=== PATIENT | female | born 1945 | race Caucasian/White ===

== ENCOUNTER 2016-08-26 19:39 | Emergency (ER) | payer OTHER ==
[~2016-08-26] VITALS: Ht 152.4 cm; Wt 77.0 kg
[2016-08-26 19:43] VITALS: TEMP 36.9; Ht 152.4 cm; Wt 77.0 kg
[2016-08-26] MEDS ORDERED: SODIUM CHLORIDE 0.9% 1000ML 1,000 ML IV STA (20:28)
[2016-08-26] MEDS ORDERED: CALCTAB7 PO (20:38)
[2016-08-26] MEDS ORDERED: SPIR25TA PO (20:38)
[2016-08-26] MEDS ORDERED: OMEG10007 PO (20:38)
[2016-08-26] MEDS ORDERED: RESV1CAP PO (20:38)
[2016-08-26] MEDS ORDERED: CARV25TA PO (20:38)
[2016-08-26] MEDS ORDERED: TURM500T PO (20:38)
[2016-08-26] MEDS ORDERED: AMLO-114 PO (20:38)
[2016-08-26] MEDS ORDERED: COEN30CA8 PO (20:38)
[2016-08-26] MEDS ORDERED: ERGO500037 PO (20:38)
[2016-08-26] MEDS ORDERED: LVMI SQ (20:38)
[2016-08-26] MEDS ORDERED: INSPMPHMLG SQ (20:38)
[2016-08-26] MEDS ORDERED: [UNRECOGNIZED DRUG - OTHER] PO (20:38)
[2016-08-26] MEDS ORDERED: MAGN400T6 PO (20:38)
[2016-08-26] MEDS ORDERED: ASPI81TA28 PO (20:38)
[2016-08-26 20:57] LABS: BASO % 0.3 %; BASO ABS # 0.04 K/uL (0-0.2); COMPLETE YES; IG% 0.2 %; LYMPH % 14.8 %; MEAN CELL VOLUME 87.4 fL (80-100); MEAN CORPUSCULAR HEMOGLOBIN 30.3 pg (25-34); MEAN CORPUSCULAR HGB CONC 34.7 g/dl (32-36); MEAN PLATELET VOLUME 10.4 fL (7.4-10.4); MONO % 6.3 %; NEUT % 76.4 %; PLATELET COUNT 285 K/uL (130-400); RED BLOOD COUNT 4.92 M/uL (4.2-5.4); WHITE BLOOD COUNT 12.16 K/uL (4.8-10.8)
--- NOTE | 2016-08-26 21:00 | DIAGNOSTIC IMAGING REPORT ---
SINGLE VIEW CHEST CLINICAL HISTORY: Weakness. Change in mental status. FINDINGS: An AP, portable, upright chest radiograph is obtained. No prior studies are available for comparison at the time of dictation. The examination is degraded by portable technique, large body habitus, and patient rotation. The patient is status post midline sternotomy. The heart is enlarged. The pulmonary vasculature is noncongested. The lungs and pleural spaces are clear. No pneumothorax is seen. The skeletal structures are osteopenic. The bony thorax is grossly intact. Degenerative change is noted throughout the thoracic spine. A surgical clip is seen in the right lower neck. IMPRESSION: Cardiomegaly with no acute cardiopulmonary abnormality. Electronically signed by: Will Mercado M.D. 08/26/2016 8:59 PM Dictated Date/Time: 08/26/2016 8:58 PM
[2016-08-26 21:07] LABS: PARTIAL THROMBOPLASTIN RATIO 0.9; PROTHROMBIN TIME (PATIENT) 10.8 SECONDS (9.0-12.0)
[2016-08-26 21:15] LABS: ALT/SGPT 38 U/L (12-78); BLOOD UREA NITROGEN 35 mg/dl (7-18); BUN/CREATININE RATIO 21.9 (10-20); CALCIUM 9.6 mg/dl (8.5-10.1); CARBON DIOXIDE 24 mmol/L (21-32); CHLORIDE 106 mmol/L (98-107); GLUCOSE 126 mg/dl (70-99); MAGNESIUM 1.8 mg/dl (1.8-2.4); POTASSIUM 4.1 mmol/L (3.5-5.1); SODIUM 141 mmol/L (136-145)
[2016-08-26 21:23] LABS: ALKALINE PHOSPHATASE 64 U/L (45-117); AST/SGOT 21 U/L (15-37); CKMB/CK RATIO 1.8 (0-3.0)
[2016-08-26 21:33] LABS: URINE APPEARANCE CLOUDY (CLEAR); URINE COLOR DK YELLOW; URINE EPITHELIAL CELL AUTO >30 /lpf (0-5); URINE NITRITE NEG (NEG); URINE SPECIFIC GRAVITY 1.027 (1.000-1.030); UROBILINOGEN NEG (NEG); ZZUR CULT IF INDIC CLEAN CATCH YES
[2016-08-26 21:38] LABS: MANUAL MICROSCOPIC REQUIRED? NO; REVIEW REQ? YES
[2016-08-26 21:45] LABS: URINE BILIRUBIN NEG (NEG)
[2016-08-26 22:01] LABS: URINE MUCUS PRESENT (NONE PRSENT)
--- NOTE | 2016-08-26 22:08 | EMERGENCY ROOM VISIT NOTE ---
History Report prepared by Fabiola: Sonya Kaplan Under the Supervision of: Dr. Carlos Stovall D.O. First contact with patient: 20:21 Chief Complaint: ILLNESS Stated Complaint: NEAR SYNCOPE EPISODE, NAUSEA,COLD,CLAMMY History of Present Illness The patient is a 71 year old female who presents to the Emergency Room with complaints of an episode of weakness which occurred at 1915 today. The patient reports that she was eating her dinner when she suddenly felt nauseous and close to fainting. She says she felt lightheaded and dizzy. She is currently feeling back to normal. Her son states that her skin became cold and clammy and that she was breathing "deliberately". He also mentions that she was unresponsive to questions for a brief period of time. She denies vomiting, fainting, chest pain, headache, diarrhea, cold, or cough. She has not been sick recently. Source of History: patient, family (son) Onset: 1914 Position: other (global) Quality: other (weakness) Timing: other (episodic) Associated Symptoms: + nausea, No chest pain, No cough, No diarrhea, No headache, No vomiting Note: Pt reports skin got cold and clammy, feeling dizzy, feeling lightheaded, being unresponsive to questions, and breathing deliberately. Pt denies any syncope or recent colds. Review of Systems See HPI for pertinent positives & negatives. A total of 10 systems reviewed and were otherwise negative. Past Medical & Surgical Medical Problems: (1) Carpal tunnel syndrome, bilateral (2) Diabetes (3) Heart disease (4) Hypertension (5) Kidney disease Surgical Problems: (1) H/O partial thyroidectomy (2) S/P CABG x 5 Family History Diabetes mellitus FHx: seizures Heart disease Social History Smoking Status: Never Smoker Alcohol Use: none Housing Status: lives alone Current/Historical Medications Scheduled Amlodipine (Norvasc), 10 MG PO DAILY Aspirin (Aspirin Ec), 81 MG PO DAILY Calcium Carbonate-Vitamin D W/ (Caltrate 600 Plus), 1 TAB PO BID Carvedilol (Coreg), 25 MG PO BID Coenzyme Q10 (Ubidecarenone) (Coq-10), 1 CAP PO DAILY Ergocalciferol (Vitamin D 19504 Unit), 50,000 UNIT PO WK Fish Oil ([place]-3), 2 CAP PO QAM Insulin Detemir (Levemir), 35 UNITS SQ BID Insulin Human Lispro (Humalog), 25 UNITS SQ TIDM Magnesium Oxide (Mag-Ox), 400 MG PO DAILY Resveratrol (Resveratrol), 1 CAP PO DAILY Spironolactone (Aldactone), 25 MG PO DAILY Turmeric (Curcuma Longa) (Turmeric), 1 TAB PO DAILY [Advanced Cholestrol ], 1 TAB PO DAILY Physical Exam Vital Signs Date Time Temp Pulse Resp B/P Pulse Ox O2 Delivery O2 Flow Rate FiO2 08/26/16 21:24 67 08/26/16 21:07 19 93 Room Air 08/26/16 21:03 67 120/62 63 120/64 72 128/65 08/26/16 19:43 36.9 73 20 119/58 93 Room Air Physical Exam VITAL SIGNS: were reviewed as above. GENERAL:Non-toxic in appearance. SKIN: Warm dry and pink. HEAD: Normocephalic and atraumatic. OROPHARYNX: Is clear and moist NECK: Supple without lymphadenopathy or meningismus. LUNGS: clear. HEART: Regular rate and rhythm. ABDOMEN: Soft and nontender. EXTREMITIES: Warm and well perfused. NEUROLOGICALLY: Awake alert and oriented without focal deficit. Cranial nerves 2 -12 are intact. There is no pronator drift. Cerebellar testing is within normal limits. There is no nystagmus. There is no facial droop. Speech is clear. Vision is grossly normal. MUSCULOSKELETAL: Good muscle tone. No evidence of trauma. Medical Decision & Procedures ER Provider Diagnostic Interpretation: X ray results and stated below per my interpretation and radiology interpretation. SINGLE VIEW CHEST CLINICAL HISTORY: Weakness. Change in mental status. FINDINGS: An AP, portable, upright chest radiograph is obtained. No prior studies are available for comparison at the time of dictation. The examination is degraded by portable technique, large body habitus, and patient rotation. The patient is status post midline sternotomy. The heart is enlarged. The pulmonary vasculature is noncongested. The lungs and pleural spaces are clear. No pneumothorax is seen. The skeletal structures are osteopenic. The bony thorax is grossly intact. Degenerative change is noted throughout the thoracic spine. A surgical clip is seen in the right lower neck. IMPRESSION: Cardiomegaly with no acute cardiopulmonary abnormality. Electronically signed by: Will Mercado M.D. 08/26/2016 8:59 PM Dictated Date/Time: 08/26/2016 8:58 PM Laboratory Results 08/26/16 20:45 Red Blood Count 4.92, Mean Corpuscular Volume 87.4, Mean Corpuscular Hemoglobin 30.3, Mean Corpuscular Hemoglobin Concent 34.7, Mean Platelet Volume 10.4, Neutrophils (%) (Auto) 76.4, Lymphocytes (%) (Auto) 14.8, Monocytes (%) (Auto) 6.3, Eosinophils (%) (Auto) 2.0, Basophils (%) (Auto) 0.3, Neutrophils # (Auto) 9.29, Lymphocytes # (Auto) 1.80, Monocytes # (Auto) 0.76, Eosinophils # (Auto) 0.24, Basophils # (Auto) 0.04 08/26/16 20:45 Test 08/26/16 20:45 08/26/16 21:00 White Blood Count 12.16 K/uL (4.8-10.8) Red Blood Count 4.92 M/uL (4.2-5.4) Hemoglobin 14.9 g/dL (12.0-16.0) Hematocrit 43.0 % (37-47) Mean Corpuscular Volume 87.4 fL (80-100) Mean Corpuscular Hemoglobin 30.3 pg (25-34) Mean Corpuscular Hemoglobin Concent 34.7 g/dl (32-36) Platelet Count 285 K/uL (130-400) Mean Platelet Volume 10.4 fL (7.4-10.4) Neutrophils (%) (Auto) 76.4 % Lymphocytes (%) (Auto) 14.8 % Monocytes (%) (Auto) 6.3 % Eosinophils (%) (Auto) 2.0 % Basophils (%) (Auto) 0.3 % Neutrophils # (Auto) 9.29 K/uL (1.4-6.5) Lymphocytes # (Auto) 1.80 K/uL (1.2-3.4) Monocytes # (Auto) 0.76 K/uL (0.11-0.59) Eosinophils # (Auto) 0.24 K/uL (0-0.5) Basophils # (Auto) 0.04 K/uL (0-0.2) RDW Standard Deviation 44.0 fL (36.4-46.3) RDW Coefficient of Variation 13.8 % (11.5-14.5) Immature Granulocyte % (Auto) 0.2 % Immature Granulocyte # (Auto) 0.03 K/uL (0.00-0.02) Prothrombin Time 10.8 SECONDS (9.0-12.0) Prothromb Time International Ratio 1.0 (0.9-1.1) Activated Partial Thromboplast Time 24.0 SECONDS (21.0-31.0) Partial Thromboplastin Ratio 0.9 Anion Gap 11.0 mmol/L (3-11) Est Creatinine Clear Calc Drug Dose 29.6 ml/min Estimated GFR () 37.2 Estimated GFR (Non- 32.1 BUN/Creatinine Ratio 21.9 (10-20) Calcium Level 9.6 mg/dl (8.5-10.1) Magnesium Level 1.8 mg/dl (1.8-2.4) Total Bilirubin 0.4 mg/dl (0.2-1) Direct Bilirubin < 0.1 mg/dl (0-0.2) Aspartate Amino Transf (AST/SGOT) 21 U/L (15-37) Alanine Aminotransferase (ALT/SGPT) 38 U/L (12-78) Alkaline Phosphatase 64 U/L (45-117) Total Creatine Kinase 87 U/L (26-192) Creatine Kinase MB 1.6 ng/ml (0.5-3.6) Creatine Kinase MB Ratio 1.8 (0-3.0) Troponin I < 0.015 ng/ml (0-0.045) Total Protein 7.7 gm/dl (6.4-8.2) Albumin 3.7 gm/dl (3.4-5.0) Lipase 498 U/L (73-393) Thyroid Stimulating Hormone (TSH) 5.500 uIu/ml (0.300-4.500) Urine Color DK YELLOW Urine Appearance CLOUDY (CLEAR) Urine pH 5.0 (4.5-7.5) Urine Specific Christine 1.027 (1.000-1.030) Urine Protein 1+ (NEG) Urine Glucose (UA) NEG (NEG) Urine Ketones 1+ (NEG) Urine Occult Blood NEG (NEG) Urine Nitrite NEG (NEG) Urine Bilirubin NEG (NEG) Urine Urobilinogen NEG (NEG) Urine Leukocyte Esterase MODERATE (NEG) Urine WBC (Auto) >30 /hpf (0-5) Urine RBC (Auto) 0-4 /hpf (0-4) Urine Hyaline Casts (Auto) 5-10 /lpf (0-5) Urine Epithelial Cells (Auto) >30 /lpf (0-5) Urine Bacteria (Auto) NEG (NEG) Urine Mucus PRESENT (NONE PRSENT) Urine Yeast (Auto) (NONE PRSENT) Laboratory results as stated above per my review. Medications Administered Medications (Trade) Dose Ordered Sig/Kelvin Route Start Time Stop Time Status Last Admin Dose Admin Sodium Chloride (Nss 1000ml) 1,000 ml @ 200 mls/hr Q5H STAT IV 08/26/16 20:28 08/27/16 01:27 08/26/16 21:03 200 MLS/HR ECG Indication: weakness Rate (beats per minute): 64 Rhythm: normal sinus Findings: no ectopy, other (no acute injury) ED Course 2022: Previous medical records were reviewed. The patient was evaluated in room C10. A complete history and physical examination was performed. 2027: NSS 1000 ml @ 200 mls/hr IV. 2211: I reevaluated the patient. She is resting comfortably. I discussed the results and treatment plan with the patient. She expressed complete understanding and agreement. The patient will be discharged home. Medical Decision Differential includes acute coronary syndrome, myocardial infarction, CVA, TIA, anemia, infection, pneumonia, UTI, pyelonephritis, poor nutrition, dehydration, electrolyte disturbance,hypoglycemia. This is a 71-year-old female who presents to the ED with a chief complaint of a near syncopal episode. The patient states that she is eating around 7 PM. She developed some nausea and then felt lightheaded and became diaphoretic and slightly cool and clammy according to the son. The patient's symptoms were brief and lasted less than 5 or 10 minutes. She denied having palpitations, chest pains, shortness of breath, abdominal pains, headaches or any focal neurologic deficits. She denied any other symptoms. She was brought to the emergency department for evaluation. The son states that she briefly did not respond as well as normal. She did not lose complete consciousness. The patient currently denies any complaints. Her vital signs are normal. Her physical exam and neurological exam was normal. Chest x-ray did not show acute disease. CBC was unremarkable. The BUN is 35 and creatinine is 1.6. Urine reveals 1+ ketones without evidence of obvious infection. Troponin is negative. EKG shows a normal sinus rhythm. The patient was told results the test. She was hydrated with IV fluids. She is felt to be stable for discharge and outpatient follow-up. Impression Primary Impression: Near syncope Additional Impression: Nausea Scribe Attestation The scribe's documentation has been prepared under my direction and personally reviewed by me in its entirety. I confirm that the note above accurately reflects all work, treatment, procedures, and medical decision making performed by me. Departure Information Dispostion Home / Self-Care Referrals No Doctor, Assigned (PCP) Forms HOME CARE DOCUMENTATION FORM, IMPORTANT VISIT INFORMATION, WORK / SCHOOL INSTRUCTIONS Patient Instructions ED Near Syncope [place], My [facility] Additional Instructions Follow-up with your doctor for further care and evaluation in 1-2 days. Return to the emergency department for worsening or new symptoms or any concerns. You have been examined and treated today on an emergency basis only. This is not a substitute for, or an effort to provide, complete comprehensive medical care. It is impossible to recognize and treat all injuries or illnesses in a single emergency department visit. It is therefore important that you follow up closely with your doctor. Call as soon as possible for an appointment. Problem Qualifiers
[2016-08-26 22:18] VITALS: BP 123/74; PULSE 61; O2SAT 96
== END 2016-08-26 22:19 | disposition home or self-care (01) ==
LOC: C.EDB 19:44 → C.EDC 22:19
DX: R55 Syncope and collapse (principal); R11.0 Nausea; R42 Dizziness and giddiness; I10 Essential (primary) hypertension; E11.9 Type 2 diabetes mellitus without complications; E89.0 Postprocedural hypothyroidism; Z95.1 Presence of aortocoronary bypass graft; Z83.3 Family history of diabetes mellitus; Z82.0 Family history of epilepsy and other diseases of the nervous system; Z79.4 Long term (current) use of insulin; Z79.82 Long term (current) use of aspirin; Z79.899 Other long term (current) drug therapy

== ENCOUNTER 2024-01-30 02:09 | Inpatient (IN) ==
[2024-01-30] MEDS: FUROSEMIDE 40 MG/4 ML VIAL IV ONE (02:36)
[2024-01-30 02:40] LABS: Basophils # (auto) 0.07 K/uL (0.00-0.20); Basophils % (auto) 0.4 %; Eosinophils # (auto) 0.39 K/uL (0.00-0.50); Eosinophils % (auto) 2.1 %; Hematocrit (blood only) 42.5 % (37.0-47.0); Hemoglobin 13.5 g/dl (12.0-16.0); Immature Granulocytes # (auto) 0.07 K/uL (0.01-0.20); Immature Granulocytes % (auto) 0.4 %; Lymphocytes # (auto) 2.65 K/uL (1.20-3.40); Lymphocytes % (auto) 14.4 %; Mean Corpuscular Hemoglobin 29.3 pg (25.0-34.0); Mean Corpuscular Hgb Conc 31.8 g/dL (32.0-36.0); Mean Corpuscular Volume 92.2 fL (80.0-100.0); Mean Platelet Volume 10.9 fL (9.4-12.4); Monocytes # (auto) 1.15 K/uL (0.11-0.59); Monocytes % (auto) 6.3 %; Neutrophils # (auto) 14.07 K/uL (1.40-6.50); Neutrophils % (auto) 76.4 %; Platelet Count 304 K/uL (130-400); RDW Coefficient of Variation 15.4 % (11.5-14.5); RDW Standard Deviation 51.6 fL (36.4-46.3); Red Blood Count 4.61 M/uL (4.20-5.40)
[2024-01-30 02:53] LABS: Albumin Globulin Ratio 1.3 (0.9-2); BUN Creatinine Ratio 20.1 (10-20); Bilirubin,Total 0.8 mg/dl (0.2-1.0); Calcium 9.1 mg/dl (8.6-10.3); Creatinine Clr Calc Pharmacy 33.7 ml/min; Est GFR (African American) 43.9 ml/min; Est GFR (Non-African American) 37.9 ml/min; Potassium 4.2 mmol/L (3.5-5.1)
[2024-01-30 03:01] LABS: D Dimer 500 ug/L FEU (0-500)
[2024-01-30] MEDS: ASPIRIN CHEW 324 MG PO STA (03:03)
--- NOTE | 2024-01-30 03:03 | Emergency Department Note ---
Impression & Plan Pulmonary edema, Hypoxia, Acute non-ST elevation myocardial infarction (NSTEMI) admit to the [facility] ED Provider Note NAME: ZAHIDA EUCEDA AGE: 78 SEX: Female INFORMANT: Patient ED PROVIDER(S): Michelle Rivera DO CHIEF COMPLAINT: Chest pain and shortness of breath PLAN: Disposition: admit to the [facility] MEDICAL DECISION MAKING: this is a 78-year-old female patient who presents from [place] who awoke with sudden onset of chest pain and shortness of breath. Patient has a history of 5 vessel bypass surgery in 2009 when she lived in [place]. she was extremely short of breath and hypoxic to an O2 saturation of 73% on upon EMS arrival. They treated her with supplemental oxygen by nonrebreather mask, DuoNeb treatment, and IV Solu-Medrol. Patient's O2 saturation rebounded but she remained significantly tachypneic and short of breath. Chest x-ray shows evidence of pulmonary edema. EKG is concerning for ischemia as the patient is [address] segment elevation in leads III and aVR with significant ST segment depression in leads [id number]-V6. Patient was placed on BiPAP which she tolerated well. This significantly improved her shortness of breath. O2 saturations remained stable. Laboratory studies revealed significant leukocytosis with a white count of 18.4. H&H were stable. Troponin was 400. D-dimer was negative. Glucose was 128. BUN was 27 and creatinine was 1.34 patient was given oral aspirin a dose of IV Lasix here in the ER. I discussed the case with the field crop harvest worker on-call as well as the [facility] Care/management discussed with: Dr. Rodríguez from cardiology. . The business case analyst, [facility]. Triage Nursing notes: reviewed and agree With them. Vital Signs: reviewed and unremarkable Additional History obtained from: EMS Differential Diagnosis: STEMI, NSTEMI, CHF, PE Diagnostics, independently interpreted by me: ECG: sinus tachycardia at a rate of [address] segment elevation in leads , III and aVR with moderate ST segment depression in lead I, aVL, V3, V4, V5 and V6. This EKG has a poor baseline. There is no obvious ectopy. repeat ECG: normal sinus rhythm at a rate of [address] segment elevation in lead III and aVR. Patient has considerate amount of ST segment depression in leads I, aVL, V5 and V6. There is no obvious ectopy. Repeat ECG: Normal sinus rhythm at a rate of 89 with improvement in the ST segment elevation previously seen in lead III. there is also improvement in the ST segment depression in leads I, aVL, V3, V4, V5, V6 Cardiac Monitoring: Normal sinus rhythm at a rate of 92 Imaging studies: portable chest x-ray-as per my independent interpretation: Cardiomegaly with significant pulmonary edema HPI: 78 year old Female arrives for evaluation of chest pain shortness of breath. patient awoke from sleep feeling of pressure on her chest and significant shortness of breath. The patient states she felt like as if she had to sit up In order to breathe. PAST MEDICAL HISTORY: See Below, PAST SURGICAL HISTORY: See Below, SOCIAL HISTORY: See Below, HOME MEDICATIONS: See list ALLERGIES: none VITALS: See Below PHYSICAL EXAMINATION: HEENT: Head - normocephalic and atraumatic. Pupils are equal, round, and reactive to light. Extraocular eye muscles are intact, and sclera are anicteric. Nose - moist nasal mucosa without discharge. Mouth - moist buccal mucosa. Oropharynx is nonerythematous and there is no tonsillar exudate or edema noted. Neck: Supple; no JVD, nuchal rigidity, cervical lymphadenopathy, or auscultated bruits. Heart: Diffuse Rales in all lung wayne with wheezes upon expiration. Lungs: Clear to auscultation bilaterally with no wheezes, rales, or rhonchi. Abdomen: Soft, completely nontender, nondistended, with good bowel sounds. There are no palpable pulsatile masses or hepatosplenomegaly. There is no guarding, rigidity, or rebound noted. Extremities: No evidence of cyanosis, clubbing, or edema. There are easily palpable peripheral pulses. Skin: warm and dry with good turgor and no rashes. Emergency department course: The patient was evaluated in room A-11. A complete history and physical was performed. I discussed the case with EMS. An order was placed for continuous cardiac monitoring. The patient was in a normal sinus rhythm at a rate of 92. A twelve-lead EKG was obtained as described above. a portable chest x-ray was performed. The patient was placed on BiPAP. Patient was given oral aspirin and IVLasix. patient's chest pain resolved while on BiPAP. A repeat ECG was obtained. I discussed the case with the [facility] Hospitalist and they will evaluate for further inpatient care. I have personally spent greater than 50 minutes of critical care time in the direct management of this patient. This includes bedside care, interpretation of diagnostic studies, and testing, discussion with consultants, patient, and family members, and other required patient management activities. This 50 minutes is in excess of all separately billable procedures. Past Med/Surg History Problem List (Updated 01/30/24 @ 05:33 by Michelle Rivera DO) Acute non-ST elevation myocardial infarction (NSTEMI) (Acute) Hypoxia (Acute) Pulmonary edema (Acute) Pulmonary edema NSTEMI (non-ST elevated myocardial infarction) Finger fracture, left Fall Sacroiliac joint pain H/O deep venous thrombosis Left shoulder pain Elevated WBC count Low back pain Hypertension (Chronic) Carpal tunnel syndrome, bilateral (Chronic) S/P CABG x 5 (Chronic ~2009) Gait disturbance (Chronic) Cerebral microvascular disease (Chronic) CAD (coronary artery disease) (Chronic) Dyslipidemia (Chronic) Diabetes mellitus type 2, uncontrolled, with complications (Chronic ~1988) Uncontrolled type 2 diabetes mellitus with hyperglycemia, with long-term current use of insulin (Chronic) Current use of anticoagulant therapy Obesity, Class I, BMI 30-34.9 (Chronic) Hearing decreased S/P coronary artery stent placement Excessive cerumen in both ear canals GERD (gastroesophageal reflux disease) Sensorineural hearing loss (SNHL) of both ears Bilateral tinnitus CKD stage 3 due to type 2 diabetes mellitus (Chronic) Mild cognitive impairment Medical History Deep vein thrombosis (DVT) of left lower extremity (~05/2020) Cough Acute right-sided low back pain Trapezius muscle spasm Stroke COVID-19 virus infection (~05/14/20) Physical deconditioning Diabetes Surgical History History of heart bypass surgery History of carpal tunnel release of both wrists H/O partial thyroidectomy Family History Son Colorectal cancer Myocardial infarction Family/Other Colorectal cancer Aunt Colorectal cancer Father Myocardial infarction Uncle Myocardial infarction Brother Myocardial infarction Dyslipidemia Mother Heart disease Dementia Denies family history of Ovarian cancer Prostate cancer Breast cancer Social History Smoking Status: Former smoker Tobacco Type: Cigarettes Second Hand Exposure: No; Do You Dip or Chew Tobacco: No; Hx Alcohol Use: No Hx Substance Use: No Preferred Language: Salvadorean Visual Impairment: Limited Hearing Ability: Use of Hearing Aid Change Management Administrator Required: No Beliefs That Will Affect Care: None marital status: / Current Living Situation: Personal Care Facility current occupational status: retired Feels Safe at Home: Yes Childhood Exposure to Second-Hand Smoke: Yes Diet: regular caffeine: Yes (1-2 cups a day) Dental Care, Regularly: Yes Physical Activity Frequency: Does not Exercise Seatbelt Use: always Sunscreen Use: No Do you think of yourself as: straight/heterosexual Gender Identity: Female Assistive Devices: Cane, Glasses, Hearing Aid - Bilateral and Walker Allergies Allergies Allergy/AdvReac Type Severity Reaction Status Date / Time No Known Allergies Allergy Verified 01/30/24 02:33 Home Meds Home Medications Medication Instructions Recorded Confirmed blood sugar diagnostic (Accu-Chek 06/02/21 01/20/24 Jolene Plus test strips) flash glucose scanning reader 06/02/21 01/20/24 (FreeStyle Marcelo 2 Caliente) flash glucose sensor (FreeStyle 06/02/21 01/20/24 Marcelo 2 Sensor kit) lancets (Accu-Chek Softclix 06/02/21 01/20/24 Lancets) acetaminophen 500 mg capsule 1,000 mg PO DAILY PRN Pain 08/06/23 01/30/24 pen needle, diabetic 32 gauge x 12/02/23 01/20/24 5/32" (BD Ultra-Fine Brenda Pen Needle) carvedilol 3.125 mg tablet (Coreg) 3.125 mg PO BIDM 01/30/24 01/30/24 diclofenac sodium 1 % topical gel 2 g topical QID 01/30/24 01/30/24 famotidine 20 mg tablet 20 mg PO QAM 01/30/24 01/30/24 omega-3 fatty acids 1,000 mg 1,000 mg PO DAILY 01/30/24 01/30/24 capsule tramadol 50 mg tablet 50 mg PO DAILY PRN severe pain 01/30/24 01/30/24 (scale score 7-10) vitamins A,C,K-tztk-exomvv 2,148 1 tab PO BID 01/30/24 01/30/24 mcg-113 mg-45 mg-17.4 mg tablet (PreserVision AREDS) Previous Rx's Medication Instructions Recorded aspirin 81 mg tablet,delayed 81 mg PO DAILY #90 tabs 06/11/20 release magnesium oxide 400 mg PO DAILY #30 caps 06/11/20 amlodipine 10 mg tablet (Norvasc) 10 mg PO DAILY #90 tabs 01/26/23 losartan 25 mg tablet 25 mg PO DAILY #30 tabs 04/27/23 isosorbide mononitrate 30 mg 30 mg PO BID #180 tabs 05/19/23 tablet,extended release 24 hr apixaban 5 mg tablet 5 mg PO BID #60 tabs 09/06/23 atorvastatin 40 mg tablet 40 mg PO QPM #90 tabs 10/15/23 blood-glucose meter,continuous #1 ea 01/17/24 (FreeStyle Marcelo 3 Caliente) blood-glucose sensor (FreeStyle #2 ea 01/17/24 Marcelo 3 Sensor device) insulin aspar prot-insulin aspart See Rx Instructions subcut BID #90 01/24/24 100 unit/mL (70-30) subcutaneous mL pen (Novolog Mix 70-30FlexPen U-100) Results & Data (ED) Vital Signs Vital Signs - 24 hr 01/30/24 02:03 01/30/24 02:03 01/30/24 02:03 Temperature 36.9 C Temperature Source Axillary Pulse Rate 102 H Pulse Rate from SpO2 Sensor Respiratory Rate 35 H Respiratory Effort / Characteristics Non-Labored Respiratory Depth Normal Respiratory Pattern Blood Pressure 149/95 H Blood Pressure Mean 113 Pulse Oximetry 96 Oxygen Delivery Method Non-rebreather Non-rebreather Non-rebreather Oxygen Flow Rate 15 15 Fraction of Inspired Oxygen Sepsis Recent Fever Within 48 Hours No Sepsis New/Unexplained Change in Mental Status No Sepsis Action Taken by Nursing Physician Notified 01/30/24 02:19 01/30/24 02:19 01/30/24 02:19 Temperature Temperature Source Pulse Rate Pulse Rate from SpO2 Sensor Respiratory Rate Respiratory Effort / Characteristics Respiratory Depth Respiratory Pattern Blood Pressure 149/95 H 149/95 H 149/95 H Blood Pressure Mean 118 118 118 Pulse Oximetry Oxygen Delivery Method Oxygen Flow Rate Fraction of Inspired Oxygen Sepsis Recent Fever Within 48 Hours Sepsis New/Unexplained Change in Mental Status Sepsis Action Taken by Nursing 01/30/24 02:19 01/30/24 02:20 01/30/24 02:25 Temperature Temperature Source Pulse Rate 110 H 105 H Pulse Rate from SpO2 Sensor 110 H Respiratory Rate 39 H Respiratory Effort / Characteristics Respiratory Depth Respiratory Pattern Blood Pressure 149/95 H Blood Pressure Mean 118 Pulse Oximetry 94 Oxygen Delivery Method Oxygen Flow Rate Fraction of Inspired Oxygen Sepsis Recent Fever Within 48 Hours Sepsis New/Unexplained Change in Mental Status Sepsis Action Taken by Nursing 01/30/24 02:28 01/30/24 02:35 01/30/24 02:44 Temperature Temperature Source Pulse Rate 97 H 95 H 94 H Pulse Rate from SpO2 Sensor 93 H Respiratory Rate 33 H 41 H 24 Respiratory Effort / Characteristics Labored Respiratory Depth Deep Respiratory Pattern Regular Blood Pressure Blood Pressure Mean Pulse Oximetry 97 95 Oxygen Delivery Method Oxygen Flow Rate Fraction of Inspired Oxygen 50 Sepsis Recent Fever Within 48 Hours Sepsis New/Unexplained Change in Mental Status Sepsis Action Taken by Nursing 01/30/24 02:47 01/30/24 02:48 01/30/24 02:48 Temperature Temperature Source Pulse Rate 92 H Pulse Rate from SpO2 Sensor 91 H Respiratory Rate 21 Respiratory Effort / Characteristics Respiratory Depth Respiratory Pattern Blood Pressure 129/75 129/75 Blood Pressure Mean 99 99 Pulse Oximetry 96 Oxygen Delivery Method Oxygen Flow Rate Fraction of Inspired Oxygen Sepsis Recent Fever Within 48 Hours Sepsis New/Unexplained Change in Mental Status Sepsis Action Taken by Nursing 01/30/24 02:48 01/30/24 02:50 01/30/24 03:05 Temperature Temperature Source Pulse Rate 96 H Pulse Rate from SpO2 Sensor 95 H Respiratory Rate 14 Respiratory Effort / Characteristics Respiratory Depth Respiratory Pattern Blood Pressure 129/75 Blood Pressure Mean 99 Pulse Oximetry 89 L Oxygen Delivery Method BiPAP Room Air Oxygen Flow Rate Fraction of Inspired Oxygen Sepsis Recent Fever Within 48 Hours Sepsis New/Unexplained Change in Mental Status Sepsis Action Taken by Nursing 01/30/24 03:15 01/30/24 03:18 01/30/24 03:30 Temperature Temperature Source Pulse Rate 93 H 88 Pulse Rate from SpO2 Sensor 94 H 89 Respiratory Rate 21 20 Respiratory Effort / Characteristics Respiratory Depth Respiratory Pattern Blood Pressure 155/82 H Blood Pressure Mean 107 Pulse Oximetry 96 96 Oxygen Delivery Method BiPAP BiPAP Oxygen Flow Rate Fraction of Inspired Oxygen Sepsis Recent Fever Within 48 Hours Sepsis New/Unexplained Change in Mental Status Sepsis Action Taken by Nursing 01/30/24 03:39 01/30/24 03:55 01/30/24 03:57 Temperature Temperature Source Pulse Rate 91 H 87 Pulse Rate from SpO2 Sensor 91 H 86 Respiratory Rate 21 25 H Respiratory Effort / Characteristics Respiratory Depth Respiratory Pattern Blood Pressure 120/58 L Blood Pressure Mean 78 Pulse Oximetry 97 93 Oxygen Delivery Method Oxygen Flow Rate Fraction of Inspired Oxygen Sepsis Recent Fever Within 48 Hours Sepsis New/Unexplained Change in Mental Status Sepsis Action Taken by Nursing 01/30/24 04:00 01/30/24 04:00 01/30/24 04:03 Temperature Temperature Source Pulse Rate 81 Pulse Rate from SpO2 Sensor 81 Respiratory Rate 23 Respiratory Effort / Characteristics Non-Labored Respiratory Depth Normal Respiratory Pattern Blood Pressure 114/63 Blood Pressure Mean 84 Pulse Oximetry 91 Oxygen Delivery Method Oxygen Flow Rate Fraction of Inspired Oxygen Sepsis Recent Fever Within 48 Hours Sepsis New/Unexplained Change in Mental Status Sepsis Action Taken by Nursing 01/30/24 04:03 01/30/24 04:05 01/30/24 04:05 Temperature Temperature Source Pulse Rate 80 Pulse Rate from SpO2 Sensor 81 Respiratory Rate 20 Respiratory Effort / Characteristics Respiratory Depth Respiratory Pattern Blood Pressure 119/63 119/63 Blood Pressure Mean 89 89 Pulse Oximetry 94 Oxygen Delivery Method Oxygen Flow Rate Fraction of Inspired Oxygen Sepsis Recent Fever Within 48 Hours Sepsis New/Unexplained Change in Mental Status Sepsis Action Taken by Nursing 01/30/24 04:09 01/30/24 04:10 01/30/24 04:10 Temperature Temperature Source Pulse Rate 85 Pulse Rate from SpO2 Sensor 85 Respiratory Rate 24 Respiratory Effort / Characteristics Respiratory Depth Respiratory Pattern Blood Pressure 141/72 H 141/72 H Blood Pressure Mean 91 91 Pulse Oximetry 93 Oxygen Delivery Method Oxygen Flow Rate Fraction of Inspired Oxygen Sepsis Recent Fever Within 48 Hours Sepsis New/Unexplained Change in Mental Status Sepsis Action Taken by Nursing 01/30/24 04:15 01/30/24 04:16 01/30/24 04:16 Temperature Temperature Source Pulse Rate 83 Pulse Rate from SpO2 Sensor 83 Respiratory Rate 22 Respiratory Effort / Characteristics Respiratory Depth Respiratory Pattern Blood Pressure 120/102 H 120/102 H Blood Pressure Mean 110 110 Pulse Oximetry 95 Oxygen Delivery Method Oxygen Flow Rate Fraction of Inspired Oxygen Sepsis Recent Fever Within 48 Hours Sepsis New/Unexplained Change in Mental Status Sepsis Action Taken by Nursing 01/30/24 04:16 01/30/24 04:16 01/30/24 04:16 Temperature Temperature Source Pulse Rate Pulse Rate from SpO2 Sensor Respiratory Rate Respiratory Effort / Characteristics Respiratory Depth Respiratory Pattern Blood Pressure 120/102 H 120/102 H 120/102 H Blood Pressure Mean 110 110 110 Pulse Oximetry Oxygen Delivery Method Oxygen Flow Rate Fraction of Inspired Oxygen Sepsis Recent Fever Within 48 Hours Sepsis New/Unexplained Change in Mental Status Sepsis Action Taken by Nursing 01/30/24 04:21 Temperature Temperature Source Pulse Rate 83 Pulse Rate from SpO2 Sensor 82 Respiratory Rate 25 H Respiratory Effort / Characteristics Respiratory Depth Respiratory Pattern Blood Pressure Blood Pressure Mean Pulse Oximetry 95 Oxygen Delivery Method Oxygen Flow Rate Fraction of Inspired Oxygen Sepsis Recent Fever Within 48 Hours Sepsis New/Unexplained Change in Mental Status Sepsis Action Taken by Nursing Laboratory Data 01/30/24 02:16 01/30/24 02:16 Lab Results 01/30/24 01/30/24 01/30/24 Range/Units 02:16 02:22 04:30 WBC 18.40 H (4.8-10.8) K/ul RBC 4.61 (4.20-5.40) M/uL Hgb 13.5 (12.0-16.0) g/dl Hct 42.5 (37.0-47.0) % MCV 92.2 (80.0-100.0) fL MCH 29.3 (25.0-34.0) pg MCHC 31.8 L (32.0-36.0) g/dL RDW Std Deviation 51.6 H (36.4-46.3) fL RDW Coeff of Magali 15.4 H (11.5-14.5) % Plt Count 304 (130-400) K/uL MPV 10.9 (9.4-12.4) fL Immature Gran % (Auto) 0.4 % Neut % (Auto) 76.4 % Lymph % (Auto) 14.4 % Gulf % (Auto) 6.3 % Eos % (Auto) 2.1 % Baso % (Auto) 0.4 % Neut # (Auto) 14.07 H (1.40-6.50) K/uL Lymph # (Auto) 2.65 (1.20-3.40) K/uL Gulf # (Auto) 1.15 H (0.11-0.59) K/uL Eos # (Auto) 0.39 (0.00-0.50) K/uL Baso # (Auto) 0.07 (0.00-0.20) K/uL Immature Gran # (Auto) 0.07 (0.01-0.20) K/uL D-Dimer 500 (0-500) ug/L FEU Sodium 140 (136-145) mmol/L Potassium 4.2 (3.5-5.1) mmol/L Chloride 106 (98-107) mmol/L Carbon Dioxide 25 (21-32) mmol/L Anion Gap 9 (3-11) BUN 27 H (6-23) mg/dl Creatinine 1.34 H (0.6-1.2) mg/dl Est Cr Clr Drug Dosing 33.7 ml/min Est GFR ( Amer) 43.9 ml/min Est GFR (Non-Af Amer) 37.9 ml/min BUN/Creatinine Ratio 20.1 H (10-20) Glucose 128 H (70-99(Fasting)) mg/dl Calcium 9.1 (8.6-10.3) mg/dl Magnesium 1.7 (1.7-2.4) mg/dl Total Bilirubin 0.8 (0.2-1.0) mg/dl AST 20 (13-39) U/L ALT 19 (7-52) U/L Alkaline Phosphatase 85 (34-104) U/L Troponin I High Sens 400.8 H* (0-14) pg/ml B-Natriuretic Peptide 540 H (0-100) pg/ml Total Protein 7.0 (6.0-8.3) gm/dl Albumin 4.0 (3.4-5.0) gm/dl Globulin 3.0 (2.5-4.0) gm/dl Albumin/Globulin Ratio 1.3 (0.9-2) Lipase 23 (11-82) U/L Adenovirus (PCR) Not Detected (NotDetected) B. pertussis DNA (PCR) Not Detected (NotDetected) B.parapertussis DNA PCR Not Detected (NotDetected) C. pneumoniae DNA (PCR) Not Detected (NotDetected) Coronavirus OC43 (PCR) Not Detected (NotDetected) Coronavirus HKU1 (PCR) Not Detected (NotDetected) Coronavirus 229E (PCR) Not Detected (NotDetected) SARS-CoV-2 (PCR) Not Detected (NotDetected) Coronavirus NL63 (PCR) Not Detected (NotDetected) Human Metapneumovir PCR Not Detected (NotDetected) Influenza Type A (PCR) Not Detected (NotDetected) Influenza Type B (PCR) Not Detected (NotDetected) M. pneumoniae (PCR) Not Detected (NotDetected) Parainfluenza 1 (PCR) Not Detected (NotDetected) Parainfluenza 2 (PCR) Not Detected (NotDetected) Parainfluenza 3 (PCR) Not Detected (NotDetected) Parainfluenza 4 (PCR) Not Detected (NotDetected) RSV (PCR) Not Detected (NotDetected) Entero/Rhino (PCR) Not Detected (NotDetected) Administered Medications Nitroglycerin (Nitroglycerin Sl 0.4 Mg/Tab Tab) 0.4 mg SL NOW STA Stop: 01/30/24 03:43 Last Admin: 01/30/24 03:47 Dose: Not Given Documented By: STEPHIE Discontinued Medications Aspirin (Aspirin Chew 324 Mg) 324 mg PO NOW STA Stop: 01/30/24 02:41 Last Admin: 01/30/24 03:03 Dose: 324 mg Documented By: STEPHIE Furosemide (Furosemide 40 Mg/4 Ml Vial) 40 mg IV ONE ONE Stop: 01/30/24 02:26 Last Admin: 01/30/24 02:36 Dose: 40 mg Documented By: STEPHIE Nitroglycerin (Nitroglycerin Sl 0.4 Mg/Tab Tab) Confirm Administered Dose 0.4 mg .ROUTE .STK-MED ONE Stop: 01/30/24 03:45 Last Admin: 01/30/24 03:45 Dose: 0.4 mg Documented By: STEPHIE Nitroglycerin (Nitroglycerin 2% Ointment 30gm Tube) Confirm Administered Dose 18 inch EXT .STK-MED ONE Stop: 01/30/24 03:48 Last Admin: 01/30/24 03:51 Dose: Not Given Documented By: STEPHIE Ondansetron HCl (Ondansetron Inj 2 Mg/Ml 2 Ml Vial) Confirm Administered Dose 4 mg .ROUTE .STK-MED ONE Stop: 01/30/24 03:51 Last Admin: 01/30/24 03:51 Dose: 4 mg Documented By: STEPHIE Discharge Plan Visit Data Chief Complaint: Shortness of Breath/Dyspnea Stated Complaint: SOB, Wheezing ED Provider: Michelle Rivera Discharge Problem: Pulmonary edema, Hypoxia, Acute non-ST elevation myocardial infarction (NSTEMI) Prescriptions Prescriptions: No Action magnesium oxide 400 mg magnesium capsule 400 mg PO DAILY Qty: 30 0RF aspirin 81 mg tablet,delayed release (DR/EC) 81 mg PO DAILY Qty: 90 3RF amlodipine [Norvasc] 10 mg tablet 10 mg PO DAILY Qty: 90 3RF losartan 25 mg tablet 25 mg PO DAILY Qty: 30 0RF isosorbide mononitrate 30 mg tablet extended release 24 hr 30 mg PO BID Qty: 180 3RF apixaban 5 mg tablet 5 mg PO BID Qty: 60 5RF atorvastatin 40 mg tablet 40 mg PO QPM Qty: 90 3RF (DME) FreeStyle Marcelo 3 Caliente Misc See Rx Instructions .Route Qty: 1 0RF Rx Instructions: for use with Marcelo 3 sensors (DME) FreeStyle Marcelo 3 Sensor Device See Rx Instructions .Route Qty: 2 11RF Rx Instructions: change every 14 days insulin asp prt-insulin aspart [Novolog Mix 70-30FlexPen U-100] 100 unit/mL (70-30) insulin pen See Rx Instructions subcut BID Qty: 90 4RF Rx Instructions: 68 U in AM, 32 U in haylie subcutaneously (DME) pen needle, diabetic [BD Ultra-Fine Brenda Pen Needle] 32 gauge x 5/32" needle See Rx Instructions .Route Rx Instructions: Inject insulin two times daily (DME) lancets [Accu-Chek Softclix Lancets] Misc See Rx Instructions .ROUTE .MEDSUPPLY Rx Instructions: Test blood sugar once daily PRN (DME) Accu-Chek Jolene Plus test strp Strip See Rx Instructions .ROUTE .MEDSUPPLY Rx Instructions: Test blood sugar once daily PRN (DME) FreeStyle Marcelo 2 Caliente Misc See Rx Instructions .Route Rx Instructions: As directed (DME) FreeStyle Marcelo 2 Sensor Kit See Rx Instructions .Route Rx Instructions: As directed acetaminophen 500 mg capsule 1,000 mg PO DAILY PRN (Reason: Pain) omega-3 fatty acids 1,000 mg Capsule 1,000 mg PO DAILY diclofenac sodium [Voltaren] 1 % Gel 2 g TOPICAL QID Rx Instructions: APPLY TO ELBOW, WRIST OR HANDS PreserVision AREDS 2,148 mcg-113 mg-45 mg-17.4mg Tablet 1 tab PO BID tramadol 50 mg tablet 50 mg PO DAILY PRN (Reason: severe pain (scale score 7-10)) carvedilol [Coreg] 3.125 mg tablet 3.125 mg PO BIDM Rx Instructions: must administer with a meal/food famotidine 20 mg tablet 20 mg PO QAM Rx Instructions: TAKE ONE TABLET BY MOUTH EVERY DAY
[2024-01-30 03:07] LABS: Troponin I High Sensitivity 400.8 pg/ml (0-14)
[2024-01-30 03:31] LABS: Adenovirus PCR Not Detected (NotDetected); Bordetella parapertussis PCR Not Detected (NotDetected); Bordetella pertussis PCR Not Detected (NotDetected); Chlamydia pneumoniae PCR Not Detected (NotDetected); Coronavirus 229E PCR Not Detected (NotDetected); Coronavirus CoV-2 (COVID19)PCR Not Detected (NotDetected); Coronavirus HKU1 PCR Not Detected (NotDetected); Coronavirus NL63 PCR Not Detected (NotDetected); Coronavirus OC43PCR Not Detected (NotDetected); Human Metapneumovirus PCR Not Detected (NotDetected); Influenza A PCR Not Detected (NotDetected); Influenza B PCR Not Detected (NotDetected); Mycoplasma pneumoniae PCR Not Detected (NotDetected); Parainfluenza Virus 1 PCR Not Detected (NotDetected); Parainfluenza Virus 2 PCR Not Detected (NotDetected); Parainfluenza Virus 3 PCR Not Detected (NotDetected); Parainfluenza Virus 4 PCR Not Detected (NotDetected); Respiratory Syncytial VirusPCR Not Detected (NotDetected); Rhinovirus/Enterovirus PCR Not Detected (NotDetected)
[2024-01-30] MEDS: NITROGLYCERIN SL 0.4 MG/TAB TAB ONE (03:45)
[2024-01-30] MEDS: NITROGLYCERIN SL 0.4 MG/TAB TAB SL STA (03:47)
[2024-01-30] MEDS ORDERED: ONDANSETRON INJ 2 MG/ML 2 ML VIAL IV PRN (03:48)
[2024-01-30] MEDS: NITROGLYCERIN 2% OINTMENT 30GM TUBE EXT ONE (03:51)
[2024-01-30] MEDS: ONDANSETRON INJ 2 MG/ML 2 ML VIAL ONE (03:51)
[2024-01-30] MEDS ORDERED: NITROGLYCERIN 2% OINTMENT 30GM TUBE EXT SCH (04:30)
--- NOTE | 2024-01-30 04:36 | History & Physical Report ---
Date of Service January 30, 2024 Assessment & Plan (1) NSTEMI (non-ST elevated myocardial infarction): (2) Pulmonary edema: (3) H/O deep venous thrombosis: (4) Hypertension: (5) S/P CABG x 5: (6) CAD (coronary artery disease): (7) Dyslipidemia: (8) Uncontrolled type 2 diabetes mellitus with hyperglycemia, with long-term current use of insulin: (9) History of pulmonary embolism: (10) S/P coronary artery stent placement: (11) Mild cognitive impairment: (12) CKD stage 3 due to type 2 diabetes mellitus: Plan NSTEMI/pulmonary edema/CAD/hypertension/CAD/CABG x 5/history of coronary artery stent- The patient will be admitted to telemetry for serial cardiac enzymes, serial EKG's, cardiac rhythm monitoring and a 2-D echocardiogram with Dopplers. Initial troponin 400.8, BNP added on and pending Oxygen saturation in the field reported to be in mid 70s to low 90s Placed on BiPAP upon arrival to the ED, with O2 sat 95% Chest x-ray pulmonary edema/CHF, and received furosemide 40 mg IV times 1 from the ED Initial EKG with normal sinus rhythm showing ST elevation to 2 mm in lead III, ST depressions in V3 through V6. Follow-up EKG shows resolution of inferior EKG changes, and persistence of lateral V3 through V6 ST depressions Patient did have an episode of right sided parasternal chest discomfort while in the ED, rated as a 4/10, accompanied by nausea without vomiting which did resolve with nitroglycerin sublingual 0.4 mg. X 1 Hold apixaban, will likely be started on heparin drip early in the morning, to be determined by cardiology Continue losartan 25 mg daily, for an 81 mg daily having received 324 mg. Continue carvedilol 3.125 mg p.o. twice daily Reduce amlodipine from 10 to 5 mg daily, to allow further increases in carvedilol as needed Continue isosorbide mononitrate 30 mg p.o. twice daily Furosemide 20 mg IV twice daily, monitoring preload closely Case has been discussed by Dr. Rivera with interventional cardiology Dr. Rodríguez, who asked that that the patient be medically stabilized, and then will likely undergo cardiac catheterization in the morning Diabetes mellitus- Hold 70-30 Glucose 128 on admission Placed on Accu-Cheks with NovoLog SSI Check hemoglobin A1c Hyperlipidemia- Continue atorvastatin Check a fasting lipid panel GERD/nausea- Hold famotidine Pantoprazole 40 mg IV daily Zofran 4 mg IV every 6 hours as needed History of DVT/PE- On apixaban, which will be held in anticipation of cardiac catheterization History of Present Illness Chief Complaint: The patient is referred to the emergency department from [facility] due to acute onset of chest pain and shortness of breath that woke her from sleep earlier this evening Primary Care Provider: Maribel Sanabria MD The patient is a 78-year-old female with a past medical history including DVT, pulmonary embolism in 2019, hypertension, status post CABG x 5 in 2009 cerebral microvascular disease, CAD, dyslipidemia, diabetes mellitus type 2 with long- term use of insulin, anticoagulation with Eliquis, s/p coronary stent placement, GERD, CKD stage III, and mild cognitive impairment. She presents to the emergency department as a referral from [facility] due to being awoken with chest pain and shortness of breath earlier this evening. Allergies Allergy/AdvReac Type Severity Reaction Status Date / Time No Known Allergies Allergy Verified 01/30/24 02:33 Home Medications Medication Instructions Recorded Confirmed Type aspirin 81 mg tablet,delayed 81 mg PO DAILY #90 tabs 06/11/20 01/30/24 Rx release magnesium oxide 400 mg PO DAILY #30 caps 06/11/20 01/30/24 Rx blood sugar diagnostic (Accu-Chek 06/02/21 01/20/24 History Jolene Plus test strips) flash glucose scanning reader 06/02/21 01/20/24 History (FreeStyle Marcelo 2 [place]) flash glucose sensor (FreeStyle 06/02/21 01/20/24 History Marcelo 2 Sensor kit) lancets (Accu-Chek Softclix 06/02/21 01/20/24 History Lancets) amlodipine 10 mg tablet (Norvasc) 10 mg PO DAILY #90 tabs 01/26/23 01/30/24 Rx losartan 25 mg tablet 25 mg PO DAILY #30 tabs 04/27/23 01/30/24 Rx isosorbide mononitrate 30 mg 30 mg PO BID #180 tabs 05/19/23 01/30/24 Rx tablet,extended release 24 hr acetaminophen 500 mg capsule 1,000 mg PO DAILY PRN Pain 08/06/23 01/30/24 History apixaban 5 mg tablet 5 mg PO BID #60 tabs 09/06/23 01/30/24 Rx atorvastatin 40 mg tablet 40 mg PO QPM #90 tabs 10/15/23 01/30/24 Rx pen needle, diabetic 32 gauge x 12/02/23 01/20/24 History 5/32" (BD Ultra-Fine Brenda Pen Needle) blood-glucose meter,continuous #1 ea 01/17/24 01/20/24 Rx (FreeStyle Marcelo 3 [place]) blood-glucose sensor (FreeStyle #2 ea 01/17/24 01/20/24 Rx Marcelo 3 Sensor device) insulin aspar prot-insulin aspart See Rx Instructions subcut BID #90 01/24/24 01/30/24 Rx 100 unit/mL (70-30) subcutaneous mL pen (Novolog Mix 70-30FlexPen U-100) carvedilol 3.125 mg tablet (Coreg) 3.125 mg PO BIDM 01/30/24 01/30/24 History diclofenac sodium 1 % topical gel 2 g topical QID 01/30/24 01/30/24 History famotidine 20 mg tablet 20 mg PO QAM 01/30/24 01/30/24 History omega-3 fatty acids 1,000 mg 1,000 mg PO DAILY 01/30/24 01/30/24 History capsule tramadol 50 mg tablet 50 mg PO DAILY PRN severe pain 01/30/24 01/30/24 History (scale score 7-10) vitamins A,C,Z-vxbf-jabepa 2,148 1 tab PO BID 01/30/24 01/30/24 History mcg-113 mg-45 mg-17.4 mg tablet (PreserVision AREDS) Past Med/Surg History Problem List (Updated 01/30/24 @ 04:50 by Huey Myrick MD) Pulmonary edema NSTEMI (non-ST elevated myocardial infarction) Finger fracture, left Fall Sacroiliac joint pain H/O deep venous thrombosis Left shoulder pain Elevated WBC count Low back pain Hypertension (Chronic) Carpal tunnel syndrome, bilateral (Chronic) S/P CABG x 5 (Chronic ~2009) Gait disturbance (Chronic) Cerebral microvascular disease (Chronic) CAD (coronary artery disease) (Chronic) Dyslipidemia (Chronic) Diabetes mellitus type 2, uncontrolled, with complications (Chronic ~1988) Uncontrolled type 2 diabetes mellitus with hyperglycemia, with long-term current use of insulin (Chronic) Current use of anticoagulant therapy Obesity, Class I, BMI 30-34.9 (Chronic) Hearing decreased S/P coronary artery stent placement Excessive cerumen in both ear canals GERD (gastroesophageal reflux disease) Sensorineural hearing loss (SNHL) of both ears Bilateral tinnitus CKD stage 3 due to type 2 diabetes mellitus (Chronic) Mild cognitive impairment Medical History Deep vein thrombosis (DVT) of left lower extremity (~05/2020) Cough Acute right-sided low back pain Trapezius muscle spasm Stroke COVID-19 virus infection (~05/14/20) Physical deconditioning Diabetes Surgical History History of heart bypass surgery History of carpal tunnel release of both wrists H/O partial thyroidectomy Family History Son Colorectal cancer Myocardial infarction Family/Other Colorectal cancer Aunt Colorectal cancer Father Myocardial infarction Uncle Myocardial infarction Brother Myocardial infarction Dyslipidemia Mother Heart disease Dementia Denies family history of Ovarian cancer Prostate cancer Breast cancer Social History Smoking Status: Former smoker Tobacco Type: Cigarettes Second Hand Exposure: No; Do You Dip or Chew Tobacco: No; Hx Alcohol Use: No Hx Substance Use: No Preferred Language: British Visual Impairment: Limited Hearing Ability: Use of Hearing Aid Rock Room Worker Required: No Beliefs That Will Affect Care: None marital status: / Current Living Situation: Personal Care Facility current occupational status: retired Feels Safe at Home: Yes Childhood Exposure to Second-Hand Smoke: Yes Diet: regular caffeine: Yes (1-2 cups a day) Dental Care, Regularly: Yes Physical Activity Frequency: Does not Exercise Seatbelt Use: always Sunscreen Use: No Do you think of yourself as: straight/heterosexual Gender Identity: Female Assistive Devices: Cane, Glasses, Hearing Aid - Bilateral and Walker Review of Systems Review of Systems: The patient denies palpitations, cough, lower extremity swelling, sore throat, fevers, chills, sweats, vomiting, diarrhea , constipation, abdominal pain, pelvic pain, blood in urine or stool, dysuria, urinary frequency or urgency, lightheadedness, dizziness, headache, loss of consciousness, rash, abnormal bruising or bleeding, imbalance, focal or generalized weakness, numbness or tingling in arms or legs, generalized arthralgias or myalgias, back or neck pain, or night sweats. The review of systems is otherwise negative other than for that already noted above, and at least 10 systems have been reviewed. Physical Exam Physical Exam: The patient is awake, alert, mild memory impairment, well developed and well nourished, normocephalic and atraumatic, lying in bed and in no acute distress. HEENT--PERRL, EOMI, mucous membranes and oropharynx normal Neck--supple. No JVD. No bruits. Thyroid normal, trachea midline, no adenopathy. Heart--normal S1 and S2. No murmurs, rubs or gallops. Lungs--crackles at the bases bilaterally. No respiratory distress, no accessory muscle use. Abdomen--normal bowel sounds and soft. Nontender. Nondistended, no hernias or masses, no organomegaly. Extremities--1+ bilateral pretibial pitting edema. Dermatologic--skin is mildly dry. Few scattered ecchymoses Neurologic--cranial nerves II through XII grossly intact. Rheumatologic--normal range of motion. Psychiatric--normal affect. Mild memory impairment Results & Data Results & Data Vital Signs (Past 12 Hours) Vital Signs Temp Pulse Resp BP Pulse Ox O2 Del Method O2 Flow Rate 01/30/24 04:21 83 25 H 95 01/30/24 04:16 120/102 H 01/30/24 04:16 120/102 H 01/30/24 04:16 120/102 H 01/30/24 04:16 120/102 H 01/30/24 04:16 120/102 H 01/30/24 04:15 83 22 95 01/30/24 04:10 141/72 H 01/30/24 04:10 141/72 H 01/30/24 04:09 85 24 93 01/30/24 04:05 119/63 01/30/24 04:05 119/63 01/30/24 04:03 80 20 94 01/30/24 04:00 114/63 01/30/24 04:00 81 23 91 01/30/24 03:57 87 25 H 93 01/30/24 03:55 120/58 L 01/30/24 03:39 91 H 21 97 01/30/24 03:30 155/82 H 01/30/24 03:18 88 20 96 BiPAP 01/30/24 03:15 93 H 21 96 BiPAP 01/30/24 03:05 96 H 14 89 L Room Air 01/30/24 02:50 BiPAP 01/30/24 02:48 129/75 01/30/24 02:48 129/75 01/30/24 02:48 129/75 01/30/24 02:47 92 H 21 96 01/30/24 02:44 94 H 24 01/30/24 02:35 95 H 41 H 95 01/30/24 02:28 97 H 33 H 97 01/30/24 02:25 105 H 01/30/24 02:20 110 H 39 H 94 01/30/24 02:19 149/95 H 01/30/24 02:19 149/95 H 01/30/24 02:19 149/95 H 01/30/24 02:19 149/95 H 01/30/24 02:03 Non-rebreather 01/30/24 02:03 Non-rebreather 15 01/30/24 02:03 36.9 C 102 H 35 H 149/95 H 96 Non-rebreather 15 FiO2 01/30/24 04:21 01/30/24 04:16 01/30/24 04:16 01/30/24 04:16 01/30/24 04:16 01/30/24 04:16 01/30/24 04:15 01/30/24 04:10 01/30/24 04:10 01/30/24 04:09 01/30/24 04:05 01/30/24 04:05 01/30/24 04:03 01/30/24 04:00 01/30/24 04:00 01/30/24 03:57 01/30/24 03:55 01/30/24 03:39 01/30/24 03:30 01/30/24 03:18 01/30/24 03:15 01/30/24 03:05 01/30/24 02:50 01/30/24 02:48 01/30/24 02:48 01/30/24 02:48 01/30/24 02:47 01/30/24 02:44 01/30/24 02:35 01/30/24 02:28 50 01/30/24 02:25 01/30/24 02:20 01/30/24 02:19 01/30/24 02:19 01/30/24 02:19 01/30/24 02:19 01/30/24 02:03 01/30/24 02:03 01/30/24 02:03 Laboratory Results Laboratory Results WBC 18.40 K/ul (4.8-10.8) H 01/30/24 02:16 RBC 4.61 M/uL (4.20-5.40) 01/30/24 02:16 Hgb 13.5 g/dl (12.0-16.0) 01/30/24 02:16 Hct 42.5 % (37.0-47.0) 01/30/24 02:16 MCV 92.2 fL (80.0-100.0) 01/30/24 02:16 MCH 29.3 pg (25.0-34.0) 01/30/24 02:16 MCHC 31.8 g/dL (32.0-36.0) L 01/30/24 02:16 RDW Std Deviation 51.6 fL (36.4-46.3) H 01/30/24 02:16 RDW Coeff of Magali 15.4 % (11.5-14.5) H 01/30/24 02:16 Plt Count 304 K/uL (130-400) 01/30/24 02:16 MPV 10.9 fL (9.4-12.4) 01/30/24 02:16 Immature Gran % (Auto) 0.4 % 01/30/24 02:16 Neut % (Auto) 76.4 % 01/30/24 02:16 Lymph % (Auto) 14.4 % 01/30/24 02:16 [place] % (Auto) 6.3 % 01/30/24 02:16 Eos % (Auto) 2.1 % 01/30/24 02:16 Baso % (Auto) 0.4 % 01/30/24 02:16 Neut # (Auto) 14.07 K/uL (1.40-6.50) H 01/30/24 02:16 Lymph # (Auto) 2.65 K/uL (1.20-3.40) 01/30/24 02:16 [place] # (Auto) 1.15 K/uL (0.11-0.59) H 01/30/24 02:16 Eos # (Auto) 0.39 K/uL (0.00-0.50) 01/30/24 02:16 Baso # (Auto) 0.07 K/uL (0.00-0.20) 01/30/24 02:16 Immature Gran # (Auto) 0.07 K/uL (0.01-0.20) 01/30/24 02:16 D-Dimer 500 ug/L FEU (0-500) 01/30/24 02:16 Sodium 140 mmol/L (136-145) 01/30/24 02:16 Potassium 4.2 mmol/L (3.5-5.1) 01/30/24 02:16 Chloride 106 mmol/L (98-107) 01/30/24 02:16 Carbon Dioxide 25 mmol/L (21-32) 01/30/24 02:16 Anion Gap 9 (3-11) 01/30/24 02:16 BUN 27 mg/dl (6-23) H 01/30/24 02:16 Creatinine 1.34 mg/dl (0.6-1.2) H 01/30/24 02:16 Est Cr Clr Drug Dosing 33.7 ml/min 01/30/24 02:16 Est GFR ( Amer) 43.9 ml/min 01/30/24 02:16 Est GFR (Non-Af Amer) 37.9 ml/min 01/30/24 02:16 BUN/Creatinine Ratio 20.1 (10-20) H 01/30/24 02:16 Glucose 128 mg/dl (70-99(Fasting)) H 01/30/24 02:16 Calcium 9.1 mg/dl (8.6-10.3) 01/30/24 02:16 Total Bilirubin 0.8 mg/dl (0.2-1.0) 01/30/24 02:16 AST 20 U/L (13-39) 01/30/24 02:16 ALT 19 U/L (7-52) 01/30/24 02:16 Alkaline Phosphatase 85 U/L (34-104) 01/30/24 02:16 Troponin I High Sens 400.8 pg/ml (0-14) H* 01/30/24 02:16 Total Protein 7.0 gm/dl (6.0-8.3) 01/30/24 02:16 Albumin 4.0 gm/dl (3.4-5.0) 01/30/24 02:16 Globulin 3.0 gm/dl (2.5-4.0) 01/30/24 02:16 Albumin/Globulin Ratio 1.3 (0.9-2) 01/30/24 02:16 Lipase 23 U/L (11-82) 01/30/24 02:16 Adenovirus (PCR) Not Detected (NotDetected) 01/30/24 02:22 B. pertussis DNA (PCR) Not Detected (NotDetected) 01/30/24 02:22 B.parapertussis DNA PCR Not Detected (NotDetected) 01/30/24 02:22 C. pneumoniae DNA (PCR) Not Detected (NotDetected) 01/30/24 02:22 Coronavirus OC43 (PCR) Not Detected (NotDetected) 01/30/24 02:22 Coronavirus HKU1 (PCR) Not Detected (NotDetected) 01/30/24 02:22 Coronavirus 229E (PCR) Not Detected (NotDetected) 01/30/24 02:22 SARS-CoV-2 (PCR) Not Detected (NotDetected) 01/30/24 02:22 Coronavirus NL63 (PCR) Not Detected (NotDetected) 01/30/24 02:22 Human Metapneumovir PCR Not Detected (NotDetected) 01/30/24 02:22 Influenza Type A (PCR) Not Detected (NotDetected) 01/30/24 02:22 Influenza Type B (PCR) Not Detected (NotDetected) 01/30/24 02:22 M. pneumoniae (PCR) Not Detected (NotDetected) 01/30/24 02:22 Parainfluenza 1 (PCR) Not Detected (NotDetected) 08/11/24 02:22 Parainfluenza 2 (PCR) Not Detected (NotDetected) 01/30/24 02:22 Parainfluenza 3 (PCR) Not Detected (NotDetected) 01/30/24 02:22 Parainfluenza 4 (PCR) Not Detected (NotDetected) 01/30/24 02:22 RSV (PCR) Not Detected (NotDetected) 01/30/24 02:22 Entero/Rhino (PCR) Not Detected (NotDetected) 01/30/24 02:22 Code Status & VTE Plan Code Status Conditional code VTE Prophylaxis Plan VTE Prophylaxis will be ordered: Yes PG Care Time/CCT Total # of Minutes Spent Total Time Spent with Patient: Total time spent is greater than 50% in coordination of care (as documented) at patient's floor/unit and/or counseling patient: Coding Level of Care Code 57900 INT INP/OBS CARE 3/75MIN Diagnoses NSTEMI (non-ST elevated myocardial infarction) I21.4 Pulmonary edema J81.1 H/O deep venous thrombosis Z86.718 Primary hypertension I10 Hypertension type: primary hypertension S/P CABG x 5 Z95.1 Coronary artery disease involving [place] coronary artery of [place] heart without angina pectoris I25.10 Associated angina: without angina Coronary Disease-Associated Artery/Lesion type: [place] artery [place] vs. transplanted heart: [place] heart Dyslipidemia E78.5 Uncontrolled type 2 diabetes mellitus with hyperglycemia, with long-term current use of insulin E11.65; Z79.4 History of pulmonary embolism Z86.711 S/P coronary artery stent placement Z95.5 Mild cognitive impairment G31.84 CKD stage 3 due to type 2 diabetes mellitus E11.22; N18.30 (4) Hypertension Hypertension type: primary hypertension Qualified Code(s): I10 - Essential (primary) hypertension (6) CAD (coronary artery disease) Associated angina: without angina Coronary Disease-Associated Artery/Lesion type: [place] artery [place] vs. transplanted heart: [place] heart Qualified Code(s): I25.10 - Atherosclerotic heart disease of [place] coronary artery without angina pectoris
[2024-01-30 05:19] LABS: Magnesium 1.7 mg/dl (1.7-2.4)
[2024-01-30 05:35] LABS: Chol HDL Ratio 2.8 (0-5); Troponin I High Sensitivity 1130.9 pg/ml (0-14)
[2024-01-30] MEDS ORDERED: GLUCOSE 10 TAB/TUBE PO PRN (05:35)
[2024-01-30] MEDS ORDERED: CARBOHYDRATES FOR HYPOGLYCEMIA PO PRN (05:35)
[2024-01-30] MEDS ORDERED: GLUCOSE 40% GEL 15 GM TUBE PO PRN (05:35)
[2024-01-30] MEDS ORDERED: DEXTROSE 50% 50 ML SYRINGE IV PRN (05:35)
[2024-01-30] MEDS ORDERED: GLUCAGON FOR INJ 1 MG VIAL SQ PRN (05:35)
[2024-01-30] MEDS: INSULIN ASPART PER UNIT CHARGE SC SCH ×2 (06:47→17:07)
[2024-01-30 07:18] LABS: Estimated Average Glucose 249 mg/dl; Hemoglobin A1C 10.3 % (4.5-5.6)
--- NOTE | 2024-01-30 07:26 | XRay Report ---
XR chest 1V portable CLINICAL HISTORY: Chest pain, nonspecific COMPARISON STUDY: Chest radiograph May 24, 2023. FINDINGS: There is no pneumothorax. There are suspected small bilateral pleural effusions. Status pos t median sternotomy. There is moderate cardiomegaly. Moderate interstitial thickening is noted. Right basilar airspace opacities are also present. IMPRESSION: 1. Cardiomegaly with moderate interstitial pulmonary edema and suspected small bilateral pleural effu sions. 2. Right lower lung airspace opacity. This is likely related to pulmonary edema however superimposed pneumonia could appear similar. ACT 112: Negative or not required by law. Electronically signed by: Silvestre Lizarraga M.D. 01/30/2024 7:24 AM
[2024-01-30] MEDS: carvediloL 3.125 MG TAB PO SCH (07:55)
--- NOTE | 2024-01-30 08:23 | Electrocardiogram Report ---
Test Reason : Blood Pressure : */* mmHG Vent. Rate : 93 BPM Atrial Rate : 93 BPM P-R Int : 146 ms QRS Dur : 92 ms QT Int : 374 ms P-R-T Axes : 56 24 108 degrees QTcB Int : 465 ms Normal sinus rhythm Old Septal infarct (cited on or before 26-Aug-2016) Possible Inferior injury pattern ( ST elevation in lead III ) with reciprocal anterolateral ST depres archana Abnormal ECG When compared with ECG of 08-May-2022 17:26, ST elevation in now present in lead III ST now depressed in Anterolateral leads Confirmed by Devendra Christianson ([id number]) on 01/30/2024 8:23:22 AM Referred By: Confirmed By: Devendra Christianson
[2024-01-30] MEDS: amLODIPine BESYLATE 5 MG TAB PO SCH (08:45)
[2024-01-30] MEDS: FUROSEMIDE INJ 20 MG/2 ML VIAL IV SCH (08:45)
[2024-01-30] MEDS: ASPIRIN 81 MG ECTAB PO SCH (08:45)
[2024-01-30] MEDS: MAGNESIUM OXIDE 400 MG TAB PO SCH (08:45)
[2024-01-30] MEDS: ISOSORBIDE MONO EXTENDED REL 30 MG TABCR PO SCH (08:45)
[2024-01-30] MEDS: LOSARTAN POTASSIUM 25 MG TAB PO SCH (08:45)
[2024-01-30 09:05] LABS: Hematocrit (blood only) 40.8 % (37.0-47.0); Hemoglobin 13.2 g/dl (12.0-16.0); Mean Corpuscular Hemoglobin 29.7 pg (25.0-34.0); Mean Corpuscular Hgb Conc 32.4 g/dL (32.0-36.0); Mean Corpuscular Volume 91.7 fL (80.0-100.0); Mean Platelet Volume 11.1 fL (9.4-12.4); Platelet Count 268 K/uL (130-400); RDW Coefficient of Variation 15.4 % (11.5-14.5); RDW Standard Deviation 50.5 fL (36.4-46.3); Red Blood Count 4.45 M/uL (4.20-5.40)
[2024-01-30 09:21] LABS: Albumin Globulin Ratio 1.4 (0.9-2); BUN Creatinine Ratio 18.9 (10-20); Bilirubin,Total 0.7 mg/dl (0.2-1.0); Calcium 9.2 mg/dl (8.6-10.3); Creatinine Clr Calc Pharmacy 28.3 ml/min; Est GFR (African American) 35.7 ml/min; Est GFR (Non-African American) 30.8 ml/min; Globulin 2.9 gm/dl (2.5-4.0); Potassium 4.6 mmol/L (3.5-5.1); Total Protein 6.9 gm/dl (6.0-8.3)
[2024-01-30 09:24] LABS: Basophils # (auto) 0.02 K/uL (0.00-0.20); Basophils % (auto) 0.1 %; Immature Granulocytes # (auto) 0.08 K/uL (0.01-0.20); Immature Granulocytes % (auto) 0.5 %; Lymphocytes # (auto) 0.62 K/uL (1.20-3.40); Lymphocytes % (auto) 3.8 %; Monocytes % (auto) 1.2 %; Neutrophils # (auto) 15.38 K/uL (1.40-6.50); Neutrophils % (auto) 94.4 %
[2024-01-30] MEDS ORDERED: Heparin IV Adult Wt-Based Standard *NO* INITIAL Bolus Protocol IV STA (10:08)
[2024-01-30] MEDS: FUROSEMIDE 40 MG/4 ML VIAL IV SCH (10:08)
[2024-01-30 10:31] LABS: Hematocrit (blood only) 39.5 % (37.0-47.0); Hemoglobin 12.8 g/dl (12.0-16.0); Mean Corpuscular Hemoglobin 29.6 pg (25.0-34.0); Mean Corpuscular Hgb Conc 32.4 g/dL (32.0-36.0); Mean Corpuscular Volume 91.2 fL (80.0-100.0); Mean Platelet Volume 11.1 fL (9.4-12.4); Platelet Count 240 K/uL (130-400); RDW Coefficient of Variation 15.3 % (11.5-14.5); RDW Standard Deviation 50.1 fL (36.4-46.3); Red Blood Count 4.33 M/uL (4.20-5.40); White Blood Count 14.03 K/ul (4.8-10.8)
--- NOTE | 2024-01-30 10:45 | Hospitalist Progress Note ---
Date of Service January 30, 2024 Assessment & Plan (1) Acute non-ST elevation myocardial infarction (NSTEMI): (2) Pulmonary edema: (3) Finger fracture, left: (4) H/O deep venous thrombosis: (5) S/P CABG x 5: (6) CAD (coronary artery disease): (7) Dyslipidemia: (8) Diabetes mellitus type 2, uncontrolled, with complications: (9) Current use of anticoagulant therapy: (10) CKD stage 3 due to type 2 diabetes mellitus: (11) Mild cognitive impairment: (12) History of pulmonary embolism: Plan #NSTEMI/CAD/s/p bypass x5 Continues with episodic chest pain heparin started nitro PRN chest pain Increase lasix to 40mg IV BID continue ASA81, losartan, carvedilol, Imdur, reduce amlodipine to 5mg likely cardiac catheterization once adequate diuresis achieved #Pulmonary Edema O2 sats 93% on 4L NC Diuresis as above #H/O DVT/PE On lifelong apixaban, held #T2DM A1c 10.3 on admission ISS #CKD-III Cr 1.58 Baseline 1.2-1.35 FENGI: NPO Code status: Conditional, no intubation DVT prophylaxis: Heparin Isolation: none Disposition: PCU Admission and Anticipated Discharge Date Admission Date: January 30, 2024 Supervising Physician Co-Signing Physician Notes Attending Physician Supervision Note: I independently interviewed and examined the patient and verified the trivedi history and physical, reviewed labs and image studies and agree with findings and care plan noted above. NSTEMI/CAD - Chest pain waxing/waning - Heparin drip added. continue ASA, statin, coreg, losartan, imdur. Cardiology consulted for [facility]. -No further chest pain since adding heparin drip this am. -Continue to trend Trop. -Check echo -prn SL Nitro. Acute HFpEF - last echo in chart 2019. Diuresis 40mgs IV lasix. Monitor renal fx. Amlodipine dose decreased to 5mgs. Check echo. CKD 3-4 - baseline cr 1.1 to 1.3. Monitor creat h/oPE/DVT- eliquis on hold Subjective Patient seen and evaluated at bedside this morning. No acute events overnight. Continues to have episodic chest pain at rest that is anginal in nature. Overall, she is feeling better since admission. No acute complaints this am. Review of Systems Review of Systems: reviewed, per HPI Physical Exam Physical Exam: Constitutional: age appropriate, no acute distress HEENT: NCAT, no conjunctival injection CV: regular rhythm, +murmur, extremities well-perfused, +LE edema Resp: CTABL, no wheezes/rales/rhonchi appreciated, no increased work of breathing MSK: no gross deformities appreciated Skin: warm, dry, no rash appreciated Neuro: alert, oriented, no focal neurologic deficit appreciated Results & Data Results & Data Vital Signs (Past 12 Hours) Vital Signs Temp Pulse Pulse Resp BP BP Pulse Ox 01/30/24 07:59 36.4 C L 86 112/71 93 01/30/24 07:51 86 01/30/24 05:45 83 01/30/24 05:45 81 92 01/30/24 05:37 81 18 95 01/30/24 05:35 01/30/24 05:35 01/30/24 05:30 01/30/24 05:30 36.5 C 82 20 119/70 94 01/30/24 05:30 36.5 C 82 20 94 01/30/24 05:15 70 19 95 01/30/24 05:00 129/69 01/30/24 05:00 75 19 94 01/30/24 04:48 81 28 H 96 01/30/24 04:33 82 22 97 01/30/24 04:31 128/74 01/30/24 04:31 128/74 01/30/24 04:21 83 25 H 95 01/30/24 04:16 120/102 H 01/30/24 04:16 120/102 H 01/30/24 04:16 120/102 H 01/30/24 04:16 120/102 H 01/30/24 04:16 120/102 H 01/30/24 04:15 83 22 95 01/30/24 04:10 141/72 H 01/30/24 04:10 141/72 H 01/30/24 04:09 85 24 93 01/30/24 04:05 119/63 01/30/24 04:05 119/63 01/30/24 04:03 80 20 94 01/30/24 04:00 114/63 01/30/24 04:00 81 23 91 01/30/24 03:57 87 25 H 93 01/30/24 03:55 120/58 L 01/30/24 03:39 91 H 21 97 01/30/24 03:30 155/82 H 01/30/24 03:18 88 20 96 01/30/24 03:15 93 H 21 96 01/30/24 03:05 96 H 14 89 L 01/30/24 02:50 01/30/24 02:48 129/75 01/30/24 02:48 129/75 01/30/24 02:48 129/75 01/30/24 02:47 92 H 21 96 01/30/24 02:44 94 H 24 01/30/24 02:35 95 H 41 H 95 01/30/24 02:28 97 H 33 H 97 01/30/24 02:25 105 H 01/30/24 02:20 110 H 39 H 94 01/30/24 02:19 149/95 H 01/30/24 02:19 149/95 H 01/30/24 02:19 149/95 H 01/30/24 02:19 149/95 H 01/30/24 02:03 01/30/24 02:03 01/30/24 02:03 36.9 C 102 H 35 H 149/95 H 96 Pulse Ox O2 Del Method O2 Del Method O2 Flow Rate O2 Flow Rate FiO2 01/30/24 07:59 Nasal Cannula 4 01/30/24 07:51 01/30/24 05:45 01/30/24 05:45 4 01/30/24 05:37 50 01/30/24 05:35 94 Nasal Cannula 4 01/30/24 05:35 BiPAP 01/30/24 05:30 Nasal Cannula 4 01/30/24 05:30 Nasal Cannula 4 01/30/24 05:30 Nasal Cannula 4 01/30/24 05:15 01/30/24 05:00 01/30/24 05:00 01/30/24 04:48 01/30/24 04:33 01/30/24 04:31 01/30/24 04:31 01/30/24 04:21 01/30/24 04:16 01/30/24 04:16 01/30/24 04:16 01/30/24 04:16 01/30/24 04:16 01/30/24 04:15 01/30/24 04:10 01/30/24 04:10 01/30/24 04:09 01/30/24 04:05 01/30/24 04:05 01/30/24 04:03 01/30/24 04:00 01/30/24 04:00 01/30/24 03:57 01/30/24 03:55 01/30/24 03:39 01/30/24 03:30 01/30/24 03:18 BiPAP 01/30/24 03:15 BiPAP 01/30/24 03:05 Room Air 01/30/24 02:50 BiPAP 01/30/24 02:48 01/30/24 02:48 01/30/24 02:48 01/30/24 02:47 01/30/24 02:44 01/30/24 02:35 01/30/24 02:28 50 01/30/24 02:25 01/30/24 02:20 01/30/24 02:19 01/30/24 02:19 01/30/24 02:19 01/30/24 02:19 01/30/24 02:03 Non-rebreather 01/30/24 02:03 Non-rebreather 15 01/30/24 02:03 Non-rebreather 15 Resident Activity Tracking Resident Involvement: Resident Care Provided Care Provided: Adult Hospital Medicine (6) CAD (coronary artery disease) Associated angina: without angina Coronary Disease-Associated Artery/Lesion type: [place] artery [place] vs. transplanted heart: [place] heart Qualified Code(s): I25.10 - Atherosclerotic heart disease of [place] coronary artery without angina pectoris
[2024-01-30 10:47] LABS: Basophils # (auto) 0.01 K/uL (0.00-0.20); Basophils % (auto) 0.1 %; Immature Granulocytes # (auto) 0.04 K/uL (0.01-0.20); Immature Granulocytes % (auto) 0.3 %; Lymphocytes # (auto) 0.52 K/uL (1.20-3.40); Lymphocytes % (auto) 3.7 %; Monocytes # (auto) 0.12 K/uL (0.11-0.59); Monocytes % (auto) 0.9 %; Neutrophils # (auto) 13.34 K/uL (1.40-6.50)
[2024-01-30 10:57] LABS: BUN Creatinine Ratio 19.6 (10-20); Calcium 9.2 mg/dl (8.6-10.3); Creatinine Clr Calc Pharmacy 28.5 ml/min; Est GFR (African American) 35.9 ml/min; Magnesium 1.8 mg/dl (1.7-2.4)
[2024-01-30 11:02] LABS: INR 1.1 (0.9-1.1); Partial Thromboplastin Ratio 1.2; Partial Thromboplastin Time 33 Seconds (21-31); Prothrombin Time 11.9 Seconds (9.0-12.0)
[2024-01-30] MEDS: HEPARIN SODIUM/DEXTROSE 25,000 UNITS/500 ML BAG IV SCH (11:37)
[2024-01-30 11:53] LABS: Troponin I High Sensitivity 3772.6 pg/ml (0-14)
--- NOTE | 2024-01-30 13:22 | Cardiology Consultation ---
Date of Consultation January 30, 2024 Assessment & Plan (1) Acute non-ST elevation myocardial infarction (NSTEMI): (2) Pulmonary edema: (3) S/P CABG x 5: (4) CKD stage 3 due to type 2 diabetes mellitus: (5) Current use of anticoagulant therapy: Plan 78-year-old woman status post remote CABG and subsequent SVGOM 2 stenting admitted with acute onset pulmonary edema/chest pain/NSTEMI. Although she does have ST elevation inferiorly, it is only in 1-lead and her chest pain resolved with nitroglycerin, therefore no acute intervention. Her apixaban was held in anticipation of potential catheterization, she did develop recurrent chest pain this morning and was started on heparin. Hemodynamics have been reasonable with fairly normotensive BP and no sustained tachycardia. She did receive additional IV furosemide, agree with 40 mg IV dosing (perhaps even higher dosage may be necessary given her renal insufficiency if she does not respond to this dose). Vasoactive medicines currently include amlodipine 5 mg daily, carvedilol 3.125 mg twice daily, furosemide 40 mg IV twice daily, isosorbide mononitrate 30 mg twice daily, and losartan 25 mg daily. Suspect that she did have acute closure, perhaps of a vein graft, given rising troponin. Her anatomy is complex, but she may require cardiac catheterization given her recurrent chest pain suggesting additional myocardium at risk. - Continue aspirin, heparin, and current vasoactive medications. In the context of pulmonary edema would use IV hydralazine short-term and consider IV nitroglycerin drip if she were to develop persistent hypertension. Could use IV metoprolol if she develops persistent tachycardia. Should have sublingual nitroglycerin available for immediate if any further chest pain. - Check echocardiogram to reassess LV function (previously normal). - Urgent intervention if she develops recurrent chest pain with ST elevation or if she develops refractory chest pain with ST depression. Otherwise, if clinical status and renal function allow possible cardiac catheterization tomorrow to evaluate coronary anatomy. As noted, at the time of my reevaluation she was comfortable and hemodynamically stable. History of Present Illness Reason for Consultation: NSTEMI, pulmonary edema Requesting Physician: Fiorella Cook MD Attending Physician: Fiorella Cook MD History of Present Illness 78-year-old woman with CAD (5 vessel CABG 2009, subsequent PCI x 3 of SVG-OM2), prior DVT/PE (apixaban), DM (on insulin), chronic kidney disease (creatinine 1.58) and other medical problems who noted abrupt onset of dyspnea then chest discomfort and was found to have pulmonary edema on exam/chest x-ray and significant ECG changes with elevated troponin. She is followed by Dr. Cherry. At recent baseline, she had limited activity at [employer] but was able to walk without dyspnea and noted no orthopnea, PND, leg edema, or weight gain. Overnight, she abruptly became severely dyspneic, she was brought to the ER where chest x-ray showed moderate pulmonary edema and small bilateral pleural effusions, ECG showed isolated ST elevation in lead III, old septal infarct, ST depression in the anterolateral leads. Compared with 2021 ECG, ST elevation was new and ST depression was more pronounced. Troponin increased from 400 to 1130, 3772, and 5629 overnight. In the ER she received sublingual nitroglycerin and IV Lasix with resolution of chest pain and dyspnea. Case was discussed with Dr. Rodríguez, medical stabilization recommended. Patient was comfortable at the time of my evaluation this morning, but subsequently developed chest pain for about 4 minutes, at the time of reevaluation she was symptom-free and her ECG had improved. At the time of my initial evaluation and reevaluation she was symptom-free and watching television. Past medical history: 2018 cath: Distal LM 20%. Proximal LAD 100%. Prox circumflex 20%. Mid circumflex 50-60%. Dominant RCA. Prox RCA 80%. Distal RCA 80-85%. Competitive flow within PDA. Distal PDA 90%. WILLIAMSON to LAD patent, but distal LAD very small. SVG to OM ostial 70% followed by 50-60% proximal graft disease. Mid SVG 95% hazy with JEREL 2 flow. SVG to RCA diffuse 20%. EF 60%. SVG to OM to underwent PCI with 4 x 15 mm FILEMON within mid SVG and proximal SVG with 4 x 32 mm FILEMON. Ostial SVG PCI with 4 x 8 mm FILEMON in overlapping fashion. 2019 echo: Normal systolic function with no wall motion abnormalities and no significant valvular disease. Type I diastolic dysfunction. Allergies Allergy/AdvReac Type Severity Reaction Status Date / Time No Known Allergies Allergy Verified 01/30/24 02:33 Home Medications Medication Instructions Recorded Confirmed Type aspirin 81 mg tablet,delayed 81 mg PO DAILY #90 tabs 06/11/20 01/30/24 Rx release magnesium oxide 400 mg PO DAILY #30 caps 06/11/20 01/30/24 Rx blood sugar diagnostic (Accu-Chek 06/02/21 01/20/24 History Jolene Plus test strips) flash glucose scanning reader 06/02/21 01/20/24 History (FreeStyle Marcelo 2 [place]) flash glucose sensor (FreeStyle 06/02/21 01/20/24 History Marcelo 2 Sensor kit) lancets (Accu-Chek Softclix 06/02/21 01/20/24 History Lancets) amlodipine 10 mg tablet (Norvasc) 10 mg PO DAILY #90 tabs 01/26/23 01/30/24 Rx losartan 25 mg tablet 25 mg PO DAILY #30 tabs 04/27/23 01/30/24 Rx isosorbide mononitrate 30 mg 30 mg PO BID #180 tabs 05/19/23 01/30/24 Rx tablet,extended release 24 hr acetaminophen 500 mg capsule 1,000 mg PO DAILY PRN Pain 08/06/23 01/30/24 History apixaban 5 mg tablet 5 mg PO BID #60 tabs 09/06/23 01/30/24 Rx atorvastatin 40 mg tablet 40 mg PO QPM #90 tabs 10/15/23 01/30/24 Rx pen needle, diabetic 32 gauge x 12/02/23 01/20/24 History 5/32" (BD Ultra-Fine Brenda Pen Needle) blood-glucose meter,continuous #1 ea 01/17/24 01/20/24 Rx (FreeStyle Marcelo 3 [place]) blood-glucose sensor (FreeStyle #2 ea 01/17/24 01/20/24 Rx Marcelo 3 Sensor device) insulin aspar prot-insulin aspart See Rx Instructions subcut BID #90 01/24/24 01/30/24 Rx 100 unit/mL (70-30) subcutaneous mL pen (Novolog Mix 70-30FlexPen U-100) carvedilol 3.125 mg tablet (Coreg) 3.125 mg PO BIDM 01/30/24 01/30/24 History diclofenac sodium 1 % topical gel 2 g topical QID 01/30/24 01/30/24 History famotidine 20 mg tablet 20 mg PO QAM 01/30/24 01/30/24 History omega-3 fatty acids 1,000 mg 1,000 mg PO DAILY 01/30/24 01/30/24 History capsule tramadol 50 mg tablet 50 mg PO DAILY PRN severe pain 01/30/24 01/30/24 History (scale score 7-10) vitamins A,C,G-mobf-jfwncv 2,148 1 tab PO BID 01/30/24 01/30/24 History mcg-113 mg-45 mg-17.4 mg tablet (PreserVision AREDS) Patient History Medical History (Updated 01/30/24 @ 13:10 by Devendra Christianson MD) Gastrointestinal hemorrhage Deep vein thrombosis (DVT) of left lower extremity (~05/2020) Chronic anticoagulation Cough Acute right-sided low back pain Trapezius muscle spasm Stroke COVID-19 virus infection (~05/14/20) Physical deconditioning Diabetes Surgical History (Updated 01/30/24 @ 13:10 by Devendra Christianson MD) History of heart bypass surgery History of carpal tunnel release of both wrists H/O partial thyroidectomy Family History Son Colorectal cancer Myocardial infarction Family/Other Colorectal cancer Aunt Colorectal cancer Father Myocardial infarction Uncle Myocardial infarction Brother Myocardial infarction Dyslipidemia Mother Heart disease Dementia Denies family history of Ovarian cancer Prostate cancer Breast cancer Social History Smoking Status: Never smoker Tobacco Type: Cigarettes Second Hand Exposure: No; Do You Dip or Chew Tobacco: No; Hx Alcohol Use: No Hx Substance Use: No Preferred Language: Macedonian Communication Ability: Effective Visual Impairment: Limited Hearing Ability: Use of Hearing Aid Plane Tender Required: No Beliefs That Will Affect Care: None marital status: / Current Living Situation: Personal Care Facility current occupational status: retired Feels Safe at Home: Yes Childhood Exposure to Second-Hand Smoke: Yes Diet: regular caffeine: Yes (1-2 cups a day) Dental Care, Regularly: Yes Physical Activity Frequency: Does not Exercise Seatbelt Use: always Sunscreen Use: No Do you think of yourself as: straight/heterosexual Gender Identity: Female Assistive Devices: Walker Physical Exam Physical Exam: Only white female who appeared comfortable. Afebrile. BP 101/70 mmHg. Pulse 73 bpm and regular. Respirations 19 and unlabored. Oxygen saturation 90% on 4 L nasal cannula. Skin: no ecchymoses or generalized lesions. HEENT: unremarkable. Neck: JVP one third of the way to the angle of the jaw at 90 degrees, no carotid bruits. Lungs: Bibasilar crackles one third of the way up, no wheezing or accessory muscle use. Cardiac: regular rhythm, normal S1-2, no murmur. Abdomen: benign. Extremities: no edema, pulses intact. Neurologic: normal affect and conversation, nonfocal. Results & Data Laboratory Results Troponins as per HPI. Normal electrolytes, BUN 31, creatinine 1.58. Magnesium 1.8. WBC 14.03, hemoglobin 12.8, platelet count 240,000. Hemoglobin A1c 10.3%. BNP 540 and 811 (no baseline). Diagnostic Findings Initial ECG as noted. Repeat ECG today showed sinus rhythm at 74 bpm, old septal infarct, persistent ST elevation in lead III alone, decreased ST depression in the anterolateral leads. PG Care Time/CCT Total # of Minutes Spent Total Time Spent with Patient: Total time spent is greater than 50% in coordination of care (as documented) at patient's floor/unit and/or counseling patient: Coding Level of Care Code 42228 IN/OBS CONSULT LVL 5,80M Diagnoses Acute non-ST elevation myocardial infarction (NSTEMI) I21.4 Pulmonary edema J81.1 S/P CABG x 5 Z95.1 CKD stage 3 due to type 2 diabetes mellitus E11.22; N18.30 Current use of anticoagulant therapy Z79.01
--- NOTE | 2024-01-30 13:35 | Electrocardiogram Report ---
Test Reason : Blood Pressure : */* mmHG Vent. Rate : 74 BPM Atrial Rate : 74 BPM P-R Int : 154 ms QRS Dur : 90 ms QT Int : 398 ms P-R-T Axes : 62 32 123 degrees QTcB Int : 441 ms Normal sinus rhythm Old Septal infarct (cited on or before 26-Aug-2016) Diffuse Nonspecific ST abnormality Minor ST elevation in lead III Abnormal ECG When compared with ECG of 30-Jan-2024 02:44, ST less depressed in Anterolateral leads Confirmed by Devendra Christianson ([id number]) on 01/30/2024 1:35:21 PM Referred By: REFERRED SELF Confirmed By: Devendra Christianson
[2024-01-30] MEDS: ACETAMINOPHEN 325 MG TAB PO PRN (18:42)
[2024-01-30 18:47] LABS: ANTI-Xa, UFH(UnfractionatedHep > 1.50 IU/ml (0.3-0.7)
[2024-01-30] MEDS: ATORVASTATIN 40 MG TAB PO SCH (20:32)
[2024-01-30 22:15] LABS: ANTI-Xa, UFH(UnfractionatedHep > 1.50 IU/ml (0.3-0.7)
[2024-01-30 23:34] LABS: ANTI-Xa, UFH(UnfractionatedHep > 1.50 IU/ml (0.3-0.7)
[2024-01-31 00:23] LABS: ANTI-Xa, UFH(UnfractionatedHep > 1.50 IU/ml (0.3-0.7)
[2024-01-31 01:26] LABS: ANTI-Xa, UFH(UnfractionatedHep > 1.50 IU/ml (0.3-0.7)
[2024-01-31 02:30] LABS: ANTI-Xa, UFH(UnfractionatedHep > 1.50 IU/ml (0.3-0.7)
[2024-01-31 03:55] LABS: ANTI-Xa, UFH(UnfractionatedHep > 1.50 IU/ml (0.3-0.7)
[2024-01-31 04:51] LABS: Basophils # (auto) 0.02 K/uL (0.00-0.20); Basophils % (auto) 0.1 %; Eosinophils # (auto) 0.02 K/uL (0.00-0.50); Eosinophils % (auto) 0.1 %; Hematocrit (blood only) 35.6 % (37.0-47.0); Hemoglobin 11.4 g/dl (12.0-16.0); Immature Granulocytes # (auto) 0.11 K/uL (0.01-0.20); Immature Granulocytes % (auto) 0.7 %; Lymphocytes # (auto) 0.86 K/uL (1.20-3.40); Lymphocytes % (auto) 5.6 %; Mean Corpuscular Hemoglobin 29.6 pg (25.0-34.0); Mean Corpuscular Volume 92.5 fL (80.0-100.0); Monocytes # (auto) 0.91 K/uL (0.11-0.59); Monocytes % (auto) 5.9 %; Neutrophils # (auto) 13.45 K/uL (1.40-6.50); Neutrophils % (auto) 87.6 %; Platelet Count 258 K/uL (130-400); RDW Coefficient of Variation 15.6 % (11.5-14.5); RDW Standard Deviation 52.6 fL (36.4-46.3); Red Blood Count 3.85 M/uL (4.20-5.40); White Blood Count 15.37 K/ul (4.8-10.8)
[2024-01-31 05:09] LABS: Albumin Level 3.6 gm/dl (3.4-5.0); BUN Creatinine Ratio 26.1 (10-20); Calcium 9.2 mg/dl (8.6-10.3); Creatinine Clr Calc Pharmacy 22.2 ml/min; Est GFR (African American) 26.5 ml/min; Est GFR (Non-African American) 22.9 ml/min; Magnesium 2.1 mg/dl (1.7-2.4); Potassium 4.9 mmol/L (3.5-5.1)
[2024-01-31 05:32] LABS: ANTI-Xa, UFH(UnfractionatedHep > 1.50 IU/ml (0.3-0.7)
[2024-01-31 07:33] LABS: ANTI-Xa, UFH(UnfractionatedHep 1.46 IU/ml (0.3-0.7)
[2024-01-31 07:41] LABS: Estimated Average Glucose 252 mg/dl; Hemoglobin A1C 10.4 % (4.5-5.6)
[2024-01-31 08:22] LABS: ANTI-Xa, UFH(UnfractionatedHep 1.45 IU/ml (0.3-0.7)
[2024-01-31] MEDS: LANTUS PER UNIT CHARGE SQ SCH (08:30)
[2024-01-31 09:45] LABS: ANTI-Xa, UFH(UnfractionatedHep 1.37 IU/ml (0.3-0.7)
[2024-01-31] MEDS: NITROGLYCERIN SL 0.4 MG/TAB TAB SL PRN (11:41)
--- NOTE | 2024-01-31 11:59 | XRay Report ---
XR chest 1V portable HISTORY: Shortness of breath. COMPARISON: Chest 01/30/2024. FINDINGS: No pneumothorax. The heart remains enlarged. There are poststernotomy changes. Trace bilate ral pleural effusions again noted. Interstitial/vascular thickening persists and favors pulmonary jesse ma. No acute fractures. Improved aeration within the right lower lobe airspace opacity. IMPRESSION: Cardiomegaly with pulmonary edema and trace bilateral pleural effusions. This is similar to the prior study. ACT 112: Negative or not required by law. Electronically signed by: José Miguel Neely M.D. 01/31/2024 11:58 AM
[2024-01-31 12:02] LABS: ANTI-Xa, UFH(UnfractionatedHep 1.29 IU/ml (0.3-0.7)
[2024-01-31] MEDS: FUROSEMIDE 40 MG/4 ML VIAL IV ONE ×3 (12:19→15:44)
--- NOTE | 2024-01-31 12:46 | Pre Anesthesia Assessment ---
Date of Service January 31, 2024 Pre Sedation Assessment Vital Signs Temp Pulse Pulse Pulse Resp BP BP 01/31/24 11:43 111/74 01/31/24 11:25 116/78 01/31/24 11:15 73 30 H 98/62 L 01/31/24 07:30 75 01/31/24 07:30 01/31/24 07:26 97.7 F 79 19 105/63 01/31/24 05:35 01/31/24 02:57 97.3 F L 81 16 92/54 L 01/31/24 00:06 72 01/30/24 22:45 98.1 F 76 16 103/67 01/30/24 22:06 01/30/24 19:40 98.6 F 79 18 98/62 L 01/30/24 17:31 75 01/30/24 14:50 97.9 F 76 15 113/71 01/30/24 13:00 Pulse Ox O2 Del Method O2 Del Method O2 Flow Rate O2 Flow Rate 01/31/24 11:43 01/31/24 11:25 01/31/24 11:15 91 Oxymask 15 01/31/24 07:30 01/31/24 07:30 Nasal Cannula 4 01/31/24 07:26 91 Nasal Cannula 4 01/31/24 05:35 Nasal Cannula 4 01/31/24 02:57 91 Nasal Cannula 4.0 01/31/24 00:06 01/30/24 22:45 91 Nasal Cannula 4.0 01/30/24 22:06 Nasal Cannula 4 01/30/24 19:40 91 Nasal Cannula 4.0 01/30/24 17:31 01/30/24 14:50 93 Nasal Cannula 4 01/30/24 13:00 Nasal Cannula 4 Cardiovascular + tachycardic Respiratory + labored breathing + crackles Pre-Sedation Airway Assessment Smoking Status: Never smoker Hx Sleep Apnea: No Hx Difficult Intubation: No Short, Thick Neck: No Thyromental Distance: < 3.5 Finger Breadths Oral Cavity: + Dental Abnormalities Mallampati Class: III ASA: ASA4 Procedure Planning Contraindications for Sedation: none Current Medications Reviewed: Yes Notes The planned sedation has been discussed with the patient. Informed Consent was obtained. I have identified the patient, determined the appropriateness of sedation and have assessed the patient immediately prior to the procedure. All medicine(s) and interventions are by my order.
[2024-01-31] MEDS: NITROGLYCERIN/D5W 100MCG/ML 20ML SYR ONE (12:54)
[2024-01-31] MEDS: niCARdipine HCL INJ 2.5 MG/ML 10 ML AMP ONE (12:54)
--- NOTE | 2024-01-31 13:17 | Electrocardiogram Report ---
Test Reason : Blood Pressure : */* mmHG Vent. Rate : 79 BPM Atrial Rate : 79 BPM P-R Int : 150 ms QRS Dur : 94 ms QT Int : 374 ms P-R-T Axes : 61 36 164 degrees QTcB Int : 428 ms Normal sinus rhythm Septal infarct (cited on or before 26-Aug-2016) Abnormal ECG When compared with ECG of 30-Jan-2024 10:45, Questionable change in initial forces of Septal leads Confirmed by Gibran Ramon ([id number]) on 01/31/2024 1:17:08 PM Referred By: REFERRED SELF Confirmed By: Gibran Ramon
--- NOTE | 2024-01-31 14:20 | Cardiology Progress Note ---
Date of Service January 31, 2024 Assessment & Plan (1) Acute non-ST elevation myocardial infarction (NSTEMI): Plan: --multivessel CAD -- post PCI with FILEMON to SVG to OM3 and SVG to PDA. --patent WILLIAMSON-LAD 2. Acute HFrEF - EF 35% 3. Moderate mitral regurgitation 4. NED 5. Type 2 DM 6. 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 Anemia Stable post PCI to vein graft disease today. LV filling pressures significantly elevated with unchanged pulm edema on chest xray. Responding to 80mg IV lasix with good urine output and improved oxygenation. Plan going forward for continued diuresis, optimizing GDMT as able and continued ASCVD secondary prevention. -- Continue DAPT with ASA/Clopidogrel while admitted. -- Can restart Eliquis tomorrow. [facility] discharge on clopidogrel, Eliquis -- Follow-up daily weights, SCr, and urine output -- Continue IV diuretics, on 40mg BID. If limited AM urine output increase to 80mg -- Continue current carvedilol. Resume losartan pending stable renal function. -- terminal makeup operator plan on adding MRA, SGLT2 pending renal function. With addition of GDMT will wean off amlodipine/imdur. Will follow Admission and Anticipated Discharge Date Admission Date: January 30, 2024 Subjective Patient seen at end of day post intervention. She is sleeping comfortably on bipap, 02 sats >95%. Nurse reports no complaints of pain. Torres in place draining urine. Tele reviewed -- no events. Review of Systems Review of Systems: All systems reviewed & are unremarkable except as noted in HPI & below Physical Exam Physical Exam: Gen: sleeping comfortably Skin: no ecchymoses or generalized lesions. HEENT: unremarkable. Neck: no bruits Lungs: Bibasilar crackles at bases, no wheezing or accessory muscle use. Cardiac: regular rhythm, normal S1-2, no murmur. Abdomen: benign. 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/hematoma Results & Data Vital Signs (Past 12 Hours) Vital Signs Temp Pulse Pulse Resp BP Pulse Ox O2 Del Method 01/31/24 11:43 111/74 01/31/24 11:25 116/78 01/31/24 11:15 73 30 H 98/62 L 91 Oxymask 01/31/24 07:30 75 01/31/24 07:30 Nasal Cannula 01/31/24 07:26 97.7 F 79 19 105/63 91 Nasal Cannula 01/31/24 05:35 01/31/24 02:57 97.3 F L 81 16 92/54 L 91 Nasal Cannula O2 Del Method O2 Flow Rate O2 Flow Rate 01/31/24 11:43 01/31/24 11:25 01/31/24 11:15 15 01/31/24 07:30 01/31/24 07:30 4 01/31/24 07:26 4 01/31/24 05:35 Nasal Cannula 4 01/31/24 02:57 4.0 PG Care Time/CCT Total # of Minutes Spent Total Time Spent with Patient: Total time spent is greater than 50% in coordination of care (as documented) at patient's floor/unit and/or counseling patient: Coding Level of Care Code 45643 SUB INP/OBS CARE 3/50MIN Diagnoses Acute non-ST elevation myocardial infarction (NSTEMI) I21.4
--- NOTE | 2024-01-31 14:21 | Post Anesthesia Assessment ---
Date of Service January 31, 2024 Post Sedation Assessment Vital Signs Temp Pulse Pulse Pulse Resp BP BP 01/31/24 11:43 111/74 01/31/24 11:25 116/78 01/31/24 11:15 73 30 H 98/62 L 01/31/24 07:30 75 01/31/24 07:30 01/31/24 07:26 97.7 F 79 19 105/63 01/31/24 05:35 01/31/24 02:57 97.3 F L 81 16 92/54 L 01/31/24 00:06 72 01/30/24 22:45 98.1 F 76 16 103/67 01/30/24 22:06 01/30/24 19:40 98.6 F 79 18 98/62 L 01/30/24 17:31 75 01/30/24 14:50 97.9 F 76 15 113/71 Pulse Ox O2 Del Method O2 Del Method O2 Flow Rate O2 Flow Rate 01/31/24 11:43 01/31/24 11:25 01/31/24 11:15 91 Oxymask 15 01/31/24 07:30 01/31/24 07:30 Nasal Cannula 4 01/31/24 07:26 91 Nasal Cannula 4 01/31/24 05:35 Nasal Cannula 4 01/31/24 02:57 91 Nasal Cannula 4.0 01/31/24 00:06 01/30/24 22:45 91 Nasal Cannula 4.0 01/30/24 22:06 Nasal Cannula 4 01/30/24 19:40 91 Nasal Cannula 4.0 01/30/24 17:31 01/30/24 14:50 93 Nasal Cannula 4 Recovery Score Activity: Moves 4 extremities Respiration: Deep Breath/Cough Circulation: +/-20% PreAnes Value Consciousness: Fully Awake Oxygen Saturation: O2 needed for >90% Discharge Sedation Level of Care: Fast Track Phase II Post Sedation Plan On clinical assessment, the patient appears to have tolerated the sedation without complications. Patient is recovering as anticipated. Patient will continue to be monitored by nursing and may be discharged when sedation discharge criteria are met per below protocol. Upon Completions of procedure up to 15 minutes continue every 5 minute vital signs and the P.A.R. score; then discharge to a Phase I or Fast Track to Phase II per the following guidelines: * Discharge Patient to appropriate Phase II area if PAR is 8 or greater or return to pre- procedure baseline. The post - procedure orders will be as directed. * If PAR score is less than 8 or not return to pre-procedure baseline then patient will follow Phase I monitoring till PAR is reached for Phase II. The Phase I may be done in procedure room or may call to secure a Phase I area. * If naloxone or flumazenil are used for reversal, hold in Phase I for continued monitoring from when last reversal dose was given for a minimum of 60 minutes or longer pending the nurse and/or physician discretion of patient condition before discharge to Phase II. Please call the Sedation Physician to re-evaluate and complete post-note for discharge to Phase II area. Do NOT discharge from procedure sedation or Phase 1 until post- sedation evaluation note is complete by procedure /sedation MD Sedation Discharge Instructions to be given to the patient at discharge to home.
[2024-01-31] MEDS: fentaNYL citrate PF 100 MCG/2 ML VIAL ONE ×2 (14:22→14:51)
[2024-01-31] MEDS: IODIXANOL (VISIPAQUE) 320 MG/ML 100ML IV ONE (14:23)
[2024-01-31] MEDS: HEPARIN (PORCINE) 1000 UNIT/ML 10 ML (CATH LAB USE ONLY) ONE (14:23)
[2024-01-31] MEDS: MIDAZOLAM HCL 1 MG/ML 2ML VIAL ONE (14:23)
[2024-01-31] MEDS: EPTIFIBATIDE 2 MG/ML 10 ML VIAL (CATH LAB USE ONLY) IV ONE ×2 (14:23→14:25)
--- NOTE | 2024-01-31 14:26 | Cardiac Catheterization ---
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 Cardiac Status Clinical evaluation leading to the procedure CAD Presenation: Non STEMI Anginal Classification: CCS IV Heart Failure: NYHA Class: CCS IV Diagnostic Physicians Name: Dwayne Sifuentes MD Closure Device Recommendations: PCI without planned CABG Cardiac Cath Procedure Full Procedure Date January 31, 2024 Pre-Procedure Diagnosis Pre-Procedure Diagnosis: Non STEMI, CHF and Cardiomyopathy AUC Score AUC Score: 8 Post-Procedure Diagnosis Post-Procedure Diagnosis: Severe CAD, Successful PCI and Elevated Intracardiac Pressures Procedure(s) Performed Procedure(s) Performed: Coronary Angiography, Left Heart Cath, Drug Eluting Stent and Ultrasound Guided Vascular Access Emergency Medical Technician/Driver Dwayne Sifuentes MD Engineer Conductor(s) Delfina Estimated Blood Loss Estimated Blood Loss: 15 Medication(s) Medication(s): Clopidogrel, Fentanyl, Heparin, Integrilin, Lidocaine 1%, Nicardipine, Nitroglycerin and Versed Summary of Findings Indication: NSTEMI, Acute heart failure Access: 6 Fr right DINKEY SKINNER under ultrasound guidance Catheters: JL 3.5, JR4, MPA, pigtail. MPA guide, JR4 guide Findings: LM -calcified, 30% ostial LAD -100% ostial chronic total occlusion Circumflex -calcified, moderate diffuse proximal to mid disease. 100% mid chronic total occlusion after takeoff of small bifurcating OM2. RCA -dominant, 100% proximal chronic total occlusion LIMALADwidely patent. Distal LAD small vessel, provides collaterals to RPDA. SVGUGI16% proximal stenosis, 40-50% mid graft disease, with JEREL II distal flow [id number]% acute proximal graft in-stent restenosis/thrombosis, mid graft stent widely patent. Small OM after anastomosis patent. Jump graft to left PLB occluded. Left PLB partially fills via retrograde collaterals from OM LVEDP -34 -- PCI -- Antithrombotic therapy: Heparin, IC Integrilin, clopidogrel Procedure: SVG to PDA cannulated with MPA guide Pre-procedure flow JEREL 2 Urgent Care Physician 50 wire passed across lesion into distal vessel Proximal vein graft directly stented with 3.0 x 22 mm Galax drug-eluting stent Stent postdilated with 3.5 NC IC vasodilators administered Post procedure JEREL 2-3 flow, stent well expanded with mild residual stenosis in mid aspect of stent. No other apparent complications. MPA guide removed and SVG to OM3 cannulated with JR4 guide Preprocedure flow JEREL I-II IC Integrilin administered Filter wire navigated across proximal and mid graft stents and deployed before anastomosis Proximal vein graft stent predilated with 2.5 balloon New FILEMON (4.0 x 28 mm Xience) placed overlapping proximal/mid aspects of prior stents Stent postdilated with stent balloon. Filter retrieved Additional IC vasodilators administered Post procedure JEREL III flow, new stent well-expanded and no apparent complications. Arterial Closure: Angio-Seal Summary: 1. Acute severe vein graft disease -98% proximal SVG to PDA with JEREL II flow 99% proximal in-stent restenosis/thrombosis SVG to OM3 with EJREL I flow 2. Patent WILLIAMSON to LAD. LAD after anastomosis provides collaterals to PDA Jump graft to LPLB from vein graft to OM chronically occluded. LPLB partially fills via retrograde collaterals 3. 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 Elevated intracardiac filling pressure 5. Successful PCI of proximal SVG to PDA with single drug-eluting stent (3.0 x 22 mm Galax; postdilated with 3.5 NC). 6. Successful PCI of proximal SVG to OM3 in-stent restenosis/thrombosis with new overlapping drug-eluting stent (4.0 x 28 mm Xience). 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 Any exceptions are noted below. [facility] [place] Card Cath Procedure Codes Cardiac Catheterization Procedure 1: Cardiovascular Cath Procedures: 64332 Coronaries & LHC (+/-LV) & Grafts/IM (arterial & venous) Therapeutic Services & Ancillary Procedure 1: Cardiovascular Tx and Anc Procedures: 20085 Ultrasonic Guidance Vascular Access Moderate Sedation Procedure 1: Sedation/Anesthesia: 17824 Mod Sedation by the same physician;Init15 Min Child Age 5 & Up Procedure 2: Sedation/Anesthesia: 83201 Mod Sedation by the same physician; Ea [id number] Minutes Stenting Procedure 1: Cardiovascular Stent Procedures: 05349 Perc tranluminal revascularization of or throughout CABG Procedure 2: Cardiovascular Stent Procedures: 12103 Ea addl branch subtended by the bypass graft PG Care Time/CCT Total # of Minutes Spent Total Time Spent with Patient: Total time spent is greater than 50% in coordination of care (as documented) at patient's floor/unit and/or counseling patient:
[2024-01-31] MEDS: CLOPIDOGREL BISULFATE 300 MG TAB ONE (14:36)
--- NOTE | 2024-01-31 15:37 | Electrocardiogram Report ---
Test Reason : Blood Pressure : */* mmHG Vent. Rate : 79 BPM Atrial Rate : 79 BPM P-R Int : 140 ms QRS Dur : 94 ms QT Int : 376 ms P-R-T Axes : 71 67 122 degrees QTcB Int : 431 ms Normal sinus rhythm Septal infarct (cited on or before 26-Aug-2016) Inferior injury pattern ACUTE LA / STEMI Consider right ventricular involvement in acute inferior infarct Abnormal ECG When compared with ECG of 31-Jan-2024 06:08, Significant changes have occurred Confirmed by Gibran Ramon ([id number]) on 01/31/2024 3:37:17 PM Referred By: REFERRED SELF Confirmed By: Gibran Ramon
[2024-01-31] MEDS: FUROSEMIDE 40 MG TAB PO ONE (15:42)
--- NOTE | 2024-01-31 17:29 | Hospitalist Progress Note ---
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 with 98% and 99% occlusion of two of her grafts - successfully stented nitro PRN chest pain Increase lasix to 40mg IV BID continue ASA81, losartan, carvedilol, Imdur, reduce amlodipine to 5mg #Pulmonary Edema O2 sats 93% on 4L NC Diuresis as above #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 Still feeling somewhat short of breath. Laying her upright helped a little as well. Vitals noted, in general she is awake appears to be in a mild degree of respiratory distress is on BiPAP. Breathing is surprisingly unlabored on the BiPAP, however, the respiratory distress is mostly in her subjective voicing of feeling short of breath. Lungs are overall clear but diminished bibasilar. No focal neurodeficits. Chest x-ray noted. Labs noted. NSTEMI/CAD - Now status post cath/stenting. Continue med management. Acute HFpEF - last echo in chart 2019. Diuresis 40mgs IV lasix. Monitor renal fx. Amlodipine dose decreased to 5mgs. Check echo. CKD 3-4 - baseline cr 1.1 to 1.3. Current acute kidney injury appears to be due to poor forward flow from acute HFpEF. Monitor creatinine, continue to diurese h/oPE/DVT- eliquis on hold due to transition for heparin around time of cathanticipate resumption of Eliquis in the very near future Subjective Patient seen and evaluated at bedside this morning. No acute events overnight. Initially this am without complaint. Trops continuing to climb. NPO at midnight pending evaluation for catheterization. Called to bedside at 11:13 by nursing to evaluate patient. Patient had recurrent chest pain and new increased oxygen requirement. Patient was placed on non- rebreather at 15L and sats were maintained in the low 90% range. MAPs remained acceptable. EKG was obtained with new/return of ST elevation with reciprocal changes. CXR obtained which demonstrated pulmonary edema with small pleural effusions. Interventional cardiology Dr. Sifuentes contacted and evaluated patient. [place] she was stable for transport to cardiac catheterization lab. Received one dose of IV Lasix prior to procedure. Review of Systems Review of Systems: reviewed, per HPI Physical Exam Physical Exam: Constitutional: age appropriate, no acute distress HEENT: NCAT, no conjunctival injection CV: regular rhythm, +murmur, extremities well-perfused, -LE edema Resp: CTABL, no wheezes/rales/rhonchi appreciated, no increased work of breathing MSK: no gross deformities appreciated Skin: warm, dry, no rash appreciated Neuro: alert, oriented, no focal neurologic deficit appreciated Results & Data Results & Data Vital Signs (Past 12 Hours) Vital Signs Temp Pulse Pulse Resp BP Pulse Ox O2 Del Method 01/31/24 16:34 37.4 C 81 20 118/74 93 BiPAP 01/31/24 15:49 36.7 C 79 18 117/73 93 BiPAP 01/31/24 15:35 36.8 C 80 18 118/81 94 BiPAP 01/31/24 15:07 37.3 C 78 18 122/74 90 BiPAP 01/31/24 14:47 82 27 H 93 01/31/24 14:36 79 20 102/85 99 BiPAP 01/31/24 14:30 83 25 H 98 BiPAP 01/31/24 12:30 78 23 97 01/31/24 11:43 111/74 01/31/24 11:25 116/78 01/31/24 11:15 73 30 H 98/62 L 91 Oxymask 01/31/24 07:30 75 08/12/24 07:30 Nasal Cannula 01/31/24 07:26 36.5 C 79 19 105/63 91 Nasal Cannula 01/31/24 05:35 O2 Del Method O2 Flow Rate O2 Flow Rate FiO2 01/31/24 16:34 01/31/24 15:49 01/31/24 15:35 01/31/24 15:07 01/31/24 14:47 80 01/31/24 14:36 01/31/24 14:30 01/31/24 12:30 80 01/31/24 11:43 01/31/24 11:25 01/31/24 11:15 15 01/31/24 07:30 01/31/24 07:30 4 01/31/24 07:26 4 01/31/24 05:35 Nasal Cannula 4 Resident Activity Tracking Resident Involvement: Resident Care Provided Care Provided: Adult Hospital Medicine (6) CAD (coronary artery disease) Associated angina: without angina Coronary Disease-Associated Artery/Lesion type: [place] artery [place] vs. transplanted heart: [place] heart Qualified Code(s): I25.10 - Atherosclerotic heart disease of [place] coronary artery without angina pectoris
--- NOTE | 2024-01-31 18:04 | Billing Data ---
Date of Service January 31, 2024 Coding Level of Care Code 84891 SUB INP/OBS CARE MIN
--- NOTE | 2024-01-31 23:40 | XCELERA ---
[id number]
[2024-02-01 06:43] LABS: Basophils # (auto) 0.02 K/uL (0.00-0.20); Basophils % (auto) 0.2 %; Eosinophils # (auto) 0.02 K/uL (0.00-0.50); Eosinophils % (auto) 0.2 %; Hematocrit (blood only) 34.8 % (37.0-47.0); Hemoglobin 11.3 g/dl (12.0-16.0); Immature Granulocytes # (auto) 0.06 K/uL (0.01-0.20); Immature Granulocytes % (auto) 0.5 %; Lymphocytes % (auto) 6.7 %; Mean Corpuscular Hemoglobin 29.7 pg (25.0-34.0); Mean Corpuscular Hgb Conc 32.5 g/dL (32.0-36.0); Mean Corpuscular Volume 91.6 fL (80.0-100.0); Mean Platelet Volume 11.4 fL (9.4-12.4); Monocytes # (auto) 0.81 K/uL (0.11-0.59); Monocytes % (auto) 6.8 %; Neutrophils # (auto) 10.16 K/uL (1.40-6.50); Neutrophils % (auto) 85.6 %; Platelet Count 233 K/uL (130-400); RDW Coefficient of Variation 15.7 % (11.5-14.5); RDW Standard Deviation 51.5 fL (36.4-46.3); White Blood Count 11.87 K/ul (4.8-10.8)
[2024-02-01 07:01] LABS: Albumin Level 3.4 gm/dl (3.4-5.0); BUN Creatinine Ratio 30.2 (10-20); Calcium 8.8 mg/dl (8.6-10.3); Creatinine Clr Calc Pharmacy 21.5 ml/min; Est GFR (African American) 26.7 ml/min; Magnesium 2.2 mg/dl (1.7-2.4); Phosphorus 4.8 mg/dl (2.5-4.9); Potassium 4.1 mmol/L (3.5-5.1)
[2024-02-01 07:11] LABS: ANTI-Xa, UFH(UnfractionatedHep 0.72 IU/ml (0.3-0.7)
[2024-02-01] MEDS: LANTUS PER UNIT CHARGE SQ SCH (08:27)
[2024-02-01] MEDS: CLOPIDOGREL BISULFATE 75 MG TAB PO SCH (08:50)
--- NOTE | 2024-02-01 09:47 | Electrocardiogram Report ---
Test Reason : Blood Pressure : */* mmHG Vent. Rate : 89 BPM Atrial Rate : 89 BPM P-R Int : 150 ms QRS Dur : 96 ms QT Int : 388 ms P-R-T Axes : 69 32 107 degrees QTcB Int : 472 ms Poor data quality, interpretation may be adversely affected Normal sinus rhythm Septal infarct (cited on or before 26-Aug-2016) Abnormal ECG When compared with ECG of 30-Jan-2024 02:44, Inferior injury current no longer present Confirmed by Gibran Ramon ([id number]) on 02/01/2024 9:46:59 AM Referred By: REFERRED SELF Confirmed By: Gibran Ramon
--- NOTE | 2024-02-01 10:00 | Electrocardiogram Report ---
Test Reason : Blood Pressure : */* mmHG Vent. Rate : 82 BPM Atrial Rate : 82 BPM P-R Int : 152 ms QRS Dur : 94 ms QT Int : 332 ms P-R-T Axes : 82 49 216 degrees QTcB Int : 387 ms Poor data quality, interpretation may be adversely affected Normal sinus rhythm Septal infarct (cited on or before 26-Aug-2016) Abnormal ECG When compared with ECG of 31-Jan-2024 11:14, T wave inversion now evident in Lateral leads Confirmed by Gibran Ramon ([id number]) on 02/01/2024 9:59:54 AM Referred By: REFERRED SELF Confirmed By: Gibran Ramon
--- NOTE | 2024-02-01 10:37 | Cardiology Progress Note ---
Date of Service February 01, 2024 Assessment & Plan (1) Acute non-ST elevation myocardial infarction (NSTEMI): Plan: --multivessel CAD -- post PCI with FILEMON to SVG to OM3 and SVG to PDA. --patent WILLIAMSON-LAD 2. Acute HFrEF - EF 35% 3. Moderate mitral regurgitation 4. NED 5. Type 2 DM 6. 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 Anemia Remains chest pain-free, HS TropI downtrending. Diuresing well, renal function stable No access site complications Remains hypoxic and persistent congestion on exam today. Plan going forward for continued diuresis, optimizing GDMT as able and continued ASCVD secondary prevention. -- Continue IV diuretics, on 40mg BID. If limited AM urine output increase to 80mg -- Follow-up daily daily weights, SCr -- Continue DAPT with ASA/Clopidogrel while admitted. care home discharge on clopidogrel, Eliquis -- Okay from procedural standpoint to restart Eliquis today -- Continue current carvedilol. Okay to continue current amlodipine/Imdur. -- Resume losartan pending stable renal function. care home plan on adding MRA, SGLT2. With addition of GDMT will wean off amlodipine/imdur. Will follow Admission and Anticipated Discharge Date Admission Date: January 30, 2024 Subjective Denies any chest pain this morning. States her breathing is easier than when she came in. Still hypoxic this morning requiring high flow O2. -1600 yesterday, down 2+ lbs Telemetry reviewedno events Review of Systems Review of Systems: All systems reviewed & are unremarkable except as noted in HPI & below Physical Exam Physical Exam: Gen: Comfortable Skin: Warm no rashes HEENT: unremarkable. Neck: no bruits Lungs: Bibasilar crackles at bases Cardiac: regular rhythm, normal S1-2, holosystolic murmur at the apex Abdomen: benign. 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/hematoma Results & Data Vital Signs (Past 12 Hours) Vital Signs Temp Pulse Pulse Pulse Resp BP Pulse Ox 02/01/24 09:49 72 18 94 02/01/24 08:56 02/01/24 07:42 98.2 F 70 17 112/64 91 02/01/24 05:00 02/01/24 03:10 73 20 96 02/01/24 03:01 98.6 F 73 16 117/68 97 01/31/24 22:55 98.8 F 72 16 118/74 100 01/31/24 22:39 72 20 92 Pulse Ox O2 Del Method O2 Flow Rate FiO2 02/01/24 09:49 High Flow Nasal Cannula 40 90 02/01/24 08:56 Nasal Cannula 15 02/01/24 07:42 Nasal Cannula 13 02/01/24 05:00 90 02/01/24 03:10 70 02/01/24 03:01 BiPAP 01/31/24 22:55 BiPAP 01/31/24 22:39 80 PG Care Time/CCT Total # of Minutes Spent Total Time Spent with Patient: Total time spent is greater than 50% in coordination of care (as documented) at patient's floor/unit and/or counseling patient: Coding Level of Care Code 11503 SUB INP/OBS CARE 3/50MIN Diagnoses Acute non-ST elevation myocardial infarction (NSTEMI) I21.4
--- NOTE | 2024-02-01 10:58 | Electrocardiogram Report ---
Test Reason : Blood Pressure : */* mmHG Vent. Rate : 70 BPM Atrial Rate : 70 BPM P-R Int : 148 ms QRS Dur : 96 ms QT Int : 422 ms P-R-T Axes : 71 34 236 degrees QTcB Int : 455 ms Normal sinus rhythm Septal infarct (cited on or before 26-Aug-2016) Abnormal ECG When compared with ECG of 31-Jan-2024 14:42, (unconfirmed) T wave inversion less evident in Lateral leads QT has lengthened Confirmed by Gibran Ramon ([id number]) on 02/01/2024 10:58:22 AM Referred By: REFERRED SELF Confirmed By: Gibran Ramon
[2024-02-01] MEDS ORDERED: POLYETHYLENE (MIRALAX) 17 GM PACK PO PRN (11:06)
--- NOTE | 2024-02-01 12:44 | Hospitalist Progress Note ---
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 with 98% and 99% occlusion of two of her grafts - successfully stented nitro PRN chest pain lasix to 40mg IV BID continue ASA81, losartan, carvedilol, Imdur, reduce amlodipine to 5mg #Pulmonary Edema O2 sats low 90s on high flow NC Diuresis as above #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 Is aware of her situation. Updated to the best my ability and her satisfaction. Vitals noted, in general she is awake and alert pleasant surprisingly and very little to no distress although appearing mildly fatigued. HEENT normocephalic atraumatic mucous membranes moist. Breathing unlabored no accessory muscle use good effort. Lungs are diminished bibasilar, rales to a little over care home up, and then clear at the apices. Skin without rashes pallor or icterus. NSTEMI/CAD - Now status post cath/stenting. Continue med management. CHFacute HFrEF status post DE - EF 35%- still requiring significant high flow oxygen due to her acute hypoxic respiratory failurefortunately clinically feeling better and appearing "better than the numbers would suggest" which is somewhat reassuringobviously continue to diurese. Follow her oxygenation in the context of her pleural effusionsif she seems to reach a plateau where her lungs are clear and/or further diuresis cannot be affected but she is still reasonably hypoxicMay need to pursue thoracentesisalthough hopefully this will not be necessary. Continue Lasix for now CKD 3-4 - baseline cr 1.1 to 1.3. Current acute kidney injury appears to be due to poor forward flow from acute HFpEF. Monitor creatinine, continue to diurese h/oPE/DVT- resume eliquis Subjective Patient seen and evaluated at bedside this morning. No acute events overnight. Denies CP this am. Remains with significant oxygen requirement. Review of Systems Review of Systems: reviewed, per HPI Physical Exam Physical Exam: Constitutional: age appropriate, no acute distress HEENT: NCAT, no conjunctival injection CV: regular rhythm, +murmur, extremities well-perfused, -LE edema Resp: CTABL, diminished bases, rales present in mid-lung wayne MSK: no gross deformities appreciated Skin: warm, dry, no rash appreciated Neuro: alert, oriented, no focal neurologic deficit appreciated Results & Data Results & Data Vital Signs (Past 12 Hours) Vital Signs Temp Pulse Pulse Pulse Resp BP Pulse Ox 02/01/24 11:20 36.9 C 71 19 114/57 L 93 02/01/24 11:16 88 L 02/01/24 10:52 66 02/01/24 09:49 72 18 94 02/01/24 08:56 02/01/24 07:42 36.8 C 70 17 112/64 91 02/01/24 05:00 02/01/24 03:10 73 20 96 02/01/24 03:01 37.0 C 73 16 117/68 97 Pulse Ox O2 Del Method O2 Flow Rate FiO2 02/01/24 11:20 High Flow Nasal Cannula 40 90 02/01/24 11:16 02/01/24 10:52 02/01/24 09:49 High Flow Nasal Cannula 40 90 02/01/24 08:56 Nasal Cannula 15 02/01/24 07:42 Nasal Cannula 13 02/01/24 05:00 90 02/01/24 03:10 70 02/01/24 03:01 BiPAP Resident Activity Tracking Resident Involvement: Resident Care Provided Care Provided: Adult [facility] Medicine (6) CAD (coronary artery disease) Associated angina: without angina Coronary Disease-Associated Artery/Lesion type: [place] artery [place] vs. transplanted heart: [place] heart Qualified Code(s): I25.10 - Atherosclerotic heart disease of [place] coronary artery without angina pectoris
--- NOTE | 2024-02-01 12:56 | Billing Data ---
Date of Service February 01, 2024 Coding Level of Care Code 54413 SUB INP/OBS CARE MIN
[2024-02-01] MEDS: APIXABAN 5 MG TABLET PO SCH (21:10)
[2024-02-02 07:27] LABS: Potassium 3.7 mmol/L (3.5-5.1)
[2024-02-02 07:28] LABS: Albumin Globulin Ratio 1.2 (0.9-2); Albumin Level 3.3 gm/dl (3.4-5.0); BUN Creatinine Ratio 35.5 (10-20); Calcium 8.8 mg/dl (8.6-10.3); Creatinine Clr Calc Pharmacy 25.9 ml/min; Est GFR (African American) 33.9 ml/min; Est GFR (Non-African American) 29.2 ml/min; Globulin 2.8 gm/dl (2.5-4.0); Magnesium 2.1 mg/dl (1.7-2.4); Total Protein 6.1 gm/dl (6.0-8.3)
[2024-02-02 07:29] LABS: Basophils # (auto) 0.01 K/uL (0.00-0.20); Basophils % (auto) 0.1 %; Eosinophils # (auto) 0.04 K/uL (0.00-0.50); Eosinophils % (auto) 0.4 %; Hematocrit (blood only) 34.7 % (37.0-47.0); Hemoglobin 11.4 g/dl (12.0-16.0); Immature Granulocytes # (auto) 0.04 K/uL (0.01-0.20); Immature Granulocytes % (auto) 0.4 %; Lymphocytes % (auto) 8.5 %; Mean Corpuscular Hemoglobin 29.2 pg (25.0-34.0); Mean Corpuscular Hgb Conc 32.9 g/dL (32.0-36.0); Mean Platelet Volume 11.3 fL (9.4-12.4); Monocytes # (auto) 0.76 K/uL (0.11-0.59); Monocytes % (auto) 7.1 %; Neutrophils # (auto) 8.89 K/uL (1.40-6.50); Neutrophils % (auto) 83.5 %; Platelet Count 248 K/uL (130-400); RDW Coefficient of Variation 15.1 % (11.5-14.5); RDW Standard Deviation 49.2 fL (36.4-46.3); White Blood Count 10.64 K/ul (4.8-10.8)
[2024-02-02] MEDS: FUROSEMIDE 40 MG/4 ML VIAL IV ONE ×3 (07:37→17:20)
[2024-02-02 08:02] LABS: ANTI-Xa, UFH(UnfractionatedHep > 1.50 IU/ml (0.3-0.7)
[2024-02-02 08:31] LABS: HCO3 VBG 32 mmol/L; PCO2 VBG 46 mmHg (38-50); PO2 VBG 40 mmHg; pH VBG 7.45 (7.36-7.41)
--- NOTE | 2024-02-02 08:34 | XRay Report ---
XR chest 1V portable CLINICAL HISTORY: Hypoxia. COMPARISON STUDY: Chest radiograph January 31, 2024. FINDINGS: There are median sternotomy wires and mediastinal surgical clips. Cardiomegaly is again not ed. There are small bilateral pleural effusions. Left basilar opacity is increased. Pulmonary edema h as slightly improved. No pneumothorax. IMPRESSION: 1. Moderate interstitial pulmonary edema, slightly improved since prior exam. 2. Small bilateral pleural effusions. 3. Increase in left basilar opacity. This likely reflects atelectasis although pneumonia could appear similar. ACT 112: Negative or not required by law. Electronically signed by: Silvestre Lizarraga M.D. 02/02/2024 8:31 AM
--- NOTE | 2024-02-02 11:44 | Cardiology Progress Note ---
Date of Service February 02, 2024 Assessment & Plan (1) Acute non-ST elevation myocardial infarction (NSTEMI): Plan: --multivessel CAD -- post PCI with FILEMON to SVG to OM3 and SVG to PDA. --patent WILLIAMSON-LAD 2. Acute HFrEF - EF 35% 3. Moderate mitral regurgitation 4. NED 5. Type 2 DM 6. 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 Anemia Remains chest pain-free Diuresing well, renal function improving Weight down additional 2 pound. Improved congestion on exam today but remains hypoxic Plan on continued diuresis -- Continue IV diuretics, on 40mg BID. -- Follow-up daily weights, SCr -- Continue triple therapy with aspirin/clopidogrel/Eliquis while admitted. care home discharge on clopidogrel, Eliquis -- Continue current carvedilol. Okay to continue current amlodipine/Imdur. Start spironolactone 12.5 mg daily -- Likely resume losartan tomorrow. Plan on adding SGLT2 at some point. With addition of further GDMT will wean off amlodipine/imdur. Will follow Admission and Anticipated Discharge Date Admission Date: January 30, 2024 Subjective Feeling well this morning. No new complaints. No issues overnight. Remains on high flow oxygen. -1500 yesterday Telemetry reviewedno events Review of Systems Review of Systems: All systems reviewed & are unremarkable except as noted in HPI & below Physical Exam Physical Exam: Gen: Comfortable Skin: Warm no rashes HEENT: Sclera anicteric Neck: no bruits Lungs: Tachypneic with sitting up, crackles at bases Cardiac: regular rhythm, normal S1-2, holosystolic murmur at the apex Abdomen: benign. Extremities: no edema, RT ICER HAND site with no ecchymosis/hematoma Results & Data Vital Signs (Past 12 Hours) Vital Signs Temp Pulse Pulse Resp BP BP Pulse Ox 02/02/24 11:26 97.5 F L 65 19 117/65 90 02/02/24 11:15 66 24 91 02/02/24 09:21 68 02/02/24 07:43 97.5 F L 67 17 122/73 93 02/02/24 07:30 122/73 02/02/24 07:28 02/02/24 07:27 74 24 88 L 02/02/24 05:00 02/02/24 03:07 98.4 F 71 16 117/69 85 L 02/02/24 02:53 71 16 93 02/02/24 00:22 74 O2 Del Method O2 Del Method O2 Flow Rate FiO2 02/02/24 11:26 High Flow Nasal Cannula 40 91 02/02/24 11:15 High Flow Nasal Cannula 40 90 02/02/24 09:21 02/02/24 07:43 High Flow Nasal Cannula 40 100 02/02/24 07:30 02/02/24 07:28 High Flow Nasal Cannula 40 02/02/24 07:27 High Flow Nasal Cannula 40 90 02/02/24 05:00 High Flow Nasal Cannula 02/02/24 03:07 High Flow Nasal Cannula 40 02/02/24 02:53 High Flow Nasal Cannula 40 90 02/02/24 00:22 PG Care Time/CCT Total # of Minutes Spent Total Time Spent with Patient: Total time spent is greater than 50% in coordination of care (as documented) at patient's floor/unit and/or counseling patient: Coding Level of Care Code 74938 SUB INP/OBS CARE 2/35MIN Diagnoses Acute non-ST elevation myocardial infarction (NSTEMI) I21.4
[2024-02-02] MEDS: DOCUSATE SODIUM/SENNA 50/8.6MG TAB PO SCH (12:23)
[2024-02-02] MEDS: SPIRONOLACTONE 12.5 MG TAB PO SCH (14:38)
[2024-02-02 15:20] LABS: Appearance Urine Clear (Clear); Bacteria Urine Automated None Seen (None Seen); Bilirubin Urine Negative (Negative); Blood Urine 1+ (Negative); Color Urine Yellow; Epithelial Cell Urine Auto 0-2 /hpf (0-2); Glucose Urine UA Negative (Negative); Hyaline Casts Urine Present /lpf (None Presnt); Ketones Urine Negative (Negative); Leukocyte Esterase Urine Negative (Negative); Nitrite Urine Negative (Negative); Protein Urine Negative (Negative); Urobilinogen Urine Negative (Negative); WBC Urine Automated 0-5 /hpf (0-5)
--- NOTE | 2024-02-02 15:23 | Hospitalist Progress Note ---
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 of two of her grafts - successfully stented nitro PRN chest pain increase lasix to 80mg BID spot dose lasix -1.5L last 24hrs continue ASA81, losartan, carvedilol, Imdur, reduce amlodipine to 5mg #Pulmonary Edema O2 sats low 90s on high flow NC Diuresis as above #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 Vitals noted, in general she is awake and alert pleasant surprisingly and very little to no distress although appearing mildly fatigued. HEENT normocephalic atraumatic mucous membranes moist. Breathing unlabored no accessory muscle use good effort. Lung exam a little bit more difficult today due to weakness and positioning, but still seems to have rales to at least her mid lungs. No accessory muscle use, does not appear dyspneic NSTEMI/CAD - Now status post cath/stenting. Continue med management. CHFacute HFrEF status post MT - EF 35%- still requiring significant high flow oxygen due to her acute hypoxic respiratory failurefortunately continues to clinically feel better and appear "better than the numbers would suggest" which is somewhat reassuringobviously continue to diureseescalated today. chest x-ray shows may be some degree of worsening of the effusion on the left, but still with a decent amount of parenchymal pulmonary edema and improvement with diuresisso doubtful that thoracentesis would be of much benefit at this timeobviously continue to follow this closely CKD 3-4 - baseline cr 1.1 to 1.3. improving with diuresis. Current acute kidney injury appears to be due to poor forward flow from acute HFpEF. Monitor creatinine, continue to diurese h/oPE/DVT- eliquis Subjective Patient seen and evaluated at bedside this morning. No acute events overnight. Remains with hypoxia, HFNC Review of Systems Review of Systems: reviewed, per HPI Physical Exam Physical Exam: Constitutional: age appropriate, no acute distress HEENT: NCAT, no conjunctival injection CV: regular rhythm, +murmur, extremities well-perfused, -LE edema Resp: CTABL, diminished bases, rales present in mid-lung wayne MSK: no gross deformities appreciated Skin: warm, dry, no rash appreciated Neuro: alert, oriented, no focal neurologic deficit appreciated Results & Data Results & Data Vital Signs (Past 12 Hours) Vital Signs Temp Pulse Pulse Resp BP BP Pulse Ox 02/02/24 15:14 36.6 C 65 19 118/66 93 02/02/24 15:03 94 02/02/24 13:49 65 02/02/24 11:26 36.4 C L 65 19 117/65 90 02/02/24 11:15 66 24 91 02/02/24 09:21 68 02/02/24 07:43 36.4 C L 67 17 122/73 93 02/02/24 07:30 122/73 02/02/24 07:28 02/02/24 07:27 74 24 88 L 02/02/24 05:00 O2 Del Method O2 Del Method O2 Flow Rate FiO2 02/02/24 15:14 High Flow Nasal Cannula 40 80 02/02/24 15:03 High Flow Nasal Cannula 40 80 02/02/24 13:49 02/02/24 11:26 High Flow Nasal Cannula 40 91 02/02/24 11:15 High Flow Nasal Cannula 40 90 02/02/24 09:21 02/02/24 07:43 High Flow Nasal Cannula 40 100 02/02/24 07:30 02/02/24 07:28 High Flow Nasal Cannula 40 02/02/24 07:27 High Flow Nasal Cannula 40 90 02/02/24 05:00 High Flow Nasal Cannula Resident Activity Tracking Resident Involvement: Resident Care Provided Care Provided: Adult Hospital Medicine (6) CAD (coronary artery disease) Associated angina: without angina Coronary Disease-Associated Artery/Lesion type: [place] artery [place] vs. transplanted heart: [place] heart Qualified Code(s): I25.10 - Atherosclerotic heart disease of [place] coronary artery without angina pectoris
--- NOTE | 2024-02-02 16:02 | Billing Data ---
Date of Service February 02, 2024 Coding Level of Care Code 04731 SUB INP/OBS CARE 3MIN
[2024-02-03 07:45] LABS: Base Excess VBG 8.4 mEq/L; HCO3 VBG 33 mmol/L; Oxygen Saturation VBG 76.3 %; PCO2 VBG 47 mmHg (38-50); PO2 VBG 48 mmHg; pH VBG 7.46 (7.36-7.41)
[2024-02-03 07:56] LABS: Basophils # (auto) 0.01 K/uL (0.00-0.20); Basophils % (auto) 0.1 %; Eosinophils # (auto) 0.26 K/uL (0.00-0.50); Eosinophils % (auto) 2.5 %; Hematocrit (blood only) 36.8 % (37.0-47.0); Immature Granulocytes # (auto) 0.04 K/uL (0.01-0.20); Immature Granulocytes % (auto) 0.4 %; Lymphocytes # (auto) 0.96 K/uL (1.20-3.40); Lymphocytes % (auto) 9.3 %; Mean Corpuscular Hemoglobin 29.3 pg (25.0-34.0); Mean Corpuscular Hgb Conc 32.6 g/dL (32.0-36.0); Mean Corpuscular Volume 89.8 fL (80.0-100.0); Mean Platelet Volume 10.7 fL (9.4-12.4); Monocytes % (auto) 6.8 %; Neutrophils # (auto) 8.37 K/uL (1.40-6.50); Neutrophils % (auto) 80.9 %; Platelet Count 232 K/uL (130-400); RDW Coefficient of Variation 14.9 % (11.5-14.5); RDW Standard Deviation 48.8 fL (36.4-46.3); White Blood Count 10.34 K/ul (4.8-10.8)
[2024-02-03] MEDS: FUROSEMIDE 40 MG/4 ML VIAL IV SCH (08:05)
[2024-02-03 08:22] LABS: Albumin Globulin Ratio 1.2 (0.9-2); Albumin Level 3.5 gm/dl (3.4-5.0); BUN Creatinine Ratio 34.1 (10-20); Calcium 8.9 mg/dl (8.6-10.3); Creatinine Clr Calc Pharmacy 26.2 ml/min; Est GFR (African American) 34.4 ml/min; Est GFR (Non-African American) 29.6 ml/min; Globulin 2.9 gm/dl (2.5-4.0); Potassium 3.6 mmol/L (3.5-5.1); Total Protein 6.4 gm/dl (6.0-8.3)
[2024-02-03] MEDS: SOD PHOSPHATE/SOD BIPHOSPHATE ENEMA 132 ML BTL PR STA (14:35)
[2024-02-03] MEDS: POLYETHYLENE (MIRALAX) 17 GM PACK PO SCH (14:35)
--- NOTE | 2024-02-03 15:49 | Hospitalist Progress Note ---
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 grafts - successfully stented nitro PRN chest pain increase lasix to 80mg BID spot dose lasix -1.5L last 24hrs continue ASA81, losartan, carvedilol, Imdur, reduce amlodipine to 5mg #Pulmonary Edema O2 sats low 90s on large bore NC Diuresis as above #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 Vitals noted, in general she is awake and alert pleasant surprisingly and very little to no distress although appearing mildly fatigued. HEENT normocephalic atraumatic mucous membranes moist. Breathing unlabored no accessory muscle use good effort. No focal neurodeficits. NSTEMI/CAD - Now status post cath/stenting. Continue med management. No ongoing angina or ischemic symptoms. CHFacute HFrEF status post NC - EF 35%- Starting to show steady improvementcontinue diuresis. Continue supportive care. CKD 3-4 - baseline cr 1.1 to 1.3. improving with diuresis. Current acute kidney injury appears to be due to poor forward flow from acute HFpEF. Monitor creatinine (Stable today), continue to diurese h/oPE/DVT- eliquis Subjective Patient seen and evaluated at bedside this morning. No acute events overnight. Respiratory status improving. Now on wide bore NC at 14L. Denies CP. Overall, feels she is improving. Review of Systems Review of Systems: reviewed, per HPI Physical Exam Physical Exam: Constitutional: age appropriate, no acute distress HEENT: NCAT, no conjunctival injection CV: regular rhythm, +murmur, extremities well-perfused, -LE edema Resp: CTABL, diminished bases, rales present in mid-lung wayne MSK: no gross deformities appreciated Skin: warm, dry, no rash appreciated Neuro: alert, oriented, no focal neurologic deficit appreciated Results & Data Results & Data Vital Signs (Past 12 Hours) Vital Signs Temp Pulse Resp BP Pulse Ox O2 Del Method O2 Del Method 02/03/24 15:25 36.8 C 68 20 134/89 93 High Flow Nasal Cannula 02/03/24 11:31 90 Nasal Cannula 02/03/24 11:24 36.8 C 64 20 98/60 L 90 High Flow Nasal Cannula 02/03/24 10:06 16 89 L Nasal Cannula 02/03/24 09:49 Nasal Cannula 02/03/24 07:31 36.8 C 67 20 124/75 92 High Flow Nasal Cannula 02/03/24 07:03 69 20 90 High Flow Nasal Cannula 02/03/24 05:00 High Flow Nasal Cannula 02/03/24 03:48 37.4 C 69 20 115/64 93 High Flow Nasal Cannula O2 Flow Rate FiO2 02/03/24 15:25 14 02/03/24 11:31 15 02/03/24 11:24 14 02/03/24 10:06 12 02/03/24 09:49 15 02/03/24 07:31 40 02/03/24 07:03 40 80 02/03/24 05:00 02/03/24 03:48 Resident Activity Tracking Resident Involvement: Resident Care Provided Care Provided: Adult Hospital Medicine (6) CAD (coronary artery disease) Associated angina: without angina Coronary Disease-Associated Artery/Lesion type: [place] artery [place] vs. transplanted heart: [place] heart Qualified Code(s): I25.10 - Atherosclerotic heart disease of [place] coronary artery without angina pectoris
--- NOTE | 2024-02-03 16:48 | Cardiology Progress Note ---
Date of Service February 03, 2024 Assessment & Plan (1) Acute non-ST elevation myocardial infarction (NSTEMI): Plan: --multivessel CAD -- post PCI with FILEMON to SVG to OM3 and SVG to PDA. --patent WILLIAMSON-LAD 2. Acute HFrEF - EF 35% 3. Moderate mitral regurgitation 4. NED 5. Type 2 DM 6. 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 Anemia Remains chest pain-free Diuresing well, renal function stable -2400 yesterday. Gradually improving O2 requirement -- Continue IV diuretics today -- Continue triple therapy with aspirin/clopidogrel/Eliquis while admitted. 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 Okay to continue current amlodipine/Imdur. Continue spironolactone Plan resume ARB, adding SGLT2 at some point. With addition of further GDMT will wean off amlodipine/imdur. Will follow Admission and Anticipated Discharge Date Admission Date: January 30, 2024 Subjective Feeling about the same. Breathing mildly improved. Denies any chest pain. No other new concerns. Telemetry reviewedno events Review of Systems Review of Systems: All systems reviewed & are unremarkable except as noted in HPI & below Physical Exam Physical Exam: Gen: Comfortable Skin: Warm no rashes HEENT: Sclera anicteric Neck: no bruits Lungs: Crackles at base right greater than sign left, few scattered wheezes Cardiac: regular rhythm, normal S1-2, holosystolic murmur at the apex Abdomen: benign. 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 Results & Data Vital Signs (Past 12 Hours) Vital Signs Temp Pulse Resp BP Pulse Ox O2 Del Method O2 Del Method 02/03/24 15:25 98.2 F 68 20 134/89 93 High Flow Nasal Cannula 02/03/24 11:31 90 Nasal Cannula 02/03/24 11:24 98.2 F 64 20 98/60 L 90 High Flow Nasal Cannula 02/03/24 10:06 16 89 L Nasal Cannula 02/03/24 09:49 Nasal Cannula 02/03/24 07:31 98.2 F 67 20 124/75 92 High Flow Nasal Cannula 02/03/24 07:03 69 20 90 High Flow Nasal Cannula 02/03/24 05:00 High Flow Nasal Cannula O2 Flow Rate FiO2 02/03/24 15:25 14 02/03/24 11:31 15 02/03/24 11:24 14 02/03/24 10:06 12 02/03/24 09:49 15 02/03/24 07:31 40 02/03/24 07:03 40 80 02/03/24 05:00 PG Care Time/CCT Total # of Minutes Spent Total Time Spent with Patient: Total time spent is greater than 50% in coordination of care (as documented) at patient's floor/unit and/or counseling patient: Coding Level of Care Code 38027 SUB INP/OBS CARE 2/35MIN Diagnoses Acute non-ST elevation myocardial infarction (NSTEMI) I21.4
--- NOTE | 2024-02-03 18:22 | Billing Data ---
Date of Service February 03, 2024 Coding Level of Care Code 45604 SUB INP/OBS CARE 3MIN
[2024-02-04 06:03] LABS: Base Excess VBG 8.3 mEq/L; HCO3 VBG 34 mmol/L; Oxygen Saturation VBG 88.9 %; PCO2 VBG 50 mmHg (38-50); PO2 VBG 58 mmHg; pH VBG 7.44 (7.36-7.41)
[2024-02-04 06:27] LABS: Basophils # (auto) 0.02 K/uL (0.00-0.20); Basophils % (auto) 0.2 %; Eosinophils # (auto) 0.42 K/uL (0.00-0.50); Hematocrit (blood only) 37.3 % (37.0-47.0); Hemoglobin 12.3 g/dl (12.0-16.0); Immature Granulocytes # (auto) 0.03 K/uL (0.01-0.20); Immature Granulocytes % (auto) 0.3 %; Lymphocytes # (auto) 1.18 K/uL (1.20-3.40); Lymphocytes % (auto) 11.4 %; Mean Corpuscular Hemoglobin 29.1 pg (25.0-34.0); Mean Corpuscular Volume 88.4 fL (80.0-100.0); Mean Platelet Volume 11.1 fL (9.4-12.4); Monocytes # (auto) 0.66 K/uL (0.11-0.59); Monocytes % (auto) 6.4 %; Neutrophils # (auto) 8.08 K/uL (1.40-6.50); Neutrophils % (auto) 77.7 %; Platelet Count 266 K/uL (130-400); RDW Coefficient of Variation 14.6 % (11.5-14.5); RDW Standard Deviation 46.8 fL (36.4-46.3); Red Blood Count 4.22 M/uL (4.20-5.40); White Blood Count 10.39 K/ul (4.8-10.8)
[2024-02-04 06:29] LABS: BUN Creatinine Ratio 33.3 (10-20); Creatinine Clr Calc Pharmacy 24.7 ml/min; Est GFR (Non-African American) 27.6 ml/min; Potassium 3.7 mmol/L (3.5-5.1)
--- NOTE | 2024-02-04 10:52 | XRay Report ---
XR chest 1V portable HISTORY: Pulmonary Edema COMPARISON: Chest 02/02/2024. FINDINGS: There are low lung volumes. No pneumothorax. Trace bilateral pleural effusions have improve d. Left basilar densities again noted. This similar to the prior study. The heart remains enlarged. I nterstitial/vascular thickening consistent with mild pulmonary edema. This has slightly improved. The re are poststernotomy changes. No acute fractures. Degenerative changes within the shoulders. IMPRESSION: 1. Cardiomegaly with mild interstitial pulmonary edema and trace bilateral pleural effusions. This lares s slightly improved in the interval. 2. Left basilar density persists and may represent atelectasis or a pneumonia. ACT 112: Negative or not required by law. Electronically signed by: José Miguel Neely M.D. 02/04/2024 10:50 AM
--- NOTE | 2024-02-04 15:07 | Hospitalist Progress Note ---
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 of two of her grafts - successfully stented nitro PRN chest pain increase lasix to 80mg BID spot dose lasix -1.5L last 24hrs continue ASA81, losartan, carvedilol, Imdur, reduce amlodipine to 5mg #Pulmonary Edema O2 sats low 90s on large bore NC Down titrate O2 as tolerated Diuresis as above #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 good with plan for rehab. noted, in general she is awake and alert pleasant nad mildly fatigued. HEENT normocephalic atraumatic mucous membranes moist. Breathing unlabored no accessory muscle use good effort. No focal neurodeficits. NSTEMI/CAD - Now status post cath/stenting. Continue med management. No ongoing angina or ischemic symptoms. stable in this regard CHFacute HFrEF status post VT - EF 35%- showing good progressive improvementcontinue diuresis. Continue supportive care. CKD 3-4 - baseline cr 1.1 to 1.3. follow with diuresis. overall stable. reduced EF from VT - ?possible new baseline Cr but obviously this will take time to establish - manage as current and follow for now h/oPE/DVT- eliquis Subjective Patient seen and evaluated at bedside this morning. No acute events overnight. Remains with significant oxygen requirement. No acute complaints this am. Review of Systems Review of Systems: reviewed, per HPI Physical Exam Physical Exam: Constitutional: age appropriate, no acute distress HEENT: NCAT, no conjunctival injection CV: regular rhythm, +murmur, extremities well-perfused, -LE edema Resp: CTABL, diminished bases, rales present in mid-lung wayne MSK: no gross deformities appreciated Skin: warm, dry, no rash appreciated Neuro: alert, oriented, no focal neurologic deficit appreciated Results & Data Results & Data Vital Signs (Past 12 Hours) Vital Signs Temp Pulse Resp BP Pulse Ox O2 Del Method O2 Del Method 02/04/24 14:06 96 02/04/24 11:10 36.5 C 62 14 109/66 Room Air, High Flow Nasal Cannula 02/04/24 09:45 Nasal Cannula 02/04/24 07:45 36.9 C 64 19 133/71 94 High Flow Nasal Cannula 02/04/24 05:00 Nasal Cannula 02/04/24 03:37 36.8 C 67 18 145/69 H 96 High Flow Nasal Cannula O2 Flow Rate O2 Flow Rate 02/04/24 14:06 7 02/04/24 11:10 11 02/04/24 09:45 12 02/04/24 07:45 11 02/04/24 05:00 12 02/04/24 03:37 15.0 Resident Activity Tracking Resident Involvement: Resident Care Provided Care Provided: Adult Hospital Medicine (6) CAD (coronary artery disease) Associated angina: without angina Coronary Disease-Associated Artery/Lesion type: [place] artery [place] vs. transplanted heart: [place] heart Qualified Code(s): I25.10 - Atherosclerotic heart disease of [place] coronary artery without angina pectoris
--- NOTE | 2024-02-04 19:01 | Billing Data ---
Date of Service February 04, 2024 Coding Level of Care Code 91698 SUB INP/OBS CARE MIN
[2024-02-05 06:04] LABS: HCO3 VBG 35 mmol/L; Oxygen Saturation VBG 80.2 %; PCO2 VBG 47 mmHg (38-50); PO2 VBG 48 mmHg; pH VBG 7.48 (7.36-7.41)
[2024-02-05 06:14] LABS: Basophils # (auto) 0.03 K/uL (0.00-0.20); Basophils % (auto) 0.3 %; Eosinophils # (auto) 0.49 K/uL (0.00-0.50); Eosinophils % (auto) 4.2 %; Hematocrit (blood only) 36.5 % (37.0-47.0); Hemoglobin 12.1 g/dl (12.0-16.0); Immature Granulocytes # (auto) 0.06 K/uL (0.01-0.20); Immature Granulocytes % (auto) 0.5 %; Lymphocytes # (auto) 1.29 K/uL (1.20-3.40); Lymphocytes % (auto) 11.2 %; Mean Corpuscular Hemoglobin 29.1 pg (25.0-34.0); Mean Corpuscular Hgb Conc 33.2 g/dL (32.0-36.0); Mean Corpuscular Volume 87.7 fL (80.0-100.0); Mean Platelet Volume 10.6 fL (9.4-12.4); Monocytes # (auto) 0.68 K/uL (0.11-0.59); Monocytes % (auto) 5.9 %; Neutrophils # (auto) 8.98 K/uL (1.40-6.50); Neutrophils % (auto) 77.9 %; Platelet Count 278 K/uL (130-400); RDW Coefficient of Variation 14.4 % (11.5-14.5); RDW Standard Deviation 45.6 fL (36.4-46.3); Red Blood Count 4.16 M/uL (4.20-5.40); White Blood Count 11.53 K/ul (4.8-10.8)
[2024-02-05 06:36] LABS: Calcium 9.2 mg/dl (8.6-10.3); Est GFR (African American) 28.6 ml/min; Est GFR (Non-African American) 24.7 ml/min; Potassium 3.6 mmol/L (3.5-5.1)
--- NOTE | 2024-02-05 07:07 | Hospitalist Progress Note ---
Date of Service February 05, 2024 Assessment & Plan (1) Acute non-ST elevation myocardial infarction (NSTEMI): (2) Pulmonary edema: (3) Finger fracture, left: (4) H/O deep venous thrombosis: (5) S/P CABG x 5: (6) CAD (coronary artery disease): (7) Dyslipidemia: (8) Diabetes mellitus type 2, uncontrolled, with complications: (9) Current use of anticoagulant therapy: (10) CKD stage 3 due to type 2 diabetes mellitus: (11) Mild cognitive impairment: (12) History of pulmonary embolism: Plan Likely to go to rehab/[facility] care this upcoming week. #NSTEMI/CAD/s/p bypass x5 - s/p cardiac cath 01/30 with 98% and 99% occlusion of two of her grafts - successfully stented - nitro PRN chest pain - lasix to 80mg BID - continue ASA81, losartan, carvedilol, Imdur, - continue amlodipine to 5mg #Pulmonary Edema - O2 sats low 90s on large bore NC - Down titrate O2 as tolerated - improving #H/O DVT/PE - On lifelong apixaban, continue #T2DM A1c 10.3 on admission ISS #NED on CKD-III - Cr 1.58 on admission, baseline appears to be 1.2-1.35 - 1.91 today, will cut back/hold diuresis Code status: Conditional, no intubation DVT prophylaxis: Eliquis Admission and Anticipated Discharge Date Admission Date: January 30, 2024 Supervising Physician Co-Signing Physician Notes I personally examined the patient and verified all trivedi points of history and exam, discussed case, and agree with decision making with Dr Cash no real complaints today. Discussed with cardiology. Input appreciated. Vitals noted, in general she is awake and alert pleasant no distress. HEENT normocephalic atraumatic mucous membranes moist. Breathing unlabored rales to mid lung field. No accessory muscle use good effort. Skin without rashes pallor or icterus. NSTEMI/CAD - Now status post cath/stenting. Continue med management. No ongoing angina or ischemic symptoms. stable in this regard CHFacute HFrEF status post LA - EF 35%- showing good progressive improvementcontinue diuresis. Try reducing to 80 mg daily and continue to follow progress. Continue supportive care. CKD 3-4 - baseline cr 1.1 to 1.3. follow with diuresis. overall stable. reduced EF from LA - ?possible new baseline Cr but obviously this will take time to establish - manage as current and follow for now, Continue to follow basic metabolic panel closely h/oPE/DVT- padmini Subjective Pt states she is feeling okay today. No major questions or concerns. She denies chest pain, SOB, abdominal pain. She states she did have a need for home oxygen after a prior hospitalization but it was a small amount via nasal canula at nighttime and she quickly did well without. Review of Systems Review of Systems: Per HPI Physical Exam Physical Exam: General:Alert and oriented, no acute distress, HEENT: Normocephalic, moist oral mucosa, Cardio: Regular rate and rhythm, murmur noted, Resp:Lungs clear to auscultation b/l but diminished in bases, no wheezes or rhonchi, GI: Soft and nontender, nondistended, bowel sounds active Skin: Warm, pink, dry, Results & Data Results & Data Vital Signs (Past 12 Hours) Vital Signs Temp Pulse Pulse Resp BP Pulse Ox O2 Del Method 02/05/24 04:00 37 C 65 18 132/76 96 Nasal Cannula 02/05/24 00:00 59 L 02/04/24 22:46 36.8 C 64 18 120/62 94 Nasal Cannula 02/04/24 20:00 Nasal Cannula 02/04/24 19:15 36.6 C 70 20 130/69 97 Nasal Cannula O2 Flow Rate 02/05/24 04:00 5 02/05/24 00:00 02/04/24 22:46 5 02/04/24 20:00 5 02/04/24 19:15 5 Resident Activity Tracking Resident Involvement: Resident Care Provided Care Provided: Adult Hospital Medicine (6) CAD (coronary artery disease) Associated angina: without angina Coronary Disease-Associated Artery/Lesion type: [place] artery [place] vs. transplanted heart: [place] heart Qualified Code(s): I25.10 - Atherosclerotic heart disease of [place] coronary artery without angina pectoris
[2024-02-05] MEDS: SOD PHOSPHATE/SOD BIPHOSPHATE ENEMA 132 ML BTL PR STA (14:58)
[2024-02-05] MEDS ORDERED: SOD PHOSPHATE/SOD BIPHOSPHATE ENEMA 132 ML BTL PR PRN (15:28)
--- NOTE | 2024-02-05 17:33 | Billing Data ---
Date of Service February 05, 2024 Coding Level of Care Code 72396 SUB INP/OBS CARE MIN
[2024-02-05] MEDS: POLYETHYLENE (MIRALAX) 17 GM PACK PO SCH (20:45)
--- NOTE | 2024-02-05 22:24 | Cardiology Progress Note ---
Date of Service February 05, 2024 Assessment & Plan (1) Acute non-ST elevation myocardial infarction (NSTEMI): Plan: --multivessel CAD -- post PCI with FILEMON to SVG to OM3 and SVG to PDA. --patent [place]-LAD 2. Acute HFrEF - EF 35% 3. Moderate mitral regurgitation 4. NED 5. Type 2 DM 6. 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 Anemia Remains chest pain-free Diuresing well, breathing/O2 requirement improved SCr trending up -- Agree with reducing lasix BID to once daily -- Continue triple therapy with aspirin/clopidogrel/Eliquis while admitted. group home discharge on clopidogrel, Eliquis -- Continue current carvedilol. Continue spironolactone ---If renal function stable trial of ARB. Will consider SGLT2 as an outpatient. Likely wean off amlodipine/imdur. -- Awaiting possible transfer to [facility] sometime next week. -- Will arrange f/up with CHF clinic and Dr. Cherry. Admission and Anticipated Discharge Date Admission Date: January 30, 2024 Subjective Sitting up in chair. Breathing stable. No chest pain. No other new concerns. Telemetry reviewed -- no events Review of Systems Review of Systems: All systems reviewed & are unremarkable except as noted in HPI & below Physical Exam Physical Exam: Gen: Comfortable Skin: Warm no rashes HEENT: Sclera anicteric Neck: no bruits Lungs: few crackles cleared with inspiration Cardiac: regular rhythm, normal S1-2, holosystolic murmur at the apex Abdomen: benign. 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 Results & Data Vital Signs (Past 12 Hours) Vital Signs Temp Pulse Resp BP Pulse Ox O2 Del Method O2 Flow Rate 02/05/24 20:00 Nasal Cannula 4 02/05/24 19:15 98.2 F 59 L 126/73 95 Nasal Cannula 5 02/05/24 15:45 98.1 F 59 L 20 104/62 89 L Nasal Cannula 4 02/05/24 11:08 98.4 F 60 18 106/56 L 92 Nasal Cannula 4 PG Care Time/CCT Total # of Minutes Spent Total Time Spent with Patient: Total time spent is greater than 50% in coordination of care (as documented) at patient's floor/unit and/or counseling patient: Coding Level of Care Code 15349 SUB INP/OBS CARE 2MIN Diagnoses Acute non-ST elevation myocardial infarction (NSTEMI) I21.4
--- NOTE | 2024-02-06 06:47 | Hospitalist Progress Note ---
Date of Service February 06, 2024 Assessment & Plan (1) Acute non-ST elevation myocardial infarction (NSTEMI): (2) Pulmonary edema: (3) Finger fracture, left: (4) H/O deep venous thrombosis: (5) S/P CABG x 5: (6) CAD (coronary artery disease): (7) Dyslipidemia: (8) Diabetes mellitus type 2, uncontrolled, with complications: (9) Current use of anticoagulant therapy: (10) CKD stage 3 due to type 2 diabetes mellitus: (11) Mild cognitive impairment: (12) History of pulmonary embolism: Plan Anticipate discharge to rehab/centre care this upcoming week. 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, continue #T2DM - A1c 10.3 on admission - ISS #NED on CKD-III - Cr 1.58 on admission, baseline appears to be 1.2-1.35 - 1.91 yesterday to 1.67 today, suspect this is due to ACS and resultant impaired heart function/prerenal - lasix dose was reduced from BID to daily Code status: Conditional, no intubation DVT prophylaxis: Lalit Admission and Anticipated Discharge Date Admission Date: January 30, 2024 Supervising Physician Co-Signing Physician Notes I personally examined the patient and verified all trivedi points of history and exam, discussed case, and agree with decision making with Dr Cash resting comfortably O2 down to 3L. Vitals noted, resting comfortably nad breathing unlabored on 3L no accessory muscles good effort skin no rashes no pallor or icterus NSTEMI/CAD - Now status post cath/stenting. Continue med management. No ongoing angina or ischemic symptoms. has been stable in this regard CHFacute HFrEF status post [place] - EF 35%- showing good progressive improve mentcontinue diuresis with lasix 80 mg daily and continue to follow progress. Continue supportive care. CKD 3-4 - baseline cr 1.1 to 1.3. follow with diuresis. overall stable. reduced EF from [place] - ?possible new baseline Cr but obviously this will take time to establish - manage as current and follow for now, Continue to follow basic metabolic panel closely, range has been reassuring, although slightly elevated from previous baseline h/oPE/DVT- eliquis Subjective Today, pt seen this morning as she was sitting up in chair eating breakfast. When asked how she was doing today, she states "bad" and when asked to elaborate she states "the toast they gave me is so dry." When asked how she was doing medically, she states medically she feels fine, just dissatisfied with the breakfast this morning. Helped her butter and jam her toast, which she states made it tolerable. Otherwise, denies chest pain or SOB. No nausea or vomiting. Did have a BM last night that was a bit hard to pass but nonbloody. No further questions or complaints at this time. Review of Systems Review of Systems: Per HPI Physical Exam Physical Exam: General:Alert and oriented, no acute distress, HEENT: Normocephalic, moist oral mucosa, Cardio: Regular rate and rhythm, murmur noted, Resp:Lungs clear to auscultation b/l but diminished in bases, no wheezes or rhonchi, Skin: Warm, pink, dry, Results & Data Results & Data Vital Signs (Past 12 Hours) Vital Signs Temp Pulse Pulse Resp BP Pulse Ox O2 Del Method 02/06/24 02:47 36.5 C 64 18 165/82 H 89 L Nasal Cannula 02/05/24 22:42 58 L 02/05/24 22:32 36.8 C 53 L 18 130/78 96 Nasal Cannula 02/05/24 20:00 Nasal Cannula 02/05/24 19:15 36.8 C 59 L 126/73 95 Nasal Cannula O2 Flow Rate 02/06/24 02:47 5 02/05/24 22:42 02/05/24 22:32 5 02/05/24 20:00 4 02/05/24 19:15 5 Resident Activity Tracking Resident Involvement: Resident Care Provided Care Provided: Adult [facility] Medicine (6) CAD (coronary artery disease) Associated angina: without angina Coronary Disease-Associated Artery/Lesion type: [place] artery [place] vs. transplanted heart: [place] heart Qualified Code(s): I25.10 - Atherosclerotic heart disease of [place] coronary artery without angina pectoris
[2024-02-06 07:10] LABS: BUN Creatinine Ratio 35.9 (10-20); Calcium 9.1 mg/dl (8.6-10.3); Creatinine Clr Calc Pharmacy 25.1 ml/min; Est GFR (African American) 33.6 ml/min; Potassium 3.6 mmol/L (3.5-5.1)
[2024-02-06] MEDS: FUROSEMIDE 40 MG/4 ML VIAL IV SCH (07:52)
--- NOTE | 2024-02-06 16:21 | Billing Data ---
Date of Service February 06, 2024 Coding Level of Care Code 35995 SUB INP/OBS CARE
--- NOTE | 2024-02-07 06:43 | Hospitalist Progress Note ---
Date of Service February 07, 2024 Assessment & Plan (1) Acute non-ST elevation myocardial infarction (NSTEMI): (2) Pulmonary edema: (3) Finger fracture, left: (4) H/O deep venous thrombosis: (5) S/P CABG x 5: (6) CAD (coronary artery disease): (7) Dyslipidemia: (8) Diabetes mellitus type 2, uncontrolled, with complications: (9) Current use of anticoagulant therapy: (10) CKD stage 3 due to type 2 diabetes mellitus: (11) Mild cognitive impairment: (12) History of pulmonary embolism: Plan Pt is a 78 yo F w/ a PMHx of DVT (use of anticoag therapy), CAD, HLD, T2DM, Hx of PE , Class I obesity, s/p coronary artery stent, GERD, CKD-stage 3, b/ tinnitus. 1) NSTEMI/CAD/s/p bypass x5 - s/p cardiac cath 01/30 with 98% and 99% occlusion of two of her grafts - successfully stented - nitro PRN chest pain - lasix to 80mg BID weaned down to daily - continue ASA, 81 mg, daily and: losartan, carvedilol, Imdur (isosorbide nitrate), - continue amlodipine to 5mg 2) Pulmonary Edema - O2 sats, 90-95, room air - Down-titrated oxygen, not requiring oxygen anymore - improving 3) Hx of DVT/PE - On lifelong apixaban, continue 4) T2DM - A1C, 10.3 (on admission) - ISS 5) NED on CKD-III - Cr, 1.73 (1.58 on admission, baseline appears to be 1.2-1.35) - suspect this is due to ACS and resultant impaired heart function/prerenal - lasix dose now 80 mg, daily Code status: Conditional, no intubation DVT prophylaxis: Lalit COOLEY: Heart Healthy and Type 2 Carb Consistent Diet Admission and Anticipated Discharge Date Admission Date: January 30, 2024 Supervising Physician Co-Signing Physician Notes Attending Physician Supervision Note: I independently interviewed and examined the patient and verified the trivedi history and physical, reviewed labs and image studies and agree with findings and care plan noted above. NSTEMI/CAD - Now status post cath/stenting. Continue med management. No ongoing angina or ischemic symptoms. CHFacute HFrEF status post [place] - EF 35%- Neg 10L. continue diuresis with lasix 80 mg daily. Monitor renal fx. NED on CKD 3-4 - baseline cr 1.1 to 1.3. follow with diuresis. reduced EF from [place] - ?possible new baseline Cr. h/oPE/DVT- eliquis Subjective Otherwise, denies chest pain or SOB. No nausea or vomiting. No further questions or complaints at this time, patient not feeling subjectively dyspneic on room air, although her O2 sats are in low 90s while on room air. Patient just waiting to be discharged to [facility], without any real concerns. Review of Systems Constitutional: + fatigue; no fever and no chills Ear, Nose, Mouth, Throat: + nasal discharge; no nasal congestion, no post nasal drip and no sore throat Respiratory: + dyspnea; no cough Cardiovascular: no chest pain and no palpitations Gastrointestinal: no nausea, no vomiting and no diarrhea/loose stools Neurologic: no tingling and no numbness Physical Exam Constitutional: well developed, well nourished, + obese, cooperative and comfortable Respiratory: normal respiratory effort and able to speak in complete sentences; does not use accessory muscles Auscultation: + crackles (right sided crackles on exam at base of lungs) Cardiovascular: RRR, no murmur, no edema Extremities: normal capillary refill; no edema Gastrointestinal (Abdomen): normal bowel sounds, soft, nontender, no hepatos plenomegaly Psychiatric: A+Ox3, euthymic affect Results & Data Results & Data Vital Signs (Past 12 Hours) Vital Signs Temp Pulse Pulse Resp BP BP Pulse Ox 02/07/24 03:33 36.6 C 59 L 18 122/66 94 02/06/24 23:41 64 02/06/24 22:47 36.5 C 59 L 20 143/68 H 97 02/06/24 20:00 02/06/24 20:00 36.5 C 59 L 18 143/75 H 98 O2 Del Method O2 Flow Rate 02/07/24 03:33 Nasal Cannula 02/06/24 23:41 02/06/24 22:47 Nasal Cannula 4 02/06/24 20:00 Nasal Cannula 4 02/06/24 20:00 Nasal Cannula 4 Resident Activity Tracking Resident Involvement: Resident Care Provided Care Provided: Adult Hospital Medicine (6) CAD (coronary artery disease) Associated angina: without angina Coronary Disease-Associated Artery/Lesion type: [place] artery [place] vs. transplanted heart: [place] heart Qualified Code(s): I25.10 - Atherosclerotic heart disease of [place] coronary artery without angina pectoris
[2024-02-07 07:56] LABS: BUN Creatinine Ratio 33.5 (10-20); Calcium 9.4 mg/dl (8.6-10.3); Creatinine Clr Calc Pharmacy 24.3 ml/min; Est GFR (African American) 32.2 ml/min; Est GFR (Non-African American) 27.8 ml/min; Potassium 3.8 mmol/L (3.5-5.1)
--- NOTE | 2024-02-07 11:36 | Discharge Summary ---
Date of Service February 08, 2024 Admission HPI Per Admitting Provider The patient is a 78-year-old female with a past medical history including DVT, pulmonary embolism in 2019, hypertension, status post CABG x 5 in 2009 cerebral microvascular disease, CAD, dyslipidemia, diabetes mellitus type 2 with long- term use of insulin, anticoagulation with Eliquis, s/p coronary stent placement, GERD, CKD stage III, and mild cognitive impairment. She presents to the emergency department as a referral from [facility] due to being awoken with chest pain and shortness of breath earlier this evening. Admission Exam Per Admitting Provider The patient is awake, alert, mild memory impairment, well developed and well nourished, normocephalic and atraumatic, lying in bed and in no acute distress. HEENT--PERRL, EOMI, mucous membranes and oropharynx normal Neck--supple. No JVD. No bruits. Thyroid normal, trachea midline, no adenopathy. Heart--normal S1 and S2. No murmurs, rubs or gallops. Lungs--crackles at the bases bilaterally. No respiratory distress, no accessory muscle use. Abdomen--normal bowel sounds and soft. Nontender. Nondistended, no hernias or masses, no organomegaly. Extremities--1+ bilateral pretibial pitting edema. Dermatologic--skin is mildly dry. Few scattered ecchymoses Neurologic--cranial nerves II through XII grossly intact. Rheumatologic--normal range of motion. Psychiatric--normal affect. Mild memory impairment Principal Diagnosis NSTEMI, pulmonary edema, NED Discharge Exam Constitutional WD/WN, vitals as above Respiratory normal respiratory effort and able to speak in complete sentences; does not use accessory muscles Auscultation: + crackles (left and right sided crackles on exam at base of lungs) Cardiovascular Rate/Rhythm: regular rate and regular rhythm Heart Sounds: + murmur (left upper sternal border) Extremities: normal capillary refill; no edema Gastrointestinal (Abdomen) normal bowel sounds, soft, nontender, no hepatosplenomegaly Skin + lesion (seborrheic keratoses noted on back) Psychiatric A+Ox3, euthymic affect Discharge Data Allergies Allergy/AdvReac Type Severity Reaction Status Date / Time No Known Allergies Allergy Verified 01/30/24 02:33 Consultations 01/30/24 03:23 ED Decision to Admit Stat 01/30/24 05:35 Consult Cardiology Routine Procedures Performed Operation Date: 01/31/24 11:00 Actual Procedures p Cineradiography w/Routine Exam - Dwayne Sifuentes MD s Cath, Left w/Cors Vent Grafts - Dwayne Sifuentes MD s Drug Eluding Stent, SVG/ARELI, A - Dwayne Sifuentes MD Ordered Studies 01/31/24 11:38 CL Cath Imgs for PACS use only Routine Diabetes Follow up Diabetes Follow-up Needed for HgbA1c >9% Hospital Course (1) Acute non-ST elevation myocardial infarction (NSTEMI): (2) Pulmonary edema: (3) Finger fracture, left: (4) H/O deep venous thrombosis: (5) S/P CABG x 5: (6) CAD (coronary artery disease): (7) Dyslipidemia: (8) Diabetes mellitus type 2, uncontrolled, with complications: (9) Current use of anticoagulant therapy: (10) CKD stage 3 due to type 2 diabetes mellitus: (11) Mild cognitive impairment: (12) History of pulmonary embolism: Plan Pt is a 78 yo F w/ a PMHx of DVT (use of anticoag therapy), CAD, HLD, T2DM, Hx of PE , Class I obesity, s/p coronary artery stent, GERD, CKD-stage 3, b/ tinnitus. Anticipate discharge to rehab/centre care this upcoming week. 1) NSTEMI/CAD/s/p bypass x5 - s/p cardiac cath 01/30 with 98% and 99% occlusion of two of her grafts - successfully stented - nitro PRN chest pain while inpatient Discharge: - stopped ASA, 81 mg, daily - stopped amlodipine and isosorbide nitrate per cardiology recommendations - hold losartan, 25 mg, PO, daily for 7 days and re-start after 1 week F/U BMP indicates resolution of NED - continue carvedilol, 3.125 mg, PO, BID w/ meals - started spironolactone, 12.5 mg (1/2 tablet), PO, daily - continue Lasix, 80mg, PO, daily for 7 days 2) Pulmonary Edema - O2 sat, 92, on room air; crackles noted in base of lungs posteriorly, bilaterally; but patient subjectively comfortable - patient off of oxygen now, improving - discharged patient on Lasix, 80 mg, PO, daily for 7 days 3) Hx of DVT/PE - Continue apixaban, 5mg, PO, BID 4) T2DM - A1C, 10.4 - patient w/ history or poor medication compliance per her ring sewer - patient's ring sewer made aware of patient's latest A1C and F/U appt will be scheduled - continue home diabetic meds regimen per pt's ring sewer 5) NED on CKD-III - Cr, 1.76 (1.58 on admission, baseline appears to be 1.2-1.35) - suspect this is due to ACS and resultant impaired heart function/prerenal - Lasix, see above in 1) and 2) - F/U BMP in a week to monitor renal function, potassium level - hold losartan, 25 mg, PO, daily for 7 days and re-start after 1 week F/U BMP indicates resolution of NED Total Time Total Time Spent Total Time Spent (In Minutes): see attending attestation Discharge Plan Discharge Items Patient Disposition: Transfer Inpatient Rehab Fac Reason For Visit: NSTEMI, PULMONARY EDEMA Discharge Diagnosis: NSTEMI, NED, pulmonary edema Activity: Per Instructions section Non-emergency contact: Primary Care Provider and Seismograph Chief Call non-emergency contact if: you have any medication questions and your pain is worsening Follow-up/Referrals: Maribel Sanabria MD [Primary Care Provider] - Shweta Ortega PA-C [Physician Mixing And Molding Machine Operator] - 02/15/24 2:00 pm (Congestive Heart Failure Program Appointment Information Early follow up is essential to managing your heart failure. An appointment has been scheduled for you with the [facility] within 7 days of discharge. Anticipate this visit to be 30-60 minutes long. Please expect a telecommunications linesworker phone call from one of our nurses approximately 48 hours from discharge. They will also be placing an order for lab work to be completed 1-2 days prior to your heart failure follow up appointment. Please be sure to have this done so we can go over the results when you come in. Office Location The cardiology office building is located in front of the hospital at [address] [facility]. Bring the following with you to your follow-up doctor appointments: Please bring your daily weight log any discharge paperwork all of your medication bottles with you to this visit. ) Diet: Carb Consistent or DM2 and Heart Healthy Addtl Attending Provider Instructions: You were admitted to the hospital for chest pain and dyspnea, subsequently determined to be having a heart attack (NSTEMI). You were treated with . A discharge summary will be sent to your primary care physician to ensure continuity of care. Please bring this discharge summary with you to your next office appointment so that your provider can review it at that time. Follow-up appointments: Make a follow-up appointment with your PCP and ring sewer within the next week. It is very important that you follow up with them shortly after discharge from the hospital.] We have requested a follow-up appointment with your school age program associate within a few weeks of discharge. Please call their office if you do not hear from them. Keep all your follow-up appointments as already scheduled. If you cannot make an appointment, notify your provider. Medications: Your medication list has been reviewed and reconciled upon discharge to ensure accuracy and continuity of care. An updated list of all your medications is included with your hospital discharge paperwork. Please review this list closely, and make note of any changes. We sent a new medication called Lasix to your pharmacy. Take Lasix, 80 mg, one tablet, daily, for 7 days. This dose can be modified due to volume status as determined by your outpatient care providers. We sent a new medication called clopidogrel to your pharmacy. Take clopidogrel, 75 mg, one tablet, daily, regularly. We sent a new medication called spironolactone to your pharmacy. Take spironolactone, 12.5 mg, one-half tablet, daily, regularly. Take your medications as instructed; do not skip a dose of your medicines. Make sure all of your doctors know every medicine you are taking (including [id number] medicines, vitamins, and supplements). Call your primary care provider before taking any new medicines (including zvmj-[id number] medicines, vitamins, and supplements), because some of these may interact with your current medications, or may make your symptoms worse. Tell your primary care provider if you cannot afford your medications. CONTACT YOUR PRIMARY CARE PROVIDER if you experience any of the following: chest pain, shortness of breath, Difficulty following your treatment plan, or difficulty taking medications CALL 911 OR GO TO THE EMERGENCY DEPARTMENT if you experience any of the following: Sudden, severe abdominal pain or nausea/vomiting Severe chest pain, or chest pain that radiates (moves) to your jaw or arm Sudden, severe shortness of breath or difficulty breathing Thank you for allowing us to participate in your care Pending Studies at Discharge: No Stand-Alone Forms: My [facility] Skilled Items Patient informed of condition?: Yes DNR: No Discharge Level of Care: Acute rehab Communicable Disease: No Discharge Prognosis: Stable Lines: None Urinary Catheter: No Medications and DC Order Prescriptions: New furosemide [Lasix] 80 mg tablet 80 mg PO DAILY Qty: 7 0RF clopidogrel 75 mg tablet 75 mg PO DAILY Qty: 30 0RF spironolactone 25 mg tablet 12.5 mg PO DAILY Qty: 30 0RF Continued magnesium oxide 400 mg magnesium capsule 400 mg PO DAILY Qty: 30 0RF isosorbide mononitrate 30 mg tablet extended release 24 hr 30 mg PO BID Qty: 180 3RF apixaban 5 mg tablet 5 mg PO BID Qty: 60 5RF atorvastatin 40 mg tablet 40 mg PO QPM Qty: 90 3RF (DME) FreeStyle Marcelo 3 [place] Misc See Rx Instructions .Route Qty: 1 0RF Rx Instructions: for use with Marcelo 3 sensors (DME) FreeStyle Marcelo 3 Sensor Device See Rx Instructions .Route Qty: 2 11RF Rx Instructions: change every 14 days insulin asp prt-insulin aspart [Novolog Mix 70-30FlexPen U-100] 100 unit/mL (70-30) insulin pen See Rx Instructions subcut BID Qty: 90 4RF Rx Instructions: 68units given immediately before breakfast meal and 32units given immediately before supper meal (DME) pen needle, diabetic [BD Ultra-Fine Brenda Pen Needle] 32 gauge x 5/32" needle See Rx Instructions .Route Rx Instructions: Inject insulin two times daily (DME) lancets [Accu-Chek Softclix Lancets] Misc See Rx Instructions .ROUTE .MEDSUPPLY Rx Instructions: Test blood sugar once daily PRN (DME) Accu-Chek Jolene Plus test strp Strip See Rx Instructions .ROUTE .MEDSUPPLY Rx Instructions: Test blood sugar once daily PRN (DME) FreeStyle Marcelo 2 [place] Misc See Rx Instructions .Route Rx Instructions: As directed (DME) FreeStyle Marcelo 2 Sensor Kit See Rx Instructions .Route Rx Instructions: As directed acetaminophen 500 mg capsule 1,000 mg PO DAILY PRN (Reason: Pain) omega-3 fatty acids 1,000 mg Capsule 1,000 mg PO DAILY diclofenac sodium 1 % Gel 2 g TOPICAL QID Rx Instructions: APPLY TO ELBOW, WRIST OR HANDS PreserVision AREDS 2,148 mcg-113 mg-45 mg-17.4mg Tablet 1 tab PO BID tramadol 50 mg tablet 50 mg PO DAILY PRN (Reason: severe pain (scale score 7-10)) carvedilol [Coreg] 3.125 mg tablet 3.125 mg PO BIDM Rx Instructions: must administer with a meal/food famotidine 20 mg tablet 20 mg PO QAM Rx Instructions: TAKE ONE TABLET BY MOUTH EVERY DAY Held losartan 25 mg tablet 25 mg PO DAILY Qty: 30 0RF Hold Instructions: Resume on 02/14/24. hold until repeat BMP as outpatient to monitor creatinine levels Discontinued aspirin 81 mg tablet,delayed release (DR/EC) 81 mg PO DAILY Qty: 90 3RF amlodipine [Norvasc] 10 mg tablet 10 mg PO DAILY Qty: 90 3RF Discharge Orders: Discharge Order (Routine); Ordered 02/08/24 Ordered By: Dwayne Levi Admission Data Admit Date/Time: 01/30/24 04:34 Attending Provider: Fiorella Cook Admit Provider: Huey Myrick Primary Care Provider: Maribel Sanabria V. Other Providers: [place]; Mannie Mina; Huey Myrick; Amos Rodríguez Other Interventions: Discharge Summary Assessment (RN) Last Done: 02/08/24 11:58 Supervising Physician Co-Signing Physician Notes Attending Physician Supervision Note: I independently interviewed and examined the patient and verified the trivedi history and physical, reviewed labs and image studies and agree with findings and care plan noted above. NSTEMI/CAD - status post cath/stenting. Continue med management. Acute HFrEF status post [place] - EF 35%- Neg 10L on discharge. Transition to oral lasix on discharge - 80mgs daily. Monitor renal fx in few days at the facility. NED on CKD 3-4 - baseline cr 1.1 to 1.3. Creatine around 1.7 likely her new baseline in setting of CMP. BMP check in few days. h/oPE/DVT- continue eliquis Uncontrolled DM - A1c 10. Has had problem with adherence due to forgetting to take insulin per endocrine team. Continue home dose insulin - No dose change done on discharge.
[2024-02-08 08:21] LABS: BUN Creatinine Ratio 31.8 (10-20); Calcium 9.6 mg/dl (8.6-10.3); Creatinine Clr Calc Pharmacy 23.5 ml/min; Est GFR (African American) 31.6 ml/min; Est GFR (Non-African American) 27.2 ml/min; Potassium 3.8 mmol/L (3.5-5.1)
[2024-02-08 08:25] VITALS: RESP 18; TEMP 98.1; O2SAT 90
[2024-02-08 12:00] VITALS: BP 143/75; PULSE 71
--- NOTE | 2024-02-14 08:58 | Coding Query ---
CODING QUERY FOR UNCONTROLLED DIABETES To promote full compliance with coding requirements relating to patient care, provider participation is requested in all cases of neurology manager uncertainty. Please assist us with the question(s) below: Coding Question: The term uncontrolled Diabetes was used throughout the record. To be able to code this diagnosis properly, could you please clarify the diagnosis below: ( ) Uncontrolled Diabetes meaning hypoglycemia ( x ) Uncontrolled Diabetes meaning hyperglycemia ( ) Other (please specify) Principal Diagnosis: "that condition established after study, to be chiefly responsible for occasioning the admission of the patient to the hospital for care." Co-Existing Principal Diagnosis: "when two or more diagnoses equally meet the criteria for principal diagnosis as determined by the circumstances of admission, diagnostic work up, and/or therapy provided, and the Alphabetic Index, Tabular List, or another coding guideline does not provide sequencing direction, any one of the diagnoses may be sequenced first." "When the physician has documented what appears to be a current diagnosis in the body of the record, but has not included the diagnosis in the final diagnostic statement, the physician should be asked whether the diagnosis should be added." (Source Coding Clinic 2 QTR90. p3-4) THIEN
== END 2024-02-08 13:31 | DRG 321 ==
LOC: ED 02:09 → SUATTDRO 04:34 → 2S 04:34 → 3N 02-07 20:21

== ENCOUNTER 2024-02-14 16:22 | Inpatient (IN) ==
--- NOTE | 2024-02-14 16:37 | Emergency Department Note ---
Impression & Plan Acute GI bleeding, Anemia, Abnormal ECG, Elevated troponin ED Provider Note NAME: ZAHIDA EUCEDA AGE: 79 SEX: F : 1945 ARRIVES VIA: Ambulance INFORMANT: Patient, Records, family ED PROVIDER(S): Goran Blood MD CHIEF COMPLAINT: Abnormal blood work, outpatient referral MEDICAL DECISION MAKING: Patient presents due to concern for abnormal hemoglobin of 7. I did receive the patient's EKG which did show some inferior changes which may be a STEMI but the patient denies any chest pains or shortness of breath. Patient did have a recent cardiac catheterization as well as stents placed to bypass grafts. I did message Dr. Sifuentes and sent him the old EKG from January 31 at 614 as well as today's given the patient's significant anemia without chest pain or shortness of breath he states this would not necessarily be uncommon in light of the patient's significant anemia. He recommends monitoring this if she were to develop any change in symptoms may consider reevaluation or if the patient does have significant elevation in troponin. The patient had complained of some darker stools. An IV was established and blood work was obtained. The patient had complained of some left-sided hip pain so did have imaging completed of the left hip and pelvis. Patient's hemoglobin is 7. The patient was consented for 2 units PRBCs.Blood work shows a white count of 12 with hemoglobin of 7. The patient's platelet count is unremarkable. The patient's kidney function with a creatinine 2.19. This is about the patient's baseline. The patient does have elevated BUN to creatinine ratio all this has been high before. Initial troponin of 113. I did convey the findings to the patient the patient's daughter. Patient was ordered a lidocaine patch. I did speak the on-call hospitalist service Dr. Anand and the patient was admitted to the medicine service. Critical Care: I have personally spent 45 minutes of critical care time in direct management of this patient. This includes bedside care, interpretation of diagnostic studies, and testing, discussion with consultants, patient, and family members, and other require inpatient management activities. This 45 prior records, family minutes is in excess of all separately billable procedures. Discussion w/ other healthcare providers: Dr. Sifuentes with interventional cardiology Dr. Anand inpatient medicine service Prior /Outside records reviewed: I reviewed part of her recent discharge summary from February 08, 2020 for by Dwayne Levi. No prior history of DVT PE hypertension CABG CAD dyslipidemia type 2 diabetes on insulin anticoagulation on Eliquis, coronary stent placement, GERD, CKD mild cognitive impairment who presented due to concern for chest pain and shortness of breath. I reviewed a cardiac catheterization summary from Dr. Sifuentes from January 30 patient with acute severe vein graft disease with 90% proximal SVG to PDA with JEREL II flow with 99% proximal in-stent restenosis thrombosis SVG to OM 3 with JEREL I flow patent WILLIAMSON to LAD LAD after anastomosis provides collaterals to the PDA. Patient with likely chronic total occlusions of ostial mid circumflex and proximal RCA. Patient did have successful PCI of proximal SVG to PDA with single drug-eluting stent and successful PCI SVG to OM 3 with new overlapping drug eluting stent. Differential diagnosis: Gastrointestinal bleeding, infection, dehydration, metabolic abnormality, hypo/hyperglycemia, electrolyte imbalance, anemia, UTI, pneumonia, thyroid dysfunction among others were considered. Diagnostics, as interpreted by me: ECG: Normal sinus rhythm, rate of 77, normal intervals, normal axis, ST depression in the high lateral leads with ST elevation noted in lead III and aVF. Elevations in 3 and aVF are more pronounced from prior comparison EKG from February 01, 2024 Cardiac monitoring: An order was placed for continuous cardiac monitoring. The monitor shows a rate of 75 with sinus rhythm. Patient was placed on pulse oximetry Medical decision rules: None Imaging studies: I informally interpreted the patient's chest x-ray that showed cardiomegaly with vascular congestion. with formal report to follow. HPI: Patient presents due to concern for abnormal outpatient blood work which included a low hemoglobin of 7. Patient does take Eliquis for known history of DVT. Patient does admit that she is noticing darker stools most recently. Patient states she is compliant with her medications. She denies any chest pains or shortness of breath. The patient does have some left-sided hip and buttock pain. No reported recent falls or trauma. Patient denies any abdominal pain or nausea or vomiting. PAST MEDICAL HISTORY: See Below PAST SURGICAL HISTORY: See Below SOCIAL HISTORY: See Below HOME MEDICATIONS: See Below ALLERGIES: See Below VITALS: See Below PHYSICAL EXAMINATION: GENERAL: NAD, non-toxic. EYE EXAM: Normal conjunctiva. PERRL, no anisocoria and EOM's grossly intact w/o pain. OROPHARYNX: Moist mucus membranes, grossly normal dentition. NECK: Trachea midline, no stridor. LUNGS: Clear to auscultation. Normal chest wall mechanics. HEART: NSR, no MRG. ABDOMEN: Abdomen soft, non-tender, no masses, no rebound or guarding. BACK: No CVA TTP. SKIN: No rashes and no bruising. UPPER EXTREMITIES: Upper extremities are grossly normal. LOWER EXTREMITIES: Grossly normal, no edema. NEURO EXAM: A&O x3, cranial nerves II-XII grossly intact, normal speech, moves all 4 extremities. Past Med/Surg History Problem List (Updated 02/16/24 @ 00:12 by Goran Blood MD) Elevated troponin (Acute) Abnormal ECG (Acute) Anemia (Acute) Acute GI bleeding (Acute) Mitral regurgitation Ischemic cardiomyopathy Heart failure with reduced ejection fraction Acute blood loss anemia Acute GI bleeding Acute non-ST elevation myocardial infarction (NSTEMI) (Acute 01/29/24) Hypoxia (Acute) Pulmonary edema (Acute) Finger fracture, left Fall Sacroiliac joint pain H/O deep venous thrombosis Left shoulder pain Elevated WBC count Low back pain Hypertension (Chronic) Carpal tunnel syndrome, bilateral (Chronic) S/P CABG x 5 (Chronic 2009) Gait disturbance (Chronic) Cerebral microvascular disease (Chronic) CAD (coronary artery disease) (Chronic) Dyslipidemia (Chronic) Diabetes mellitus type 2, uncontrolled, with complications (Chronic ~1988) Uncontrolled type 2 diabetes mellitus with hyperglycemia, with long-term current use of insulin (Chronic) Current use of anticoagulant therapy Obesity, Class I, BMI 30-34.9 (Chronic) Hearing decreased S/P coronary artery stent placement Excessive cerumen in both ear canals GERD (gastroesophageal reflux disease) Sensorineural hearing loss (SNHL) of both ears Bilateral tinnitus CKD stage 3 due to type 2 diabetes mellitus (Chronic) Mild cognitive impairment Medical History History of non-ST elevation myocardial infarction (NSTEMI) Gastrointestinal hemorrhage Deep vein thrombosis (DVT) of left lower extremity (~05/2020) Chronic anticoagulation Cough Acute right-sided low back pain Trapezius muscle spasm Stroke COVID-19 virus infection (~05/14/20) Physical deconditioning Diabetes Surgical History History of heart bypass surgery History of carpal tunnel release of both wrists H/O partial thyroidectomy Family History Son Colorectal cancer Myocardial infarction Family/Other Colorectal cancer Aunt Colorectal cancer Father Myocardial infarction Uncle Myocardial infarction Brother Myocardial infarction Dyslipidemia Mother Heart disease Dementia Denies family history of Ovarian cancer Prostate cancer Breast cancer Social History Smoking Status: Never smoker Tobacco Type: Cigarettes Second Hand Exposure: No; Do You Dip or Chew Tobacco: No; Hx Alcohol Use: No Hx Substance Use: No Preferred Language: Bengali Communication Ability: Impaired Visual Impairment: Limited Hearing Ability: Use of Hearing Aid Paint Brush Maker Required: No Beliefs That Will Affect Care: None marital status: / Current Living Situation: Snf current occupational status: retired Feels Safe at Home: Yes Childhood Exposure to Second-Hand Smoke: Yes Diet: regular caffeine: Yes (1-2 cups a day) Dental Care, Regularly: Yes Physical Activity Frequency: Does not Exercise Seatbelt Use: always Sunscreen Use: No Do you think of yourself as: straight/heterosexual Gender Identity: Female Assistive Devices: Walker Allergies Allergies Allergy/AdvReac Type Severity Reaction Status Date / Time No Known Allergies Allergy Verified 02/14/24 19:38 Home Meds Home Medications Medication Instructions Recorded Confirmed blood sugar diagnostic (Accu-Chek 06/02/21 01/20/24 Jolene Plus test strips) flash glucose scanning reader 06/02/21 01/20/24 (FreeStyle Marcelo 2 [place]) flash glucose sensor (FreeStyle 06/02/21 01/20/24 Marcelo 2 Sensor kit) lancets (Accu-Chek Softclix 06/02/21 01/20/24 Lancets) pen needle, diabetic 32 gauge x 12/02/23 01/20/24 5/32" (BD Ultra-Fine Brenda Pen Needle) carvedilol 3.125 mg tablet (Coreg) 3.125 mg PO QAM 01/30/24 02/14/24 diclofenac sodium 1 % topical gel 2 g topical QID 01/30/24 02/14/24 famotidine 20 mg tablet 20 mg PO QAM 01/30/24 02/14/24 omega-3 fatty acids 1,000 mg 1,000 mg PO QAM 01/30/24 02/14/24 capsule tramadol 50 mg tablet 50 mg PO Q6H PRN severe pain 01/30/24 02/14/24 (scale score 7-10) vitamins A,C,S-juol-qpfvhd 2,148 1 tab PO BID 01/30/24 02/14/24 mcg-113 mg-45 mg-17.4 mg tablet (PreserVision AREDS) acetaminophen 325 mg tablet 650 mg PO Q6H PRN Temp >100/Pain 02/14/24 02/14/24 (Tylenol) bisacodyl 10 mg rectal suppository 10 mg HI DAILY PRN Constipation 02/14/24 02/14/24 (Dulcolax (bisacodyl)) clopidogrel 75 mg tablet 75 mg PO QAM 02/14/24 02/14/24 furosemide 40 mg tablet 40 mg PO QAM 02/14/24 02/14/24 magnesium hydroxide 400 mg/5 mL 0 mg PO DAILY PRN Constipation 02/14/24 02/14/24 oral suspension (Milk of Magnesia) magnesium oxide 400 mg PO QAM 02/14/24 02/14/24 menthol 0.44 %-zinc oxide 20.6 % 1 applic topical BID Rash 02/14/24 02/14/24 topical ointment (Calmoseptine) pantoprazole 40 mg tablet,delayed 40 mg PO DAILY 02/14/24 02/14/24 release (Protonix) sodium phosphates 19 gram-7 118 ml HI DAILY PRN Constipation 02/14/24 02/14/24 gram/118 mL enema (Fleet Enema) Previous Rx's Medication Instructions Recorded isosorbide mononitrate 30 mg 30 mg PO BID #180 tabs 05/19/23 tablet,extended release 24 hr apixaban 5 mg tablet 5 mg PO BID #60 tabs 09/06/23 atorvastatin 40 mg tablet 40 mg PO QPM #90 tabs 10/15/23 blood-glucose meter,continuous #1 ea 01/17/24 (FreeStyle Marcelo 3 [place]) blood-glucose sensor (FreeStyle #2 ea 01/17/24 Marcelo 3 Sensor device) insulin aspar prot-insulin aspart See Rx Instructions subcut BID #90 01/24/24 100 unit/mL (70-30) subcutaneous mL pen (Novolog Mix 70-30FlexPen U-100) Results & Data (ED) Vital Signs Vital Signs - 24 hr 02/14/24 16:33 02/14/24 16:44 02/14/24 17:49 Temperature 36.9 C Temperature Source Oral Pulse Rate 79 87 Respiratory Rate 26 H Respiratory Effort / Characteristics Spontaneous Short of Breath Respiratory Depth Normal Respiratory Pattern Regular Blood Pressure 123/74 107/44 L Blood Pressure Mean 90 77 Pulse Oximetry 93 Oxygen Delivery Method Room Air Sepsis Recent Fever Within 48 Hours No Sepsis New/Unexplained Change in Mental Status N/A Sepsis Action Taken by Nursing No Action Required 02/14/24 17:51 02/14/24 18:00 02/14/24 18:02 Temperature Temperature Source Pulse Rate 76 76 Respiratory Rate 21 26 H Respiratory Effort / Characteristics Respiratory Depth Respiratory Pattern Blood Pressure 125/46 L Blood Pressure Mean 55 Pulse Oximetry 97 99 Oxygen Delivery Method Room Air Room Air Sepsis Recent Fever Within 48 Hours Sepsis New/Unexplained Change in Mental Status Sepsis Action Taken by Snf Medications Current Medication List: was personally reviewed by me Laboratory Data Attestation: I reviewed the patient's lab results. 02/15/24 21:45 02/15/24 03:05 Lab Results 02/14/24 02/14/24 Range/Units 16:40 17:55 WBC 12.56 H (4.8-10.8) K/ul RBC 2.41 L (4.20-5.40) M/uL Hgb 7.0 L (12.0-16.0) g/dl Hct 22.6 L (37.0-47.0) % MCV 93.8 (80.0-100.0) fL MCH 29.0 (25.0-34.0) pg MCHC 31.0 L (32.0-36.0) g/dL RDW Std Deviation 52.5 H (36.4-46.3) fL RDW Coeff of Magali 16.5 H (11.5-14.5) % Plt Count 392 (130-400) K/uL MPV 11.0 (9.4-12.4) fL Immature Gran % (Auto) 0.6 % Neut % (Auto) 70.9 % Lymph % (Auto) 17.8 % Chester % (Auto) 7.2 % Eos % (Auto) 3.0 % Baso % (Auto) 0.5 % Neut # (Auto) 8.91 H (1.40-6.50) K/uL Lymph # (Auto) 2.23 (1.20-3.40) K/uL Chester # (Auto) 0.91 H (0.11-0.59) K/uL Eos # (Auto) 0.38 (0.00-0.50) K/uL Baso # (Auto) 0.06 (0.00-0.20) K/uL Immature Gran # (Auto) 0.07 (0.01-0.20) K/uL Absolute Nucleated RBC 0.02 (0.00-0.12) K/uL Nucleated RBC % (auto) 0.2 % Polychromasia 1+ PT 12.4 H (9.0-12.0) Seconds INR 1.2 H (0.9-1.1) APTT 26 (21-31) Seconds PTT Ratio 1.0 Sodium 142 (136-145) mmol/L Potassium 3.5 (3.5-5.1) mmol/L Chloride 101 (98-107) mmol/L Carbon Dioxide 30 (21-32) mmol/L Anion Gap 11 (3-11) BUN 84 H (6-23) mg/dl Creatinine 2.19 H (0.6-1.2) mg/dl Est Cr Clr Drug Dosing 18.0 ml/min Est GFR ( Amer) 24.1 ml/min Est GFR (Non-Af Amer) 20.8 ml/min BUN/Creatinine Ratio 38.4 H (10-20) Glucose 119 H (70-99(Fasting)) mg/dl Calcium 9.5 (8.6-10.3) mg/dl Total Bilirubin 0.4 (0.2-1.0) mg/dl AST 15 (13-39) U/L ALT 14 (7-52) U/L Alkaline Phosphatase 65 (34-104) U/L Troponin I High Sens 113.6 H* 106.9 H* (0-14) pg/ml Total Protein 6.5 (6.0-8.3) gm/dl Albumin 3.8 (3.4-5.0) gm/dl Globulin 2.7 (2.5-4.0) gm/dl Albumin/Globulin Ratio 1.4 (0.9-2) Blood Type AB Positive Blood Type Recheck AB Positive Antibody Screen NEGATIVE Crossmatch See Detail Administered Medications Aspirin (Aspirin 81 Mg Ectab) 81 mg PO QAM [facility] Stop: 03/16/24 17:59 Last Admin: 02/15/24 19:19 Dose: 81 mg Documented By: OO Carvedilol (Carvedilol 3.125 Mg Tab) 3.125 mg PO BIDM [facility] Stop: 03/16/24 16:59 Last Admin: 02/15/24 17:52 Dose: 3.125 mg Documented By: AUBRIE Pantoprazole Sodium 40 mg/ (Dextrose) 100 mls @ 20 mls/hr IV Q5H [facility] Stop: 03/15/24 17:14 Last Admin: 02/15/24 20:26 Dose: 8 mg/hr, 20 mls/hr Documented By: Infusion: 02/15/24 20:06 Dose: Infused Documented By: Admin: 02/15/24 15:06 Dose: 8 mg/hr, 20 mls/hr Documented By: OLionel Infusion: 02/15/24 15:06 Dose: Infused Documented By: Admin: 02/15/24 10:24 Dose: 8 mg/hr, 20 mls/hr Documented By: OLionel Infusion: 02/15/24 10:02 Dose: Infused Documented By: Admin: 02/15/24 05:02 Dose: 8 mg/hr, 20 mls/hr Documented By: Infusion: 02/15/24 03:24 Dose: Infused Documented By: Admin: 02/14/24 22:24 Dose: 8 mg/hr, 20 mls/hr Documented By: Infusion: 02/14/24 22:24 Dose: Infused Documented By: Admin: 02/14/24 17:47 Dose: 8 mg/hr, 20 mls/hr Documented By: KENTON Insulin Aspart (Insulin Aspart Per Unit Charge) 0 units SC Q6 [facility] Stop: 03/16/24 00:00 Last Admin: 02/15/24 18:25 Dose: 3 units Documented By: AUBRIE Co-signed By: Admin: 02/15/24 12:22 Dose: 1 units Documented By: OLionel Co-signed By: LITA Admin: 02/15/24 06:05 Dose: Not Given Documented By: Admin: 02/14/24 23:58 Dose: Not Given Documented By: ALLAN Insulin Glargine (Lantus Per Unit Charge) 0 units SC HS [facility]; Protocol Stop: 03/16/24 20:59 Last Admin: 02/15/24 20:27 Dose: 10 units Documented By: CORNELIO Co-signed By: DM Discontinued Medications Pantoprazole Sodium 80 mg/ (Dextrose) 120 mls @ 480 mls/hr IV NOW ONE Stop: 02/14/24 17:02 Last Infusion: 02/14/24 17:30 Dose: Infused Documented By: Admin: 02/14/24 17:08 Dose: 480 mls/hr Documented By: OSMEL Lidocaine (Lidocaine 5% 1 Patch) 1 patch TD NOW STA Stop: 02/14/24 18:27 Last Admin: 02/14/24 18:51 Dose: 1 patch Documented By: NANCY Miscellaneous (Remove Lidoderm Patch) 1 each N/A DAILY@2100 SNEHA Stop: 03/15/24 20:59 Last Admin: 02/14/24 22:25 Dose: Not Given Documented By: [facility] Miscellaneous (Remove Lidoderm Patch) 1 each N/A TODAY@1851 ONE Stop: 02/15/24 18:52 Last Admin: 02/15/24 20:27 Dose: 1 each Documented By: CORNELIO Pantoprazole Sodium (Pantoprazole Bolus/Drip) 1 each IV NOW STA Stop: 02/14/24 16:49 Last Admin: 02/14/24 17:16 Dose: Not Given Documented By: OSMEL Imaging Data Radiologist's Impression: Chest X-Ray 02/14/24 16:44 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 FINDINGS: There are median sternotomy wires and mediastinal surgical clips. Cardiomegaly is unchanged. There is pulmonary vascular congestion. No consolidation is present. There is no pneumothorax or pleural effusion. IMPRESSION: Cardiomegaly with pulmonary vascular congestion, slightly improved since prior exam. ACT 112: Negative or not required by law. Electronically signed by: Silvestre Lizarraga M.D. 02/14/2024 5:37 PM Hip/Pelvis X-Ray 02/14/24 16:47 XR hip LT 2V w pelvis CLINICAL HISTORY: Left hip/buttock pain COMPARISON: Left hip radiographs January 12, 2024. FINDINGS: Sacroiliac joints and symphysis pubis are intact. There are no acute fractures within the pelvis or hips. Evaluation of the left hip is slightly compromised given difficulty positioning. Hip joint spaces are preserved. There is mild osteophytosis of both hips. Incidental note is made of a moderate amount stool within the rectum. IMPRESSION: No fractures within the pelvis or hips. Evaluation of the left hip slightly compromised given difficulty positioning. ACT 112: Negative or not required by law. Electronically signed by: Silvestre Lizarraga M.D. 02/14/2024 5:43 PM Discharge Plan Visit Data Chief Complaint: Abnormal Labs/Diagnostic Testing ED Provider: Goran Blood Discharge Problem: Acute GI bleeding, Anemia, Abnormal ECG, Elevated troponin Patient Disposition: Admitted As Inpatient Discharge Instructions Interventions: ED Discharge Assessment Last Done: 02/14/24 20:28 Discharge Problem: Anemia Qualifiers: Anemia type: other cause
[2024-02-14] MEDS ORDERED: SODIUM CHLORIDE 0.9% 250 ML IV PRN ×2 (16:44→17:54)
[2024-02-14] MEDS: PANTOprazole 80 MG in DEXTROSE 5% 100 ML IV ONE (17:08)
[2024-02-14 17:16] LABS: Albumin Globulin Ratio 1.4 (0.9-2); Albumin Level 3.8 gm/dl (3.4-5.0); BUN Creatinine Ratio 38.4 (10-20); Bilirubin,Total 0.4 mg/dl (0.2-1.0); Calcium 9.5 mg/dl (8.6-10.3); Est GFR (African American) 24.1 ml/min; Est GFR (Non-African American) 20.8 ml/min; Globulin 2.7 gm/dl (2.5-4.0); Potassium 3.5 mmol/L (3.5-5.1); Total Protein 6.5 gm/dl (6.0-8.3)
[2024-02-14] MEDS: PANTOPRAZOLE BOLUS/DRIP IV STA (17:16)
[2024-02-14 17:27] LABS: Troponin I High Sensitivity 113.6 pg/ml (0-14)
[2024-02-14 17:31] LABS: Basophils # (auto) 0.06 K/uL (0.00-0.20); Basophils % (auto) 0.5 %; Eosinophils # (auto) 0.38 K/uL (0.00-0.50); Hematocrit (blood only) 22.6 % (37.0-47.0); Immature Granulocytes # (auto) 0.07 K/uL (0.01-0.20); Immature Granulocytes % (auto) 0.6 %; Lymphocytes # (auto) 2.23 K/uL (1.20-3.40); Lymphocytes % (auto) 17.8 %; Mean Corpuscular Volume 93.8 fL (80.0-100.0); Monocytes # (auto) 0.91 K/uL (0.11-0.59); Monocytes % (auto) 7.2 %; Neutrophils # (auto) 8.91 K/uL (1.40-6.50); Neutrophils % (auto) 70.9 %; Nucleated RBC # (auto) 0.02 K/uL (0.00-0.12); Nucleated RBC % (auto) 0.2 %; Platelet Count 392 K/uL (130-400); RDW Coefficient of Variation 16.5 % (11.5-14.5); RDW Standard Deviation 52.5 fL (36.4-46.3); Red Blood Count 2.41 M/uL (4.20-5.40); White Blood Count 12.56 K/ul (4.8-10.8)
[2024-02-14 17:39] LABS: INR 1.2 (0.9-1.1); Partial Thromboplastin Time 26 Seconds (21-31); Prothrombin Time 12.4 Seconds (9.0-12.0)
--- NOTE | 2024-02-14 17:39 | XRay Report ---
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 FINDINGS: There are median sternotomy wires and mediastinal surgical clips. Cardiomegaly is unchanged . There is pulmonary vascular congestion. No consolidation is present. There is no pneumothorax or pl eural effusion. IMPRESSION: Cardiomegaly with pulmonary vascular congestion, slightly improved since prior exam. ACT 112: Negative or not required by law. Electronically signed by: Silvestre Lizarraga M.D. 02/14/2024 5:37 PM
--- NOTE | 2024-02-14 17:44 | XRay Report ---
XR hip LT 2V w pelvis CLINICAL HISTORY: Left hip/buttock pain COMPARISON: Left hip radiographs January 12, 2024. FINDINGS: Sacroiliac joints and symphysis pubis are intact. There are no acute fractures within the pelvis or hips. Evaluation of the left hip is slightly compromised given difficulty positioning. Hip joint spaces are preserved. There is mild osteophytosis of both hips. Incidental note is made of a mo derate amount stool within the rectum. IMPRESSION: No fractures within the pelvis or hips. Evaluation of the left hip slightly compromised g iven difficulty positioning. ACT 112: Negative or not required by law. Electronically signed by: Silvestre Lizarraga M.D. 02/14/2024 5:43 PM
[2024-02-14] MEDS: PANTOprazole 40 MG in DEXTROSE 5% MINI-B 100 ML IV SCH (17:47)
[2024-02-14 17:54] LABS: Polychromasia 1+
[2024-02-14] MEDS: LIDOCAINE 5% 1 PATCH TD STA (18:51)
--- NOTE | 2024-02-14 18:54 | History & Physical Report ---
Date of Service February 14, 2024 Assessment & Plan (1) Acute GI bleeding: Plan: Suspected UGI bleed without liver cirrhosis Patient and daughter note no history although gastrointestinal hemorrhage noted on history since Dr Christianson's note 01/30/2024 NPO, IV pantoprazole 80mg bolus and drip Hold Eliquis Likely need to restart clopidogrel tomorrow given recent NSTEMI however will defer this overnight Transfuse 2 units and repeat hemoglobin. Transfusion threshold < 9 given recent NSTEMI Consult gastroenterology (2) History of non-ST elevation myocardial infarction (NSTEMI): Plan: Holding Eliquis and clopidogrel as above Holding carvedilol and losartan due to concern for causing hypotension Holding atorvastatin due to NPO status (3) Diabetes mellitus type 2, uncontrolled, with complications: Plan: HbA1C 10.4 Novolo correction factor, no carb ratio Consult pharmacy for ongoing (4) Acute blood loss anemia: (5) History of pulmonary embolism: (6) Heart failure with reduced ejection fraction: Plan VTE Prophylaxis - SCDs Diet - NPO Disposition - admit to PCU Admission and Anticipated Discharge Date Admission Date: February 14, 2024 History of Present Illness Chief Complaint: Abnormal labs Primary Care Provider: Maribel Sanabria MD Francine Barragan is a 79-year-old female who presents to the ER via EMS from [facility] due to a hemoglobin of 7. She reports having abnormal stools this morning. Having back/sacral pain. Patient is confused at baseline. She denies any liver cirrhosis, abdominal pain, reflux, nausea or vomiting. No chest pain, shortness of breath or dizziness. She was recently admitted from January 29 - 2023 due to NSTEMI and heart failure. She underwent cardiac catheterization on January 30 with x2 FILEMON to bypass grafts. She takes Eliquis chronically for prior VTEs. Allergies Allergy/AdvReac Type Severity Reaction Status Date / Time No Known Allergies Allergy Verified 02/14/24 19:38 Home Medications Medication Instructions Recorded Confirmed Type blood sugar diagnostic (Accu-Chek 06/02/21 01/20/24 History Jolene Plus test strips) flash glucose scanning reader 06/02/21 01/20/24 History (FreeStyle Marcelo 2 [place]) flash glucose sensor (FreeStyle 06/02/21 01/20/24 History Marcelo 2 Sensor kit) lancets (Accu-Chek Softclix 06/02/21 01/20/24 History Lancets) isosorbide mononitrate 30 mg 30 mg PO BID #180 tabs 05/19/23 02/14/24 Rx tablet,extended release 24 hr apixaban 5 mg tablet 5 mg PO BID #60 tabs 09/06/23 02/14/24 Rx atorvastatin 40 mg tablet 40 mg PO QPM #90 tabs 10/15/23 02/14/24 Rx pen needle, diabetic 32 gauge x 12/02/23 01/20/24 History 532" (BD Ultra-Fine Rbenda Pen Needle) blood-glucose meter,continuous #1 ea 01/17/24 01/20/24 Rx (FreeStyle Marcelo 3 [place]) blood-glucose sensor (FreeStyle #2 ea 01/17/24 01/20/24 Rx Marcelo 3 Sensor device) insulin aspar prot-insulin aspart See Rx Instructions subcut BID #90 01/24/24 02/14/24 Rx 100 unit/mL (70-30) subcutaneous mL pen (Novolog Mix 70-30FlexPen U-100) carvedilol 3.125 mg tablet (Coreg) 3.125 mg PO QAM 01/30/24 02/14/24 History diclofenac sodium 1 % topical gel 2 g topical QID 01/30/24 02/14/24 History famotidine 20 mg tablet 20 mg PO QAM 01/30/24 02/14/24 History omega-3 fatty acids 1,000 mg 1,000 mg PO QAM 01/30/24 02/14/24 History capsule tramadol 50 mg tablet 50 mg PO Q6H PRN severe pain 01/30/24 02/14/24 History (scale score 7-10) vitamins A,C,L-yjtt-ujhful 2,148 1 tab PO BID 01/30/24 02/14/24 History mcg-113 mg-45 mg-17.4 mg tablet (PreserVision AREDS) acetaminophen 325 mg tablet 650 mg PO Q6H PRN Temp >100/Pain 02/14/24 02/14/24 History (Tylenol) bisacodyl 10 mg rectal suppository 10 mg MI DAILY PRN Constipation 02/14/24 02/14/24 History (Dulcolax (bisacodyl)) clopidogrel 75 mg tablet 75 mg PO QAM 02/14/24 02/14/24 History furosemide 40 mg tablet 40 mg PO QAM 02/14/24 02/14/24 History magnesium hydroxide 400 mg/5 mL 0 mg PO DAILY PRN Constipation 02/14/24 02/14/24 History oral suspension (Milk of Magnesia) magnesium oxide 400 mg PO QAM 02/14/24 02/14/24 History menthol 0.44 %-zinc oxide 20.6 % 1 applic topical BID Rash 02/14/24 02/14/24 History topical ointment (Calmoseptine) pantoprazole 40 mg tablet,delayed 40 mg PO DAILY 02/14/24 02/14/24 History release (Protonix) sodium phosphates 19 gram-7 118 ml MI DAILY PRN Constipation 02/14/24 02/14/24 History gram/118 mL enema (Fleet Enema) Past Med/Surg History Problem List (Updated 02/15/24 @ 04:09 by Justin Anand MD) Heart failure with reduced ejection fraction Acute blood loss anemia Acute GI bleeding Acute non-ST elevation myocardial infarction (NSTEMI) (Acute 01/29/24) Hypoxia (Acute) Pulmonary edema (Acute) Finger fracture, left Fall Sacroiliac joint pain H/O deep venous thrombosis Left shoulder pain Elevated WBC count Low back pain Hypertension (Chronic) Carpal tunnel syndrome, bilateral (Chronic) S/P CABG x 5 (Chronic 2009) Gait disturbance (Chronic) Cerebral microvascular disease (Chronic) CAD (coronary artery disease) (Chronic) Dyslipidemia (Chronic) Diabetes mellitus type 2, uncontrolled, with complications (Chronic ~1988) Uncontrolled type 2 diabetes mellitus with hyperglycemia, with long-term current use of insulin (Chronic) Current use of anticoagulant therapy Obesity, Class I, BMI 30-34.9 (Chronic) Hearing decreased S/P coronary artery stent placement Excessive cerumen in both ear canals GERD (gastroesophageal reflux disease) Sensorineural hearing loss (SNHL) of both ears Bilateral tinnitus CKD stage 3 due to type 2 diabetes mellitus (Chronic) Mild cognitive impairment Medical History (Updated 02/15/24 @ 04:09 by Justin Anand MD) History of non-ST elevation myocardial infarction (NSTEMI) Gastrointestinal hemorrhage Deep vein thrombosis (DVT) of left lower extremity (~05/2020) Chronic anticoagulation Cough Acute right-sided low back pain Trapezius muscle spasm Stroke COVID-19 virus infection (~05/14/20) Physical deconditioning Diabetes Surgical History (Updated 02/12/24 @ 00:08 by Morgan Herman) History of heart bypass surgery History of carpal tunnel release of both wrists H/O partial thyroidectomy Family History Son Colorectal cancer Myocardial infarction Family/Other Colorectal cancer Aunt Colorectal cancer Father Myocardial infarction Uncle Myocardial infarction Brother Myocardial infarction Dyslipidemia Mother Heart disease Dementia Denies family history of Ovarian cancer Prostate cancer Breast cancer Social History Smoking Status: Never smoker Tobacco Type: Cigarettes Second Hand Exposure: No; Do You Dip or Chew Tobacco: No; Hx Alcohol Use: No Hx Substance Use: No Preferred Language: Omani Communication Ability: Effective Visual Impairment: Limited Hearing Ability: Use of Hearing Aid Electrical Intern Required: No Beliefs That Will Affect Care: None marital status: / Current Living Situation: Shelter current occupational status: retired Feels Safe at Home: Yes Childhood Exposure to Second-Hand Smoke: Yes Diet: regular caffeine: Yes (1-2 cups a day) Dental Care, Regularly: Yes Physical Activity Frequency: Does not Exercise Seatbelt Use: always Sunscreen Use: No Do you think of yourself as: straight/heterosexual Gender Identity: Female Assistive Devices: Walker Review of Systems Review of Systems: All systems reviewed & are unremarkable except as noted in HPI & below Physical Exam Constitutional: WD/WN, vitals as above Eyes: PERRL, conjunctivae normal, anicteric sclerae ENMT: external ear and nose normal, oropharynx normal Respiratory: normal respiratory effort, lungs clear to auscultation Cardiovascular: RRR, no murmur, no edema Gastrointestinal (Abdomen): Inspection/Auscultation: abdomen normal to inspection; abdomen not distended Percussion/Palpation: + abdomen tender (epigastric) and abdomen soft; no guarding and abdomen not rigid Musculoskeletal: no cyanosis or clubbing, extremities motor strength 5/5 Skin: no rashes, warm and dry Neurologic: moves all extremities, awake and + confused Psychiatric: Orientation: alert, oriented to person and oriented to place; + not oriented to time Results & Data Results & Data Vital Signs (Past 12 Hours) Vital Signs Temp Pulse Resp BP Pulse Ox O2 Del Method 02/14/24 18:02 125/46 L 02/14/24 18:00 76 26 H 99 Room Air 02/14/24 17:51 76 21 97 Room Air 02/14/24 17:49 107/44 L 02/14/24 16:44 36.9 C 87 26 H 123/74 93 Room Air 02/14/24 16:33 79 Laboratory Results Abnormal lab results 02/14/24 Range/Units 16:40 WBC 12.56 H (4.8-10.8) K/ul RBC 2.41 L (4.20-5.40) M/uL Hgb 7.0 L (12.0-16.0) g/dl Hct 22.6 L (37.0-47.0) % MCHC 31.0 L (32.0-36.0) g/dL RDW Std Deviation 52.5 H (36.4-46.3) fL RDW Coeff of Magali 16.5 H (11.5-14.5) % Neut # (Auto) 8.91 H (1.40-6.50) K/uL [place] # (Auto) 0.91 H (0.11-0.59) K/uL PT 12.4 H (9.0-12.0) Seconds INR 1.2 H (0.9-1.1) BUN 84 H (6-23) mg/dl Creatinine 2.19 H (0.6-1.2) mg/dl BUN/Creatinine Ratio 38.4 H (10-20) Glucose 119 H (70-99(Fasting)) mg/dl Troponin I High Sens 113.6 H* (0-14) pg/ml Crossmatch See Detail Diagnostic Findings XR chest 1V portable 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 FINDINGS: There are median sternotomy wires and mediastinal surgical clips. Cardiomegaly is unchanged. There is pulmonary vascular congestion. No consolidation is present. There is no pneumothorax or pleural effusion. IMPRESSION: Cardiomegaly with pulmonary vascular congestion, slightly improved since prior exam. XR hip LT 2V w pelvis CLINICAL HISTORY: Left hip/buttock pain COMPARISON: Left hip radiographs January 12, 2024. FINDINGS: Sacroiliac joints and symphysis pubis are intact. There are no acute fractures within the pelvis or hips. Evaluation of the left hip is slightly compromised given difficulty positioning. Hip joint spaces are preserved. There is mild osteophytosis of both hips. Incidental note is made of a moderate amount stool within the rectum. IMPRESSION: No fractures within the pelvis or hips. Evaluation of the left hip slightly compromised given difficulty positioning. Medications Administered ER medications given: Pantoprazole 80 mg bolus and drip Lidocaine 5% patch ECG Rate (beats per minute): 77 Rhythm: normal sinus Findings: + T-wave inversion (lateral) and + ST elevation (Inferior) Comparison ECG Date: from (February 01, 2024) Change: no significant change Code Status & VTE Plan Code Status DNR in setting of cardiac arrest, all other treatment outside of a cardiac arrest VTE Prophylaxis Plan VTE Prophylaxis will be ordered: Yes PG Care Time/CCT Total # of Minutes Spent Total Time Spent with Patient: Total time spent is greater than 50% in coordination of care (as documented) at patient's floor/unit and/or counseling patient: Coding Level of Care Code 49274 INT INP/OBS CARE 3/75MIN Diagnoses Acute GI bleeding K92.2 History of non-ST elevation myocardial infarction (NSTEMI) I25.2 Diabetes mellitus type 2, uncontrolled, with complications E11.8; E11.65 Acute blood loss anemia D62 History of pulmonary embolism Z86.711 Heart failure with reduced ejection fraction I50.20
[2024-02-14] MEDS ORDERED: PHARMACY GLYCEMIC MGMT CONSULT PRN (23:37)
[2024-02-14] MEDS ORDERED: GLUCOSE 10 TAB/TUBE PO PRN (23:37)
[2024-02-14] MEDS ORDERED: CARBOHYDRATES FOR HYPOGLYCEMIA PO PRN (23:37)
[2024-02-14] MEDS ORDERED: GLUCAGON FOR INJ 1 MG VIAL SQ PRN (23:37)
[2024-02-14] MEDS ORDERED: GLUCOSE 40% GEL 15 GM TUBE PO PRN (23:37)
[2024-02-14] MEDS ORDERED: DEXTROSE 50% 50 ML SYRINGE IV PRN (23:37)
[2024-02-14] MEDS: INSULIN ASPART PER UNIT CHARGE SC SCH (23:58)
[2024-02-15] MEDS ORDERED: ACETAMINOPHEN 1,000 MG/100 ML VIAL IV PRN (01:03)
[2024-02-15 03:57] LABS: BUN Creatinine Ratio 34.8 (10-20); Calcium 9.1 mg/dl (8.6-10.3); Creatinine Clr Calc Pharmacy 18.8 ml/min; Est GFR (African American) 25.3 ml/min; Est GFR (Non-African American) 21.8 ml/min; Hematocrit (blood only) 30.6 % (37.0-47.0); Mean Corpuscular Hemoglobin 28.4 pg (25.0-34.0); Mean Corpuscular Hgb Conc 32.7 g/dL (32.0-36.0); Mean Corpuscular Volume 86.9 fL (80.0-100.0); Mean Platelet Volume 10.9 fL (9.4-12.4); Nucleated RBC # (auto) 0.02 K/uL (0.00-0.12); Nucleated RBC % (auto) 0.1 %; Platelet Count 335 K/uL (130-400); Potassium 3.6 mmol/L (3.5-5.1); RDW Coefficient of Variation 19.3 % (11.5-14.5); RDW Standard Deviation 56.5 fL (36.4-46.3); Red Blood Count 3.52 M/uL (4.20-5.40); White Blood Count 15.03 K/ul (4.8-10.8)
[2024-02-15 09:38] LABS: Hematocrit (blood only) 29.8 % (37.0-47.0); Hemoglobin 9.8 g/dl (12.0-16.0); Mean Corpuscular Hemoglobin 28.7 pg (25.0-34.0); Mean Corpuscular Hgb Conc 32.9 g/dL (32.0-36.0); Mean Corpuscular Volume 87.1 fL (80.0-100.0); Mean Platelet Volume 10.7 fL (9.4-12.4); Nucleated RBC # (auto) 0.02 K/uL (0.00-0.12); Nucleated RBC % (auto) 0.1 %; Platelet Count 318 K/uL (130-400); RDW Coefficient of Variation 19.9 % (11.5-14.5); RDW Standard Deviation 58.8 fL (36.4-46.3); Red Blood Count 3.42 M/uL (4.20-5.40)
--- NOTE | 2024-02-15 10:35 | Pharmacy Report ---
Pharmacy Glycemic Short Note 2 - Date of Service February 15, 2024 - Glycemic Short BSG Results (Last 24 hours): 02/14/24 02/14/24 02/15/24 16:40 23:31 03:05 Glucose 119 H 95 POC Glucose 115 H 02/15/24 05:43 Glucose POC Glucose 116 H OUTPATIENT ANTIDIABETIC REGIMEN: * Mix insulin 70/30 - 68 units daily with breakfast, 32 units daily with supper ASSESSMENT: * 79 year old admitted with GI bleed. NPO currently. Pharmacy consulted for glycemic management. Previously admitted 01/29-02/07. During that time, required significantly less insulin than outpatient regimen. Will utilize similar pa rameters from last admission. Will have scale for basal insulin at HS, however will consider giving earlier if diet started PLAN FOR INPATIENT GLYCEMIC CONTROL: * Hold outpatient oral diabetes medications * Basal insulin * Lantus 0-15 units HS * Bolus insulin * NovoLog per scale ACHS or Q6hrs while NPO * Goal Range: Low 110 mg/dL - High 140 mg/dL * Correction Factor: 18 mg/dL/unit * Nutritional / Prandial insulin per carb ratio of 1 unit per 6 grams CHO consumed
--- NOTE | 2024-02-15 10:50 | Gastrointestinal Consultation ---
Date of Consultation February 15, 2024 Assessment & Plan (1) Acute blood loss anemia: Patient is a 79 year old female who presented to the ER via EMS from [facility] due to a hemoglobin of 7. she also reports having had dark red stools for sometime. She had recent admission for NSTEMI/HF and had 2 stents placed. she has been on plavix/eliquis. - continue to monitor hgb/hct and transfuse as needed. - continue with protonix drip. - I discussed with the patient about endoscopic evaluation given her anemia and complaints. she tells me she is going to discuss with her family and then make a decision. Will plan to see again this afternoon with Dr. Graff and see if she has made a decision. Supervising Physician Co-Signing Physician Notes I saw and examined this patient with our nurse practitioner and agree with her assessment and plan. Hemodynamically stable. Abdominal exam soft nontender no masses. Clinically significant drop in her hemoglobin consistent with GI bleed. Based on description more consistent with an upper GI bleed. Presently on Eliquis had recent [place] with placement of drug-eluting stents 2 weeks ago. Before we proceed with endoscopic evaluation will need cardiac clearance and she will need to hold her Eliquis. Continue to monitor hemoglobin hematocrit IV PPI. History of Present Illness Reason for Consultation: GIB Requesting Physician: Justin Anand MD Attending Physician: Justin Kilpatrick MD History of Present Illness Patient is a 79 year old female who presented to the ER via EMS from [facility] due to a hemoglobin of 7. Patient noted that she has had a change in her bowels recently and notes that she has been having "dark red" stools for at least several days. she denies any nsaid use. she denies any nausea, vomiting, heartburn, abdominal pain, rectal pain, dysphagia. She was recently admitted her from 01/29-02/07 for STEMI/HF. She underwent a cath on 01/31/24 with 2 stents placed. she has been on plavix. she also admits to a history of eliquis use for history of a pulmonary embolism. she is uncertain when her last doses of plavix/eliquis were. she tells me she has had EGD / colonoscopy in the past but that these were several years ago and would have been done in [place]. 02/14/24 hgb 7.1 (she was then transfused 2 units PRBC) 8/27/24 hgb 10, repeat 9.8. 02/05/24 hgb 12.1 Allergies Allergy/AdvReac Type Severity Reaction Status Date / Time No Known Allergies Allergy Verified 02/14/24 19:38 Home Medications Medication Instructions Recorded Confirmed Type blood sugar diagnostic (Accu-Chek 06/02/21 01/20/24 History Jolene Plus test strips) flash glucose scanning reader 06/02/21 01/20/24 History (FreeStyle Marcelo 2 [place]) flash glucose sensor (FreeStyle 06/02/21 01/20/24 History Marcelo 2 Sensor kit) lancets (Accu-Chek Softclix 06/02/21 01/20/24 History Lancets) isosorbide mononitrate 30 mg 30 mg PO BID #180 tabs 05/19/23 02/14/24 Rx tablet,extended release 24 hr apixaban 5 mg tablet 5 mg PO BID #60 tabs 09/06/23 02/14/24 Rx atorvastatin 40 mg tablet 40 mg PO QPM #90 tabs 10/15/23 02/14/24 Rx pen needle, diabetic 32 gauge x 12/02/23 01/20/24 History 532" (BD Ultra-Fine Brenda Pen Needle) blood-glucose meter,continuous #1 ea 01/17/24 01/20/24 Rx (FreeStyle Marcelo 3 [place]) blood-glucose sensor (FreeStyle #2 ea 01/17/24 01/20/24 Rx Marcelo 3 Sensor device) insulin aspar prot-insulin aspart See Rx Instructions subcut BID #90 01/24/24 02/14/24 Rx 100 unit/mL (70-30) subcutaneous mL pen (Novolog Mix 70-30FlexPen U-100) carvedilol 3.125 mg tablet (Coreg) 3.125 mg PO QAM 01/30/24 02/14/24 History diclofenac sodium 1 % topical gel 2 g topical QID 01/30/24 02/14/24 History famotidine 20 mg tablet 20 mg PO QAM 01/30/24 02/14/24 History omega-3 fatty acids 1,000 mg 1,000 mg PO QAM 01/30/24 02/14/24 History capsule tramadol 50 mg tablet 50 mg PO Q6H PRN severe pain 01/30/24 02/14/24 History (scale score 7-10) vitamins A,C,F-rzwc-ixjhmn 2,148 1 tab PO BID 01/30/24 02/14/24 History mcg-113 mg-45 mg-17.4 mg tablet (PreserVision AREDS) acetaminophen 325 mg tablet 650 mg PO Q6H PRN Temp >100/Pain 02/14/24 02/14/24 History (Tylenol) bisacodyl 10 mg rectal suppository 10 mg ME DAILY PRN Constipation 02/14/24 02/14/24 History (Dulcolax (bisacodyl)) clopidogrel 75 mg tablet 75 mg PO QAM 02/14/24 02/14/24 History furosemide 40 mg tablet 40 mg PO QAM 02/14/24 02/14/24 History magnesium hydroxide 400 mg/5 mL 0 mg PO DAILY PRN Constipation 02/14/24 02/14/24 History oral suspension (Milk of Magnesia) magnesium oxide 400 mg PO QAM 02/14/24 02/14/24 History menthol 0.44 %-zinc oxide 20.6 % 1 applic topical BID Rash 02/14/24 02/14/24 History topical ointment (Calmoseptine) pantoprazole 40 mg tablet,delayed 40 mg PO DAILY 02/14/24 02/14/24 History release (Protonix) sodium phosphates 19 gram-7 118 ml ME DAILY PRN Constipation 02/14/24 02/14/24 History gram/118 mL enema (Fleet Enema) Patient History Medical History (Updated 02/15/24 @ 04:09 by Justin Anand MD) History of non-ST elevation myocardial infarction (NSTEMI) Gastrointestinal hemorrhage Deep vein thrombosis (DVT) of left lower extremity (~05/2020) Chronic anticoagulation Cough Acute right-sided low back pain Trapezius muscle spasm Stroke COVID-19 virus infection (~05/14/20) Physical deconditioning Diabetes Surgical History (Updated 02/12/24 @ 00:08 by Morgan Herman) History of heart bypass surgery History of carpal tunnel release of both wrists H/O partial thyroidectomy Family History Son Colorectal cancer Myocardial infarction Family/Other Colorectal cancer Aunt Colorectal cancer Father Myocardial infarction Uncle Myocardial infarction Brother Myocardial infarction Dyslipidemia Mother Heart disease Dementia Denies family history of Ovarian cancer Prostate cancer Breast cancer Social History Smoking Status: Never smoker Tobacco Type: Cigarettes Second Hand Exposure: No; Do You Dip or Chew Tobacco: No; Hx Alcohol Use: No Hx Substance Use: No Preferred Language: Mozambican Communication Ability: Impaired Visual Impairment: Limited Hearing Ability: Use of Hearing Aid Tetryl Dissolver Operator Required: No Beliefs That Will Affect Care: None marital status: / Current Living Situation: Care Home current occupational status: retired Feels Safe at Home: Yes Childhood Exposure to Second-Hand Smoke: Yes Diet: regular caffeine: Yes (1-2 cups a day) Dental Care, Regularly: Yes Physical Activity Frequency: Does not Exercise Seatbelt Use: always Sunscreen Use: No Do you think of yourself as: straight/heterosexual Gender Identity: Female Assistive Devices: Walker Review of Systems Review of Systems: All systems reviewed & are unremarkable except as noted in HPI & below Physical Exam Constitutional: WD/WN, vitals as above Respiratory: normal respiratory effort, lungs clear to auscultation Cardiovascular: Rate/Rhythm: regular rate and regular rhythm Gastrointestinal (Abdomen): normal bowel sounds, soft, nontender, no hepatosplenomegaly Psychiatric: Orientation: alert and oriented x 3 Affect: euthymic affect Results & Data Vital Signs (Past 12 Hours) Vital Signs Temp Pulse Pulse Resp BP BP Pulse Ox 02/15/24 07:33 98.2 F 80 18 135/72 96 02/15/24 03:21 97.7 F 79 18 114/65 97 02/15/24 01:01 97.9 F 70 16 140/62 95 02/15/24 00:00 98.1 F 64 14 98/59 L 92 02/14/24 23:30 98.1 F 69 16 121/68 96 02/14/24 23:15 98.1 F 74 18 122/70 93 02/14/24 22:58 97.9 F 80 18 110/47 L 96 O2 Del Method 02/15/24 07:33 Room Air 02/15/24 03:21 Room Air 02/15/24 01:01 02/15/24 00:00 02/14/24 23:30 02/14/24 23:15 02/14/24 22:58 Coding Level of Care Code 27376 INT INP/OBS CARE 2MIN Diagnoses Acute blood loss anemia D62
--- NOTE | 2024-02-15 14:35 | Cardiology Consultation ---
Date of Consultation February 15, 2024 Assessment & Plan (1) Heart failure with reduced ejection fraction: (2) CAD (coronary artery disease): (3) S/P CABG x 5: (4) S/P coronary artery stent placement: (5) Dyslipidemia: (6) Hypertension: (7) Ischemic cardiomyopathy: (8) Acute blood loss anemia: (9) Acute GI bleeding: (10) Mitral regurgitation: Plan ASSESSMENT/PLAN: 1. Recent NSTEMI: No angina but poor historian and confused. Off of antiplatelet therapy and with recent acute stent thrombosis of old SVG stent, would recommend resuming antiplatelet therapy when safe to do so. Given recent UT, high risk for procedures but likely higher risk if undiagnosed bleeding which prevents appropriate treatment for her documented cardiac issues. Will resume carvedilol which she has used chronically. Resume high intensity statin therapy when able. If unable to use Plavix or Eliquis soon, would recommend at least aspirin 81 mg daily when her acute GI bleeding has resolved. 2. Heart failure with reduced EF: She appears euvolemic. She was hypervolemic earlier this month and underwent diuresis. Will resume carvedilol. Recommend Entresto once known that her bleeding has resolved and renal function stable. Will not intensify her heart failure regimen currently given acute GI bleed. Will arrange for repeat echo at some point, likely during this hospital stay. If LV systolic function does not improve with appropriate therapy within 40 days of her UT, would be candidate for ICD for primary prevention. 3. CAD s/p CABG x 5 and PCI: Resume antiplatelet therapy when able. It was recommended by interventional cardiology to use Plavix while on long-term Eliq uis for history of PE. If unable to resume such measures soon, would at least recommend aspirin 81 mg daily when acute bleeding has subsided. No angina. Beta-beryl recommended as above. Resume high intensity statin therapy when able. 4. Cardiomyopathy: Ischemic in origin. Plan as above. 5. Mitral regurgitation: Nonsevere. Will monitor over time. 6. Acute blood loss anemia/acute GI bleeding: Hemoglobin was normal on 02/05/2024 and as low as 7 on 02/14/2024. Has received PRBC x 2. Endoscopy pending. 7. Dyslipidemia: Resume high-intensity statin therapy when taking p.o. 8. Disposition: High risk for procedures but benefit of endoscopy likely outweighs risk as we would be unable to provide appropriate therapy for her recently placed stents if unresolved bleeding. This was discussed with her daughter and primary contact, Shweta Catalan, via telephone. She is hoping to speak to GI. Message sent to Dr. Graff. Message sent to GI clinical team to speak to GI. Patient care communicated with primary hospitalist, Dr. Kilpatrick. Highly complex medical issues. Thank you for allowing me to participate in the care of your patient. Please call for any other questions or concerns. Sincerely, Joseluis Cherry M.D. History of Present Illness Reason for Consultation: "recent NSTEMI, CHF" Requesting Physician: Dr. Anand Attending Physician: Justin Kilpatrick MD History of Present Illness Ms. Barragan is a very pleasant 79-year-old female with history significant for multivessel CAD s/p CABG x 5 s/p PCI of SVG to PDA and SVG to OM3 for in-stent restenosis/thrombosis, cardiomyopathy, HFrEF, dyslipidemia, hypertension, diabetes, CKD, stroke, pulmonary emboli and acute DVT (April 2020), lifelong anticoagulation, and memory issues. She initially established care with [facility] on 08/01/2020. She had COVID-19 infection with pneumonia in April of 2020 and was hospitalized ([place]) with encephalopathy and pulmonary emboli with acute DVT. She was admitted 9 days later with acute kidney injury and metabolic encephalopathy from UTI (Proteus mirabilis) While living in [place], she had a myocardial infarction in 2009. She does not recall if she had angina, but had significant dyspnea with exertion while with her family in [place]. She was hospitalized, underwent cardiac catheterization and 5 vessel CABG, including left lower extremity vein harvest. She resided in [place] from 2003 through 2019 before moving the [place]. She has had the following studies/procedures: 1. CABG x 5 2009 [place], [place]: Records requested. 2. Cardiac catheterization 03/31/2019 [facility]: Distal LM 20%. Proximal LAD 100%. Prox circumflex 20%. Mid circumflex 50-60%. Dominant RCA. Prox RCA 80%. Distal RCA 80-85%. Competitive flow within PDA. Distal PDA 90%. WILLIAMSON to LAD patent, but distal LAD very small. SVG to OM ostial 70% followed by 50-60% proximal graft disease. Mid SVG 95% hazy with JEREL 2 flow. SVG to RCA d iffuse 20%. EF 60%. SVG to OM2 underwent PCI with 4 x 15 mm FILEMON within mid SVG and proximal SVG with 4 x 32 mm FILEMON. Ostial SVG PCI with 4 x 8 mm FILEMON in overlapping fashion. 3. Echo 06/08/2020 [facility]: Normal LV size, wall motion, systolic function. EF 55-60%. No significant valvular abnormalities. 4. Echo 01/31/2024 [facility]: Normal LV size. EF 30-35%. Severely hypokinetic to akinetic inferolateral wall and basal to mid inferior segments. Moderately hypokinetic lateral wall. Normal RV size with mildly reduced systolic function. Moderate left atrial dilation. Mild AI. Moderate MR. 5. Cardiac cath 01/31/2024 [facility] (Dr. Sifuentes): Ostial LM 30%. Chronic ostial LAD 100%. Chronic mid circumflex 100%. Chronic proximal RCA 100%. Patent WILLIAMSON to LAD, providing collaterals to right PDA. SVG to PDA proximal 98% and mid 40 to 50% with JEREL II flow. SVG to OM 3 acute proximal graft in-stent restenosis/thrombosis 99%. Mid graft stent widely patent. Small OM after anastomosis patent. Jump graft to left PLB occluded. Left PLB partially fills via retrograde collaterals from OM. LVEDP 34. Underwent PCI of SVG to PDA with 3 x 22 mm Tyron, postdilated 3.5 NC. Underwent PCI of proximal SVG to OM 3 in- stent restenosis/thrombosis with new overlapping 4 x 28 mm Xience. She was hospitalized initially on 01/30/2024 with acute NSTEMI and pulmonary edema. She underwent echo which demonstrated reduced LV systolic function with regional wall motion abnormalities. Cardiac catheterization was performed with PCI to SVG to PDA and PCI to SVG to OM 3 as noted above. She was diuresed and recommended by interventional cardiology to be discharged with Plavix and Eliquis as she was on anticoagulation therapy chronically for history of VTE. She was treated with spironolactone, carvedilol nitrate therapy, with plans of adding ARB or SGLT2 inhibitor pending renal function. She was admitted again on 02/14/2024 with acute GI bleeding. Unfortunately, she is unable to give any meaningful history at the time of today's consult. According to the admitting note, abnormal stools were reported the day of admission. Her hemoglobin dropped to a low of 7 and she was transfused PRBC x 2. She denies chest pain or shortness of breath however she seemed confused and was unaware of where she was or why she was admitted. I called her primary contact, Shweta Catalan, her daughter via telephone. She was not aware of any bloody stool. Her mother has been at [facility] since recent discharge from [facility]. She acknowledges that her mother has been confused more recently. Review of systems: As above. Family history: Mother had pacemaker. Father had CAD. Social history: She smoked as a teenager but has since quit. No alcohol or drugs. She has been twice. She from her first and her second . She has 7 children. Multiple grandchildren. She was unaccompanied. Allergies Allergy/AdvReac Type Severity Reaction Status Date / Time No Known Allergies Allergy Verified 02/14/24 19:38 Home Medications Medication Instructions Recorded Confirmed Type blood sugar diagnostic (Accu-Chek 06/02/21 01/20/24 History Jolene Plus test strips) flash glucose scanning reader 06/02/21 01/20/24 History (FreeStyle Marcelo 2 [place]) flash glucose sensor (FreeStyle 06/02/21 01/20/24 History Marcelo 2 Sensor kit) lancets (Accu-Chek Softclix 06/02/21 01/20/24 History Lancets) isosorbide mononitrate 30 mg 30 mg PO BID #180 tabs 05/19/23 02/14/24 Rx tablet,extended release 24 hr apixaban 5 mg tablet 5 mg PO BID #60 tabs 09/06/23 02/14/24 Rx atorvastatin 40 mg tablet 40 mg PO QPM #90 tabs 10/15/23 02/14/24 Rx pen needle, diabetic 32 gauge x 12/02/23 01/20/24 History " (BD Ultra-Fine Brenda Pen Needle) blood-glucose meter,continuous #1 ea 01/17/24 01/20/24 Rx (FreeStyle Marcelo 3 [place]) blood-glucose sensor (FreeStyle #2 ea 01/17/24 01/20/24 Rx Marcelo 3 Sensor device) insulin aspar prot-insulin aspart See Rx Instructions subcut BID #90 01/24/24 02/14/24 Rx 100 unit/mL (70-30) subcutaneous mL pen (Novolog Mix 70-30FlexPen U-100) carvedilol 3.125 mg tablet (Coreg) 3.125 mg PO QAM 01/30/24 02/14/24 History diclofenac sodium 1 % topical gel 2 g topical QID 01/30/24 02/14/24 History famotidine 20 mg tablet 20 mg PO QAM 01/30/24 02/14/24 History omega-3 fatty acids 1,000 mg 1,000 mg PO QAM 01/30/24 02/14/24 History capsule tramadol 50 mg tablet 50 mg PO Q6H PRN severe pain 01/30/24 02/14/24 History (scale score 7-10) vitamins A,C,K-lads-tidrzb 2,148 1 tab PO BID 01/30/24 02/14/24 History mcg-113 mg-45 mg-17.4 mg tablet (PreserVision AREDS) acetaminophen 325 mg tablet 650 mg PO Q6H PRN Temp >100/Pain 02/14/24 02/14/24 History (Tylenol) bisacodyl 10 mg rectal suppository 10 mg HI DAILY PRN Constipation 02/14/24 02/14/24 History (Dulcolax (bisacodyl)) clopidogrel 75 mg tablet 75 mg PO QAM 02/14/24 02/14/24 History furosemide 40 mg tablet 40 mg PO QAM 02/14/24 02/14/24 History magnesium hydroxide 400 mg/5 mL 0 mg PO DAILY PRN Constipation 02/14/24 02/14/24 History oral suspension (Milk of Magnesia) magnesium oxide 400 mg PO QAM 02/14/24 02/14/24 History menthol 0.44 %-zinc oxide 20.6 % 1 applic topical BID Rash 02/14/24 02/14/24 History topical ointment (Calmoseptine) pantoprazole 40 mg tablet,delayed 40 mg PO DAILY 02/14/24 02/14/24 History release (Protonix) sodium phosphates 19 gram-7 118 ml HI DAILY PRN Constipation 02/14/24 02/14/24 History gram/118 mL enema (Fleet Enema) Problem List (Updated 02/15/24 @ 15:32 by Zia Cherry MD) Mitral regurgitation Ischemic cardiomyopathy Heart failure with reduced ejection fraction Acute blood loss anemia Acute GI bleeding Acute non-ST elevation myocardial infarction (NSTEMI) (Acute 01/29/24) Hypoxia (Acute) Pulmonary edema (Acute) Finger fracture, left Fall Sacroiliac joint pain H/O deep venous thrombosis Left shoulder pain Elevated WBC count Low back pain Hypertension (Chronic) Carpal tunnel syndrome, bilateral (Chronic) S/P CABG x 5 (Chronic 2009) Gait disturbance (Chronic) Cerebral microvascular disease (Chronic) CAD (coronary artery disease) (Chronic) Dyslipidemia (Chronic) Diabetes mellitus type 2, uncontrolled, with complications (Chronic ~1988) Uncontrolled type 2 diabetes mellitus with hyperglycemia, with long-term current use of insulin (Chronic) Current use of anticoagulant therapy Obesity, Class I, BMI 30-34.9 (Chronic) Hearing decreased S/P coronary artery stent placement Excessive cerumen in both ear canals GERD (gastroesophageal reflux disease) Sensorineural hearing loss (SNHL) of both ears Bilateral tinnitus CKD stage 3 due to type 2 diabetes mellitus (Chronic) Mild cognitive impairment Patient History Medical History History of non-ST elevation myocardial infarction (NSTEMI) Gastrointestinal hemorrhage Deep vein thrombosis (DVT) of left lower extremity (~05/2020) Chronic anticoagulation Cough Acute right-sided low back pain Trapezius muscle spasm Stroke COVID-19 virus infection (~05/14/20) Physical deconditioning Diabetes Surgical History (Updated 02/12/24 @ 00:08 by Morgan Herman) History of heart bypass surgery History of carpal tunnel release of both wrists H/O partial thyroidectomy Family History Son Colorectal cancer Myocardial infarction Family/Other Colorectal cancer Aunt Colorectal cancer Father Myocardial infarction Uncle Myocardial infarction Brother Myocardial infarction Dyslipidemia Mother Heart disease Dementia Denies family history of Ovarian cancer Prostate cancer Breast cancer Social History Smoking Status: Never smoker Tobacco Type: Cigarettes Second Hand Exposure: No; Do You Dip or Chew Tobacco: No; Hx Alcohol Use: No Hx Substance Use: No Preferred Language: Wallisian Communication Ability: Impaired Visual Impairment: Limited Hearing Ability: Use of Hearing Aid 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 Alert. Oriented to self. HEENT: Anicteric sclera. Neck: No JVD. Cardiac: No ventricular heave. Regular. No ectopy. Normal S1-S2. No murmurs, rubs, or gallops. Pulmonary: Clear to auscultation bilaterally without wheezes, rales, or rhonchi. Abdomen: Soft, nontender, nondistended, with normoactive bowel sounds. No bruits noted. Extremities: 2+ right radial pulse. Left wrist in a cast. 2+ posterior tibialis pulses bilaterally. No edema. No cyanosis. Results & Data Vital Signs (Past 12 Hours) Vital Signs Temp Pulse Resp BP Pulse Ox O2 Del Method 02/15/24 11:29 36.6 C 106 H 17 127/66 92 Room Air 02/15/24 07:50 Room Air 02/15/24 07:33 36.8 C 80 18 135/72 96 Room Air 02/15/24 03:21 36.5 C 79 18 114/65 97 Room Air Laboratory Results Laboratory Results - last 24 hr 02/14/24 02/14/24 02/14/24 16:40 17:55 22:35 WBC 12.56 H RBC 2.41 L Hgb 7.0 L Hct 22.6 L MCV 93.8 MCH 29.0 MCHC 31.0 L RDW Std Deviation 52.5 H RDW Coeff of Magali 16.5 H Plt Count 392 MPV 11.0 Immature Gran % (Auto) 0.6 Neut % (Auto) 70.9 Lymph % (Auto) 17.8 Caldwell % (Auto) 7.2 Eos % (Auto) 3.0 Baso % (Auto) 0.5 Neut # (Auto) 8.91 H Lymph # (Auto) 2.23 [place]dwell # (Auto) 0.91 H Eos # (Auto) 0.38 Baso # (Auto) 0.06 Immature Gran # (Auto) 0.07 Absolute Nucleated RBC 0.02 Nucleated RBC % (auto) 0.2 Polychromasia 1+ PT 12.4 H INR 1.2 H APTT 26 PTT Ratio 1.0 Sodium 142 Potassium 3.5 Chloride 101 Carbon Dioxide 30 Anion Gap 11 BUN 84 H Creatinine 2.19 H Est Cr Clr Drug Dosing 18.0 Est GFR ( Amer) 24.1 Est GFR (Non-Af Amer) 20.8 BUN/Creatinine Ratio 38.4 H Glucose 119 H POC Glucose Calcium 9.5 Total Bilirubin 0.4 AST 15 ALT 14 Alkaline Phosphatase 65 Troponin I High Sens 113.6 H* 106.9 H* Total Protein 6.5 Albumin 3.8 Globulin 2.7 Albumin/Globulin Ratio 1.4 Nasal Screen MRSA (PCR) Positive A Blood Type AB Positive Blood Type Recheck AB Positive Antibody Screen NEGATIVE Crossmatch See Detail 02/14/24 02/15/24 02/15/24 23:31 03:05 05:43 WBC 15.03 H RBC 3.52 L Hgb 10.0 L D Hct 30.6 L MCV 86.9 D MCH 28.4 MCHC 32.7 RDW Std Deviation 56.5 H RDW Coeff of Magali 19.3 H Plt Count 335 MPV 10.9 Immature Gran % (Auto) Neut % (Auto) Lymph % (Auto) [place]dwell % (Auto) Eos % (Auto) Baso % (Auto) Neut # (Auto) Lymph # (Auto) Caldwell # (Auto) Eos # (Auto) Baso # (Auto) Immature Gran # (Auto) Absolute Nucleated RBC 0.02 Nucleated RBC % (auto) 0.1 Polychromasia PT INR APTT PTT Ratio Sodium 142 Potassium 3.6 Chloride 104 Carbon Dioxide 27 Anion Gap 11 BUN 73 H Creatinine 2.10 H Est Cr Clr Drug Dosing 18.8 Est GFR ( Amer) 25.3 Est GFR (Non-Af Amer) 21.8 BUN/Creatinine Ratio 34.8 H Glucose 95 POC Glucose 115 H 116 H Calcium 9.1 Total Bilirubin AST ALT Alkaline Phosphatase Troponin I High Sens Total Protein Albumin Globulin Albumin/Globulin Ratio Nasal Screen MRSA (PCR) Blood Type Blood Type Recheck Antibody Screen Crossmatch 02/15/24 02/15/24 08:56 11:38 WBC 15.60 H RBC 3.42 L Hgb 9.8 L Hct 29.8 L MCV 87.1 MCH 28.7 MCHC 32.9 RDW Std Deviation 58.8 H RDW Coeff of Magali 19.9 H Plt Count 318 MPV 10.7 Immature Gran % (Auto) Neut % (Auto) Lymph % (Auto) Caldwell % (Auto) Eos % (Auto) Baso % (Auto) Neut # (Auto) Lymph # (Auto) Caldwell # (Auto) Eos # (Auto) Baso # (Auto) Immature Gran # (Auto) Absolute Nucleated RBC 0.02 Nucleated RBC % (auto) 0.1 Polychromasia PT INR APTT PTT Ratio Sodium Potassium Chloride Carbon Dioxide Anion Gap BUN Creatinine Est Cr Clr Drug Dosing Est GFR ( Amer) Est GFR (Non-Af Amer) BUN/Creatinine Ratio Glucose POC Glucose 153 H Calcium Total Bilirubin AST ALT Alkaline Phosphatase Troponin I High Sens Total Protein Albumin Globulin Albumin/Globulin Ratio Nasal Screen MRSA (PCR) Blood Type Blood Type Recheck Antibody Screen Crossmatch Diagnostic Findings GI consultation and history and physical report reviewed. Labs reviewed and notable for abnormal renal function (chronic), elevated A1c, normal transaminase levels, well-controlled LDL, leukocytosis, anemia with a hemoglobin as low as 7 on 02/14/2024 but previously 12.1 (normal) on 02/05/2024. Telemetry personally reviewed: Sinus rhythm. No arrhythmia. ECG personally reviewed 02/14/2024: NSR 77 bpm. Septal infarct. Inferior infarct. Lateral ST/T wave abnormality. Echo report reviewed from 01/31/2024: LVEF 30 to 35%. Severely hypokinetic to akinetic inferolateral wall and basal to mid inferior segments. Moderately hypokinetic lateral wall. Normal RV size with mildly reduced systolic function. Moderate MR. Mild AI. Cardiac cath report reviewed from 01/31/2024: Findings: LM -calcified, 30% ostial LAD -100% ostial chronic total occlusion Circumflex -calcified, moderate diffuse proximal to mid disease. 100% mid chronic total occlusion after takeoff of small bifurcating OM2. RCA -dominant, 100% proximal chronic total occlusion LIMALADwidely patent. Distal LAD small vessel, provides collaterals to RPDA. [id number]% proximal stenosis, 40-50% mid graft disease, with JEREL II distal flow [id number]% acute proximal graft in-stent restenosis/thrombosis, mid graft stent widely patent. Small OM after anastomosis patent. Jump graft to left PLB occluded. Left PLB partially fills via retrograde collaterals from OM LVEDP -34 Successful PCI of proximal SVG to PDA with single drug-eluting stent (3.0 x 22 mm Tyron; postdilated with 3.5 NC). Successful PCI of proximal SVG to OM3 in-stent restenosis/thrombosis with new overlapping drug-eluting stent (4.0 x 28 mm Xience). Chest x-ray 02/14/2024: Improved pulmonary vascular congestion per radiology. Medications Administered Current Inpatient Medications Dextrose (Dextrose 50% 50 Ml Syringe) 25 - 50 ml IV UD PRN; Protocol PRN Reason: Hypoglycemia Protocol Stop: 03/15/24 23:36 Glucagon (Glucagon For Inj 1 Mg Vial) 1 mg SQ UD PRN; Protocol PRN Reason: Hypoglycemia Protocol Stop: 03/15/24 23:36 Glucose (Glucose 40% Gel 15 Gm Tube) 15 - 30 gm PO UD PRN; Protocol PRN Reason: Hypoglycemia Protocol Stop: 03/15/24 23:36 Glucose (Glucose 10 Tab/Tube) 4 - 8 tab PO UD PRN; Protocol PRN Reason: Hypoglycemia Treatment Stop: 03/15/24 23:36 Pantoprazole Sodium 40 mg/ (Dextrose) 100 mls @ 20 mls/hr IV Q5H SNEHA Stop: 03/15/24 17:14 Last Admin: 02/15/24 15:06 Dose: 8 mg/hr, 20 mls/hr Acetaminophen (Ofirmev) 1,000 mg in 100 mls @ 400 mls/hr IV Q8H PRN PRN Reason: Pain Stop: 02/18/24 01:02 Insulin Aspart (Insulin Aspart Per Unit Charge) 0 units SC Q6 SNEHA Stop: 03/16/24 00:00 Last Admin: 02/15/24 12:22 Dose: 1 units Insulin Glargine (Lantus Per Unit Charge) 0 units SC HS SNEHA; Protocol Stop: 03/16/24 20:59 Miscellaneous (Carbohydrates For Hypoglycemia ) 15 - 30 gm PO UD PRN PRN Reason: Hypoglycemia Protocol Stop: 03/15/24 23:36 Miscellaneous (Remove Lidoderm Patch) 1 each N/A TODAY@1851 ONE Stop: 02/15/24 18:52 Miscellaneous Information (Pharmacy Glycemic Mgmt Consult) 1 each N/A UD PRN PRN Reason: Consult Stop: 03/15/24 23:36 PG Care Time/CCT Total # of Minutes Spent Total Time Spent with Patient: Total time spent is greater than 50% in coordination of care (as documented) at patient's floor/unit and/or counseling patient: Coding Level of Care Code 44229 INT INP/OBS CARE 3/75MIN Diagnoses Heart failure with reduced ejection fraction I50.20 Coronary artery disease involving koi coronary artery of koi heart without angina pectoris I25.10 Coronary Disease-Associated Artery/Lesion type: koi artery [place] vs. transplanted heart: koi heart Associated angina: without angina S/P CABG x 5 Z95.1 S/P coronary artery stent placement Z95.5 Dyslipidemia E78.5 Primary hypertension I10 Hypertension type: primary hypertension Ischemic cardiomyopathy I25.5 Acute blood loss anemia D62 Acute GI bleeding K92.2 Mitral regurgitation I34.0 (2) CAD (coronary artery disease) Coronary Disease-Associated Artery/Lesion type: koi artery [place] vs. transplanted heart: koi heart Associated angina: without angina Qualified Code(s): I25.10 - Atherosclerotic heart disease of koi coronary artery without angina pectoris (6) Hypertension Hypertension type: primary hypertension Qualified Code(s): I10 - Essential (primary) hypertension
[2024-02-15 16:00] LABS: Hematocrit (blood only) 29.5 % (37.0-47.0); Hemoglobin 9.9 g/dl (12.0-16.0); Mean Corpuscular Hemoglobin 28.9 pg (25.0-34.0); Mean Corpuscular Hgb Conc 33.6 g/dL (32.0-36.0); Platelet Count 354 K/uL (130-400); RDW Standard Deviation 58.5 fL (36.4-46.3); Red Blood Count 3.43 M/uL (4.20-5.40); White Blood Count 14.15 K/ul (4.8-10.8)
[2024-02-15] MEDS: carvediloL 3.125 MG TAB PO SCH (17:52)
[2024-02-15] MEDS: ASPIRIN 81 MG ECTAB PO SCH (19:19)
[2024-02-15] MEDS: LANTUS PER UNIT CHARGE SC SCH (20:27)
--- NOTE | 2024-02-15 21:18 | Hospitalist Progress Note ---
Date of Service February 15, 2024 Assessment & Plan (1) Acute blood loss anemia: Plan: likely 2nd to upper GI bleeding given the melena stools presenting Hb 7.1 was 12.1 during the prior hospital stay last week s/p 2 units PRBCs with improved H/H parameters H/H remaining stable thru the day today - hopefully bleeding has stopped cont serial H/H's appreciate GI assistance to have EGD tomorrow am? cont PPI drip (2) Acute GI bleeding: Plan: suspected appreciate GI consultation ?EGD tomorrow? follow H/H's -- see #1 above cont PPI drip appreciate cardiology consultation in light of recent NSTEMI within the last 2 weeks having her off DAPT could lead to repeat cardiac event GI - by verbal report - is ok with cautious resumption of low-dose aspirin HOLD plavix HOLD Eliquis keep NPO status (3) History of non-ST elevation myocardial infarction (NSTEMI): Plan: Holding Eliquis and clopidogrel as above Holding losartan due to low-normal BPs Holding atorvastatin due to NPO status Continue coreg low-dose Fortunately no ischemic symptoms at this time NSTEMI event was 01/30/24 peak trop at that time - 11,000 cath done on 01/31/[address] Sifuentes - Findings: LM -calcified, 30% ostial LAD -100% ostial chronic total occlusion Circumflex -calcified, moderate diffuse proximal to mid disease. 100% mid chronic total occlusion after takeoff of small bifurcating OM2. RCA -dominant, 100% proximal chronic total occlusion LIMALADwidely patent. Distal LAD small vessel, provides collaterals to RPDA. [id number]% proximal stenosis, 40-50% mid graft disease, with JEREL II distal flow [id number]% acute proximal graft in-stent restenosis/thrombosis, mid graft stent widely patent. Small OM after anastomosis patent. Jump graft to left PLB occluded. Left PLB partially fills via retrograde collaterals from OM s/p FILEMON to SVG-PDA stenosis s/p FILEMON to SVG-OM3 stenosis (4) Diabetes mellitus type 2, uncontrolled, with complications: Plan: HbA1C 10.4 (during prior hospitalization) Cont novolog SSI Cont lantus Pharmacy providing glycemic oversight - appreciate their assistance (5) History of pulmonary embolism: Plan: noted holding Eliquis, however, due to #1, #2 (6) Heart failure with reduced ejection fraction: Plan: 2nd to ischemic cardiomyopathy echo 01/31/24 with EF 30-35% compensated on exam today would NOT give additional IV fluids - was recently volume overloaded requiring lasix holding all CHF meds due to low-normal BP except low-dose coreg appreciate Dr Cherry's assistance Plan cont npo status [facility] Card[facility] Admission and Anticipated Discharge Date Admission Date: February 14, 2024 Subjective had a melena stool just prior to my arrival denies any abd pain or N/V denies dyspnea denies chest pain daughter at bedside tele overnight wnl Review of Systems Review of Systems: gen - feels ok cv - no orthopnea, no edema pulm - no cough GI - no hematemesis Physical Exam Physical Exam: gen - NAD, pleasant neck - no JVD mouth - MMM heart - RRR, s1 s2, no murmur lungs - CTA b/l abd - soft NT ND BS+ ext - no edema, pulses 2+ b/l skin - generalized pallor psych - pleasant confusion Results & Data Results & Data Vital Signs (Past 12 Hours) Vital Signs Temp Pulse Pulse Resp BP Pulse Ox O2 Del Method 02/15/24 19:57 36.6 C 67 18 100/65 92 Room Air 02/15/24 15:37 78 02/15/24 15:36 60 02/15/24 15:33 36.7 C 71 18 116/53 L 92 Room Air 02/15/24 11:29 36.6 C 106 H 17 127/66 92 Room Air Laboratory Results Laboratory Results - last 24 hr 02/15/24 02/15/24 02/15/24 05:43 08:56 11:38 WBC 15.60 H RBC 3.42 L Hgb 9.8 L Hct 29.8 L MCV 87.1 MCH 28.7 MCHC 32.9 RDW Std Deviation 58.8 H RDW Coeff of Magali 19.9 H Plt Count 318 MPV 10.7 Absolute Nucleated RBC 0.02 Nucleated RBC % (auto) 0.1 POC Glucose 116 H 153 H 02/15/24 02/15/24 02/15/24 15:15 18:16 20:10 WBC 14.15 H RBC 3.43 L Hgb 9.9 L Hct 29.5 L MCV 86.0 MCH 28.9 MCHC 33.6 RDW Std Deviation 58.5 H RDW Coeff of Magali 20.0 H Plt Count 354 MPV 11.0 Absolute Nucleated RBC Nucleated RBC % (auto) POC Glucose 197 H 164 H PG Care Time/CCT Total # of Minutes Spent Total Time Spent with Patient: Total time spent is greater than 50% in coordination of care (as documented) at patient's floor/unit and/or counseling patient: Coding Level of Care Code 88662 SUB INP/OBS CARE 2/35MIN Diagnoses Acute blood loss anemia D62 Acute GI bleeding K92.2 History of non-ST elevation myocardial infarction (NSTEMI) I25.2 Diabetes mellitus type 2, uncontrolled, with complications E11.8; E11.65 History of pulmonary embolism Z86.711 Heart failure with reduced ejection fraction I50.20
[2024-02-15 22:30] LABS: Hematocrit (blood only) 27.8 % (37.0-47.0); Hemoglobin 9.2 g/dl (12.0-16.0); Mean Corpuscular Hemoglobin 28.7 pg (25.0-34.0); Mean Corpuscular Hgb Conc 33.1 g/dL (32.0-36.0); Mean Corpuscular Volume 86.6 fL (80.0-100.0); Mean Platelet Volume 10.8 fL (9.4-12.4); Platelet Count 309 K/uL (130-400); RDW Coefficient of Variation 19.9 % (11.5-14.5); RDW Standard Deviation 59.7 fL (36.4-46.3); Red Blood Count 3.21 M/uL (4.20-5.40); White Blood Count 12.07 K/ul (4.8-10.8)
--- NOTE | 2024-02-16 06:06 | Electrocardiogram Report ---
Test Reason : Blood Pressure : */* mmHG Vent. Rate : 77 BPM Atrial Rate : 77 BPM P-R Int : 148 ms QRS Dur : 104 ms QT Int : 430 ms P-R-T Axes : 44 -5 118 degrees QTcB Int : 486 ms Normal sinus rhythm Minimal voltage criteria for LVH, may be normal variant ( Jose product ) Septal infarct (cited on or before 26-Aug-2016) Inferior infarct , possibly acute Abnormal ECG When compared with ECG of 01-Feb-2024 06:14, T wave inversion no longer evident in Inferior leads Confirmed by Zia Cherry ([id number]) on 02/16/2024 6:06:13 AM Referred By: REFERRED SELF Confirmed By: Zia Cherry
[2024-02-16 06:47] LABS: Hematocrit (blood only) 30.2 % (37.0-47.0); Hemoglobin 9.7 g/dl (12.0-16.0); Mean Corpuscular Hemoglobin 28.4 pg (25.0-34.0); Mean Corpuscular Hgb Conc 32.1 g/dL (32.0-36.0); Mean Corpuscular Volume 88.6 fL (80.0-100.0); Mean Platelet Volume 10.9 fL (9.4-12.4); Platelet Count 320 K/uL (130-400); RDW Coefficient of Variation 19.7 % (11.5-14.5); RDW Standard Deviation 60.3 fL (36.4-46.3); Red Blood Count 3.41 M/uL (4.20-5.40); White Blood Count 10.58 K/ul (4.8-10.8)
[2024-02-16 07:25] LABS: BUN Creatinine Ratio 23.9 (10-20); Calcium 8.9 mg/dl (8.6-10.3); Creatinine Clr Calc Pharmacy 18.6 ml/min; Est GFR (African American) 25.5 ml/min; Potassium 3.8 mmol/L (3.5-5.1)
--- NOTE | 2024-02-16 09:30 | Pharmacy Report ---
Pharmacy Glycemic Short Note 2 - Date of Service February 16, 2024 - Glycemic Short BSG Results (Last 24 hours): 02/15/24 02/15/24 02/15/24 11:38 18:16 20:10 Glucose POC Glucose 153 H 197 H 164 H 02/16/24 02/16/24 02/16/24 00:01 05:40 06:40 Glucose 142 H POC Glucose 140 H 158 H OUTPATIENT ANTIDIABETIC REGIMEN: * Mix insulin 70/30 - 68 units daily with breakfast, 32 units daily with supper ASSESSMENT: 02/15 * Stressors stable. Remains NPO and on pantoprazole continuous infusion mixed in D5W. Possible GI intervention today. * BSG's ranged 95-197 mg/dL yesterday. 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 * Will continue to utilize Lantus while NPO. However, plan for eventual transition to NPH w breakfast and dinner to help facilitate transition back to outpatient. Therefore will attempt to keep Lantus once daily in the AM * No change to Novolog needed for now 02/14 * 79 year old admitted with GI bleed. NPO currently. Pharmacy consulted for glycemic management. Previously admitted 01/29-02/07. During that time, required significantly less insulin than outpatient regimen. Will utilize similar parameters from last admission. Will have scale for basal insulin at HS, however will consider giving earlier if diet started PLAN FOR INPATIENT GLYCEMIC CONTROL: * Basal insulin * Lantus 10 units SC x1 this AM * Bolus insulin * NovoLog per scale ACHS or Q6hrs while NPO * Goal Range: Low 110 mg/dL - High 140 mg/dL * Correction Factor: 18 mg/dL/unit * Nutritional / Prandial insulin per carb ratio of 1 unit per 6 grams CHO consumed
--- NOTE | 2024-02-16 09:33 | History & Physical Bridge Note ---
Date of Service February 16, 2024 History & Physical Bridge Note I have examined the patient, reviewed the History & Physical and in the interval since the performance of the History & Physical I have noted the following changes of clinical significance: no changes noted. Cardiology states the benefits of procedure outweigh risks. eliquis has been held for 48 hours at this point per nursing. I spoke with Patient's daughter Jovita via phone ([phone]) and explained risks/benefits with her and she tells me her and her family had discussed and wish to proceed with EGD. Patient's POA is Jami ([phone]) is aware per Jovita and will be available to give consent via phone. patient pleasantly confused this morning and offers no significant history. 02/15 hgb 9.7. - will proceed with EGD today. Supervising Physician Co-Signing Physician Notes I saw and examined this patient with our nurse practitioner and agree with her assessment and plan
[2024-02-16] MEDS: LANTUS PER UNIT CHARGE SC ONE (10:24)
--- NOTE | 2024-02-16 11:57 | Anesthesiology Consultation ---
Date of Service February 16, 2024 Assessment & Plan Chart Review Chart Review: Acceptable Risk for Surgery, Patient NOT seen in Pre Admission Testing and co founder and director initiated Consults Requested none Proposed Anesthesia Anesthesia Type: MAC History Surgery Operation Date: 02/16/24 16:55 Proposed Procedures p Esophagogastroduodenoscopy Dr. Dajuan Graff MD Height/Weight Height: 4 ft 10 in Weight: 73.3 kg Allergies Allergy/AdvReac Type Severity Reaction Status Date / Time No Known Allergies Allergy Verified 02/14/24 19:38 Medications Home Medications Medication Instructions Recorded Confirmed Last Taken blood sugar diagnostic (Accu-Chek 06/02/21 01/20/24 Unknown Jolene Plus test strips) flash glucose scanning reader 06/02/21 01/20/24 Unknown (FreeStyle Marcelo 2 Downey) flash glucose sensor (FreeStyle 06/02/21 01/20/24 Unknown Marcelo 2 Sensor kit) lancets (Accu-Chek Softclix 06/02/21 01/20/24 Unknown Lancets) isosorbide mononitrate 30 mg 30 mg PO BID #180 tabs 05/19/23 02/14/24 02/14/24 08:00 tablet,extended release 24 hr apixaban 5 mg tablet 5 mg PO BID #60 tabs 09/06/23 02/14/24 02/14/24 08:00 atorvastatin 40 mg tablet 40 mg PO QPM #90 tabs 10/15/23 02/14/24 02/13/24 pen needle, diabetic 32 gauge x 12/02/23 01/20/24 Unknown 5/32" (BD Ultra-Fine Brenda Pen Needle) blood-glucose meter,continuous #1 ea 01/17/24 01/20/24 Unknown (FreeStyle Marcelo 3 Downey) blood-glucose sensor (FreeStyle #2 ea 01/17/24 01/20/24 Unknown Marcelo 3 Sensor device) insulin aspar prot-insulin aspart See Rx Instructions subcut BID #90 01/24/24 02/14/24 02/14/24 08:00 100 unit/mL (70-30) subcutaneous mL pen (Novolog Mix 70-30FlexPen U-100) carvedilol 3.125 mg tablet (Coreg) 3.125 mg PO QAM 01/30/24 02/14/24 02/14/24 diclofenac sodium 1 % topical gel 2 g topical QID 01/30/24 02/14/24 02/14/24 famotidine 20 mg tablet 20 mg PO QAM 01/30/24 02/14/24 02/14/24 omega-3 fatty acids 1,000 mg 1,000 mg PO QAM 01/30/24 02/14/24 02/14/24 capsule tramadol 50 mg tablet 50 mg PO Q6H PRN severe pain 01/30/24 02/14/24 01/29/24 06:34 (scale score 7-10) vitamins A,C,R-jjuu-oebbuu 2,148 1 tab PO BID 01/30/24 02/14/24 02/14/24 08:00 mcg-113 mg-45 mg-17.4 mg tablet (PreserVision AREDS) acetaminophen 325 mg tablet 650 mg PO Q6H PRN Temp >100/Pain 02/14/24 02/14/24 Unknown (Tylenol) bisacodyl 10 mg rectal suppository 10 mg TN DAILY PRN Constipation 02/14/24 02/14/24 Unknown (Dulcolax (bisacodyl)) clopidogrel 75 mg tablet 75 mg PO QAM 02/14/24 02/14/24 02/14/24 furosemide 40 mg tablet 40 mg PO QAM 02/14/24 02/14/24 02/14/24 magnesium hydroxide 400 mg/5 mL 0 mg PO DAILY PRN Constipation 02/14/24 02/14/24 Unknown oral suspension (Milk of Magnesia) magnesium oxide 400 mg PO QAM 02/14/24 02/14/24 02/14/24 menthol 0.44 %-zinc oxide 20.6 % 1 applic topical BID Rash 02/14/24 02/14/24 02/14/24 08:00 topical ointment (Calmoseptine) pantoprazole 40 mg tablet,delayed 40 mg PO DAILY 02/14/24 02/14/24 Unknown release (Protonix) sodium phosphates 19 gram-7 118 ml TN DAILY PRN Constipation 02/14/24 02/14/24 Unknown gram/118 mL enema (Fleet Enema) Active Medications Generic Name Dose Route Start Last Admin Trade Name Freq PRN Reason Stop Dose Admin Aspirin 81 mg 02/15/24 18:00 02/16/24 07:59 Aspirin 81 Mg Ectab PO 03/16/24 17:59 81 mg QAM SNEHA Administration Carvedilol 3.125 mg 02/15/24 17:00 02/16/24 07:58 Carvedilol 3.125 Mg Tab PO 03/16/24 16:59 3.125 mg BIDM SNEHA Administration Pantoprazole Sodium 40 mg/ 100 mls @ 20 mls/hr 02/14/24 17:15 02/16/24 10:27 Dextrose IV 03/15/24 17:14 8 mg/hr Q5H SNEHA 20 mls/hr Administration 8 MG/HR Insulin Aspart 0 units 02/15/24 00:00 02/16/24 06:43 Insulin Aspart Per Unit Charge SC 03/16/24 00:00 2 units Q6 SNEHA Administration Past Medical History Medical History History of non-ST elevation myocardial infarction (NSTEMI) Gastrointestinal hemorrhage Deep vein thrombosis (DVT) of left lower extremity (~05/2020) Chronic anticoagulation Cough Acute right-sided low back pain Trapezius muscle spasm Stroke COVID-19 virus infection (~05/14/20) Physical deconditioning Diabetes Past Family History Family History Son Colorectal cancer Myocardial infarction Family/Other Colorectal cancer Aunt Colorectal cancer Father Myocardial infarction Uncle Myocardial infarction Brother Myocardial infarction Dyslipidemia Mother Heart disease Dementia Denies family history of Ovarian cancer Prostate cancer Breast cancer Past Surgical History Surgical History History of heart bypass surgery History of carpal tunnel release of both wrists H/O partial thyroidectomy Social History Smoking Status: Never smoker Do You Dip or Chew Tobacco: No Hx Alcohol Use: No Hx Substance Use: No Physical Exam Vital Signs Last Vital Signs Temp 36.5 C 02/16/24 10:44 Pulse 75 02/16/24 10:56 Resp 19 02/16/24 10:44 BP 118/71 02/16/24 10:44 Pulse Ox 92 02/16/24 10:44 O2 Del Method Room Air 02/16/24 10:44 Testing Laboratory Results 02/16/24 05:40 02/16/24 05:40 PT 12.4 Seconds (9.0-12.0) H 02/14/24 16:40 INR 1.2 (0.9-1.1) H 02/14/24 16:40 APTT 26 Seconds (21-31) 02/14/24 16:40 Blood Type AB Positive 02/14/24 16:40 Antibody Screen NEGATIVE 02/14/24 16:40 02/16/24 02/16/24 06:40 00:01 POC Glucose 158 H 140 H Electrocardiogram Date: 02/14/24 Findings: + NSR @ (77) and + GA (old septal; possibly acute inferior) ST< T wave changes consider lateral ischemia Chest X-Ray Date: 02/14/24 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 FINDINGS: There are median sternotomy wires and mediastinal surgical clips. Cardiomegaly is unchanged. There is pulmonary vascular congestion. No consolidation is present. There is no pneumothorax or pleural effusion. IMPRESSION: Cardiomegaly with pulmonary vascular congestion, slightly improved since prior exam. Echocardiogram Date: 01/31/24 EF: 30-35 LV Function: dysfunctional RWMA: + akinetic and + hypokinetic Other Findings: + LVH (mild) and + diastolic dysfunction (Grade II)
[2024-02-16] MEDS: SODIUM CHLORIDE 0.9% 500 ML IV SCH (15:12)
--- NOTE | 2024-02-16 15:29 | GI REPORT ---
[facility] Patient: ZAHIDA EUCEDA : 1945 Sex at : Female Age: 79 Years Procedure: Upper GI endoscopy Date: 02/16/2024 Attending Physician: Zachery Graff MD Referring MD: Referred Self Indications: - Melena Medications: - Monitored Anesthesia Care Complications: - No immediate complications. Procedure: - Prior to the procedure, a History and Physical was performed, and patient medications and allergies were reviewed. The patient's tolerance of previous anesthesia was also reviewed. The risks and benefits of the procedure and the sedation options and risks were discussed with the patient. All questions were answered, and informed consent was obtained. [Anticoagulant Agents] [Days Prior to Procedure]. [ASA Grade]. After reviewing the risks and benefits, the patient was deemed in satisfactory condition to undergo the procedure. - The egd scope was introduced through the mouth and advanced to the second part of the duodenum. - The upper GI endoscopy was accomplished without difficulty. - The patient tolerated the procedure well. Findings: - Two cratered esophageal ulcers with no stigmata of recent bleeding were found in the middle third of the esophagus. The largest lesion was 10 mm in largest dimension. Biopsies were taken with a cold forceps for histology. - Two superficial gastric ulcers were found in the gastric fundus. The largest lesion was 5 mm in largest dimension. - The examined duodenum was normal. Impression: - Esophageal ulcers with no stigmata of recent bleeding. Biopsied. - Gastric ulcers. - Normal examined duodenum. Recommendation: - Resume previous diet. - Patient has a contact number available for emergencies. The signs and symptoms of potential delayed complications were discussed with the patient. Return to normal activities tomorrow. Written discharge instructions were provided to the patient. Procedure Code(s): - 11424, Esophagogastroduodenoscopy, flexible, transoral; with biopsy, single or multiple Diagnosis Code(s): - K22.10, Ulcer of esophagus without bleeding - K25.9, Gastric ulcer, unspecified as acute or chronic, without hemorrhage or perforation CPT(R) - 2023 copyright [employer]. All Rights Reserved. The CPT codes, CCI edits and ICD codes generated are intended as suggestions and were generated based on input data. These codes are preliminary and upon book jacket cover machine operator review may be revised to meet current compliance and payer requirements. The provider is responsible for the final determination of appropriate codes, and modifiers. Zachery Graff MD This document has been electronically signed. Note Initiated:02/16/2024 Note Completed:02/16/2024 3:28 PM \\[id number]
--- NOTE | 2024-02-16 15:35 | Anesthesiology Progress Note ---
Date of Service February 16, 2024 Anesthesia Post Procedure Vital Signs Vital Signs: Temp Pulse Pulse Pulse Resp BP Pulse Ox 02/16/24 15:24 54 L 22 96/52 L 100 02/16/24 14:49 36.8 C 65 18 125/63 92 02/16/24 10:56 75 02/16/24 10:44 36.5 C 60 19 118/71 92 02/16/24 07:47 02/16/24 07:26 36.6 C 72 18 131/56 L 92 02/16/24 02:41 36.8 C 60 18 102/60 94 02/15/24 23:00 60 02/15/24 22:52 36.7 C 63 18 105/62 93 02/15/24 19:57 36.6 C 67 18 100/65 92 02/15/24 15:37 78 02/15/24 15:36 60 O2 Del Method O2 Flow Rate 02/16/24 15:24 Nasal Cannula 4 02/16/24 14:49 Room Air 02/16/24 10:56 02/16/24 10:44 Room Air 02/16/24 07:47 Room Air 02/16/24 07:26 Room Air 02/16/24 02:41 Room Air 02/15/24 23:00 02/15/24 22:52 Room Air 02/15/24 19:57 Room Air 02/15/24 15:37 02/15/24 15:36 Pain Intensity Left Hip: Pain Intensity: 4 Transfer of Care Handoff Completed per policy Notes Mental Status: alert / awake / arousable and participated in evaluation Patient Amnestic to Procedure: Yes Nausea / Vomiting: adequately controlled Pain: adequately controlled Airway Patency, RR, SpO2: stable & adequate BP & HR: stable & adequate Hydration State: stable & adequate Anesthetic Complications: no major complications apparent and Pt Satisfied with anesthetic care
[2024-02-16] MEDS: KETAMINE HCL 10MG/ML SYR ONE (16:14)
[2024-02-16] MEDS: LIDOCAINE 2% 2 ML VIAL/AMP(20MG/ML) INFIL ONE (16:14)
[2024-02-16] MEDS: PROPOFOL IV EMULSION 10 MG/ML 20 ML VIAL IV ONE (16:14)
[2024-02-16] MEDS: INSULIN ASPART PER UNIT CHARGE SC SCH (18:01)
[2024-02-16] MEDS: FUROSEMIDE 20 MG TAB PO ONE (19:59)
--- NOTE | 2024-02-16 21:07 | Hospitalist Progress Note ---
Date of Service February 16, 2024 Assessment & Plan (1) Acute blood loss anemia: Plan: likely 2nd to upper GI bleeding given the melena stools presenting Hb 7.1 was 12.1 during the prior hospital stay last week s/p 2 units PRBCs with improved & stable H/H parameters repeat CBC am s/p EGD today - esophageal & gastric ulcers seen - likely cause of upper GI bleeding appreciate GI assistance cont PPI drip thru the am then can revert over to PPI by mouth BID (2) Acute GI bleeding: Plan: s/p EGD with esophageal & gastric ulcers likely cause of UGI bleed esophageal ulcers - biopsied will send stool for H pylori daughter states she had ulcers about 5 years ago cont PPI drip thru tomorrow then stop and change to PPI bid and a few days of carafate in light of recent NSTEMI within the last 2 weeks having her off DAPT could lead to repeat cardiac event GI - by verbal report - is ok with cautious resumption of low-dose aspirin HOLD plavix HOLD Eliquis allow clears then advance as tolerated starting tomorrow (3) History of non-ST elevation myocardial infarction (NSTEMI): Plan: Holding Eliquis and clopidogrel as above Holding losartan due to low-normal BPs Holding atorvastatin due to NPO status Continue coreg low-dose Fortunately no ischemic symptoms at this time NSTEMI event was 01/30/24 peak trop at that time - 11,000 cath done on 01/31/[address] Sifuentes - Findings: LM -calcified, 30% ostial LAD -100% ostial chronic total occlusion Circumflex -calcified, moderate diffuse proximal to mid disease. 100% mid chronic total occlusion after takeoff of small bifurcating OM2. RCA -dominant, 100% proximal chronic total occlusion LIMALADwidely patent. Distal LAD small vessel, provides collaterals to RPDA. [id number]% proximal stenosis, 40-50% mid graft disease, with JEREL II distal flow [id number]% acute proximal graft in-stent restenosis/thrombosis, mid graft stent widely patent. Small OM after anastomosis patent. Jump graft to left PLB occluded. Left PLB partially fills via retrograde collaterals from OM s/p FILEMON to SVG-PDA stenosis s/p FILEMON to SVG-OM3 stenosis cont low-dose asa 81mg daily while plavix/Eliquis is on hold (4) Diabetes mellitus type 2, uncontrolled, with complications: Plan: HbA1C 10.4 (during prior hospitalization) Cont novolog SSI Cont lantus Pharmacy providing glycemic oversight - appreciate their assistance (5) History of pulmonary embolism: Plan: noted holding Eliquis, however, due to #1, #2 (6) Heart failure with reduced ejection fraction: Plan: 2nd to ischemic cardiomyopathy echo 01/31/24 with EF 30-35% resume lasix today (7) Gastric ulcer: Plan: as seen on EGD today cont PPI (8) Esophageal ulcer: Plan: as seen on EGD today cont PPI (9) Finger fracture, left: Plan: 5th remains in cast cast placed late December by Dr Yung Carrasco the notes from that visit report cast to remain for 6 weeks 25-OH vit D level in 06/2023 was wnl Plan daughter updated at bedside progressing nicely needs PT/OT Admission and Anticipated Discharge Date Admission Date: February 14, 2024 Subjective saw patient post-EGD tolerated such having some mild hypoxia post-EGD but she denies dyspnea no abd pain or N/V no overt GI bleeding daughter at bedside Review of Systems Review of Systems: CV - no chest pain pulm - denies cough/dyspnea GI - no pain Physical Exam Physical Exam: gen - NAD, pleasant, looks good (a little tired, however) neck - no JVD mouth - MMM heart - RRR, s1 s2, no murmur lungs - slight crackle bases ow CTA b/l; no distress abd - soft NT ND BS+ ext - no edema, pulses 2+ b/l skin - generalized pallor psych - pleasant confusion Results & Data Results & Data Vital Signs (Past 12 Hours) Vital Signs Temp Pulse Pulse Pulse Resp BP Pulse Ox 02/16/24 20:37 36.7 C 57 L 18 108/70 96 02/16/24 18:46 64 02/16/24 16:40 36.7 C 75 18 106/64 95 02/16/24 16:18 36.7 C 58 L 17 106/50 L 90 02/16/24 15:55 60 18 110/79 96 02/16/24 15:39 66 18 119/48 L 96 02/16/24 15:24 54 L 22 96/52 L 100 02/16/24 14:49 36.8 C 65 18 125/63 92 02/16/24 10:56 75 02/16/24 10:44 36.5 C 60 19 118/71 92 O2 Del Method O2 Flow Rate 02/16/24 20:37 Room Air 02/16/24 18:46 02/16/24 16:40 Nasal Cannula 1.5 02/16/24 16:18 Nasal Cannula 4 02/16/24 15:55 Nasal Cannula 4 02/16/24 15:39 Nasal Cannula 4 02/16/24 15:24 Nasal Cannula 4 02/16/24 14:49 Room Air 02/16/24 10:56 02/16/24 10:44 Room Air Laboratory Results Laboratory Results - last 24 hr 02/15/24 02/16/24 02/16/24 21:45 00:01 05:40 WBC 12.07 H 10.58 RBC 3.21 L 3.41 L Hgb 9.2 L 9.7 L Hct 27.8 L 30.2 L MCV 86.6 88.6 MCH 28.7 28.4 MCHC 33.1 32.1 RDW Std Deviation 59.7 H 60.3 H RDW Coeff of Magali 19.9 H 19.7 H Plt Count 309 320 MPV 10.8 10.9 Sodium 141 Potassium 3.8 Chloride 105 Carbon Dioxide 28 Anion Gap 8 BUN 50 H D Creatinine 2.09 H Est Cr Clr Drug Dosing 18.6 Est GFR ( Amer) 25.5 Est GFR (Non-Af Amer) 22.0 BUN/Creatinine Ratio 23.9 H Glucose 142 H POC Glucose 140 H Calcium 8.9 02/16/24 02/16/24 02/16/24 06:40 12:44 16:32 WBC RBC Hgb Hct MCV MCH MCHC RDW Std Deviation RDW Coeff of Magali Plt Count MPV Sodium Potassium Chloride Carbon Dioxide Anion Gap BUN Creatinine Est Cr Clr Drug Dosing Est GFR ( Amer) Est GFR (Non-Af Amer) BUN/Creatinine Ratio Glucose POC Glucose 158 H 184 H 129 H Calcium 02/16/24 20:11 WBC RBC Hgb Hct MCV MCH MCHC RDW Std Deviation RDW Coeff of Magali Plt Count MPV Sodium Potassium Chloride Carbon Dioxide Anion Gap BUN Creatinine Est Cr Clr Drug Dosing Est GFR ( Amer) Est GFR (Non-Af Amer) BUN/Creatinine Ratio Glucose POC Glucose 160 H Calcium PG Care Time/CCT Total # of Minutes Spent Total Time Spent with Patient: Total time spent is greater than 50% in coordination of care (as documented) at patient's floor/unit and/or counseling patient: Coding Level of Care Code 86240 SUB INP/OBS CARE 2/35MIN Diagnoses Acute blood loss anemia D62 Acute GI bleeding K92.2 History of non-ST elevation myocardial infarction (NSTEMI) I25.2 Diabetes mellitus type 2, uncontrolled, with complications E11.8; E11.65 History of pulmonary embolism Z86.711 Heart failure with reduced ejection fraction I50.20 Gastric ulcer K25.9 Esophageal ulcer K22.10 Finger fracture, left S64.437Z
[2024-02-17 07:55] LABS: Hematocrit (blood only) 31.4 % (37.0-47.0); Hemoglobin 9.9 g/dl (12.0-16.0); Mean Corpuscular Hgb Conc 31.5 g/dL (32.0-36.0); Mean Corpuscular Volume 88.7 fL (80.0-100.0); Mean Platelet Volume 10.3 fL (9.4-12.4); Platelet Count 301 K/uL (130-400); RDW Coefficient of Variation 19.1 % (11.5-14.5); RDW Standard Deviation 57.7 fL (36.4-46.3); Red Blood Count 3.54 M/uL (4.20-5.40); White Blood Count 9.52 K/ul (4.8-10.8)
[2024-02-17 08:16] LABS: BUN Creatinine Ratio 18.3 (10-20); Calcium 8.8 mg/dl (8.6-10.3); Creatinine Clr Calc Pharmacy 18.6 ml/min; Est GFR (African American) 25.6 ml/min; Est GFR (Non-African American) 22.1 ml/min; Potassium 3.8 mmol/L (3.5-5.1)
[2024-02-17 08:35] LABS: Ferritin 33.4 ng/ml (8-388)
[2024-02-17] MEDS: INSULIN HUMAN NPH SC SCH (09:20)
[2024-02-17] MEDS: CLOPIDOGREL BISULFATE 75 MG TAB PO ONE (09:20)
[2024-02-17] MEDS: PANTOprazole 40 MG TAB PO SCH (09:20)
[2024-02-17] MEDS: SUCRALFATE 1 GM/10 ML UDC PO SCH (09:36)
--- NOTE | 2024-02-17 09:49 | Gastroenterology Progress Note ---
Date of Service February 17, 2024 Assessment & Plan (1) Gastric ulcer: (2) Esophageal ulcer: Plan No new GI events noted. continue to follow hgb/hct. await pathology from recent EGD. continue with protonix 40mg bid. Admission and Anticipated Discharge Date Admission Date: February 14, 2024 Supervising Physician Co-Signing Physician Notes I saw and examined this patient with our nurse practitioner and agree with her assessment and plan. Clinically resolved GI bleed. Endoscopy revealed 2 esophageal ulcers of questionable etiology and some superficial gastric ulcers as well. Biopsies are pending She will continue her PPI twice daily, await biopsies. Can restart Plavix and Eliquis if needed as per cardiology. If discharged would repeat a CBC within 72 hours. Subjective Patient underwent EGD 02/15 showing esophageal ulcers and gastric ulcers. path pending. hgb stable at 9.9 today (previously 9.7).' patient resting comfortably in bed. Per nursing, no signs of GI bleeding at this time. Review of Systems Review of Systems: All systems reviewed & are unremarkable except as noted in HPI & below Physical Exam Respiratory: normal respiratory effort. Gastrointestinal (Abdomen): normal bowel sounds, soft. nontender. Psychiatric: patient resting comfortably in bed. Results & Data Results & Data Vital Signs (Past 12 Hours) Vital Signs Temp Pulse Pulse Resp BP Pulse Ox O2 Del Method 02/17/24 08:26 98.1 F 53 L 18 95/59 L 92 Room Air 02/17/24 07:14 66 02/17/24 03:13 98.2 F 66 18 108/68 94 Room Air 02/16/24 23:44 56 L 02/16/24 23:26 98.1 F 60 18 106/66 95 Room Air Laboratory Results Laboratory Results - last 48 hr 02/15/24 02/15/24 02/15/24 15:15 18:16 20:10 WBC 14.15 H RBC 3.43 L Hgb 9.9 L Hct 29.5 L MCV 86.0 MCH 28.9 MCHC 33.6 RDW Std Deviation 58.5 H RDW Coeff of Magali 20.0 H Plt Count 354 MPV 11.0 Sodium Potassium Chloride Carbon Dioxide Anion Gap BUN Creatinine Est Cr Clr Drug Dosing Est GFR ( Amer) Est GFR (Non-Af Amer) BUN/Creatinine Ratio Glucose POC Glucose 197 H 164 H Calcium Ferritin 02/15/24 02/16/24 02/16/24 21:45 00:01 05:40 WBC 12.07 H 10.58 RBC 3.21 L 3.41 L Hgb 9.2 L 9.7 L Hct 27.8 L 30.2 L MCV 86.6 88.6 MCH 28.7 28.4 MCHC 33.1 32.1 RDW Std Deviation 59.7 H 60.3 H RDW Coeff of Magali 19.9 H 19.7 H Plt Count 309 320 MPV 10.8 10.9 Sodium 141 Potassium 3.8 Chloride 105 Carbon Dioxide 28 Anion Gap 8 BUN 50 H D Creatinine 2.09 H Est Cr Clr Drug Dosing 18.6 Est GFR ( Amer) 25.5 Est GFR (Non-Af Amer) 22.0 BUN/Creatinine Ratio 23.9 H Glucose 142 H POC Glucose 140 H Calcium 8.9 Ferritin 02/16/24 02/16/24 02/16/24 06:40 12:44 16:32 WBC RBC Hgb Hct MCV MCH MCHC RDW Std Deviation RDW Coeff of Magali Plt Count MPV Sodium Potassium Chloride Carbon Dioxide Anion Gap BUN Creatinine Est Cr Clr Drug Dosing Est GFR ( Amer) Est GFR (Non-Af Amer) BUN/Creatinine Ratio Glucose POC Glucose 158 H 184 H 129 H Calcium Ferritin 02/16/24 02/17/24 02/17/24 20:11 07:23 07:38 WBC 9.52 RBC 3.54 L Hgb 9.9 L Hct 31.4 L MCV 88.7 MCH 28.0 MCHC 31.5 L RDW Std Deviation 57.7 H RDW Coeff of Magali 19.1 H Plt Count 301 MPV 10.3 Sodium 141 Potassium 3.8 Chloride 105 Carbon Dioxide 27 Anion Gap 9 BUN 38 H Creatinine 2.08 H Est Cr Clr Drug Dosing 18.6 Est GFR ( Amer) 25.6 Est GFR (Non-Af Amer) 22.1 BUN/Creatinine Ratio 18.3 Glucose 136 H POC Glucose 160 H 129 H Calcium 8.8 Ferritin 33.4 02/17/24 11:30 WBC RBC Hgb Hct MCV MCH MCHC RDW Std Deviation RDW Coeff of Magali Plt Count MPV Sodium Potassium Chloride Carbon Dioxide Anion Gap BUN Creatinine Est Cr Clr Drug Dosing Est GFR ( Amer) Est GFR (Non-Af Amer) BUN/Creatinine Ratio Glucose POC Glucose 143 H Calcium Ferritin Coding Level of Care Code 62948 SUB INP/OBS CARE 07/15MIN Diagnoses Gastric ulcer K25.9 Esophageal ulcer K22.10
[2024-02-17] MEDS: IRON SUCROSE 300 MG in SODIUM CHLORIDE 0.9% 250 ML IV ONE (11:22)
--- NOTE | 2024-02-17 12:01 | Cardiology Progress Note ---
Date of Service February 17, 2024 Assessment & Plan (1) Heart failure with reduced ejection fraction: (2) CAD (coronary artery disease): (3) S/P CABG x 5: (4) S/P coronary artery stent placement: (5) Dyslipidemia: (6) Hypertension: (7) Ischemic cardiomyopathy: (8) Acute blood loss anemia: (9) Acute GI bleeding: (10) Mitral regurgitation: Plan ASSESSMENT/PLAN: 1. CAD s/p CABG x 5 and PCI; recent NSTEMI: No angina. No further bleeding and nonbleeding ulcers noted. Given gastric ulcers, recommend discontinuing aspirin and resuming Plavix 75 mg daily. Have reached out to GI in regards to antiplatelet therapy/anticoagulation therapy. Continue beta-beryl. Resume high intensity statin therapy when able. 2. Heart failure with reduced EF: She appears euvolemic. She was hypervolemic earlier this month and underwent diuresis. Continue carvedilol. Repeat limited echo and if LV systolic function still significantly reduced, may trial low-dose Entresto if renal function remains stable. Would avoid spironolactone currently given abnormal renal function. No SGLT2 inhibitor due to renal function as GFR is very near 20. If LV systolic function does not improve with appropriate therapy within 40 days of her DE, would be candidate for ICD for primary pre vention. 3. Cardiomyopathy: Ischemic in origin. Plan as above. 4. Mitral regurgitation: Nonsevere. Will monitor over time. 5. Acute blood loss anemia/acute GI bleeding: Hemoglobin was normal on 02/05/2024 and as low as 7 on 02/14/2024. Has received PRBC x 2. Hemoglobin has since been stable following PRBC and was found to have esophageal and gastric ulcers but nonbleeding during EGD. 6. Dyslipidemia: Resume high-intensity statin therapy when taking p.o. 7. History of DVT/PE: Has been on indefinite anticoagulation therapy as per other providers. When able, would resume anticoagulation therapy. Message sent to GI earlier this morning in this regard, following EGD; pending. 8. Disposition: Cardiology will continue to follow. Patient care communicated with Dr. Kilpatrick of the primary hospitalist service. Contacted and spoke with pt's daughter, Shweta Catalan, to update her on her mother's cardiac care/plan. Admission and Anticipated Discharge Date Admission Date: February 14, 2024 Subjective Patient seen this morning. She denies chest pain or shortness of breath. She still appears confused and was unable to provide much history. She was unaccompanied. Physical Exam Physical Exam: Gen.: No acute distress. Alert. HEENT: Anicteric sclera. Neck: No JVD. Cardiac: No ventricular heave. Regular without ectopy. Normal S1-S2. No murmurs, rubs, or gallops. Pulmonary: Clear to auscultation bilaterally without wheezes, rales, or rhonchi. Abdomen: Soft, nontender, nondistended, with normoactive bowel sounds. No bruits noted. Extremities: 2+ right radial pulse. Left wrist in a cast. 2+ posterior tibialis pulses bilaterally. No edema. No cyanosis. Results & Data Vital Signs (Past 12 Hours) Vital Signs Temp Pulse Pulse Resp BP Pulse Ox O2 Del Method 02/17/24 11:21 36.9 C 54 L 18 111/71 91 Room Air 02/17/24 08:26 36.7 C 53 L 18 95/59 L 92 Room Air 02/17/24 07:14 66 02/17/24 03:13 36.8 C 66 18 108/68 94 Room Air Laboratory Results Laboratory Results - last 24 hr 02/16/24 02/16/24 02/16/24 12:44 16:32 20:11 WBC RBC Hgb Hct MCV MCH MCHC RDW Std Deviation RDW Coeff of Magali Plt Count MPV Sodium Potassium Chloride Carbon Dioxide Anion Gap BUN Creatinine Est Cr Clr Drug Dosing Est GFR ( Amer) Est GFR (Non-Af Amer) BUN/Creatinine Ratio Glucose POC Glucose 184 H 129 H 160 H Calcium Ferritin 02/17/24 02/17/24 02/17/24 07:23 07:38 11:30 WBC 9.52 RBC 3.54 L Hgb 9.9 L Hct 31.4 L MCV 88.7 MCH 28.0 MCHC 31.5 L RDW Std Deviation 57.7 H RDW Coeff of Magali 19.1 H Plt Count 301 MPV 10.3 Sodium 141 Potassium 3.8 Chloride 105 Carbon Dioxide 27 Anion Gap 9 BUN 38 H Creatinine 2.08 H Est Cr Clr Drug Dosing 18.6 Est GFR ( Amer) 25.6 Est GFR (Non-Af Amer) 22.1 BUN/Creatinine Ratio 18.3 Glucose 136 H POC Glucose 129 H 143 H Calcium 8.8 Ferritin 33.4 Diagnostic Findings Labs reviewed and notable for abnormal but stable renal function, normal potassium, stable hemoglobin. EGD report reviewed from 02/16/2024, reporting nonbleeding esophageal and gastric ulcers. Telemetry personally reviewed: Sinus rhythm in the 50s to 60s. Medications Administered Current Inpatient Medications Carvedilol (Carvedilol 3.125 Mg Tab) 3.125 mg PO BIDM [facility] Stop: 03/16/24 16:59 Last Admin: 02/17/24 08:08 Dose: 3.125 mg Clopidogrel Bisulfate (Clopidogrel Bisulfate 75 Mg Tab) 75 mg PO QAM [facility] Stop: 03/19/24 08:59 Dextrose (Dextrose 50% 50 Ml Syringe) 25 - 50 ml IV UD PRN; Protocol PRN Reason: Hypoglycemia Protocol Stop: 03/15/24 23:36 Glucagon (Glucagon For Inj 1 Mg Vial) 1 mg SQ UD PRN; Protocol PRN Reason: Hypoglycemia Protocol Stop: 03/15/24 23:36 Glucose (Glucose 40% Gel 15 Gm Tube) 15 - 30 gm PO UD PRN; Protocol PRN Reason: Hypoglycemia Protocol Stop: 03/15/24 23:36 Glucose (Glucose 10 Tab/Tube) 4 - 8 tab PO UD PRN; Protocol PRN Reason: Hypoglycemia Treatment Stop: 03/15/24 23:36 Acetaminophen (Ofirmev) 1,000 mg in 100 mls @ 400 mls/hr IV Q8H PRN PRN Reason: Pain Stop: 02/18/24 01:02 Iron Sucrose 300 mg/ Sodium (Chloride) 265 mls @ 176.667 mls/hr IV ONE ONE; Protocol Stop: 02/17/24 12:29 Last Admin: 02/17/24 11:22 Dose: 176.7 mls/hr Insulin Aspart (Insulin Aspart Per Unit Charge) 0 units SC ACHS [facility] Stop: 03/17/24 16:44 Last Admin: 02/17/24 12:00 Dose: Not Given Insulin Human NPH (Insulin Human Nph) 12 units SC BIDM [facility]; Protocol Stop: 03/18/24 07:59 Last Admin: 02/17/24 09:20 Dose: 12 units Miscellaneous (Carbohydrates For Hypoglycemia ) 15 - 30 gm PO UD PRN PRN Reason: Hypoglycemia Protocol Stop: 03/15/24 23:36 Miscellaneous Information (Pharmacy Glycemic Mgmt Consult) 1 each N/A UD PRN PRN Reason: Consult Stop: 03/15/24 23:36 Pantoprazole Sodium (Pantoprazole 40 Mg Tab) 40 mg PO BID [facility] Stop: 03/18/24 08:59 Last Admin: 02/17/24 09:20 Dose: 40 mg Sucralfate (Sucralfate 1 Gm/10 Ml Udc) 1 gm PO QID [facility] Stop: 03/18/24 08:59 Last Admin: 02/17/24 12:01 Dose: Not Given PG Care Time/CCT Total # of Minutes Spent Total Time Spent with Patient: Total time spent is greater than 50% in coordination of care (as documented) at patient's floor/unit and/or counseling patient: Coding Level of Care Code 17005 SUB INP/OBS CARE 3/50MIN Diagnoses Heart failure with reduced ejection fraction I50.20 Coronary artery disease involving [place] coronary artery of [place] heart without angina pectoris I25.10 Coronary Disease-Associated Artery/Lesion type: [place] artery [place] vs. transplanted heart: [place] heart Associated angina: without angina S/P CABG x 5 Z95.1 S/P coronary artery stent placement Z95.5 Dyslipidemia E78.5 Primary hypertension I10 Hypertension type: primary hypertension Ischemic cardiomyopathy I25.5 Acute blood loss anemia D62 Acute GI bleeding K92.2 Mitral regurgitation I34.0 (2) CAD (coronary artery disease) Coronary Disease-Associated Artery/Lesion type: [place] artery [place] vs. transplanted heart: [place] heart Associated angina: without angina Qualified Code(s): I25.10 - Atherosclerotic heart disease of [place] coronary artery without angina pectoris (6) Hypertension Hypertension type: primary hypertension Qualified Code(s): I10 - Essential (primary) hypertension
--- NOTE | 2024-02-17 12:47 | Pharmacy Report ---
Pharmacy Glycemic Short Note 2 - Date of Service February 17, 2024 - Glycemic Short BSG Results (Last 24 hours): 02/16/24 02/16/24 02/16/24 12:44 16:32 20:11 Glucose POC Glucose 184 H 129 H 160 H 02/17/24 02/17/24 02/17/24 07:23 07:38 11:30 Glucose 136 H POC Glucose 129 H 143 H OUTPATIENT ANTIDIABETIC REGIMEN: * NovoLog 70/30 - 68 units daily with breakfast, 32 units daily with supper ASSESSMENT: 02/16 * Patient on type 2 DM diet - change basal to BID NPH to better transition back to home mixed insulin. * Note: pt did refuse lunch NovoLog d/t confusion/yelling. 02/15 * Stressors stable. Remains NPO and on pantoprazole continuous infusion mixed in D5W. Possible GI intervention today. * BSG's ranged 95-197 mg/dL yesterday. Lower BSG in AM likely 2nd 70/30 FLASK FITTER. * Will continue to utilize Lantus while NPO. However, plan for eventual transition to NPH w breakfast and dinner to help facilitate transition back to outpatient. Therefore will attempt to keep Lantus once daily in the AM * No change to Novolog needed for now 02/14 * 79 year old admitted with GI bleed. NPO currently. Pharmacy consulted for glycemic management. Previously admitted 01/29-02/07. During that time, required significantly less insulin than outpatient regimen. Will utilize similar parameters from last admission. Will have scale for basal insulin at HS, however will consider giving earlier if diet started PLAN FOR INPATIENT GLYCEMIC CONTROL: * Basal insulin - CHANGE * Discontinue Lantus * NPH 12 units with breakfast and dinner * Bolus insulin * NovoLog per scale ACHS or Q6hrs while NPO * Goal Range: Low 110 mg/dL - High 140 mg/dL * Correction Factor: 18 mg/dL/unit * Nutritional / Prandial insulin per carb ratio of 1 unit per 6 grams CHO consumed
--- NOTE | 2024-02-17 13:54 | Hospitalist Progress Note ---
Date of Service February 17, 2024 Assessment & Plan (1) Acute blood loss anemia: Plan: likely 2nd to upper GI bleeding given the melena stools presenting Hb 7.1 was 12.1 during the prior hospital stay last week s/p 2 units PRBCs with improved & stable H/H parameters since the blood repeat CBC today again stable ferritin 33 - will give Venofer 300mg IV x 1 consider 2nd dose tomorrow s/p EGD - esophageal & gastric ulcers seen - likely cause of upper GI bleeding appreciate GI assistance stop PPI drip start PPI by mouth BID can also use carafate for 5-7 days advance diet to regular this evening cbc again in am (2) Acute GI bleeding: Plan: s/p EGD with esophageal & gastric ulcers likely cause of UGI bleed esophageal ulcers - biopsied will send stool for H pylori daughter states she had ulcers about 5 years ago stop PPI drip change to PPI bid and a few days of carafate in light of recent NSTEMI within the last 2 weeks having her off DAPT could lead to repeat cardiac event GI - by verbal report - is ok with cautious resumption of plavix stop asa; resume plavix HOLD Eliquis could consider lovenox daily for DVT proph while off Eliquis as latter is for past h/o VTE advance diet to regular (3) History of non-ST elevation myocardial infarction (NSTEMI): Plan: Holding Eliquis Resume plavix Cont coreg Can resume lipitor Hold losartan Fortunately no ischemic symptoms despite the recent drop in H/H NSTEMI event was 01/30/24 peak trop at that time - 11,000 cath done on 01/31/[address] Sifuentes - Findings: LM -calcified, 30% ostial LAD -100% ostial chronic total occlusion Circumflex -calcified, moderate diffuse proximal to mid disease. 100% mid chronic total occlusion after takeoff of small bifurcating OM2. RCA -dominant, 100% proximal chronic total occlusion LIMALADwidely patent. Distal LAD small vessel, provides collaterals to RPDA. [id number]% proximal stenosis, 40-50% mid graft disease, with JEREL II distal flow [id number]% acute proximal graft in-stent restenosis/thrombosis, mid graft stent widely patent. Small OM after anastomosis patent. Jump graft to left PLB occluded. Left PLB partially fills via retrograde collaterals from OM s/p FILEMON to SVG-PDA stenosis s/p FILEMON to SVG-OM3 stenosis (4) Diabetes mellitus type 2, uncontrolled, with complications: Plan: HbA1C 10.4 (during prior hospitalization) Cont novolog SSI Cont [facility] providing glycemic oversight - appreciate their assistance (5) History of pulmonary embolism: Plan: noted holding Eliquis, however, due to #1, #2 consider low dose lovenox for DVT/PE prophylaxis while off Eliquis (6) Heart failure with reduced ejection fraction: Plan: 2nd to ischemic cardiomyopathy echo 01/31/24 with EF 30-35% cont coreg ultimately resume lasix/ARB (7) Gastric ulcer: Plan: as seen on EGD cont PPI bid (8) Esophageal ulcer: Plan: as seen on EGD cont PPI bid (9) Finger fracture, left: Plan: 5th remains in cast cast placed late December by Dr Yung Carrasco the notes from that visit report cast to remain for 6 weeks 25-OH vit D level in 06/2023 was wnl Plan daughter updated at bedside yesterday & the day prior progressing nicely needs PT/OT back to [facility] tomorrow ? Admission and Anticipated Discharge Date Admission Date: February 14, 2024 Subjective feels well tolerating full liquid diet denies abd pain, nausea, emesis, dyspnea no chest pains tele stable overnight no hematemesis Review of Systems Review of Systems: pulm - no cough/dyspnea musculo - left shoulder pain - chronic GI - no BRBPR CV - no edema, no chest pain, no orthopnea Physical Exam Physical Exam: gen - NAD, pleasant, looks very good today neck - no JVD mouth - MMM heart - RRR, s1 s2, no murmur lungs - CTA b/l abd - soft NT ND BS+ ext - no edema, pulses 2+ b/l skin - generalized pallor psych - pleasant confusion - no agitation Results & Data Results & Data Vital Signs (Past 12 Hours) Vital Signs Temp Pulse Pulse Resp BP Pulse Ox O2 Del Method 02/17/24 11:21 36.9 C 54 L 18 111/71 91 Room Air 02/17/24 08:26 36.7 C 53 L 18 95/59 L 92 Room Air 02/17/24 07:14 66 02/17/24 03:13 36.8 C 66 18 108/68 94 Room Air Laboratory Results Laboratory Results - last 24 hr 02/16/24 02/16/24 02/17/24 16:32 20:11 07:23 WBC RBC Hgb Hct MCV MCH MCHC RDW Std Deviation RDW Coeff of Magali Plt Count MPV Sodium Potassium Chloride Carbon Dioxide Anion Gap BUN Creatinine Est Cr Clr Drug Dosing Est GFR ( Amer) Est GFR (Non-Af Amer) BUN/Creatinine Ratio Glucose POC Glucose 129 H 160 H 129 H Calcium Ferritin 02/17/24 02/17/24 07:38 11:30 WBC 9.52 RBC 3.54 L Hgb 9.9 L Hct 31.4 L MCV 88.7 MCH 28.0 MCHC 31.5 L RDW Std Deviation 57.7 H RDW Coeff of Magali 19.1 H Plt Count 301 MPV 10.3 Sodium 141 Potassium 3.8 Chloride 105 Carbon Dioxide 27 Anion Gap 9 BUN 38 H Creatinine 2.08 H Est Cr Clr Drug Dosing 18.6 Est GFR ( Amer) 25.6 Est GFR (Non-Af Amer) 22.1 BUN/Creatinine Ratio 18.3 Glucose 136 H POC Glucose 143 H Calcium 8.8 Ferritin 33.4 PG Care Time/CCT Total # of Minutes Spent Total Time Spent with Patient: Total time spent is greater than 50% in coordination of care (as documented) at patient's floor/unit and/or counseling patient: Coding Level of Care Code 49570 SUB INP/OBS CARE 2/35MIN Diagnoses Acute blood loss anemia D62 Acute GI bleeding K92.2 History of non-ST elevation myocardial infarction (NSTEMI) I25.2 Diabetes mellitus type 2, uncontrolled, with complications E11.8; E11.65 History of pulmonary embolism Z86.711 Heart failure with reduced ejection fraction I50.20 Gastric ulcer K25.9 Esophageal ulcer K22.10 Finger fracture, left S68.049M
[2024-02-17] MEDS: LIDOCAINE 5% 1 PATCH TD STA (18:46)
--- NOTE | 2024-02-17 18:46 | XCELERA ---
[id number]
[2024-02-18 07:53] LABS: Hematocrit (blood only) 31.8 % (37.0-47.0); Hemoglobin 10.2 g/dl (12.0-16.0)
[2024-02-18 08:10] LABS: BUN Creatinine Ratio 14.8 (10-20); Creatinine Clr Calc Pharmacy 19.2 ml/min; Est GFR (African American) 26.4 ml/min; Est GFR (Non-African American) 22.7 ml/min; Potassium 3.6 mmol/L (3.5-5.1)
--- NOTE | 2024-02-18 08:48 | Pharmacy Report ---
Pharmacy Glycemic Short Note 2 - Date of Service February 18, 2024 - Glycemic Short BSG Results (Last 24 hours): 02/17/24 02/17/24 02/17/24 11:30 16:29 20:05 Glucose POC Glucose 143 H 170 H 114 H 02/18/24 02/18/24 07:28 07:38 Glucose 93 POC Glucose 97 OUTPATIENT ANTIDIABETIC REGIMEN: * NovoLog 70/30 - 68 units daily with breakfast, 32 units daily with supper ASSESSMENT: 02/17 * Francine received 33 units of insulin yesterday (24 units NPH + 9 units Novolog) with adequate glycemic control * Fasting BSG continues to trend down (158 -> 129 -> 97 mg/dL). Will reduce basal insulin ~20%. * Lunch BSG of 120 mg/dL. This is lower than previous days and patient received no short acting insulin this morning. Will also loosen Novolog. 02/16 * Patient on type 2 DM diet - change basal to BID NPH to better transition back to home mixed insulin. * Note: pt did refuse lunch NovoLog d/t confusion/yelling. 02/15 * Stressors stable. Remains NPO and on pantoprazole continuous infusion mixed in D5W. Possible GI intervention today. * BSG's ranged 95-197 mg/dL yesterday. Lower BSG in AM likely 2nd [employer] EMPL[employer]. * Will continue to utilize Lantus while NPO. However, plan for eventual transition to NPH w breakfast and dinner to help facilitate transition back to outpatient. Therefore will attempt to keep Lantus once daily in the AM * No change to Novolog needed for now 02/14 * 79 year old admitted with GI bleed. NPO currently. Pharmacy consulted for glycemic management. Previously admitted 01/29-02/07. During that time, required significantly less insulin than outpatient regimen. Will utilize similar parameters from last admission. Will have scale for basal insulin at HS, however will consider giving earlier if diet started PLAN FOR INPATIENT GLYCEMIC CONTROL: * Basal insulin * NPH 10 units with breakfast and dinner * Bolus insulin * NovoLog per scale ACHS or Q6hrs while NPO * Goal Range: Low 110 mg/dL - High 140 mg/dL * Correction Factor: 20 mg/dL/unit * Nutritional / Prandial insulin per carb ratio of 1 unit per 7 grams CHO consumed
[2024-02-18] MEDS: CLOPIDOGREL BISULFATE 75 MG TAB PO SCH (08:57)
[2024-02-18] MEDS: INSULIN HUMAN NPH SC SCH (09:07)
--- NOTE | 2024-02-18 10:13 | Gastroenterology Progress Note ---
Date of Service February 18, 2024 Assessment & Plan (1) Esophageal ulcer: (2) Gastric ulcer: Plan No new concerns. no signs of bleeding. hgb improved. - continue to follow hgb/hct. - continue with protonix 40mg po bid. Admission and Anticipated Discharge Date Admission Date: February 14, 2024 Supervising Physician Co-Signing Physician Notes I saw and examined this patient with our nurse practitioner and agree with her assessment and plan. Clinically stable from a GI standpoint. No overt bleeding. Pathology came back benign for the esophageal ulcers. Recommend continuing proton pump inhibitor twice daily. Repeat endoscopy in 4 to 6 weeks to document healing. Subjective patient pleasantly confused. discussed with nursing, no signs of any active GI bleeding. hgb improved to 10.2 today. Pathology on EGD came back as an ulcer. A neoplastic process is not identified. Special studies to evaluate for fungal organisms, cytomegalovirus and herpesvirus are negative. Review of Systems Review of Systems: Unobtainable due to cognitive status Physical Exam Constitutional: WD/WN, vitals as above Respiratory: normal respiratory effort, lungs clear to auscultation Cardiovascular: Rate/Rhythm: regular rate and regular rhythm Gastrointestinal (Abdomen): normal bowel sounds, soft, nontender, no hepatosplenomegaly Psychiatric: pleasantly confused. Results & Data Results & Data Vital Signs (Past 12 Hours) Vital Signs Temp Pulse Pulse Resp BP Pulse Ox O2 Del Method 02/18/24 09:10 Room Air 02/18/24 07:48 98.2 F 59 L 18 108/56 L 96 Room Air 02/18/24 02:57 97.5 F L 56 L 16 110/66 95 Room Air 02/17/24 22:55 58 L 18 111/64 93 Room Air Coding Level of Care Code 85308 SUB INP/OBS CARE 07/15MIN Diagnoses Esophageal ulcer K22.10 Gastric ulcer K25.9
--- NOTE | 2024-02-18 13:17 | Hospitalist Progress Note ---
Date of Service February 18, 2024 Assessment & Plan (1) Acute blood loss anemia: Plan: likely 2nd to upper GI bleeding given the melena stools presenting Hb 7.1 was 12.1 during the prior hospital stay last week s/p 2 units PRBCs with improved & stable H/H parameters since the blood repeat CBC today again stable - Hb 10.2 ferritin 33 - will give Venofer 300mg IV x 1 will give another dose tomorrow s/p EGD - esophageal & gastric ulcers seen - likely cause of upper GI bleeding appreciate GI assistance cont PPI BID cont carafate 7 days cont regular diet cbc again in am (2) Acute GI bleeding: Plan: s/p EGD with esophageal & gastric ulcers likely cause of UGI bleed esophageal ulcers - biopsied will send stool for H pylori daughter states she had ulcers about 5 years ago cont PPI + carafate in light of recent NSTEMI within the last 2 weeks having her off DAPT could lead to repeat cardiac event GI - by verbal report - is ok with cautious resumption of plavix cont plavix HOLD Eliquis while off Eliquis will use heparin SC 5000 BID fo DVT proph as Eliquis is for past h/o VTE (3) History of non-ST elevation myocardial infarction (NSTEMI): Plan: Holding Eliquis Resumed plavix Cont coreg Cont lipitor Starting Entresto low-dose as per Dr Cherry Fortunately no ischemic symptoms despite the recent drop in H/H NSTEMI event was 01/30/24 peak trop at that time - 11,000 cath done on 01/31/[address] Sifuentes - Findings: LM -calcified, 30% ostial LAD -100% ostial chronic total occlusion Circumflex -calcified, moderate diffuse proximal to mid disease. 100% mid chronic total occlusion after takeoff of small bifurcating OM2. RCA -dominant, 100% proximal chronic total occlusion LIMALADwidely patent. Distal LAD small vessel, provides collaterals to RPDA. [id number]% proximal stenosis, 40-50% mid graft disease, with JEREL II distal flow [id number]% acute proximal graft in-stent restenosis/thrombosis, mid graft stent widely patent. Small OM after anastomosis patent. Jump graft to left PLB occluded. Left PLB partially fills via retrograde collaterals from OM s/p FILEMON to SVG-PDA stenosis s/p FILEMON to SVG-OM3 stenosis (4) Diabetes mellitus type 2, uncontrolled, with complications: Plan: HbA1C 10.4 (during prior hospitalization) Cont novolog SSI Cont [facility] providing glycemic oversight - appreciate their assistance (5) History of pulmonary embolism: Plan: noted holding Eliquis, however, due to #1, #2 start heparin 5000 units BID for DVT/PE prophylaxis while off Eliquis (6) Heart failure with reduced ejection fraction: Plan: 2nd to ischemic cardiomyopathy echo 01/31/24 with EF 30-35% cont coreg starting low-dose Entresto resume lasix this weekend (7) Gastric ulcer: Plan: as seen on EGD cont PPI bid (8) Esophageal ulcer: Plan: as seen on EGD cont PPI bid (9) Finger fracture, left: Plan: remains in cast cast placed late December by Dr Yung Carrasco the notes from that visit report cast to remain for 6 weeks 25-OH vit D level in 06/2023 was wnl (10) Osteoarthritis of left shoulder: Plan: severe x-rays 12/2023 with severe OA changes lidoderm patch tylenol 1gm TID tramadol prn avoid NSAIDs due to recent UGI bleeding & ulcers Plan daughter updated by phone this pm PT/OT back to [facility] tomorrow ? (could not return there today - [facility] could not take back) Admission and Anticipated Discharge Date Admission Date: February 14, 2024 Subjective pt c/o fatigue otherwise no dyspnea, cp, abd pain, nausea, emesis tolerating her meals has had no hematemesis, frequent melena, or BRBPR Review of Systems Review of Systems: CV - no edema, no orthopnea pulm - no dyspnea or HARRY GI - no abd pain musculo - c/o L shoulder pain Physical Exam Physical Exam: gen - NAD, pleasant, looks tired neck - no JVD mouth - MMM heart - RRR, s1 s2, no murmur lungs - CTA b/l abd - soft NT ND BS+ ext - no edema, pulses 2+ b/l skin - generalized pallor psych - pleasant confusion Results & Data Results & Data Vital Signs (Past 12 Hours) Vital Signs Temp Pulse Pulse Pulse Resp BP Pulse Ox 02/18/24 11:30 36.3 C L 63 19 121/74 93 02/18/24 10:15 57 L 02/18/24 09:10 02/18/24 07:48 36.8 C 59 L 18 108/56 L 96 02/18/24 02:57 36.4 C L 56 L 16 110/66 95 O2 Del Method 02/18/24 11:30 Room Air 02/18/24 10:15 02/18/24 09:10 Room Air 02/18/24 07:48 Room Air 02/18/24 02:57 Room Air Laboratory Results Laboratory Results - last 24 hr 02/17/24 02/17/24 02/18/24 16:29 20:05 07:28 Hgb 10.2 L Hct 31.8 L Sodium 141 Potassium 3.6 Chloride 106 Carbon Dioxide 25 Anion Gap 10 BUN 30 H Creatinine 2.03 H Est Cr Clr Drug Dosing 19.2 Est GFR ( Amer) 26.4 Est GFR (Non-Af Amer) 22.7 BUN/Creatinine Ratio 14.8 Glucose 93 POC Glucose 170 H 114 H Calcium 9.0 02/18/24 02/18/24 07:38 11:26 Hgb Hct Sodium Potassium Chloride Carbon Dioxide Anion Gap BUN Creatinine Est Cr Clr Drug Dosing Est GFR ( Amer) Est GFR (Non-Af Amer) BUN/Creatinine Ratio Glucose POC Glucose 97 120 H Calcium PG Care Time/CCT Total # of Minutes Spent Total Time Spent with Patient: Total time spent is greater than 50% in coordination of care (as documented) at patient's floor/unit and/or counseling patient: Coding Level of Care Code 42182 SUB INP/OBS CARE 2/35MIN Diagnoses Acute blood loss anemia D62 Acute GI bleeding K92.2 History of non-ST elevation myocardial infarction (NSTEMI) I25.2 Diabetes mellitus type 2, uncontrolled, with complications E11.8; E11.65 History of pulmonary embolism Z86.711 Heart failure with reduced ejection fraction I50.20 Gastric ulcer K25.9 Esophageal ulcer K22.10 Finger fracture, left S62.609A Osteoarthritis of left shoulder M19.012
[2024-02-18] MEDS: HEPARIN SOD 5,000 UNIT/0.5 ML VIAL SQ SCH (14:26)
[2024-02-18] MEDS ORDERED: traMADol HCL 50 MG TABLET PO PRN (18:01)
--- NOTE | 2024-02-18 19:44 | Cardiology Progress Note ---
Date of Service February 18, 2024 Assessment & Plan (1) Heart failure with reduced ejection fraction: (2) CAD (coronary artery disease): (3) S/P CABG x 5: (4) S/P coronary artery stent placement: (5) Dyslipidemia: (6) Hypertension: (7) Ischemic cardiomyopathy: (8) Acute blood loss anemia: (9) Acute GI bleeding: (10) Mitral regurgitation: Plan ASSESSMENT/PLAN: 1. CAD s/p CABG x 5 and PCI; recent NSTEMI: No angina. No further bleeding and nonbleeding ulcers noted. Continue Plavix 75 mg daily and ideally dual antiplatelet therapy but given that she should not use aspirin, resuming Eliquis when okay from a GI standpoint. Continue beta-beryl. Continue high in tensity statin therapy. 2. Heart failure with midrange EF: She appears euvolemic. She was hypervolemic earlier this month and underwent diuresis. Continue carvedilol. Will start low-dose Entresto. Please monitor renal function and electrolytes closely. Would avoid spironolactone currently given abnormal renal function. No SGLT2 inhibitor due to renal function as GFR is very near 20. ICD for primary prevention is not indicated. 3. Cardiomyopathy: Ischemic in origin. Plan as above. 4. Mitral regurgitation: Nonsevere. Will monitor over time. 5. Acute blood loss anemia/acute GI bleeding: Hemoglobin was normal on 02/05/2024 and as low as 7 on 02/14/2024. Has received PRBC x 2. Hemoglobin has since been stable following PRBC and was found to have esophageal and gastric ulcers but nonbleeding during EGD. 6. Dyslipidemia: Continue high-intensity statin therapy. 7. History of DVT/PE: Has been on indefinite anticoagulation therapy as per other providers. When able, would resume anticoagulation therapy. 8. Disposition: Cardiology will sign off at this time. Please call on-call molding engineer for any questions or concerns. Dr. Mukherjee will be available throughout the weekend. Close follow-up in the cardiology outpatient office. Patient care communicated with primary hospitalist, Dr. Kilpatrick. Admission and Anticipated Discharge Date Admission Date: February 14, 2024 Subjective Patient seen earlier this evening. She seems less confused today. She denies chest pain, shortness of breath, syncope, edema, or bleeding. She was unaccompanied. Physical Exam Physical Exam: Gen.: No acute distress. Alert. HEENT: Anicteric sclera. Neck: No JVD. Cardiac: No ventricular heave. Regular. No ectopy. Normal S1-S2. No murmurs, rubs, or gallops. Pulmonary: Clear to auscultation bilaterally without wheezes, rales, or rhonchi. Abdomen: Soft, nontender, nondistended, with normoactive bowel sounds. No bruits noted. Extremities: 2+ right radial pulse. Left wrist in a cast. 2+ posterior tibialis pulses bilaterally. No edema. No cyanosis. Results & Data Vital Signs (Past 12 Hours) Vital Signs Temp Pulse Pulse Pulse Resp BP Pulse Ox 02/18/24 19:27 37.1 C 60 16 114/67 93 02/18/24 15:58 63 02/18/24 15:26 37.0 C 63 16 120/56 L 92 02/18/24 11:30 36.3 C L 63 19 121/74 93 02/18/24 10:15 57 L 02/18/24 09:10 02/18/24 07:48 36.8 C 59 L 18 108/56 L 96 O2 Del Method 02/18/24 19:27 Room Air 02/18/24 15:58 02/18/24 15:26 Room Air 02/18/24 11:30 Room Air 02/18/24 10:15 02/18/24 09:10 Room Air 02/18/24 07:48 Room Air Intake & Output 02/16/24 02/17/24 02/18/24 02/19/24 06:59 06:59 06:59 06:59 Intake Total 487.667 / 487.667 478.334 / 478.334 695.333 / 695.333 200 / 200 Output Total 350 / 350 1075 / 1075 350 / 350 Balance 137.667 / 137.667 -596.666 / -596.666 345.333 / 345.333 200 / 200 Weight 161 lb 9.581 oz 160 lb 14.999 oz 163 lb 2.273 oz Laboratory Results Laboratory Results - last 24 hr 02/17/24 02/18/24 02/18/24 20:05 07:28 07:38 Hgb 10.2 L Hct 31.8 L Sodium 141 Potassium 3.6 Chloride 106 Carbon Dioxide 25 Anion Gap 10 BUN 30 H Creatinine 2.03 H Est Cr Clr Drug Dosing 19.2 Est GFR ( Amer) 26.4 Est GFR (Non-Af Amer) 22.7 BUN/Creatinine Ratio 14.8 Glucose 93 POC Glucose 114 H 97 Calcium 9.0 02/18/24 02/18/24 02/18/24 11:26 16:01 19:35 Hgb Hct Sodium Potassium Chloride Carbon Dioxide Anion Gap BUN Creatinine Est Cr Clr Drug Dosing Est GFR ( Amer) Est GFR (Non-Af Amer) BUN/Creatinine Ratio Glucose POC Glucose 120 H 175 H 151 H Calcium Diagnostic Findings Labs reviewed and notable for abnormal but stable renal function, normal potassium. Echo 02/17/2024: Limited study. EF 40-45%. Severe hypokinesis to akinesis of the inferolateral wall and basal to mid inferior wall segments. Mild hypokinesis of the basal to mid inferoseptum. Moderate LVH. Telemetry personally reviewed: Sinus 50s to 70s. No arrhythmia. GI note reviewed. Medications Administered Current Inpatient Medications Acetaminophen (Acetaminophen 500 Mg Tab) 1,000 mg PO TID [facility] Stop: 03/19/24 20:59 Atorvastatin Calcium (Atorvastatin 40 Mg Tab) 40 mg PO QPM [facility] Stop: 03/19/24 20:59 Carvedilol (Carvedilol 3.125 Mg Tab) 3.125 mg PO BIDM [facility] Stop: 03/16/24 16:59 Last Admin: 02/18/24 17:44 Dose: 3.125 mg Clopidogrel Bisulfate (Clopidogrel Bisulfate 75 Mg Tab) 75 mg PO QAM [facility] Stop: 03/19/24 08:59 Last Admin: 02/18/24 08:57 Dose: 75 mg Dextrose (Dextrose 50% 50 Ml Syringe) 25 - 50 ml IV UD PRN; Protocol PRN Reason: Hypoglycemia Protocol Stop: 03/15/24 23:36 Glucagon (Glucagon For Inj 1 Mg Vial) 1 mg SQ UD PRN; Protocol PRN Reason: Hypoglycemia Protocol Stop: 03/15/24 23:36 Glucose (Glucose 40% Gel 15 Gm Tube) 15 - 30 gm PO UD PRN; Protocol PRN Reason: Hypoglycemia Protocol Stop: 03/15/24 23:36 Glucose (Glucose 10 Tab/Tube) 4 - 8 tab PO UD PRN; Protocol PRN Reason: Hypoglycemia Treatment Stop: 03/15/24 23:36 Heparin Sodium (Porcine) (Heparin Sod 5,000 Unit/0.5 Ml Vial) 5,000 units SQ BID [facility] Stop: 03/19/24 13:19 Last Admin: 02/18/24 14:26 Dose: 5,000 units Insulin Aspart (Insulin Aspart Per Unit Charge) 0 units SC ACHS [facility] Stop: 03/17/24 16:44 Last Admin: 02/18/24 17:39 Dose: 12 units Insulin Human NPH (Insulin Human Nph) 10 units SC BIDM SNEHA; Protocol Stop: 03/19/24 07:59 Last Admin: 02/18/24 17:40 Dose: 10 units Miscellaneous (Carbohydrates For Hypoglycemia ) 15 - 30 gm PO UD PRN PRN Reason: Hypoglycemia Protocol Stop: 03/15/24 23:36 Miscellaneous (Remove Lidoderm Patch) 1 each N/A 0630 [facility] Stop: 02/19/24 06:31 Miscellaneous Information (Pharmacy Glycemic Mgmt Consult) 1 each N/A UD PRN PRN Reason: Consult Stop: 03/15/24 23:36 Pantoprazole Sodium (Pantoprazole 40 Mg Tab) 40 mg PO BID [facility] Stop: 03/18/24 08:59 Last Admin: 02/18/24 08:57 Dose: 40 mg Sucralfate (Sucralfate 1 Gm/10 Ml Udc) 1 gm PO QID [facility] Stop: 03/18/24 08:59 Last Admin: 02/18/24 17:39 Dose: 1 gm Tramadol HCl (Tramadol Hcl 50 Mg Tablet) 25 mg PO Q6H PRN PRN Reason: Pain Stop: 03/19/24 18:00 PG Care Time/CCT Total # of Minutes Spent Total Time Spent with Patient: Total time spent is greater than 50% in coordination of care (as documented) at patient's floor/unit and/or counseling patient: Coding Level of Care Code 68586 SUB INP/OBS CARE 3/50MIN Diagnoses Heart failure with reduced ejection fraction I50.20 Coronary artery disease involving [place] coronary artery of [place] heart without angina pectoris I25.10 Coronary Disease-Associated Artery/Lesion type: [place] artery [place] vs. transplanted heart: [place] heart Associated angina: without angina S/P CABG x 5 Z95.1 S/P coronary artery stent placement Z95.5 Dyslipidemia E78.5 Primary hypertension I10 Hypertension type: primary hypertension Ischemic cardiomyopathy I25.5 Acute blood loss anemia D62 Acute GI bleeding K92.2 Mitral regurgitation I34.0 (2) CAD (coronary artery disease) Coronary Disease-Associated Artery/Lesion type: [place] artery [place] vs. transplanted heart: [place] heart Associated angina: without angina Qualified Code(s): I25.10 - Atherosclerotic heart disease of [place] coronary artery without angina pectoris (6) Hypertension Hypertension type: primary hypertension Qualified Code(s): I10 - Essential (primary) hypertension
[2024-02-18] MEDS: ATORVASTATIN 40 MG TAB PO SCH (20:58)
[2024-02-18] MEDS: ACETAMINOPHEN 500 MG TAB PO SCH (20:59)
[2024-02-18] MEDS: LIDOCAINE 5% 1 PATCH TD STA (20:59)
[2024-02-19 07:30] LABS: Hematocrit (blood only) 30.2 % (37.0-47.0); Hemoglobin 9.6 g/dl (12.0-16.0)
[2024-02-19 08:03] LABS: BUN Creatinine Ratio 14.8 (10-20); Calcium 8.8 mg/dl (8.6-10.3); Creatinine Clr Calc Pharmacy 20.1 ml/min; Est GFR (African American) 28.7 ml/min; Est GFR (Non-African American) 24.8 ml/min; Potassium 3.6 mmol/L (3.5-5.1)
[2024-02-19] MEDS: INSULIN HUMAN NPH SC SCH (08:45)
[2024-02-19] MEDS: VALSARTAN/SACUBITRIL 26/24MG TAB PO SCH (08:45)
[2024-02-19] MEDS: IRON SUCROSE 300 MG in SODIUM CHLORIDE 0.9% 250 ML IV ONE (08:46)
--- NOTE | 2024-02-19 09:15 | Gastroenterology Progress Note ---
Date of Service February 19, 2024 Assessment & Plan (1) Acute GI bleeding: Plan: Clinically resolved. Secondary to esophageal ulcers and gastric ulcers. Continue proton pump inhibitor as inpatient and is outpatient. Will need repeat endoscopy in 4 to 6 weeks. Call if any further issues arise while hospitalized. Admission and Anticipated Discharge Date Admission Date: February 14, 2024 Subjective Resting comfortably no acute distress Review of Systems Review of Systems: No fever No chills No SOB No CP No Abd pain Physical Exam Physical Exam: No acute distress Respiratory rate regular Cardiac rhythm regular Abdomen soft nontender Results & Data Results & Data Vital Signs (Past 12 Hours) Vital Signs Temp Pulse Pulse Resp BP Pulse Ox O2 Del Method 02/19/24 07:47 36.7 C 60 18 109/61 94 Room Air 02/19/24 04:14 36.8 C 57 L 18 121/50 L 91 Room Air 02/19/24 00:05 36.5 C 63 18 117/68 91 Room Air 02/18/24 22:25 48 L Laboratory Results Laboratory Results - last 48 hr 02/17/24 02/17/24 02/17/24 11:30 16:29 20:05 Hgb Hct Sodium Potassium Chloride Carbon Dioxide Anion Gap BUN Creatinine Est Cr Clr Drug Dosing Est GFR ( Amer) Est GFR (Non-Af Amer) BUN/Creatinine Ratio Glucose POC Glucose 143 H 170 H 114 H Calcium 02/18/24 02/18/24 02/18/24 07:28 07:38 11:26 Hgb 10.2 L Hct 31.8 L Sodium 141 Potassium 3.6 Chloride 106 Carbon Dioxide 25 Anion Gap 10 BUN 30 H Creatinine 2.03 H Est Cr Clr Drug Dosing 19.2 Est GFR ( Amer) 26.4 Est GFR (Non-Af Amer) 22.7 BUN/Creatinine Ratio 14.8 Glucose 93 POC Glucose 97 120 H Calcium 9.0 02/18/24 02/18/24 02/19/24 16:01 19:35 06:54 Hgb 9.6 L Hct 30.2 L Sodium 142 Potassium 3.6 Chloride 108 H Carbon Dioxide 26 Anion Gap 8 BUN 28 H Creatinine 1.89 H Est Cr Clr Drug Dosing 20.1 Est GFR ( Amer) 28.7 Est GFR (Non-Af Amer) 24.8 BUN/Creatinine Ratio 14.8 Glucose 135 H POC Glucose 175 H 151 H Calcium 8.8 02/19/24 07:14 Hgb Hct Sodium Potassium Chloride Carbon Dioxide Anion Gap BUN Creatinine Est Cr Clr Drug Dosing Est GFR ( Amer) Est GFR (Non-Af Amer) BUN/Creatinine Ratio Glucose POC Glucose 145 H Calcium PG Care Time/CCT Total # of Minutes Spent Total Time Spent with Patient: Total time spent is greater than 50% in coordination of care (as documented) at patient's floor/unit and/or counseling patient: Coding Level of Care Code 25647 SUB INP/OBS CARE 2/35MIN Diagnoses Acute GI bleeding K92.2
[2024-02-19] MEDS: LIDOCAINE 5% 1 PATCH TD SCH (09:20)
--- NOTE | 2024-02-19 16:58 | Hospitalist Progress Note ---
Date of Service February 19, 2024 Assessment & Plan (1) Acute blood loss anemia: Plan: 2nd to upper GI bleeding from gastric/esophageal ulcers as seen on EGD presenting Hb 7.1 was 12.1 during the prior hospital stay last week s/p 2 units PRBCs with improved & stable H/H parameters since the blood Tx repeat H/H again stable today ferritin 33 will give Venofer 300mg IV x 1 again today (this will be her 2nd dose during this stay) cont PPI BID cont carafate 7 days cont regular diet H/H in am (2) Acute GI bleeding: Plan: s/p EGD with esophageal & gastric ulcers likely cause of UGI bleed esophageal ulcers - biopsied - neg for malignancy or infection will send stool for H pylori daughter states she had ulcers about 5 years ago cont PPI + carafate in light of recent NSTEMI within the last 2 weeks having her off DAPT could lead to repeat cardiac event GI - by verbal report - is ok with cautious resumption of plavix cont plavix HOLD Eliquis while off Eliquis will use heparin SC 5000 BID fo DVT proph as Eliquis is for past h/o VTE (3) History of non-ST elevation myocardial infarction (NSTEMI): Plan: Holding Eliquis Resumed plavix Cont coreg Cont lipitor Starting Entresto low-dose as per Dr Cherry Fortunately no ischemic symptoms despite the recent drop in H/H NSTEMI event was 01/30/24 peak trop at that time - 11,000 cath done on 01/31/[address] Sifuentes - Findings: LM -calcified, 30% ostial LAD -100% ostial chronic total occlusion Circumflex -calcified, moderate diffuse proximal to mid disease. 100% mid chronic total occlusion after takeoff of small bifurcating OM2. RCA -dominant, 100% proximal chronic total occlusion LIMALADwidely patent. Distal LAD small vessel, provides collaterals to RPDA. ACCURF09% proximal stenosis, 40-50% mid graft disease, with JEREL II distal flow [id number]% acute proximal graft in-stent restenosis/thrombosis, mid graft stent widely patent. Small OM after anastomosis patent. Jump graft to left PLB occluded. Left PLB partially fills via retrograde collaterals from OM s/p FILEMON to SVG-PDA stenosis s/p FILEMON to SVG-OM3 stenosis (4) Diabetes mellitus type 2, uncontrolled, with complications: Plan: HbA1C 10.4 (during prior hospitalization) Cont novolog SSI Cont NPH Pharmacy providing glycemic oversight Control acceptable at this time (5) History of pulmonary embolism: Plan: noted holding Eliquis, however, due to #1, #2 start heparin 5000 units BID for DVT/PE prophylaxis while off Eliquis start Eliquis early this week if H/H cont to remain stable (6) Heart failure with reduced ejection fraction: Plan: 2nd to ischemic cardiomyopathy echo 01/31/24 with EF 30-35% cont coreg cont low-dose Entresto resume lasix perhaps tomorrow (7) Gastric ulcer: Plan: as seen on EGD cont PPI bid (8) Esophageal ulcer: Plan: as seen on EGD cont PPI bid (9) Finger fracture, left: Plan: 5th remains in cast cast placed late December by Dr Yung Carrasco the notes from that visit report cast to remain for 6 weeks 25-OH vit D level in 06/2023 was wnl (10) Osteoarthritis of left shoulder: Plan: severe x-rays 12/2023 with severe OA changes lidoderm patch tylenol 1gm TID tramadol prn avoid NSAIDs due to recent UGI bleeding & ulcers Plan daughter updated by phone yesterday pm cont PT/OT back to [facility] this week when bed is available Admission and Anticipated Discharge Date Admission Date: February 14, 2024 Subjective tele stable overnight no acute issues feels good denies any complaints eating well Review of Systems Review of Systems: cv - no chest pain pulm - no dyspnea GI - no abd pain or N/V; no overt GI bleeding Physical Exam Physical Exam: gen - NAD, pleasant, looks well today neck - no JVD mouth - MMM heart - RRR, s1 s2, 1/6 systolic murmur LSB lungs - CTA b/l, slight crackle L base only abd - soft NT ND BS+ ext - no edema, pulses 2+ b/l psych - pleasant memory loss/confusion musculo - left hand/wrist in cast Results & Data Results & Data Vital Signs (Past 12 Hours) Vital Signs Temp Pulse Pulse Resp BP Pulse Ox O2 Del Method 02/19/24 15:46 36.9 C 89 18 128/62 97 Room Air 02/19/24 14:43 52 L 02/19/24 11:49 36.5 C 77 20 134/74 95 Room Air 02/19/24 07:47 36.7 C 60 18 109/61 94 Room Air 02/19/24 07:25 43 L 02/19/24 07:25 Room Air Laboratory Results Laboratory Results - last 24 hr 02/18/24 02/19/24 02/19/24 19:35 06:54 07:14 Hgb 9.6 L Hct 30.2 L Sodium 142 Potassium 3.6 Chloride 108 H Carbon Dioxide 26 Anion Gap 8 BUN 28 H Creatinine 1.89 H Est Cr Clr Drug Dosing 20.1 Est GFR ( Amer) 28.7 Est GFR (Non-Af Amer) 24.8 BUN/Creatinine Ratio 14.8 Glucose 135 H POC Glucose 151 H 145 H Calcium 8.8 02/19/24 02/19/24 11:19 16:09 Hgb Hct Sodium Potassium Chloride Carbon Dioxide Anion Gap BUN Creatinine Est Cr Clr Drug Dosing Est GFR ( Amer) Est GFR (Non-Af Amer) BUN/Creatinine Ratio Glucose POC Glucose 214 H 194 H Calcium PG Care Time/CCT Total # of Minutes Spent Total Time Spent with Patient: Total time spent is greater than 50% in coordination of care (as documented) at patient's floor/unit and/or counseling patient: Coding Level of Care Code 30288 SUB INP/OBS CARE 2/35MIN Diagnoses Acute blood loss anemia D62 Acute GI bleeding K92.2 History of non-ST elevation myocardial infarction (NSTEMI) I25.2 Diabetes mellitus type 2, uncontrolled, with complications E11.8; E11.65 History of pulmonary embolism Z86.711 Heart failure with reduced ejection fraction I50.20 Gastric ulcer K25.9 Esophageal ulcer K22.10 Finger fracture, left S62.607T Osteoarthritis of left shoulder M19.012
[2024-02-20 07:43] LABS: Hematocrit (blood only) 35.6 % (37.0-47.0); Hemoglobin 11.1 g/dl (12.0-16.0)
[2024-02-20 08:01] LABS: BUN Creatinine Ratio 13.5 (10-20); Creatinine Clr Calc Pharmacy 20.8 ml/min; Est GFR (African American) 29.5 ml/min; Est GFR (Non-African American) 25.4 ml/min; Potassium 3.7 mmol/L (3.5-5.1)
[2024-02-20] MEDS: INSULIN HUMAN NPH SC SCH ×2 (08:01→16:51)
[2024-02-20 08:28] LABS: Folate (Folic Acid),Ser orPlas > 22.30 ng/ml (>5.38)
[2024-02-20 08:29] LABS: Vitamin B12 970 pg/ml (180-914)
[2024-02-20 08:38] LABS: Appearance Urine Turbid (Clear); Bacteria Urine Automated 4+ (None Seen); Bilirubin Urine Negative (Negative); Blood Urine 2+ (Negative); Color Urine Yellow; Epithelial Cell Urine Auto 0-2 /hpf (0-2); Glucose Urine UA Negative (Negative); Ketones Urine Negative (Negative); Leukocyte Esterase Urine 3+ (Negative); Nitrite Urine Negative (Negative); Protein Urine 2+ (Negative); Specific Gravity Urine 1.014 (1.000-1.030); Urobilinogen Urine Negative (Negative); WBC Urine Automated >50 /hpf (0-5); pH Urine 5.5 (4.5-7.5)
[2024-02-20] MEDS: cefTRIAXone SODIUM 2,000 MG/50 ML BAG IV SCH (10:08)
--- NOTE | 2024-02-20 14:46 | Pharmacy Report ---
Pharmacy Glycemic Short Note 2 - Date of Service February 20, 2024 - Glycemic Short BSG Results (Last 24 hours): 02/19/24 02/19/24 02/20/24 16:09 20:05 07:10 Glucose POC Glucose 194 H 107 H 140 H 02/20/24 02/20/24 07:15 11:04 Glucose 137 H POC Glucose 190 H OUTPATIENT ANTIDIABETIC REGIMEN: * NovoLog 70/30 - 68 units daily with breakfast, 32 units daily with supper ASSESSMENT: 02/19 * Francine received 43 units of insulin yesterday (22 units NPH + 21 units Novolog) * Fasting BSG slightly above goal but trending down. Will continue current dose of evening NPH. * Post prandial elevation at lunch and dinner. Carb coverage already tightened yesterday. Will increase AM dose of NPH. 02/17 * Francine received 33 units of insulin yesterday (24 units NPH + 9 units Novolog) with adequate glycemic control * Fasting BSG continues to trend down (158 -> 129 -> 97 mg/dL). Will reduce basal insulin ~20%. * Lunch BSG of 120 mg/dL. This is lower than previous days and patient received no short acting insulin this morning. Will also loosen Novolog. 02/16 * Patient on type 2 DM diet - change basal to BID NPH to better transition back to home mixed insulin. * Note: pt did refuse lunch NovoLog d/t confusion/yelling. 02/15 * Stressors stable. Remains NPO and on pantoprazole continuous infusion mixed in D5W. Possible GI intervention today. * BSG's ranged 95-197 mg/dL yesterday. 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 * Will continue to utilize Lantus while NPO. However, plan for eventual transition to NPH w breakfast and dinner to help facilitate transition back to outpatient. Therefore will attempt to keep Lantus once daily in the AM * No change to Novolog needed for now 02/14 * 79 year old admitted with GI bleed. NPO currently. Pharmacy consulted for glycemic management. Previously admitted 01/29-02/07. During that time, required significantly less insulin than outpatient regimen. Will utilize similar parameters from last admission. Will have scale for basal insulin at HS, however will consider giving earlier if diet started PLAN FOR INPATIENT GLYCEMIC CONTROL: * Basal insulin * NPH SC 12 units with breakfast, 11 units with dinner * Bolus insulin * NovoLog per scale ACHS or Q6hrs while NPO * Goal Range: Low 110 mg/dL - High 140 mg/dL * Correction Factor: 20 mg/dL/unit * Nutritional / Prandial insulin per carb ratio of 1 unit per 6 grams CHO consumed
[2024-02-20] MEDS: FUROSEMIDE 20 MG TAB PO SCH (20:45)
--- NOTE | 2024-02-20 23:51 | Hospitalist Progress Note ---
Date of Service February 20, 2024 Assessment & Plan (1) Acute blood loss anemia: Plan: 2nd to upper GI bleeding from gastric/esophageal ulcers as seen on EGD presenting Hb 7.1 was 12.1 during the prior hospital stay earlier in January s/p 2 units PRBCs with improved & stable H/H parameters since the blood Tx repeat H/H again stable this am ferritin 33 s/p 2 doses of Venofer 300mg each this admission - tolerated both cont PPI BID cont carafate cont regular diet H/H in am (2) Acute GI bleeding: Plan: s/p EGD with esophageal & gastric ulcers likely cause of UGI bleed esophageal ulcers - biopsied - neg for malignancy or infection will send stool for H pylori daughter states she had ulcers about 5 years ago cont PPI + carafate in light of recent NSTEMI within the last 2 weeks having her off DAPT could lead to repeat cardiac event GI - by verbal report - is ok with cautious resumption of plavix cont plavix HOLD Eliquis while off Eliquis will use heparin SC 5000 BID fo DVT proph as Eliquis is for past h/o VTE (3) History of non-ST elevation myocardial infarction (NSTEMI): Plan: Holding Eliquis Resumed plavix Cont coreg Cont lipitor Cont Entresto low-dose as per Dr Cherry - Cr and BPs remain stable Fortunately no ischemic symptoms despite the recent drop in H/H NSTEMI event was 01/30/24 peak trop at that time - 11,000 cath done on 01/31/[address] Sifuentes - Findings: LM -calcified, 30% ostial LAD -100% ostial chronic total occlusion Circumflex -calcified, moderate diffuse proximal to mid disease. 100% mid chronic total occlusion after takeoff of small bifurcating OM2. RCA -dominant, 100% proximal chronic total occlusion LIMALADwidely patent. Distal LAD small vessel, provides collaterals to RPDA. [id number]% proximal stenosis, 40-50% mid graft disease, with JEREL II distal flow [id number]% acute proximal graft in-stent restenosis/thrombosis, mid graft stent widely patent. Small OM after anastomosis patent. Jump graft to left PLB occluded. Left PLB partially fills via retrograde collaterals from OM s/p FILEMON to SVG-PDA stenosis s/p FILEMON to SVG-OM3 stenosis (4) Diabetes mellitus type 2, uncontrolled, with complications: Plan: HbA1C 10.4 (during prior hospitalization) Cont novolog SSI Cont [facility] Pharm[facility] providing glycemic oversight Control acceptable at this time (5) History of pulmonary embolism: Plan: noted holding Eliquis, however, due to #1, #2 cont heparin 5000 units BID for DVT/PE prophylaxis while off Eliquis start Eliquis next 48 hours if H/H cont to remain stable (6) Heart failure with reduced ejection fraction: Plan: 2nd to ischemic cardiomyopathy echo 01/31/24 with EF 30-35% cont coreg cont low-dose Entresto resume lasix today (7) Gastric ulcer: Plan: as seen on EGD cont PPI bid (8) Esophageal ulcer: Plan: as seen on EGD cont PPI bid (9) Finger fracture, left: Plan: 5th remains in cast cast placed late December by Dr Yung Carrasco the notes from that visit report cast to remain for 6 weeks 25-OH vit D level in 06/2023 was wnl (10) Osteoarthritis of left shoulder: Plan: severe x-rays 12/2023 with severe OA changes lidoderm patch tylenol 1gm TID tramadol prn avoid NSAIDs due to recent UGI bleeding & ulcers (11) UTI (urinary tract infection): Plan: low-grade temp of 37.7 yesterday pm u/a suggestive of UTI; culture sent; start rocephin 2gm daily COVID testing negative Plan daughter updated by phone this evening cont PT/OT back to [facility] - possibly 01/20 Admission and Anticipated Discharge Date Admission Date: February 14, 2024 Subjective tele stable overnight nursing flowsheets show good appetite, 75%+ of meals consumed during the visit today she was very upset she talked about various psychosocial stressors affecting her and her immediate family she denied pain in any location no overt GI bleeding no abd pain or N/V Review of Systems Review of Systems: cv - no chest pain, no orthopnea, no edema pulm - no dyspnea GI - no N/V Physical Exam Physical Exam: gen - sitting in chair, NAD, very sad & tearful today neck - no JVD mouth - MMM heart - RRR, s1 s2, 1/6 systolic murmur LSB lungs - slight crackles b/l bases otherwise CTA b/l abd - soft NT ND BS+ ext - no edema, pulses 2+ b/l psych - restricted affect, tearful today musculo - left hand/wrist in cast - unchanged Results & Data Results & Data Vital Signs (Past 12 Hours) Vital Signs Temp Pulse Pulse Resp BP Pulse Ox O2 Del Method 02/20/24 23:08 36.5 C 72 18 138/75 95 Room Air 02/20/24 22:02 59 L 02/20/24 20:45 Room Air 02/20/24 19:39 37.0 C 72 18 107/63 91 Room Air 02/20/24 15:39 36.9 C 63 20 119/68 95 Room Air 02/20/24 14:35 59 L Laboratory Results Laboratory Results - last 24 hr 02/20/24 02/20/24 02/20/24 07:10 07:15 08:13 Hgb 11.1 L Hct 35.6 L Sodium 141 Potassium 3.7 Chloride 106 Carbon Dioxide 26 Anion Gap 9 BUN 25 H Creatinine 1.85 H Est Cr Clr Drug Dosing 20.8 Est GFR ( Amer) 29.5 Est GFR (Non-Af Amer) 25.4 BUN/Creatinine Ratio 13.5 Glucose 137 H POC Glucose 140 H Calcium 9.0 Vitamin B12 970 H Folate > 22.30 Urine Color Yellow Urine Appearance Turbid A Urine pH 5.5 Ur Specific [place] 1.014 Urine Protein 2+ H Urine Glucose (UA) Negative Urine Ketones Negative Urine Blood 2+ H Urine Nitrite Negative Urine Bilirubin Negative Urine Urobilinogen Negative Ur Leukocyte Esterase 3+ H Urine WBC (Auto) >50 H Urine RBC (Auto) 6-10 H U Hyaline Cast (Auto) 3-5 H U Epithel Cells (Auto) 0-2 Urine Bacteria (Auto) 4+ H SARS-CoV-2 (PCR) NEGATIVE SARS-CoV-2 RNA (RT-PCR) Cancelled 02/20/24 02/20/24 02/20/24 11:04 16:17 20:30 Hgb Hct Sodium Potassium Chloride Carbon Dioxide Anion Gap BUN Creatinine Est Cr Clr Drug Dosing Est GFR ( Amer) Est GFR (Non-Af Amer) BUN/Creatinine Ratio Glucose POC Glucose 190 H 171 H 145 H Calcium Vitamin B12 Folate Urine Color Urine Appearance Urine pH Ur Specific [place] Urine Protein Urine Glucose (UA) Urine Ketones Urine Blood Urine Nitrite Urine Bilirubin Urine Urobilinogen Ur Leukocyte Esterase Urine WBC (Auto) Urine RBC (Auto) U Hyaline Cast (Auto) U Epithel Cells (Auto) Urine Bacteria (Auto) SARS-CoV-2 (PCR) SARS-CoV-2 RNA (RT-PCR) PG Care Time/CCT Total # of Minutes Spent Total Time Spent with Patient: Total time spent is greater than 50% in coordination of care (as documented) at patient's floor/unit and/or counseling patient: Coding Level of Care Code 80964 SUB INP/OBS CARE 2/35MIN Diagnoses Acute blood loss anemia D62 Acute GI bleeding K92.2 History of non-ST elevation myocardial infarction (NSTEMI) I25.2 Diabetes mellitus type 2, uncontrolled, with complications E11.8; E11.65 History of pulmonary embolism Z86.711 Heart failure with reduced ejection fraction I50.20 Gastric ulcer K25.9 Esophageal ulcer K22.10 Finger fracture, left S62.609A Osteoarthritis of left shoulder M19.012 UTI (urinary tract infection) N39.0
[2024-02-21 06:18] LABS: Hematocrit (blood only) 31.9 % (37.0-47.0); Hemoglobin 10.2 g/dl (12.0-16.0)
[2024-02-21 06:36] LABS: BUN Creatinine Ratio 15.2 (10-20); Calcium 8.5 mg/dl (8.6-10.3); Creatinine Clr Calc Pharmacy 23.6 ml/min; Est GFR (African American) 34.1 ml/min; Est GFR (Non-African American) 29.4 ml/min; Magnesium 1.8 mg/dl (1.7-2.4); Potassium 3.8 mmol/L (3.5-5.1)
[2024-02-21 10:52] VITALS: BP 112/61; PULSE 71; RESP 18; TEMP 99.1; O2SAT 94
--- NOTE | 2024-02-21 11:43 | Discharge Summary ---
Discharge Summary Date of Service DATE OF ADMISSION - February 14, 2024 DATE OF DISCHARGE - February 21, 2024 Principal Dx & Hospital Course #1 = Principal Diagnosis (1) Acute blood loss anemia: 2nd to upper GI bleeding from gastric/esophageal ulcers as seen on EGD presenting Hb was 7.1 HB had been 12.1 during the prior hospital stay earlier in January s/p 2 units PRBCs with improved & stable H/H parameters since the blood transfusion ferritin was 33 s/p 2 doses of Venofer 300mg each this admission - tolerated both cont PPI BID cont carafate x 5 additional days then stop tolerating regular diet discharge hemoglobin was 10.2 (2) Acute GI bleeding: presented with melena stools s/p EGD on 02/16/24 with esophageal & gastric ulcers likely cause of UGI bleed esophageal ulcers - biopsied - neg for malignancy or infection stool sent for H pylori daughter states she had ulcers about 5 years ago was on PPI drip for several days, then converted to oral protonix 40mg BID also placed on carafate QID in light of recent NSTEMI within the last 2 weeks having her off DAPT could lead to repeat cardiac event Gastroenterology was ok with cautious resumption of plavix plavix was indeed resumed on 02/18/24 and there was no evidence of recurrent bleeding after it was resumed Eliquis has been on HOLD the entire hospitalization *while off Eliquis we have been using heparin SC 5000 BID fo DVT prophylaxis as Eliquis is for past h/o VTE (DVT & PE)* at discharge will continue protonix 40mg BID + carafate; latter can be stopped in 5 days (3) History of non-ST elevation myocardial infarction (NSTEMI): NSTEMI event was 01/30/24 peak troponin at that time - 11,000 cardiac cath done on 01/31/[address] Dwayne Sifuentes - Findings: LM -calcified, 30% ostial LAD -100% ostial chronic total occlusion Circumflex -calcified, moderate diffuse proximal to mid disease. 100% mid chronic total occlusion after takeoff of small bifurcating OM2. RCA -dominant, 100% proximal chronic total occlusion LIMALADwidely patent. Distal LAD small vessel, provides collaterals to RPDA. [id number]% proximal stenosis, 40-50% mid graft disease, with JEREL II distal flow [id number]% acute proximal graft in-stent restenosis/thrombosis, mid graft stent widely patent. Small OM after anastomosis patent. Jump graft to left PLB occluded. Left PLB partially fills via retrograde collaterals from OM s/p FILEMON to SVG-PDA stenosis s/p FILEMON to SVG-OM3 stenosis She had NO recurrent ischemic symptoms or recurrent NSTEMI during this hospitalization (4) Diabetes mellitus type 2, uncontrolled, with complications: HbA1C 10.4% (during prior hospitalization) Cont novolog SSI with meals Cont NPH twice daily Cont BSG checks ac/hs Pharmacy provided glycemic oversight during this stay Control was acceptable throughout the hospitalization (5) History of pulmonary embolism: Held Eliquis the entire stay due to #1, #2 advise the following -- * continue heparin 5000 units BID for DVT/PE prophylaxis while off Eliquis * recheck CBC on 02/23/24 * if H/H are stable on 02/22 consider d/c of heparin SC and cautious resumption of Eliquis; defer that decision to medical physicist of [facility] (6) Heart failure with reduced ejection fraction: 2nd to ischemic cardiomyopathy echo 01/31/24 with EF 30-35% repeat echo this admission - EF 40-45% cont coreg twice daily low-dose Entresto was started this admission and she tolerated such with stable BPs and stable creatinine resumed lasix albeit at lower dose of 20mg/day (previously on 40mg/day) upon return to [facility] please - * limit salt to 2000mg/day * limit total fluid intake to no more than 1800ml/day * DAILY STANDING SCALE WEIGHTS * stop imdur follow-up with Dr Zia Cherry - [facility] Cardiology - 1 week after discharge (7) Gastric ulcer: as seen on EGD cont PPI bid (8) Esophageal ulcer: as seen on EGD cont PPI bid (9) Finger fracture, left: 5th remains in cast cast placed late December [address] Yung Carrasco the notes from that visit report cast to remain for 6 weeks thus, follow-up with Dr Carrasco in 7-10 days for recheck of fracture & cast management 25-OH vit D level in 06/2023 was wnl (10) Osteoarthritis of left shoulder: x-rays 12/2023 with severe OA changes lidoderm patch tylenol 650mg TID tramadol prn avoid both oral & topical NSAIDs due to recent UGI bleeding & ulcers (11) UTI (urinary tract infection): low-grade temp of 37.7 on 02/19/24 no temps since then u/a suggestive of UTI; culture sent & growing a gram neg su received IV rocephin 2gm daily on 02/19 and 02/20 COVID testing negative discharged on omnicef 300mg daily x 5 days, first dose on 02/22/24, pending final urine culture results Plan patient is returning back to [facility] SN[facility] Admission HPI Per Admitting Provider Francine Barragan is a 79-year-old female who presents to the ER via EMS from [facility] due to a hemoglobin of 7. She reports having abnormal stools this morning. Having back/sacral pain. Patient is confused at baseline. She denies any liver cirrhosis, abdominal pain, reflux, nausea or vomiting. No chest pain, shortness of breath or dizziness. She was recently admitted from January 29 - 2023 due to NSTEMI and heart failure. She underwent cardiac catheterization on January 30 with x2 FILEMON to bypass grafts. She takes Eliquis chronically for prior VTEs. Discharge Exam gen - sitting in chair, NAD, pleasant neck - no JVD mouth - MMM heart - RRR, s1 s2, 1/6 systolic murmur LSB lungs - scant/faint crackles b/l bases otherwise CTA b/l abd - soft NT ND BS+ ext - no edema, pulses 2+ b/l psych - restricted affect, awake, alert, oriented to person/place musculo - left hand/wrist in cast - unchanged; cap refill exposed fingers <2 seconds Discharge Plan Discharge Items Patient Disposition: Transfer Longterm Fac Reason For Visit: ACUTE GI BLEED, RECENT NSTEMI Discharge Diagnosis: 1. acute upper GI bleeding due to esophageal & gastric ulcers - resolved 2. gastric ulcers 3. esophageal ulcers 4. acute blood loss anemia - s/p 2 units PRBCs & 2 runs of IV iron 5. recent NSTEMI 6. ischemic cardiomyopathy/systolic CHF - EF 40-45% 7. urinary tract infection 8. severe osteoarthritis of the left shoulder 9. prior history of DVT 10. prior history of CABG 2009 11. prior history of PE 12. GERD 13. type 2 diabetes 14. hyperlipidemia 15. mild cognitive impairment 16. chronic kidney disease - discharge creatinine 1.6 17. left 5th finger fracture Activity: Resume your previous activity Non-emergency contact: Primary Care Provider and Specialist Call non-emergency contact if: you have any medication questions and your symptoms worsen Follow-up/Referrals: Maribel Sanabria MD [Primary Care Provider] - Zia Cherry MD [Physician] - (1 week for recheck of systolic CHF, recent NSTEMI) Carlos Vela DO [Physician] - 03/13/24 Yung Carrasco M.D. [Physician] - (7-10 days - management of L 5th finger fracture) Diet: Carb Consistent or DM2 and Low Sodium (2gm) Fluids: 1800ml (7 cups) Addtl Attending Provider Instructions: Ms Barragan was hospitalized due to upper GI bleeding from EGD-confirmed gastric & esophageal ulcers. Lowest hemoglobin was about 7 -- s/p 2 units of PRBCs and 2 runs of IV iron (Venofer). Discharge hemoglobin -- 10.2 -- which has been stable for numerous days. CHF was stable while here - no issues with volume overload. Course complicated by urinary tract infection. Urine culture growing a gram negative su. Received IV rocephin on 02/19 and 02/20. Discharging on omnicef 300mg daily x 5 days, first dose on 02/21. COVID testing during this time was NEGATIVE. Recommendations - 1. Fingerstick blood sugar checks - AC & HS. 2. Repeat CBC and BMP on 02/23/24. Results to medical physicist. 3. HOLD ELIQUIS at this time. 4. If repeat CBC is stable on 02/23/24 medical physicist can use his/her discretion to stop SC heparin for DVT prophylaxis and resume Eliquis at that time. Again defer that decision to medical physicist. 5. Left 5th finger fracture - leave cast in place. Follow-up with Dr Yung Carrasco in 7-10 days for fracture/cast management. 6. If urine culture results show a pathogen that would require a different antibiotic than omnicef the hospitalist team will contact you. 7. DAILY STANDING SCALE WEIGHTS -- EVERY MORNING. NOTIFY APPRENTICE PAINTER HAND OF ANY WEIGHT GAIN MORE THAN 3 POUNDS OVER 1-2 DAYS. Follow-up - see separate section Return to [facility] if - * Ms Barragan has to use SL nitroglycerin tablets * any chest pain or shortness of breath occurs * severe dizziness or lightheadedness occurs * severe diarrhea occurs * severe abdominal pain occurs * any concerns about recurrent GI bleeding It was our pleasure to care for Ms Barragan! Pending Studies at Discharge: Yes Studies:: H pylori stool antigen Stand-Alone Forms: My [facility] Skilled Items Patient informed of condition?: Yes DNR: No Discharge Level of Care: Skilled Communicable Disease: No Discharge Prognosis: Stable Lines: None Urinary Catheter: No Medications and DC Order Prescriptions: New heparin, porcine (PF) 5,000 unit/0.5 mL Syringe 5,000 unit subcut BID 7 Days Qty: 7 0RF Entresto 24-26 mg Tablet 1 tab PO BID Qty: 60 1RF sucralfate 100 mg/mL Suspension 1 g PO QID 5 Days Qty: 200 0RF lidocaine 5 % Adhesive Patch,Medicated 1 patch transdermal QAM Qty: 30 0RF Rx Instructions: apply to left shoulder each morning Novolin N NPH U-100 Insulin 100 unit/mL Suspension 12 unit SC 0800 Qty: 10 0RF Novolin N NPH U-100 Insulin 100 unit/mL Suspension 11 unit SC DAILY@1700 Qty: 10 0RF insulin aspart U-100 [Novolog U-100 Insulin aspart] 100 unit/mL Solution See Rx Instructions .ROUTE .COMPLEX Qty: 10 0RF Rx Instructions: for meal-time use only. Novolog sliding scale as follows - For BSG of 150-180 give 4 units. For BSG of 181-210 give 6 units. For BSG of 211-240 give 8 units. For BSG of 241-270 give 10 units. For BSG of 271-300 give 12 units. For BSG of 301 or higher give 14 units and call medical physicist. cefdinir 300 mg capsule 300 mg PO DAILY 5 Days Qty: 5 0RF Rx Instructions: start 9/3/24 AM. Lactobacillus acidoph-L.bulgar 100 million cell granules in packet 1 packet PO DAILY 7 Days Qty: 7 0RF nitroglycerin 0.4 mg tablet, sublingual 0.4 mg sublingual Q5M PRN (Reason: chest pain) Qty: 1 0RF Rx Instructions: max 3 tablets in 15 minutes. Continued atorvastatin 40 mg tablet 40 mg PO QPM Qty: 90 3RF (DME) FreeStyle Marcelo 3 [place] Misc See Rx Instructions .Route Qty: 1 0RF Rx Instructions: for use with Marcelo 3 sensors (DME) FreeStyle Marcelo 3 Sensor Device See Rx Instructions .Route Qty: 2 11RF Rx Instructions: change every 14 days (DME) pen needle, diabetic [BD Ultra-Fine Brenda Pen Needle] 32 gauge x 5/32" needle See Rx Instructions .Route Rx Instructions: Inject insulin two times daily (DME) lancets [Accu-Chek Softclix Lancets] Misc See Rx Instructions .ROUTE .MEDSUPPLY Rx Instructions: Test blood sugar once daily PRN (DME) Accu-Chek Jolene Plus test strp Strip See Rx Instructions .ROUTE .MEDSUPPLY Rx Instructions: Test blood sugar once daily PRN (DME) FreeStyle Marcelo 2 [place] Misc See Rx Instructions .Route Rx Instructions: As directed ([facility] [place]) FreeStyle Marcelo 2 Sensor Kit See Rx Instructions .Route Rx Instructions: As directed omega-3 fatty acids 1,000 mg Capsule 1,000 mg PO QAM PreserVision AREDS 2,148 mcg-113 mg-45 mg-17.4mg Tablet 1 tab PO BID magnesium hydroxide [Milk of Magnesia] 400 mg/5 mL Suspension 0 mg PO DAILY PRN (Reason: Constipation) Rx Instructions: On AUG: MOM 7.75% suspension: Give 30ml by mouth as needed for constipation after no BM for 3 days, administer on 12-21 shift bisacodyl [Dulcolax (bisacodyl)] 10 mg Suppository [address] DAILY PRN (Reason: Constipation) Rx Instructions: Give on day 3 on -11 shift if no BM after MOM Fleet Enema 19-7 gram/118 mL Enema [address] DAILY PRN (Reason: Constipation) Rx Instructions: If no BM after dulcolax on day 4 of 7-3 shift menthol-zinc oxide [Calmoseptine] 0.44-20.6 % Ointment 1 applic TOPICAL BID Rx Instructions: Start Date 02/11/24 x14 day supply clopidogrel 75 mg tablet 75 mg PO QAM magnesium oxide 400 mg magnesium capsule 400 mg PO QAM tramadol 50 mg tablet 50 mg PO Q6H PRN (Reason: severe pain (scale score 7-10)) Qty: 10 0RF pantoprazole [Protonix] 40 mg Tablet,Delayed Release (Dr/Ec) 40 mg PO DAILY Qty: 60 2RF Rx Instructions: Start Date 02/14/24, pt hasn't started medication yet for MAR from nursing facility. Changed furosemide 40 mg Tablet 20 mg PO QAM Qty: 1 0RF carvedilol [Coreg] 3.125 mg tablet 3.125 mg PO BIDM Qty: 60 0RF Rx Instructions: must administer with a meal/food acetaminophen [Tylenol] 325 mg Tablet 650 mg PO TID MDD 3g/24hr Qty: 90 1RF Held apixaban 5 mg tablet 5 mg PO BID Qty: 60 5RF Hold Instructions: hold per discharge instructions Discontinued isosorbide mononitrate 30 mg tablet extended release 24 hr 30 mg PO BID Qty: 180 3RF insulin asp prt-insulin aspart [Novolog Mix 70-30FlexPen U-100] 100 unit/mL (70-30) insulin pen See Rx Instructions subcut BID Qty: 90 4RF Rx Instructions: 68units given immediately before breakfast meal and 32units given immediately before supper meal diclofenac sodium 1 % Gel 2 g TOPICAL QID Rx Instructions: APPLY TO ELBOW, WRIST OR HANDS famotidine 20 mg tablet 20 mg PO QAM Discharge Orders: Discharge Order (Routine); Ordered 02/21/24 Ordered By: Justin Kilpatrick Admission Data Admit Date/Time: 02/14/24 18:49 Attending Provider: Justin Kilpatrick Admit Provider: Justin Anand Primary Care Provider: Maribel Sanabria V. Other Providers: [place],[facility]; Justin Anand; Kourtney Nelson Jr; Zia Cherry Other Interventions: Discharge Summary Assessment (RN) Last Done: 02/16/24 15:58 Hospital Stay Data Consultations Gastroenterology Cardiology PT, OT Pharmacy Glycemic Team Procedures Performed Operation Date: 02/16/24 16:55 Actual Procedures EGD Biopsy Cytology - Zachery Graff MD Findings: - Two cratered esophageal ulcers with no stigmata of recent bleeding were found in the middle third of the esophagus. The largest lesion was 10 mm in largest dimension. Biopsies were taken with a cold forceps for histology. - Two superficial gastric ulcers were found in the gastric fundus. The largest lesion was 5 mm in largest dimension. - The examined duodenum was normal. Echocardiogram - Diagnostic Imagining Performed Chest X-Ray 02/14/24 16:44 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 FINDINGS: There are median sternotomy wires and mediastinal surgical clips. Cardiomegaly is unchanged. There is pulmonary vascular congestion. No consolidation is present. There is no pneumothorax or pleural effusion. IMPRESSION: Cardiomegaly with pulmonary vascular congestion, slightly improved since prior exam. ACT 112: Negative or not required by law. Electronically signed by: Silvestre Lizarraga M.D. 02/14/2024 5:37 PM Hip/Pelvis X-Ray 02/14/24 16:47 XR hip LT 2V w pelvis CLINICAL HISTORY: Left hip/buttock pain COMPARISON: Left hip radiographs January 12, 2024. FINDINGS: Sacroiliac joints and symphysis pubis are intact. There are no acute fractures within the pelvis or hips. Evaluation of the left hip is slightly compromised given difficulty positioning. Hip joint spaces are preserved. There is mild osteophytosis of both hips. Incidental note is made of a moderate amount stool within the rectum. IMPRESSION: No fractures within the pelvis or hips. Evaluation of the left hip slightly compromised given difficulty positioning. ACT 112: Negative or not required by law. Electronically signed by: Silvestre Lizarraga M.D. 02/14/2024 5:43 PM Pending Results Patient Have Any Pending Studies at Discharge: Yes Discharge Instructions Given to Patient (Per Discharging Provider) Ms Barragan was hospitalized due to upper GI bleeding from EGD-confirmed gastric & esophageal ulcers. Lowest hemoglobin was about 7 -- s/p 2 units of PRBCs and 2 runs of IV iron (Venofer). Discharge hemoglobin -- 10.2 -- which has been stable for numerous days. CHF was stable while here - no issues with volume overload. Course complicated by urinary tract infection. Urine culture growing a gram negative su. Received IV rocephin on 02/19 and 02/20. Discharging on omnicef 300mg daily x 5 days, first dose on 02/21. COVID testing during this time was NEGATIVE. Recommendations - 1. Fingerstick blood sugar checks - AC & HS. 2. Repeat CBC and BMP on 02/23/24. Results to medical physicist. 3. HOLD ELIQUIS at this time. 4. If repeat CBC is stable on 02/23/24 medical physicist can use his/her discretion to stop SC heparin for DVT prophylaxis and resume Eliquis at that time. Again defer that decision to medical physicist. 5. Left 5th finger fracture - leave cast in place. Follow-up with Dr Yung Carrasco in 7-10 days for fracture/cast management. 6. If urine culture results show a pathogen that would require a different antibiotic than omnicef the hospitalist team will contact you. 7. DAILY STANDING SCALE WEIGHTS -- EVERY MORNING. NOTIFY APPRENTICE PAINTER HAND OF ANY WEIGHT GAIN MORE THAN 3 POUNDS OVER 1-2 DAYS. Follow-up - see separate section Return to [facility] if - * Ms Barragan has to use SL nitroglycerin tablets * any chest pain or shortness of breath occurs * severe dizziness or lightheadedness occurs * severe diarrhea occurs * severe abdominal pain occurs * any concerns about recurrent GI bleeding It was our pleasure to care for Ms Barragan! Total Time Total Time Spent Total Time Spent (In Minutes): 45 Coding Level of Care Code 68626 INP/OBS DISCH >30 MIN Diagnoses Acute blood loss anemia D62 Acute GI bleeding K92.2 History of non-ST elevation myocardial infarction (NSTEMI) I25.2 Diabetes mellitus type 2, uncontrolled, with complications E11.8; E11.65 History of pulmonary embolism Z86.711 Heart failure with reduced ejection fraction I50.20 Gastric ulcer K25.9 Esophageal ulcer K22.10 Finger fracture, left S62.609A Osteoarthritis of left shoulder M19.012 UTI (urinary tract infection) N39.0
[2024-02-21] MEDS ORDERED: INSULIN HUMAN NPH SC SCH (17:00)
[2024-02-22] MEDS ORDERED: INSULIN HUMAN NPH SC SCH (08:00)
--- NOTE | 2024-02-23 14:20 | Coding Query ---
CODING QUERY FOR UNCONTROLLED DIABETES To promote full compliance with coding requirements relating to patient care, provider participation is requested in all cases of saw grinder uncertainty. Please assist us with the question(s) below: Coding Question: The term uncontrolled Diabetes was used throughout the record. To be able to code this diagnosis properly, could you please clarify the diagnosis below: ( ) Uncontrolled Diabetes meaning hypoglycemia ( x ) Uncontrolled Diabetes meaning hyperglycemia ( ) Other (please specify) Principal Diagnosis: "that condition established after study, to be chiefly responsible for occasioning the admission of the patient to the hospital for care." Co-Existing Principal Diagnosis: "when two or more diagnoses equally meet the criteria for principal diagnosis as determined by the circumstances of admission, diagnostic work up, and/or therapy provided, and the Alphabetic Index, Tabular List, or another coding guideline does not provide sequencing direction, any one of the diagnoses may be sequenced first." "When the physician has documented what appears to be a current diagnosis in the body of the record, but has not included the diagnosis in the final diagnostic statement, the physician should be asked whether the diagnosis should be added." (Source [facility] 2 QTR90. p3-4) THIEN
== END 2024-02-21 14:35 | DRG 380 ==
LOC: ED 16:22 → 2S 18:49 → SUATTDRO 18:49 → 2S 20:28

== ENCOUNTER 2024-06-09 17:05 | Inpatient (IN) ==
[2024-06-09 17:57] LABS: Base Excess VBG -2.2 mEq/L; HCO3 VBG 22 mmol/L; Oxygen Saturation VBG 90.3 %; PCO2 VBG 37 mmHg (38-50); PO2 VBG 57 mmHg; pH VBG 7.39 (7.36-7.41)
--- NOTE | 2024-06-09 18:01 | Emergency Department Note ---
Impression & Plan Acute hypoxic respiratory failure, Influenza A virus present, Acute kidney injury superimposed on chronic kidney disease, Non-ST elevation MD (NSTEMI), Elevated brain natriuretic peptide (BNP) level ED Provider Note HISTORY OF PRESENT ILLNESS: Patient is a 79-year-old female presenting with cough and fevers. Patient reportedly has had a fever for the last 2 days. Temperature yesterday was 102 and temperature today was 101. Patient has been having a nonproductive cough at [place]. No reported sick contacts per family member. Patient was seen at her PCPs office and referred to the emergency department due to concern for potential pneumonia. Patient does report left-sided chest pain the left lateral part of her chest when she coughs. Denies any DVT or PE history. She is on Entresto, Plavix and Eliquis. She denies any abdominal pain, nausea or vomiting. Reports feeling generally unwell for the last 48 hours. She does not normally wear any supplemental oxygen. ROS: as above PHYSICAL EXAM: Constitutional: Patient appears in no acute distress. HENT: Head: Normocephalic and atraumatic. Eyes: EOMI, PERRL Mouth/Throat: Mucous membranes moist. Neck: Trachea midline. Neck supple. Cardiovascular: RRR, No murmurs, rubs or gallops. Intact distal pulses. Pulmonary/Chest: No respiratory distress. Breath sounds clear and equal bilaterally. On 2 L nasal cannula. Abdominal: Abdomen soft, no tenderness, rebound or guarding. Musculoskeletal: No edema, tenderness or deformity noted. Skin: Warm and dry. No rash, erythema, pallor or cyanosis Psychiatric: Appropriate mood and affect for situation. Neurological: Alert and keenly responsive. CN II-XII grossly intact, moving all extremities equally and fully. MDM: - Vitals signs showed hypoxia. Patient started on 2 L nasal cannula. - History obtained via patient. History as above. - Chronic conditions affecting care: GERD; CVA; DM-2; HTN; HLD; CAD (S/p PCI); CHF - Differential diagnoses include, but are not limited to: Congestive heart failure; acute coronary syndrome; COPD/asthma exacerbation; pulmonary edema; pulmonary embolism; pneumonia; pneumothorax; viral syndrome - Order placed for continuous cardiac monitoring. At this time, monitor showed rate of 73 bpm with normal sinus rhythm, per my interpretation. - External medical records reviewed. Primary care provider's office note was reviewed from today. Patient had borderline hypoxia in the clinic with sats of 89 to 91% on room air at rest. - EKG interpreted by myself showed normal sinus rhythm. Rate 65 bpm. QT 414. No acute ischemic changes. - Laboratory workup interpreted by myself showed normal WBC; slight hyponatremia (Na 135); NED on CKD (Cr 2.14); elevated troponin (41.4); elevated BNP (246) - Viral respiratory panel positive for influenza A - CXR negative for pneumonia, per my interpretation - VBG grossly normal - Patient on a new oxygen requirement, likely secondary to her acute viral illness - NSTEMI likely type II in etiology in setting of patient's fever and acute viral illness. - Given that patient is on day 2 of symptoms, she qualifies for Tamiflu treatment. Will admit to hospitalist service. Tamiflu will need to be renally dosed given the setting of her NED on CKD - Discussion was had with machine adjuster leader case trim about patient's case and need for admission - Hospitalist consulted for admission - Patient admitted to [facility] hospitalist service for further evaluation and management. ASSESSMENT AND PLAN: Diagnosis: Acute hypoxemic respiratory failure; influenza A; NED on CKD; NSTEMI; elevated BNP Plan: admit Past Med/Surg History Problem List (Updated 06/09/24 @ 20:01 by Cassandra Chaves MD) Elevated brain natriuretic peptide (BNP) level (Acute) Non-ST elevation MD (NSTEMI) (Acute) Acute kidney injury superimposed on chronic kidney disease (Acute) Influenza A virus present (Acute) Acute hypoxic respiratory failure (Acute) Loose stools History of pulmonary embolism (2020) Chronic anticoagulation Chronic renal disease, stage IV Heart 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, 41-49%) Hx of upper gastrointestinal hemorrhage History of non-ST elevation myocardial infarction (NSTEMI) (01/29/24) Dyslipidemia Hypertension CAD (coronary artery disease) Sacroiliac joint pain H/O deep venous thrombosis Left shoulder pain Low back pain Carpal tunnel syndrome, bilateral (Chronic) Gait disturbance (Chronic) Cerebral microvascular disease (Chronic) Uncontrolled type 2 diabetes mellitus with hyperglycemia, with long-term current use of insulin (Chronic) Current use of anticoagulant therapy Obesity, Class I, BMI 30-34.9 (Chronic) GERD (gastroesophageal reflux disease) Sensorineural hearing loss (SNHL) of both ears Bilateral tinnitus Mild cognitive impairment Medical History (Updated 06/09/24 @ 20:01 by Cassandra Chaves MD) Elevated WBC count Excessive cerumen in both ear canals Hearing decreased Upper GI bleed Acute non-ST elevation myocardial infarction (NSTEMI) (01/29/24) Hypoxia Pulmonary edema Fall UTI (urinary tract infection) Osteoarthritis of left shoulder Esophageal ulcer Gastric ulcer Mitral regurgitation Ischemic cardiomyopathy Heart failure with reduced ejection fraction Acute blood loss anemia Acute GI bleeding Finger fracture, left Diabetes mellitus type 2, uncontrolled, with complications (~1988) Gastrointestinal hemorrhage Deep vein thrombosis (DVT) of left lower extremity (~05/2020) Chronic anticoagulation Cough Acute right-sided low back pain Trapezius muscle spasm Stroke COVID-19 virus infection (~05/14/20) Physical deconditioning Diabetes Surgical History S/P coronary artery stent placement S/P CABG x 5 (2009) History of heart bypass surgery History of carpal tunnel release of both wrists H/O partial thyroidectomy Family History Son Colorectal cancer Myocardial infarction Family/Other Colorectal cancer Aunt Colorectal cancer Father Myocardial infarction Uncle Myocardial infarction Brother Myocardial infarction Dyslipidemia Mother Heart disease Dementia Denies family history of Ovarian cancer Prostate cancer Breast cancer Social History Smoking Status: Former smoker Tobacco Type: Cigarettes Age Started Using Tobacco: 15; Age Quit Using Tobacco: 20; packs per day: 0.25; Second Hand Exposure: No; Do You Dip or Chew Tobacco: No; Hx Alcohol Use: No Hx Substance Use: No Preferred Language: Bulgarian Communication Ability: Impaired Visual Impairment: Limited Hearing Ability: Use of Hearing Aid Supervisor Testing Required: No Beliefs That Will Affect Care: None marital status: / Current Living Situation: Intermediate current occupational status: retired Feels Safe at Home: Yes Childhood Exposure to Second-Hand Smoke: Yes Diet: regular caffeine: Yes (1-2 cups a day) Dental Care, Regularly: Yes Physical Activity Frequency: Does not Exercise Physical Activity Frequency Comment: Just PT for hands Seatbelt Use: always Sunscreen Use: No Do you think of yourself as: straight/heterosexual Gender Identity: Female Assistive Devices: Walker Allergies Allergies Allergy/AdvReac Type Severity Reaction Status Date / Time No Known Allergies Allergy Verified 06/09/24 15:55 Home Meds Home Medications Medication Instructions Recorded Confirmed lancets (Accu-Chek Softclix 06/02/21 05/31/24 Lancets) omega-3 fatty acids 1,000 mg 1,000 mg PO QAM 01/30/24 06/09/24 capsule bisacodyl 10 mg rectal suppository 10 mg MN DAILY PRN Constipation 02/14/24 06/09/24 (Dulcolax (bisacodyl)) menthol 0.44 %-zinc oxide 20.6 % 1 applic topical BID Rash 02/14/24 06/09/24 topical ointment (Calmoseptine) sodium phosphates 19 gram-7 118 ml MN DAILY PRN Constipation 02/14/24 06/09/24 gram/118 mL enema (Fleet Enema) vitamins A,C,L-ljla-wphxqk 2,148 1 tab PO QAM 03/15/24 06/09/24 mcg-113 mg-45 mg-17.4 mg tablet (PreserVision AREDS) Previous Rx's Medication Instructions Recorded blood-glucose meter,continuous #1 ea 01/17/24 (FreeStyle Marcelo 3 [place]) blood-glucose sensor (FreeStyle #2 ea 01/17/24 Marcelo 3 Sensor device) nitroglycerin 0.4 mg sublingual 0.4 mg sublingual Q5M PRN chest 02/21/24 tablet pain #1 btl insulin syringe-needle U-100 1 mL #150 ea 03/14/24 29 gauge x 1/2" (BD Insulin Syringe) glucagon 1 mg solution for 1 mg subcut Q20M PRN hypoglycemia 03/17/24 injection (Glucagon Emergency Kit) #1 ea pen needle, diabetic 32 gauge x #200 ea 03/17/2432" (BD Ultra-Fine Brenda Pen Needle) carvedilol 3.125 mg tablet (Coreg) 3.125 mg PO BIDM #180 tabs 03/21/24 clopidogrel 75 mg tablet 75 mg PO QAM #90 tabs 03/21/24 furosemide 40 mg tablet 20 mg (1/2 x 40 mg) PO QAM #45 tabs 03/21/24 pantoprazole 40 mg tablet,delayed 40 mg PO DAILY #90 tabs 03/21/24 release (Protonix) atorvastatin 40 mg tablet 40 mg PO QPM #90 tabs 03/30/24 potassium chloride 10 mEq 10 meq PO DAILY #90 tabs 04/04/24 tablet,extended release empagliflozin 10 mg tablet 10 mg PO DAILY #30 tabs 04/13/24 (Jardiance) tramadol 50 mg tablet 25 mg (1/2 x 50 mg) PO TID PRN 04/13/24 pain #90 tabs sacubitril 24 mg-valsartan 26 mg 1 tab PO BID #90 tabs 04/18/24 tablet (Entresto) spironolactone 25 mg tablet 25 mg PO DAILY #90 tabs 04/18/24 acetaminophen 500 mg tablet 1,000 mg (2 x 500 mg) PO TID PRN 04/21/24 Temp >100/Pain #180 tabs lidocaine 4 % topical patch 1 patch topical .COMPLEX pain #30 04/28/24 ea apixaban 5 mg tablet 5 mg PO BID #180 tabs 06/01/24 insulin aspart U-100 100 unit/mL 12 unit (0.12 mL) subcut TID #30 mL 06/07/24 (3 mL) subcutaneous pen (Novolog FlexPen U-100 Insulin aspart) insulin degludec 100 unit/mL (3 36 unit (0.36 mL) subcut DAILY #15 06/07/24 mL) subcutaneous pen (Tresiba mL FlexTouch U-100 insulin) insulin degludec 100 unit/mL (3 36 unit (0.36 mL) subcut DAILY #33 06/07/24 mL) subcutaneous pen (Tresiba mL FlexTouch U-100 insulin) Results & Data (ED) Vital Signs Vital Signs - 24 hr 06/09/24 17:06 06/09/24 17:52 06/09/24 19:30 Temperature 37.3 C Temperature Source Oral Pulse Rate 71 Pulse Rate [Apical] 65 Respiratory Rate 20 22 Blood Pressure 120/56 L Blood Pressure [Left Arm] 161/108 H Blood Pressure Mean 77 Blood Pressure Mean [Left Arm] 125 Pulse Oximetry 90 95 96 Oxygen Delivery Method Room Air Nasal Cannula Nasal Cannula Oxygen Flow Rate 2 2 Sepsis Recent Fever Within 48 Hours No Sepsis New/Unexplained Change in Mental Status No Sepsis Action Taken by Nursing No Action Required Laboratory Data 06/09/24 17:45 06/09/24 17:45 Lab Results 06/09/24 06/09/24 Range/Units 17:40 17:45 WBC 5.48 (4.8-10.8) K/ul RBC 4.90 (4.20-5.40) M/uL Hgb 14.0 (12.0-16.0) g/dl Hct 42.7 (37.0-47.0) % MCV 87.1 (80.0-100.0) fL MCH 28.6 (25.0-34.0) pg MCHC 32.8 (32.0-36.0) g/dL RDW Std Deviation 50.9 H (36.4-46.3) fL RDW Coeff of Magali 16.0 H (11.5-14.5) % Plt Count 208 (130-400) K/uL MPV 11.0 (9.4-12.4) fL Immature Gran % (Auto) 0.2 % Neut % (Auto) 71.3 % Lymph % (Auto) 14.4 % Hend[place] % (Auto) 13.5 % Eos % (Auto) 0.2 % Baso % (Auto) 0.4 % Neut # (Auto) 3.91 (1.40-6.50) K/uL Lymph # (Auto) 0.79 L (1.20-3.40) K/uL Hendry # (Auto) 0.74 H (0.11-0.59) K/uL Eos # (Auto) 0.01 (0.00-0.50) K/uL Baso # (Auto) 0.02 (0.00-0.20) K/uL Immature Gran # (Auto) 0.01 (0.01-0.20) K/uL PT Cancelled INR Cancelled VBG pH 7.39 (7.36-7.41) VBG pCO2 37 L (38-50) mmHg VBG pO2 57 mmHg VBG HCO3 22 mmol/L VBG O2 Saturation 90.3 % VBG Base Excess -2.2 mEq/L Sodium 135 L (136-145) mmol/L Potassium 4.6 (3.5-5.1) mmol/L Chloride 102 (98-107) mmol/L Carbon Dioxide 24 (21-32) mmol/L Anion Gap 9 (3-11) BUN 45 H (6-23) mg/dl Creatinine 2.14 H (0.6-1.2) mg/dl Est Cr Clr Drug Dosing 19.6 ml/min eGFR 23.00 BUN/Creatinine Ratio 21.0 H (10-20) Glucose 183 H (70-99(Fasting)) mg/dl Calcium 9.1 (8.6-10.3) mg/dl Magnesium 2.1 (1.7-2.4) mg/dl Total Bilirubin 0.5 (0.2-1.0) mg/dl AST 28 (13-39) U/L ALT 18 (7-52) U/L Alkaline Phosphatase 69 (34-104) U/L Troponin I High Sens 41.1 H (0-14) pg/ml B-Natriuretic Peptide 246 H (0-100) pg/ml Total Protein 7.2 (6.0-8.3) gm/dl Albumin 4.3 (3.4-5.0) gm/dl Globulin 2.9 (2.5-4.0) gm/dl Albumin/Globulin Ratio 1.5 (0.9-2) Procalcitonin Cancelled Adenovirus (PCR) Not Detected (NotDetected) B. pertussis DNA (PCR) Not Detected (NotDetected) B.parapertussis DNA PCR Not Detected (NotDetected) C. pneumoniae DNA (PCR) Not Detected (NotDetected) Coronavirus OC43 (PCR) Not Detected (NotDetected) Coronavirus HKU1 (PCR) Not Detected (NotDetected) Coronavirus 229E (PCR) Not Detected (NotDetected) SARS-CoV-2 (PCR) Not Detected (NotDetected) Coronavirus NL63 (PCR) Not Detected (NotDetected) Human Metapneumovir PCR Not Detected (NotDetected) Influenza A (H3) PCR DETECTED A (NotDetected) Influenza Type B (PCR) Not Detected (NotDetected) M. pneumoniae (PCR) Not Detected (NotDetected) Parainfluenza 1 (PCR) Not Detected (NotDetected) Parainfluenza 2 (PCR) Not Detected (NotDetected) Parainfluenza 3 (PCR) Not Detected (NotDetected) Parainfluenza 4 (PCR) Not Detected (NotDetected) RSV (PCR) Not Detected (NotDetected) Entero/Rhino (PCR) Not Detected (NotDetected) Administered Medications Discontinued Medications Sodium Chloride (Nss) 500 mls @ 999 mls/hr IV .Q31M ONE Stop: 06/09/24 19:47 Last Admin: 06/09/24 19:30 Dose: 999 mls/hr Documented By: JULISSA Imaging Data Radiologist's Impression: Chest X-Ray 06/09/24 17:12 EXAM: Radiograph of the Chest 1 View INDICATION: Dyspnea. TECHNIQUE: Frontal view of the chest. COMPARISON: 02/14/2024 FINDINGS: Lungs and pleural spaces: Stable prominent chronic appearing interstitial thickening. No consolidation or pulmonary edema. No pleural effusion or pneumothorax. Heart: Stable prominent cardiac shadow with coronary bypass change. Mediastinum: Normal contour. Bones/joints: Degenerative changes noted throughout the spine and both shoulders. No lytic or blastic lesions noted. Soft tissues: No abnormality noted. No radiopaque foreign body noted. Upper abdomen: No abnormality noted. IMPRESSION: No acute cardiopulmonary disease. ACT 112: Negative or not required by law. Electronically signed by Francine Lopez 06-09-2024 6:14 PM Discharge Plan Visit Data Chief Complaint: Fever Stated Complaint: FEVER, COUGH, LOW OX, LUNGS SOUND JUNKY ED Provider: Cassandra Chaves Discharge Problem: Acute hypoxic respiratory failure, Influenza A virus present, Acute kidney injury superimposed on chronic kidney disease, Non-ST elevation MD (NSTEMI), Elevated brain natriuretic peptide (BNP) level Forms Stand Alone Forms: [facility] [place] [employer] Prescriptions Prescriptions: No Action (DME) FreeStyle Marcelo 3 [place] Misc See Rx Instructions .Route Qty: 1 0RF Rx Instructions: for use with Marcelo 3 sensors (DME) FreeStyle Marcelo 3 Sensor Device See Rx Instructions .Route Qty: 2 11RF Rx Instructions: change every 14 days (DME) insulin syringe-needle U-100 [BD Insulin Syringe] 1 mL 29 gauge x 1/2" syringe See Rx Instructions .Route Qty: 150 5RF Rx Instructions: use 5 syringes daily Glucagon Emergency Kit (human) 1 mg recon soln 1 mg subcut Q20M PRN (Reason: hypoglycemia) Qty: 1 5RF Rx Instructions: until target blood sugar attained (DME) pen needle, diabetic [BD Ultra-Fine Brenda Pen Needle] 32 gauge x 5/32" needle See Rx Instructions .Route Qty: 200 5RF Rx Instructions: Use with insulin injection 4 times a day carvedilol [Coreg] 3.125 mg tablet 3.125 mg PO BIDM Qty: 180 0RF Rx Instructions: must administer with a meal/food clopidogrel 75 mg tablet 75 mg PO QAM Qty: 90 0RF furosemide 40 mg tablet 20 mg PO QAM Qty: 45 0RF pantoprazole [Protonix] 40 mg tablet,delayed release (DR/EC) 40 mg PO DAILY Qty: 90 0RF Rx Instructions: Start Date 02/14/24, pt hasn't started medication yet for MAR from nursing facility. atorvastatin 40 mg tablet 40 mg PO QPM Qty: 90 0RF potassium chloride 10 mEq tablet extended release 10 meq PO DAILY Qty: 90 3RF Jardiance 10 mg tablet 10 mg PO DAILY Qty: 30 0RF tramadol 50 mg tablet 25 mg PO TID PRN (Reason: pain) Qty: 90 1RF spironolactone 25 mg tablet 25 mg PO DAILY Qty: 90 3RF Rx Instructions: 25mg per [place] records Entresto 24-26 mg tablet 1 tab PO BID Qty: 90 3RF acetaminophen 500 mg tablet 1,000 mg PO TID MDD 3g/24hr PRN (Reason: Temp >100/Pain) Qty: 180 1RF lidocaine 4 % adhesive patch,medicated 1 patch topical .COMPLEX Qty: 30 5RF Rx Instructions: apply to back of upper thighs in the AM and remove in PM apixaban 5 mg tablet 5 mg PO BID Qty: 180 3RF Hold Instructions: hold per discharge instructions insulin degludec [Tresiba FlexTouch U-100] 100 unit/mL (3 mL) insulin pen 36 unit subcut DAILY Qty: 33 1RF insulin aspart U-100 [Novolog FlexPen U-100 Insulin] 100 unit/mL (3 mL) insulin pen 12 unit subcut TID Qty: 30 1RF insulin degludec [Tresiba FlexTouch U-100] 100 unit/mL (3 mL) insulin pen 36 unit subcut DAILY Qty: 15 0RF (DME) lancets [Accu-Chek Softclix Lancets] Misc See Rx Instructions .ROUTE .MEDSUPPLY Rx Instructions: Test blood sugar once daily PRN omega-3 fatty acids 1,000 mg Capsule 1,000 mg PO QAM PreserVision AREDS 2,148 mcg-113 mg-45 mg-17.4mg tablet 1 tab PO QAM bisacodyl [Dulcolax (bisacodyl)] 10 mg Suppository 10 mg MN DAILY PRN (Reason: Constipation) Rx Instructions: Give on day 3 on 3-11 shift if no BM after MOM Fleet Enema 19-7 gram/118 mL Enema 118 ml MN DAILY PRN (Reason: Constipation) Rx Instructions: If no BM after dulcolax on day 4 of 7-3 shift menthol-zinc oxide [Calmoseptine] 0.44-20.6 % Ointment 1 applic TOPICAL BID Rx Instructions: Start Date 02/11/24 x14 day supply nitroglycerin 0.4 mg tablet, sublingual 0.4 mg sublingual Q5M PRN (Reason: chest pain) Qty: 1 0RF Rx Instructions: max 3 tablets in 15 minutes. Referrals Referrals: Maribel Sanabria MD [Primary Care Provider] -
[2024-06-09 18:02] LABS: Basophils # (auto) 0.02 K/uL (0.00-0.20); Basophils % (auto) 0.4 %; Eosinophils # (auto) 0.01 K/uL (0.00-0.50); Eosinophils % (auto) 0.2 %; Hematocrit (blood only) 42.7 % (37.0-47.0); Immature Granulocytes # (auto) 0.01 K/uL (0.01-0.20); Immature Granulocytes % (auto) 0.2 %; Lymphocytes # (auto) 0.79 K/uL (1.20-3.40); Lymphocytes % (auto) 14.4 %; Mean Corpuscular Hemoglobin 28.6 pg (25.0-34.0); Mean Corpuscular Hgb Conc 32.8 g/dL (32.0-36.0); Mean Corpuscular Volume 87.1 fL (80.0-100.0); Monocytes # (auto) 0.74 K/uL (0.11-0.59); Monocytes % (auto) 13.5 %; Neutrophils # (auto) 3.91 K/uL (1.40-6.50); Neutrophils % (auto) 71.3 %; Platelet Count 208 K/uL (130-400); RDW Standard Deviation 50.9 fL (36.4-46.3); White Blood Count 5.48 K/ul (4.8-10.8)
--- NOTE | 2024-06-09 18:15 | XRay Report ---
EXAM: Radiograph of the Chest 1 View INDICATION: Dyspnea. TECHNIQUE: Frontal view of the chest. COMPARISON: 02/14/2024 FINDINGS: Lungs and pleural spaces: Stable prominent chronic appearing interstitial thickening. No consolidation or pulmonary edema. No pleural effusion or pneumothorax. Heart: Stable prominent cardiac shadow with coronary bypass change. Mediastinum: Normal contour. Bones/joints: Degenerative changes noted throughout the spine and both shoulders. No lytic or blastic lesions noted. Soft tissues: No abnormality noted. No radiopaque foreign body noted. Upper abdomen: No abnormality noted. IMPRESSION: No acute cardiopulmonary disease. ACT 112: Negative or not required by law. Electronically signed by Francine Lopez 06-09-2024 6:14 PM
[2024-06-09 18:18] LABS: Albumin Globulin Ratio 1.5 (0.9-2); Albumin Level 4.3 gm/dl (3.4-5.0); Bilirubin,Total 0.5 mg/dl (0.2-1.0); Calcium 9.1 mg/dl (8.6-10.3); Creatinine Clr Calc Pharmacy 19.6 ml/min; Globulin 2.9 gm/dl (2.5-4.0); Magnesium 2.1 mg/dl (1.7-2.4); Potassium 4.6 mmol/L (3.5-5.1); Total Protein 7.2 gm/dl (6.0-8.3)
[2024-06-09 18:25] LABS: Troponin I High Sensitivity 41.1 pg/ml (0-14)
[2024-06-09 18:48] LABS: Adenovirus PCR Not Detected (NotDetected); Bordetella parapertussis PCR Not Detected (NotDetected); Bordetella pertussis PCR Not Detected (NotDetected); Chlamydia pneumoniae PCR Not Detected (NotDetected); Coronavirus 229E PCR Not Detected (NotDetected); Coronavirus CoV-2 (COVID19)PCR Not Detected (NotDetected); Coronavirus HKU1 PCR Not Detected (NotDetected); Coronavirus NL63 PCR Not Detected (NotDetected); Coronavirus OC43PCR Not Detected (NotDetected); Human Metapneumovirus PCR Not Detected (NotDetected); Influenza A (H3) PCR DETECTED (NotDetected); Influenza B PCR Not Detected (NotDetected); Mycoplasma pneumoniae PCR Not Detected (NotDetected); Parainfluenza Virus 1 PCR Not Detected (NotDetected); Parainfluenza Virus 2 PCR Not Detected (NotDetected); Parainfluenza Virus 3 PCR Not Detected (NotDetected); Parainfluenza Virus 4 PCR Not Detected (NotDetected); Respiratory Syncytial VirusPCR Not Detected (NotDetected); Rhinovirus/Enterovirus PCR Not Detected (NotDetected)
[2024-06-09] MEDS: SODIUM CHLORIDE 0.9% 500 ML IV ONE (19:30)
--- NOTE | 2024-06-09 20:06 | History & Physical Report ---
Date of Service June 09, 2024 Assessment & Plan (1) Influenza A virus present: (2) Acute kidney injury superimposed on chronic kidney disease: (3) Chronic renal disease, stage IV: (4) History of pulmonary embolism: (5) CAD (coronary artery disease): (6) Hypertension: (7) H/O deep venous thrombosis: (8) Acute hypoxic respiratory failure: Plan Acute respiratory failure with hypoxia/influenza A H3 virus infection- Continue Tamiflu 75 mg p.o. twice daily begun by the ED Acetaminophen 650 mg by mouth every 6 hours as needed for mild pain or fever Droplet isolation Acute kidney injury superimposed on CKD stage IV- Creatinine 2.14, with base 1.73 Status 500 mL bolus normal saline from the ED Continue NSS at 80 mL/h x 1 L Hold furosemide, Klor-Con, spironolactone. Resume Entresto in the a.m. on 06/10 Repeat laboratories in the a.m. CAD/hypertension/elevated troponin- Admit to monitored bed Most recent echocardiogram on 02/17/2024 with ejection fraction 40-45% Initial troponin 41.1, with follow-up 42.4, with repeat pending for the a.m. Likely supply/demand mismatch Most recent highest troponin on 01/31/2024 was 11,102.8 Continue carvedilol, Diabetes mellitus- Hold empagliflozin and aspart 12 units SQ 3 times daily Change insulin degludec 36 units subcu every morning to insulin glargine 20 units every morning Check hemoglobin A1c History of PE and DVT- Continue apixaban History of Present Illness Chief Complaint: The patient presents to the emergency department with complaint of 2 days of persistent and worsening shortness of breath, cough, fevers to 102 yesterday and 101 today, and has been referred to the emergency department from [facility] where she lives. Primary Care Provider: Maribel Sanabria MD The patient is a 79-year-old female with a past medical history including history of PE, history of DVT, history of NSTEMI, CAD, hypertension, dyslipidemia, cerebral microvascular disease, diabetes mellitus type 2, obesity, GERD, SNHL bilaterally and mild cognitive impairment. She is referred to the emergency department from [facility], due to 2 days of persistent and worse kristina temperature, fevers, chills, shortness of breath, cough and generalized malaise. In the emergency department, bio fire testing significant for influenza A H3 virus, for which she has been started on Tamiflu 75 mg p.o. twice daily, and referred for evaluation for admission Allergies Allergy/AdvReac Type Severity Reaction Status Date / Time No Known Allergies Allergy Verified 06/09/24 15:55 Home Medications Medication Instructions Recorded Confirmed Type lancets (Accu-Chek Softclix 06/02/21 05/31/24 History Lancets) blood-glucose meter,continuous #1 ea 01/17/24 05/31/24 Rx (FreeStyle Marcelo 3 [place]) blood-glucose sensor (FreeStyle #2 ea 01/17/24 05/31/24 Rx Marcelo 3 Sensor device) omega-3 fatty acids 1,000 mg 1,000 mg PO QAM 01/30/24 06/09/24 History capsule bisacodyl 10 mg rectal suppository 10 mg TN DAILY PRN Constipation 02/14/24 06/09/24 History (Dulcolax (bisacodyl)) menthol 0.44 %-zinc oxide 20.6 % 1 applic topical BID Rash 02/14/24 06/09/24 History topical ointment (Calmoseptine) sodium phosphates 19 gram-7 118 ml TN DAILY PRN Constipation 02/14/24 06/09/24 History gram/118 mL enema (Fleet Enema) nitroglycerin 0.4 mg sublingual 0.4 mg sublingual Q5M PRN chest 02/21/24 06/09/24 Rx tablet pain #1 btl insulin syringe-needle U-100 1 mL #150 ea 03/14/24 05/31/24 Rx 29 gauge x 1/2" (BD Insulin Syringe) vitamins A,C,C-bmfy-vnfljn 2,148 1 tab PO QAM 03/15/24 06/09/24 History mcg-113 mg-45 mg-17.4 mg tablet (PreserVision AREDS) glucagon 1 mg solution for 1 mg subcut Q20M PRN hypoglycemia 03/17/24 06/09/24 Rx injection (Glucagon Emergency Kit) #1 ea pen needle, diabetic 32 gauge x #200 ea 03/17/24 05/31/24 Rx 5/32" (BD Ultra-Fine Brenda Pen Needle) carvedilol 3.125 mg tablet (Coreg) 3.125 mg PO BIDM #180 tabs 03/21/24 06/09/24 Rx clopidogrel 75 mg tablet 75 mg PO QAM #90 tabs 03/21/24 06/09/24 Rx furosemide 40 mg tablet 20 mg (1/2 x 40 mg) PO QAM #45 tabs 03/21/24 06/09/24 Rx pantoprazole 40 mg tablet,delayed 40 mg PO DAILY #90 tabs 03/21/24 06/09/24 Rx release (Protonix) atorvastatin 40 mg tablet 40 mg PO QPM #90 tabs 03/30/24 06/09/24 Rx potassium chloride 10 mEq 10 meq PO DAILY #90 tabs 04/04/24 06/09/24 Rx tablet,extended release empagliflozin 10 mg tablet 10 mg PO DAILY #30 tabs 04/13/24 06/09/24 Rx (Jardiance) tramadol 50 mg tablet 25 mg (1/2 x 50 mg) PO TID PRN 04/13/24 06/09/24 Rx pain #90 tabs sacubitril 24 mg-valsartan 26 mg 1 tab PO BID #90 tabs 04/18/24 06/09/24 Rx tablet (Entresto) spironolactone 25 mg tablet 25 mg PO DAILY #90 tabs 04/18/24 06/09/24 Rx acetaminophen 500 mg tablet 1,000 mg (2 x 500 mg) PO TID PRN 04/21/24 06/09/24 Rx Temp >100/Pain #180 tabs lidocaine 4 % topical patch 1 patch topical .COMPLEX pain #30 04/28/24 06/09/24 Rx ea apixaban 5 mg tablet 5 mg PO BID #180 tabs 06/01/24 06/09/24 Rx insulin aspart U-100 100 unit/mL 12 unit (0.12 mL) subcut TID #30 mL 06/07/24 06/09/24 Rx (3 mL) subcutaneous pen (Novolog FlexPen U-100 Insulin aspart) insulin degludec 100 unit/mL (3 36 unit (0.36 mL) subcut DAILY #15 06/07/24 06/09/24 Rx mL) subcutaneous pen (Tresiba mL FlexTouch U-100 insulin) insulin degludec 100 unit/mL (3 36 unit (0.36 mL) subcut DAILY #33 06/07/24 06/09/24 Rx mL) subcutaneous pen (Tresiba mL FlexTouch U-100 insulin) diclofenac sodium 1 % topical gel 4 g topical BID 06/10/24 06/10/24 History Past Med/Surg History Problem List (Updated 06/09/24 @ 20:01 by Cassandra Chaves MD) Elevated brain natriuretic peptide (BNP) level (Acute) Non-ST elevation GA (NSTEMI) (Acute) Acute kidney injury superimposed on chronic kidney disease (Acute) Influenza A virus present (Acute) Acute hypoxic respiratory failure (Acute) Loose stools History of pulmonary embolism (2019) Chronic anticoagulation Chronic renal disease, stage IV Heart 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, 41-49%) Hx of upper gastrointestinal hemorrhage History of non-ST elevation myocardial infarction (NSTEMI) (01/29/24) Dyslipidemia Hypertension CAD (coronary artery disease) Sacroiliac joint pain H/O deep venous thrombosis Left shoulder pain Low back pain Carpal tunnel syndrome, bilateral (Chronic) Gait disturbance (Chronic) Cerebral microvascular disease (Chronic) Uncontrolled type 2 diabetes mellitus with hyperglycemia, with long-term current use of insulin (Chronic) Current use of anticoagulant therapy Obesity, Class I, BMI 30-34.9 (Chronic) GERD (gastroesophageal reflux disease) Sensorineural hearing loss (SNHL) of both ears Bilateral tinnitus Mild cognitive impairment Medical History (Updated 06/09/24 @ 20:01 by Cassandra Chaves MD) Elevated WBC count Excessive cerumen in both ear canals Hearing decreased Upper GI bleed Acute non-ST elevation myocardial infarction (NSTEMI) (01/29/24) Hypoxia Pulmonary edema Fall UTI (urinary tract infection) Osteoarthritis of left shoulder Esophageal ulcer Gastric ulcer Mitral regurgitation Ischemic cardiomyopathy Heart failure with reduced ejection fraction Acute blood loss anemia Acute GI bleeding Finger fracture, left Diabetes mellitus type 2, uncontrolled, with complications (~1988) Gastrointestinal hemorrhage Deep vein thrombosis (DVT) of left lower extremity (~05/2020) Chronic anticoagulation Cough Acute right-sided low back pain Trapezius muscle spasm Stroke COVID-19 virus infection (~05/14/20) Physical deconditioning Diabetes Surgical History S/P coronary artery stent placement S/P CABG x 5 (2009) History of heart bypass surgery History of carpal tunnel release of both wrists H/O partial thyroidectomy Family History Son Colorectal cancer Myocardial infarction Family/Other Colorectal cancer Aunt Colorectal cancer Father Myocardial infarction Uncle Myocardial infarction Brother Myocardial infarction Dyslipidemia Mother Heart disease Dementia Denies family history of Ovarian cancer Prostate cancer Breast cancer Social History Smoking Status: Former smoker Age Started Using Tobacco: 15; Age Quit Using Tobacco: 20; packs per day: 0.25; Second Hand Exposure: No; Do You Dip or Chew Tobacco: No; Hx Alcohol Use: No Hx Substance Use: No Preferred Language: Azeri Communication Ability: Effective Visual Impairment: Limited Hearing Ability: Use of Hearing Aid Liquid Sugar Fortifier Required: No Beliefs That Will Affect Care: None marital status: / Current Living Situation: Personal Care Facility current occupational status: retired Other Information That Helps Us Care for You: No Feels Safe at Home: Yes Safety Concerns: Feels Safe At This Time Childhood Exposure to Second-Hand Smoke: Yes Diet: regular caffeine: Yes (1-2 cups a day) Dental Care, Regularly: Yes Physical Activity Frequency: Does not Exercise Physical Activity Frequency Comment: Just PT for hands Seatbelt Use: always Sunscreen Use: No Do you think of yourself as: straight/heterosexual Gender Identity: Female Assistive Devices: Glasses and Walker Review of Systems Review of Systems: The patient denies chest pain, palpitations, lower extremity swelling, sore throat, sweats, weight change, fatigue, nausea, vomiting, diarrhea , constipation, abdominal pain, pelvic pain, blood in urine or stool, dysuria, urinary frequency or urgency, loss of consciousness, rash, abnormal bruising or bleeding, imbalance, focal weakness, numbness or tingling in arms or legs, back or neck pain, or night sweats. The review of systems is otherwise negative other than for that already noted above, and at least 10 systems have been reviewed. Physical Exam Physical Exam: The patient is awake, alert and oriented 3, well developed and well nourished, normocephalic and atraumatic, lying in bed and in no acute distress. HEENT--PERRL, EOMI, mucous membranes and oropharynx mildly dry. Neck--supple. No JVD. No bruits. Thyroid normal, trachea midline, no adenopathy. Heart--normal S1 and S2. No murmurs, rubs or gallops. Lungs--clear bilaterally, no respiratory distress, no accessory muscle use. Abdomen--normal bowel sounds and soft. Nontender. Nondistended, no hernias or masses, no organomegaly. Extremities--no cyanosis or clubbing. No edema. There are good distal pulses b/l. Dermatologic--normal skin turgor, normal color, no abnormal lymph nodes, no rash. Neurologic--cranial nerves II through XII grossly intact. Rheumatologic--normal range of motion. Psychiatric--normal affect. Results & Data Results & Data Vital Signs (Past 12 Hours) Vital Signs Temp Pulse Pulse Resp BP BP Pulse Ox 06/09/24 19:30 65 22 161/108 H 96 06/09/24 17:52 95 06/09/24 17:06 37.3 C 71 20 120/56 L 90 O2 Del Method O2 Flow Rate 06/09/24 19:30 Nasal Cannula 2 06/09/24 17:52 Nasal Cannula 2 06/09/24 17:06 Room Air Laboratory Results Laboratory Results WBC 5.48 K/ul (4.8-10.8) 06/09/24 17:45 RBC 4.90 M/uL (4.20-5.40) 06/09/24 17:45 Hgb 14.0 g/dl (12.0-16.0) 06/09/24 17:45 Hct 42.7 % (37.0-47.0) 06/09/24 17:45 MCV 87.1 fL (80.0-100.0) 06/09/24 17:45 MCH 28.6 pg (25.0-34.0) 06/09/24 17:45 MCHC 32.8 g/dL (32.0-36.0) 06/09/24 17:45 RDW Std Deviation 50.9 fL (36.4-46.3) H 06/09/24 17:45 RDW Coeff of [place] 16.0 % (11.5-14.5) H 06/09/24 17:45 Plt Count 208 K/uL (130-400) 06/09/24 17:45 MPV 11.0 fL (9.4-12.4) 06/09/24 17:45 Immature Gran % (Auto) 0.2 % 06/09/24 17:45 Neut % (Auto) 71.3 % 06/09/24 17:45 Lymph % (Auto) 14.4 % 06/09/24 17:45 [place] % (Auto) 13.5 % 06/09/24 17:45 Eos % (Auto) 0.2 % 06/09/24 17:45 Baso % (Auto) 0.4 % 06/09/24 17:45 Neut # (Auto) 3.91 K/uL (1.40-6.50) 06/09/24 17:45 Lymph # (Auto) 0.79 K/uL (1.20-3.40) L 06/09/24 17:45 [place] # (Auto) 0.74 K/uL (0.11-0.59) H 06/09/24 17:45 Eos # (Auto) 0.01 K/uL (0.00-0.50) 06/09/24 17:45 Baso # (Auto) 0.02 K/uL (0.00-0.20) 06/09/24 17:45 Immature Gran # (Auto) 0.01 K/uL (0.01-0.20) 06/09/24 17:45 PT 11.8 Seconds (9.0-12.0) 06/09/24 20:39 INR 1.1 (0.9-1.1) 06/09/24 20:39 VBG pH 7.39 (7.36-7.41) 06/09/24 17:45 VBG pCO2 37 mmHg (38-50) L 06/09/24 17:45 VBG pO2 57 mmHg 06/09/24 17:45 VBG HCO3 22 mmol/L 06/09/24 17:45 VBG O2 Saturation 90.3 % 06/09/24 17:45 VBG Base Excess -2.2 mEq/L 06/09/24 17:45 Sodium 135 mmol/L (136-145) L 06/09/24 17:45 Potassium 4.6 mmol/L (3.5-5.1) 06/09/24 17:45 Chloride 102 mmol/L (98-107) 06/09/24 17:45 Carbon Dioxide 24 mmol/L (21-32) 06/09/24 17:45 Anion Gap 9 (3-11) 06/09/24 17:45 BUN 45 mg/dl (6-23) H 06/09/24 17:45 Creatinine 2.14 mg/dl (0.6-1.2) H 06/09/24 17:45 Est Cr Clr Drug Dosing 19.6 ml/min 06/09/24 17:45 eGFR 23.00 06/09/24 17:45 BUN/Creatinine Ratio 21.0 (10-20) H 06/09/24 17:45 Glucose 183 mg/dl (70-99(Fasting)) H 06/09/24 17:45 Calcium 9.1 mg/dl (8.6-10.3) 06/09/24 17:45 Magnesium 2.1 mg/dl (1.7-2.4) 06/09/24 17:45 Total Bilirubin 0.5 mg/dl (0.2-1.0) 06/09/24 17:45 AST 28 U/L (13-39) 06/09/24 17:45 ALT 18 U/L (7-52) 06/09/24 17:45 Alkaline Phosphatase 69 U/L (34-104) 06/09/24 17:45 Troponin I High Sens 42.4 pg/ml (0-14) H 06/09/24 20:39 B-Natriuretic Peptide 246 pg/ml (0-100) H 06/09/24 17:45 Total Protein 7.2 gm/dl (6.0-8.3) 06/09/24 17:45 Albumin 4.3 gm/dl (3.4-5.0) 06/09/24 17:45 Globulin 2.9 gm/dl (2.5-4.0) 06/09/24 17:45 Albumin/Globulin Ratio 1.5 (0.9-2) 06/09/24 17:45 Procalcitonin 0.11 ng/ml (0-0.5) 06/09/24 20:39 Adenovirus (PCR) Not Detected (NotDetected) 06/09/24 17:40 B. pertussis DNA (PCR) Not Detected (NotDetected) 06/09/24 17:40 B.parapertussis DNA PCR Not Detected (NotDetected) 06/09/24 17:40 C. pneumoniae DNA (PCR) Not Detected (NotDetected) 06/09/24 17:40 Coronavirus OC43 (PCR) Not Detected (NotDetected) 06/09/24 17:40 Coronavirus HKU1 (PCR) Not Detected (NotDetected) 06/09/24 17:40 Coronavirus 229E (PCR) Not Detected (NotDetected) 06/09/24 17:40 SARS-CoV-2 (PCR) Not Detected (NotDetected) 06/09/24 17:40 Coronavirus NL63 (PCR) Not Detected (NotDetected) 06/09/24 17:40 Human Metapneumovir PCR Not Detected (NotDetected) 06/09/24 17:40 Influenza A (H3) PCR DETECTED (NotDetected) A 06/09/24 17:40 Influenza Type B (PCR) Not Detected (NotDetected) 06/09/24 17:40 M. pneumoniae (PCR) Not Detected (NotDetected) 06/09/24 17:40 Parainfluenza 1 (PCR) Not Detected (NotDetected) 06/09/24 17:40 Parainfluenza 2 (PCR) Not Detected (NotDetected) 06/09/24 17:40 Parainfluenza 3 (PCR) Not Detected (NotDetected) 06/09/24 17:40 Parainfluenza 4 (PCR) Not Detected (NotDetected) 06/09/24 17:40 RSV (PCR) Not Detected (NotDetected) 06/09/24 17:40 Entero/Rhino (PCR) Not Detected (NotDetected) 06/09/24 17:40 Impressions Chest X-Ray 06/09/24 17:12 EXAM: Radiograph of the Chest 1 View INDICATION: Dyspnea. TECHNIQUE: Frontal view of the chest. COMPARISON: 02/14/2024 FINDINGS: Lungs and pleural spaces: Stable prominent chronic appearing interstitial thickening. No consolidation or pulmonary edema. No pleural effusion or pneumothorax. Heart: Stable prominent cardiac shadow with coronary bypass change. Mediastinum: Normal contour. Bones/joints: Degenerative changes noted throughout the spine and both shoulders. No lytic or blastic lesions noted. Soft tissues: No abnormality noted. No radiopaque foreign body noted. Upper abdomen: No abnormality noted. IMPRESSION: No acute cardiopulmonary disease. ACT 112: Negative or not required by law. Electronically signed by Francine Lopez 06-09-2024 6:14 PM Code Status & VTE Plan Code Status Conditional code VTE Prophylaxis Plan VTE Prophylaxis will be ordered: Yes PG Care Time/CCT Total # of Minutes Spent Total Time Spent with Patient: Total time spent is greater than 50% in coordination of care (as documented) at patient's floor/unit and/or counseling patient: Coding Level of Care Code 00354 INT INP/OBS CARE 3/75MIN Diagnoses Influenza A virus present J10.1 Acute kidney injury superimposed on chronic kidney disease N17.9; N18.9 Chronic renal disease, stage IV N18.4 History of pulmonary embolism Z86.711 Coronary artery disease involving [place] coronary artery of [place] heart without angina pectoris I25.10 Coronary Disease-Associated Artery/Lesion type: [place] artery [place] vs. transplanted heart: [place] heart Associated angina: without angina Primary hypertension I10 Hypertension type: primary hypertension H/O deep venous thrombosis Z86.718 Acute hypoxic respiratory failure J96.01 (5) CAD (coronary artery disease) Coronary Disease-Associated Artery/Lesion type: [place] artery [place] vs. transplanted heart: [place] heart Associated angina: without angina Qualified Code(s): I25.10 - Atherosclerotic heart disease of [place] coronary artery without angina pectoris (6) Hypertension Hypertension type: primary hypertension Qualified Code(s): I10 - Essential (primary) hypertension
[2024-06-09] MEDS: carvediloL 3.125 MG TAB PO ONE (20:22)
[2024-06-09] MEDS: OSELTAMIVIR PHOSPHATE 75 MG CAP PO SCH (20:22)
[2024-06-09 21:25] LABS: INR 1.1 (0.9-1.1); Prothrombin Time 11.8 Seconds (9.0-12.0)
[2024-06-09] MEDS ORDERED: GLUCOSE 10 TAB/TUBE PO PRN (23:40)
[2024-06-09] MEDS ORDERED: ONDANSETRON INJ 2 MG/ML 2 ML VIAL IV PRN (23:40)
[2024-06-09] MEDS ORDERED: bisacodyL 10 MG SUPP PR PRN (23:40)
[2024-06-09] MEDS ORDERED: GLUCAGON FOR INJ 1 MG VIAL SQ PRN (23:40)
[2024-06-09] MEDS ORDERED: NITROGLYCERIN SL 0.4 MG/TAB TAB SL PRN (23:40)
[2024-06-09] MEDS ORDERED: CARBOHYDRATES FOR HYPOGLYCEMIA PO PRN (23:40)
[2024-06-09] MEDS ORDERED: traMADol HCL 50 MG TABLET PO PRN (23:40)
[2024-06-09] MEDS ORDERED: GLUCOSE 40% GEL 15 GM TUBE PO PRN (23:40)
[2024-06-09] MEDS ORDERED: DEXTROSE 50% 50 ML SYRINGE IV PRN (23:40)
[2024-06-10] MEDS: MENTHOL-ZINC OXIDE 360 APPLN/120 GM TUBE EXT SCH (00:32)
[2024-06-10] MEDS: ACETAMINOPHEN 500 MG TAB PO PRN (00:32)
[2024-06-10] MEDS: ATORVASTATIN 40 MG TAB PO SCH (00:33)
[2024-06-10] MEDS: APIXABAN 5 MG TABLET PO SCH (00:33)
[2024-06-10] MEDS: INSULIN ASPART PER UNIT CHARGE SC SCH (00:38)
[2024-06-10] MEDS: SODIUM CHLORIDE 0.9% 1,000 ML IV SCH (00:38)
[2024-06-10 05:21] LABS: Appearance Urine Clear (Clear); Bacteria Urine Automated None Seen (None Seen); Bilirubin Urine Negative (Negative); Blood Urine Negative (Negative); Color Urine Yellow; Epithelial Cell Urine Auto 0-2 /hpf (0-2); Glucose Urine UA 3+ (Negative); Ketones Urine Negative (Negative); Leukocyte Esterase Urine Negative (Negative); Nitrite Urine Negative (Negative); Protein Urine Trace (Negative); RBC Urine Automated 0-2 /hpf (0-2); Specific Gravity Urine 1.023 (1.000-1.030); Urobilinogen Urine Negative (Negative); WBC Urine Automated 0-5 /hpf (0-5)
[2024-06-10 07:31] LABS: Estimated Average Glucose 214 mg/dl; Hemoglobin A1C 9.1 % (4.5-5.6)
--- NOTE | 2024-06-10 08:22 | Hospitalist Progress Note ---
Date of Service June 10, 2024 Assessment & Plan (1) Influenza A virus present: Plan: Tamiflu (renally dosed) Guaifenesin Dextromethorphan PRN Sputum culture Incentive spirometer Significantly off baseline (2) Chronic renal disease, stage IV: Plan: Back to baseline today. Will discontinue IV fluids after current 1L. Restart furosemide tomorrow but will remain off spironolactone for now (3) History of pulmonary embolism: (4) CAD (coronary artery disease): (5) Hypertension: (6) H/O deep venous thrombosis: (7) Acute hypoxic respiratory failure: Plan: Resolved Plan VTE Prophylaxis - Eliquis 5mg PO BID Diet - T2DM Disposition - med/tele Admission and Anticipated Discharge Date Admission Date: June 09, 2024 Subjective Lives in assisted living. No significant improvement since admission. Request no longer being on low salt diet as she does not do low salt at home. Ongoing significant shortness of breath on exertion although weaned off oxygen today. Review of Systems Review of Systems: All systems reviewed & are unremarkable except as noted in HPI & below Physical Exam Constitutional: WD/WN, vitals as above Respiratory: normal respiratory effort; no respiratory distress Auscultation: + rhonchi (throughout) and + wheezes (mild end expiratory) Cardiovascular: RRR, no murmur, no edema Gastrointestinal (Abdomen): normal bowel sounds, soft, nontender, no hepatosplenomegaly Psychiatric: A+Ox3, euthymic affect Results & Data Results & Data Vital Signs (Past 12 Hours) Vital Signs Temp Pulse Pulse Pulse Resp BP BP 06/10/24 07:37 37.1 C 69 18 120/71 06/10/24 03:40 37.0 C 66 20 102/61 06/10/24 01:16 73 06/10/24 00:05 06/10/24 00:01 38.4 C H 71 18 153/66 H 06/09/24 23:28 70 20 154/75 H 06/09/24 22:18 76 22 144/72 H 06/09/24 21:56 73 20 130/63 06/09/24 20:42 72 18 163/94 H Pulse Ox O2 Del Method O2 Flow Rate 06/10/24 07:37 96 Nasal Cannula 2 06/10/24 03:40 91 Nasal Cannula 2 06/10/24 01:16 06/10/24 00:05 Nasal Cannula 2 06/10/24 00:01 99 Nasal Cannula 2 06/09/24 23:28 98 Nasal Cannula 2 06/09/24 22:18 98 Nasal Cannula 2 06/09/24 21:56 98 Nasal Cannula 2 06/09/24 20:42 99 Nasal Cannula 2 Laboratory Results Abnormal lab results 06/09/24 06/09/24 06/09/24 Range/Units 17:40 17:45 20:39 RDW Std Deviation 50.9 H (36.4-46.3) fL RDW Coeff of Magali 16.0 H (11.5-14.5) % Lymph # (Auto) 0.79 L (1.20-3.40) K/uL [place] # (Auto) 0.74 H (0.11-0.59) K/uL VBG pCO2 37 L (38-50) mmHg Sodium 135 L (136-145) mmol/L BUN 45 H (6-23) mg/dl Creatinine 2.14 H (0.6-1.2) mg/dl BUN/Creatinine Ratio 21.0 H (10-20) Glucose 183 H (70-99(Fasting)) mg/dl POC Glucose (70-99) mg/dl Hemoglobin A1c (4.5-5.6) % Calcium (8.6-10.3) mg/dl Troponin I High Sens 41.1 H 42.4 H (0-14) pg/ml B-Natriuretic Peptide 246 H (0-100) pg/ml Urine Protein (Negative) Urine Glucose (UA) (Negative) U Hyaline Cast (Auto) (0-2) /lpf Influenza A (H3) PCR DETECTED A (NotDetected) 06/10/24 06/10/24 06/10/24 Range/Units 00:30 04:50 05:52 RDW Std Deviation (36.4-46.3) fL RDW Coeff of [place] (11.5-14.5) % Lymph # (Auto) (1.20-3.40) K/uL [place] # (Auto) (0.11-0.59) K/uL VBG pCO2 (38-50) mmHg Sodium (136-145) mmol/L BUN (6-23) mg/dl Creatinine (0.6-1.2) mg/dl BUN/Creatinine Ratio (10-20) Glucose (70-99(Fasting)) mg/dl POC Glucose 220 H (70-99) mg/dl Hemoglobin A1c 9.1 H (4.5-5.6) % Calcium (8.6-10.3) mg/dl Troponin I High Sens (0-14) pg/ml B-Natriuretic Peptide (0-100) pg/ml Urine Protein Trace H (Negative) Urine Glucose (UA) 3+ H (Negative) U Hyaline Cast (Auto) 3-5 H (0-2) /lpf Influenza A (H3) PCR (NotDetected) 06/10/24 06/10/24 06/10/24 Range/Units 05:58 07:56 11:46 RDW Std Deviation (36.4-46.3) fL RDW Coeff of [place] (11.5-14.5) % Lymph # (Auto) (1.20-3.40) K/uL [place] # (Auto) (0.11-0.59) K/uL VBG pCO2 (38-50) mmHg Sodium (136-145) mmol/L BUN 40 H (6-23) mg/dl Creatinine 1.85 H (0.6-1.2) mg/dl BUN/Creatinine Ratio 21.6 H (10-20) Glucose 128 H (70-99(Fasting)) mg/dl POC Glucose 167 H 155 H (70-99) mg/dl Hemoglobin A1c (4.5-5.6) % Calcium 8.4 L (8.6-10.3) mg/dl Troponin I High Sens (0-14) pg/ml B-Natriuretic Peptide (0-100) pg/ml Urine Protein (Negative) Urine Glucose (UA) (Negative) U [place]aline Cast (Auto) (0-2) /lpf Influenza A (H3) PCR (NotDetected) PG Care Time/CCT Total # of Minutes Spent Total Time Spent with Patient: Total time spent is greater than 50% in coordination of care (as documented) at patient's floor/unit and/or counseling patient: Coding Level of Care Code 33441 SUB INP/OBS CARE 2/35MIN Diagnoses Influenza A virus present J10.1 Chronic renal disease, stage IV N18.4 History of pulmonary embolism Z86.711 Coronary artery disease involving [place] coronary artery of [place] heart without angina pectoris I25.10 Associated angina: without angina Coronary Disease-Associated Artery/Lesion type: [place] artery [place] vs. transplanted heart: [place] heart Primary hypertension I10 Hypertension type: primary hypertension H/O deep venous thrombosis Z86.718 Acute hypoxic respiratory failure J96.01 (4) CAD (coronary artery disease) Associated angina: without angina Coronary Disease-Associated Artery/Lesion type: [place] artery [place] vs. transplanted heart: [place] heart Qualified Code(s): I25.10 - Atherosclerotic heart disease of [place] coronary artery without angina pectoris (5) Hypertension Hypertension type: primary hypertension Qualified Code(s): I10 - Essential (primary) hypertension
[2024-06-10 08:36] LABS: BUN Creatinine Ratio 21.6 (10-20); Calcium 8.4 mg/dl (8.6-10.3); Creatinine Clr Calc Pharmacy 22.4 ml/min; Potassium 4.1 mmol/L (3.5-5.1)
[2024-06-10] MEDS ORDERED: DEXTROMETHORPHAN POLYMR COMPLX 30 MG/5 ML UDP PO PRN (08:53)
[2024-06-10] MEDS: CLOPIDOGREL BISULFATE 75 MG TAB PO SCH (08:58)
[2024-06-10] MEDS: OMEGA-3 (PURIFIED FISH OIL) 1 GM CAP PO SCH (08:58)
[2024-06-10] MEDS: PANTOprazole 40 MG TAB PO SCH (08:59)
[2024-06-10] MEDS: VALSARTAN/SACUBITRIL 26/24MG TAB PO SCH (08:59)
[2024-06-10] MEDS: CEROVITE ADV FORMULA TAB PO SCH (08:59)
[2024-06-10] MEDS: carvediloL 3.125 MG TAB PO SCH (09:00)
[2024-06-10] MEDS: LIDOCAINE 5% 1 PATCH TD SCH (09:02)
[2024-06-10] MEDS: LANTUS PER UNIT CHARGE SQ SCH (09:19)
[2024-06-10] MEDS: guaiFENesin 600 MG TABCR PO SCH (10:04)
[2024-06-10] MEDS: OSELTAMIVIR PHOSPHATE SUSP 30 MG/5 ML UDP PO SCH (10:08)
--- NOTE | 2024-06-10 12:44 | Electrocardiogram Report ---
Test Reason : Blood Pressure : */* mmHG Vent. Rate : 65 BPM Atrial Rate : 65 BPM P-R Int : 144 ms QRS Dur : 98 ms QT Int : 414 ms P-R-T Axes : 49 -6 27 degrees QTcB Int : 430 ms Normal sinus rhythm Minimal voltage criteria for LVH, may be normal variant Inferior infarct (cited on or before 14-Feb-2024) Anteroseptal infarct (cited on or before 26-Aug-2016) Abnormal ECG When compared with ECG of 14-Feb-2024 16:33, T wave inversion no longer evident in Lateral leads QT has shortened Confirmed by Gibran Ramon ([id number]) on 06/10/2024 12:44:26 PM Referred By: Confirmed By: Gibran Ramon
[2024-06-10 15:14] VITALS: RESP 18
[2024-06-10] MEDS: DICLOFENAC SOD 1% GEL 100 GM TUBE EXT SCH (21:16)
[2024-06-11 07:35] VITALS: BP 113/81; TEMP 98.6; O2SAT 92
[2024-06-11 07:35] LABS: BUN Creatinine Ratio 19.6 (10-20); Calcium 8.8 mg/dl (8.6-10.3); Creatinine Clr Calc Pharmacy 23.1 ml/min; Potassium 4.4 mmol/L (3.5-5.1)
[2024-06-11] MEDS: COUGH DROP (SUGAR FREE) LOZ 24 LOZ/1 BOX BUCCAL PRN (07:45)
[2024-06-11] MEDS: FUROSEMIDE 20 MG TAB PO SCH (07:48)
[2024-06-11 13:18] VITALS: PULSE 71
--- NOTE | 2024-06-12 08:48 | Discharge Summary ---
Discharge Summary Date of Service June 11, 2024 Principal Dx & Hospital Course #1 = Principal Diagnosis (1) Influenza A virus present: Francine Barragan is a 79 year old female admitted to [facility] from June 09 - 2023 due to shortness of breath. She was diagnosed with influenza. This was treated with Tamiflu and we managed to wean off oxygen. She was seen by physical therapy and are now medically stable for discharge. (2) Chronic renal disease, stage IV: (3) History of pulmonary embolism: (4) CAD (coronary artery disease): (5) Hypertension: (6) H/O deep venous thrombosis: (7) Acute hypoxic respiratory failure: Notes For Next Care Provider Follow up shortness of breath Medication Changes From Visit Tamiflu Admission HPI Per Admitting Provider The patient is a 79-year-old female with a past medical history including history of PE, history of DVT, history of NSTEMI, CAD, hypertension, dyslipidemia, cerebral microvascular disease, diabetes mellitus type 2, obesity, GERD, SNHL bilaterally and mild cognitive impairment. She is referred to the emergency department from [facility], due to 2 days of persistent and worsening temperature, fevers, chills, shortness of breath, cough and generalized malaise. In the emergency department, bio fire testing significant for influenza A H3 virus, for which she has been started on Tamiflu 75 mg p.o. twice daily, and referred for evaluation for admission Discharge Exam Constitutional WD/WN, vitals as above Respiratory normal respiratory effort; no respiratory distress Auscultation: + rhonchi (mild compared to prior day); no wheezes Cardiovascular RRR, no murmur, no edema Gastrointestinal (Abdomen) normal bowel sounds, soft, nontender, no hepatosplenomegaly Psychiatric A+Ox3, euthymic affect Discharge Plan Discharge Items Patient Disposition: Personal Longterm Reason For Visit: ELEVATED TROPONIN,NED ON CKD,INFLUENZA A H3 Discharge Diagnosis: Influenza Activity: Resume your previous activity Non-emergency contact: Primary Care Provider Call non-emergency contact if: you have any medication questions and your symptoms worsen Follow-up/Referrals: Maribel Sanabria MD [Primary Care Provider] - Diet: Carb Consistent or DM2 Addtl Attending Provider Instructions: v Pending Studies at Discharge: No Stand-Alone Forms: My [facility], Smoking Cessation Skilled Items Patient informed of condition?: Yes DNR: No Discharge Level of Care: Other Communicable Disease: Yes Discharge Prognosis: Improving Lines: None Urinary Catheter: No Medications and DC Order Prescriptions: New oseltamivir [Tamiflu] 30 mg capsule 30 mg PO DAILY 2 Days Qty: 2 0RF Continued (DME) FreeStyle Marcelo 3 [place] Misc See Rx Instructions .Route Qty: 1 0RF Rx Instructions: for use with Marcelo 3 sensors (DME) FreeStyle Marcelo 3 Sensor Device See Rx Instructions .Route Qty: 2 11RF Rx Instructions: change every 14 days (DME) insulin syringe-needle U-100 [BD Insulin Syringe] 1 mL 29 gauge x 1/2" syringe See Rx Instructions .Route Qty: 150 5RF Rx Instructions: use 5 syringes daily Glucagon Emergency Kit (human) 1 mg recon soln 1 mg subcut Q20M PRN (Reason: hypoglycemia) Qty: 1 5RF Rx Instructions: until target blood sugar attained (DME) pen needle, diabetic [BD Ultra-Fine Brenda Pen Needle] 32 gauge x 5/32" needle See Rx Instructions .Route Qty: 200 5RF Rx Instructions: Use with insulin injection 4 times a day carvedilol [Coreg] 3.125 mg tablet 3.125 mg PO BIDM Qty: 180 0RF Rx Instructions: must administer with a meal/food clopidogrel 75 mg tablet 75 mg PO QAM Qty: 90 0RF furosemide 40 mg tablet 20 mg PO QAM Qty: 45 0RF pantoprazole [Protonix] 40 mg tablet,delayed release (DR/EC) 40 mg PO DAILY Qty: 90 0RF Rx Instructions: Start Date 02/14/24, pt hasn't started medication yet for MAR from nursing facility. atorvastatin 40 mg tablet 40 mg PO QPM Qty: 90 0RF potassium chloride 10 mEq tablet extended release 10 meq PO DAILY Qty: 90 3RF Jardiance 10 mg tablet 10 mg PO DAILY Qty: 30 0RF tramadol 50 mg tablet 25 mg PO TID PRN (Reason: pain) Qty: 90 1RF spironolactone 25 mg tablet 25 mg PO DAILY Qty: 90 3RF Rx Instructions: 25mg per [place] records Entresto 24-26 mg tablet 1 tab PO BID Qty: 90 3RF acetaminophen 500 mg tablet 1,000 mg PO TID MDD 3g/24hr PRN (Reason: Temp >100/Pain) Qty: 180 1RF lidocaine 4 % adhesive patch,medicated 1 patch topical .COMPLEX Qty: 30 5RF Rx Instructions: apply to back of upper thighs in the AM and remove in PM apixaban 5 mg tablet 5 mg PO BID Qty: 180 3RF Hold Instructions: hold per discharge instructions insulin degludec [Tresiba FlexTouch U-100] 100 unit/mL (3 mL) insulin pen 36 unit subcut DAILY Qty: 33 1RF insulin aspart U-100 [Novolog FlexPen U-100 Insulin] 100 unit/mL (3 mL) insulin pen 12 unit subcut TID Qty: 30 1RF insulin degludec [Tresiba FlexTouch U-100] 100 unit/mL (3 mL) insulin pen 36 unit subcut DAILY Qty: 15 0RF (DME) lancets [Accu-Chek Softclix Lancets] Misc See Rx Instructions .ROUTE .MEDSUPPLY Rx Instructions: Test blood sugar once daily PRN diclofenac sodium 1 % Gel 4 g TOPICAL BID Rx Instructions: left shoulder omega-3 fatty acids 1,000 mg Capsule 1,000 mg PO QAM PreserVision AREDS 2,148 mcg-113 mg-45 mg-17.4mg tablet 1 tab PO QAM bisacodyl [Dulcolax (bisacodyl)] 10 mg Suppository 10 mg MA DAILY PRN (Reason: Constipation) Rx Instructions: Give on day 3 on 3-11 shift if no BM after MOM Fleet Enema 19-7 gram/118 mL Enema 118 ml MA DAILY PRN (Reason: Constipation) Rx Instructions: If no BM after dulcolax on day 4 of 7-3 shift menthol-zinc oxide [Calmoseptine] 0.44-20.6 % Ointment 1 applic TOPICAL BID Rx Instructions: Start Date 02/11/24 x14 day supply nitroglycerin 0.4 mg tablet, sublingual 0.4 mg sublingual Q5M PRN (Reason: chest pain) Qty: 1 0RF Rx Instructions: max 3 tablets in 15 minutes. Discharge Orders: Discharge Order (Routine); Ordered 06/11/24 Ordered By: Justin Anand Admission Data Admit Date/Time: 06/09/24 20:05 Attending Provider: Justin Anand Admit Provider: Huey Myrick Primary Care Provider: Maribel Sanabria V. Other Providers: Huey Myrick Other Interventions: Discharge Summary Assessment (RN) Last Done: 06/11/24 13:17 Hospital Stay Data Consultations 06/09/24 19:09 ED Decision to Admit Stat Pending Results Patient Have Any Pending Studies at Discharge: No Discharge Instructions Given to Patient (Per Discharging Provider) v Total Time Total Time Spent Total Time Spent (In Minutes): 35 Coding Level of Care Code 54343 INP/OBS DISCH >30 MIN Diagnoses Influenza A virus present J10.1 Chronic renal disease, stage IV N18.4 History of pulmonary embolism Z86.711 Coronary artery disease involving [place] coronary artery of [place] heart without angina pectoris I25.10 Associated angina: without angina Coronary Disease-Associated Artery/Lesion type: [place] artery [place] vs. transplanted heart: [place] heart Primary hypertension I10 Hypertension type: primary hypertension H/O deep venous thrombosis Z86.718 Acute hypoxic respiratory failure J96.01
== END 2024-06-11 13:41 | disposition home or self-care (01) | DRG 193 ==
LOC: ED 17:05 → 2N 20:05 → SUATTDRO 20:05 → 2N 23:28

== ENCOUNTER 2024-09-01 22:03 | Inpatient (IN) ==
--- NOTE | 2024-09-01 22:28 | Emergency Department Note ---
Impression & Plan Left hip pain, Ambulatory dysfunction, Failure of outpatient treatment, Anticoagulated, Leukocytosis ED Provider Note NAME: ZAHIDA EUCEDA AGE: 79 SEX: F : 1945 ARRIVES VIA: Ambulance INFORMANT: [Patient] ED PROVIDER(S): [Will Yates MD] CHIEF COMPLAINT: Hip pain HISTORY OF PRESENT ILLNESS: The patient is a 79-year-old female who presents to the ER with left hip pain that has been worse for at least a week. She saw her doctor's office had an x- ray. Arthritis was seen but there was no fracture. The patient has been using Tylenol and tramadol. The patient states that she was walking this evening and she had increased pain in the left hip. She was using her walker at the time. She did not fall. There has been no trauma. No fever, chills, cough or congestion. She cannot recall having issues with his hip previously. PMHx/PSHx/Social Hx: See Below PHYSICAL EXAM: GENERAL: Patient is in no acute distress. HEENT: No acute trauma, normocephalic atraumatic, mucous membranes moist, no nasal congestion. NECK: No stridor, no adenopathy, no meningismus, trachea is midline. LUNGS: Clear to auscultation bilaterally, no wheeze, no rhonchi, breath sounds equal. HEART: Without murmurs gallops or rubs, regular rate and rhythm. ABDOMEN: Soft, nontender, no peritonitis. EXTREMITIES: No cyanosis, severe pain with any movement of the left hip. Pain to palpate the lateral aspect of the left hip. No gross deformity to the left lower extremity. NEUROLOGIC: Oriented x 3, no acute motor or sensory deficits, no focal weakness. SKIN: No jaundice, no diaphoresis. DIFFERENTIAL DIAGNOSIS: Hemarthrosis, septic joint, fracture, sprain, strain, arthritis, among others. EMERGENCY DEPARTMENT PROCEDURES: MEDICAL DECISION MAKING: There is a mild leukocytosis, this could be consistent with infection or just her pain. There was a normal hemoglobin and platelet count. Sed rate is somewhat elevated as is the CRP, this certainly could be consistent with arthritis/inflammation. INR was normal at 1.1. Potassium slightly high at 5.2, not in need of emergent correction. Creatinine was elevated but this is a baseline finding for the patient. No concerning liver enzyme elevation. Left hip CT does show some inflammation around the hip, no fracture. On exam, the patient was quite tender to palpate the lateral left hip and to move the left hip. She was not febrile. The patient received IV morphine for pain, IV Zofran for nausea. She was given some IV Toradol and IV Decadron. Ice was applied to the lateral left hip. She felt improved with these interventions. The patient is unable to ambulate because of discomfort. Whether or not this is bursitis or a tendon injury, whether this is some spontaneous bleeding from her Eliquis use is unclear. In any regard, she is too uncomfortable and in too much discomfort to be discharged home. She will require pain control, anti- inflammatories, PT OT and and orthopedic evaluation. I spoke with the patient and her daughter. I spoke with case management, the on-call hospitalist was consulted. Prior/Outside records/notes reviewed: Today's EMS notes describing her presentation and transport to this hospital. Imaging/x-ray results per my interpretation: Chronic Medical/Social conditions affecting care: Advanced age, chronic Eliquis use. Care/Management discussed with: Case management, the on-call hospitalist. Level of care consideration(s): After review of the information above and other included data: --I believe the patient requires escalation of care to admission DISPOSITION: Admission Past Med/Surg History Problem List (Updated 09/02/24 @ 01:10 by Will Yates MD) Leukocytosis (Acute) Anticoagulated (Acute) Failure of outpatient treatment (Acute) Ambulatory dysfunction (Acute) Left hip pain (Acute) Elevated brain natriuretic peptide (BNP) level (Acute) Non-ST elevation UT (NSTEMI) (Acute) Acute kidney injury superimposed on chronic kidney disease (Acute) Influenza A virus present (Acute) Acute hypoxic respiratory failure (Acute) Loose stools History of pulmonary embolism (2020) Chronic anticoagulation Chronic renal disease, stage IV Heart 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, 41-49%) Hx of upper gastrointestinal hemorrhage History of non-ST elevation myocardial infarction (NSTEMI) (01/29/24) Dyslipidemia Hypertension CAD (coronary artery disease) Sacroiliac joint pain H/O deep venous thrombosis Left shoulder pain Low back pain Carpal tunnel syndrome, bilateral (Chronic) Gait disturbance (Chronic) Cerebral microvascular disease (Chronic) Uncontrolled type 2 diabetes mellitus with hyperglycemia, with long-term current use of insulin (Chronic) Current use of anticoagulant therapy Obesity, Class I, BMI 30-34.9 (Chronic) GERD (gastroesophageal reflux disease) Sensorineural hearing loss (SNHL) of both ears Bilateral tinnitus Mild cognitive impairment Medical History Elevated WBC count Excessive cerumen in both ear canals Hearing decreased Upper GI bleed Acute non-ST elevation myocardial infarction (NSTEMI) (01/29/24) Hypoxia Pulmonary edema Fall UTI (urinary tract infection) Osteoarthritis of left shoulder Esophageal ulcer Gastric ulcer Mitral regurgitation Ischemic cardiomyopathy Heart failure with reduced ejection fraction Acute blood loss anemia Acute GI bleeding Finger fracture, left Diabetes mellitus type 2, uncontrolled, with complications (~1988) Gastrointestinal hemorrhage Deep vein thrombosis (DVT) of left lower extremity (~05/2020) Chronic anticoagulation Cough Acute right-sided low back pain Trapezius muscle spasm Stroke COVID-19 virus infection (~05/14/20) Physical deconditioning Diabetes Surgical History S/P coronary artery stent placement S/P CABG x 5 (2009) History of heart bypass surgery History of carpal tunnel release of both wrists H/O partial thyroidectomy Family History Son Colorectal cancer Myocardial infarction Family/Other Colorectal cancer Aunt Colorectal cancer Father Myocardial infarction Uncle Myocardial infarction Brother Myocardial infarction Dyslipidemia Mother Heart disease Dementia Denies family history of Ovarian cancer Prostate cancer Breast cancer Social History Smoking Status: Former smoker Tobacco Type: Cigarettes Age Started Using Tobacco: 15; Age Quit Using Tobacco: 20; packs per day: 0.25; Second Hand Exposure: No; Do You Dip or Chew Tobacco: No; Hx Alcohol Use: No Hx Substance Use: No Preferred Language: Uzbek Communication Ability: Effective Visual Impairment: Limited Hearing Ability: Use of Hearing Aid Sampling Expert Required: No Beliefs That Will Affect Care: None marital status: / Current Living Situation: Personal Care Facility current occupational status: retired Feels Safe at Home: Yes Childhood Exposure to Second-Hand Smoke: Yes Diet: regular caffeine: Yes (1-2 cups a day) Dental Care, Regularly: Yes Physical Activity Frequency: Does not Exercise Physical Activity Frequency Comment: Just PT for hands Seatbelt Use: always Sunscreen Use: No Do you think of yourself as: straight/heterosexual Gender Identity: Female Assistive Devices: Walker Allergies Allergies Allergy/AdvReac Type Severity Reaction Status Date / Time No Known Allergies Allergy Verified 08/29/24 12:26 Home Meds Home Medications Medication Instructions Recorded Confirmed lancets (Accu-Chek Softclix 06/02/21 08/29/24 Lancets) omega-3 fatty acids 1,000 mg 1,000 mg PO QAM 01/30/24 08/29/24 capsule bisacodyl 10 mg rectal suppository 10 mg MI DAILY PRN Constipation 02/14/24 08/29/24 (Dulcolax (bisacodyl)) menthol 0.44 %-zinc oxide 20.6 % 1 applic topical BID Rash 02/14/24 08/29/24 topical ointment (Calmoseptine) sodium phosphates 19 gram-7 118 ml MI DAILY PRN Constipation 02/14/24 08/29/24 gram/118 mL enema (Fleet Enema) vitamins A,C,G-ahbp-vktkgz 2,148 1 tab PO QAM 03/15/24 08/29/24 mcg-113 mg-45 mg-17.4 mg tablet (PreserVision AREDS) diclofenac sodium 1 % topical gel 4 g topical BID 06/10/24 08/29/24 loperamide 2 mg tablet (Imodium 2 mg PO Q6H PRN 07/20/24 08/29/24 A-D) empagliflozin 10 mg tablet 10 mg PO DAILY 08/09/24 08/29/24 (Jardiance) Previous Rx's Medication Instructions Recorded blood-glucose meter,continuous #1 ea 01/17/24 (FreeStyle Marcelo 3 [place]) blood-glucose sensor (FreeStyle #2 ea 01/17/24 Marcelo 3 Sensor device) nitroglycerin 0.4 mg sublingual 0.4 mg sublingual Q5M PRN chest 02/21/24 tablet pain #1 btl insulin syringe-needle U-100 1 mL #150 ea 03/14/24 29 gauge x 1/2" (BD Insulin Syringe) glucagon 1 mg solution for 1 mg subcut Q20M PRN hypoglycemia 03/17/24 injection (Glucagon Emergency Kit) #1 ea pen needle, diabetic 32 gauge x #200 ea 03/17/2432" (BD Ultra-Fine Brenda Pen Needle) atorvastatin 40 mg tablet 40 mg PO QPM #90 tabs 03/30/24 potassium chloride 10 mEq 10 meq PO DAILY #90 tabs 04/04/24 tablet,extended release sacubitril 24 mg-valsartan 26 mg 1 tab PO BID #90 tabs 04/18/24 tablet (Entresto) spironolactone 25 mg tablet 25 mg PO DAILY #90 tabs 04/18/24 acetaminophen 500 mg tablet 1,000 mg (2 x 500 mg) PO TID PRN 04/21/24 Temp >100/Pain #180 tabs lidocaine 4 % topical patch 1 patch topical .COMPLEX pain #30 04/28/24 ea apixaban 5 mg tablet 5 mg PO BID #180 tabs 06/01/24 carvedilol 3.125 mg tablet (Coreg) 3.125 mg PO BIDM #180 tabs 07/13/24 clopidogrel 75 mg tablet 75 mg PO QAM #90 tabs 07/13/24 furosemide 40 mg tablet 20 mg (1/2 x 40 mg) PO QAM #45 tabs 07/13/24 pantoprazole 40 mg tablet,delayed 40 mg PO DAILY #90 tabs 07/13/24 release (Protonix) insulin degludec 100 unit/mL (3 36 unit (0.36 mL) subcut DAILY #15 07/24/24 mL) subcutaneous pen (Tresiba mL FlexTouch U-100 insulin) pen needle, diabetic 31 gauge x #400 ea 07/24/24 3/16" (BD Ultra-Fine Mini Pen Needle) insulin aspart U-100 100 unit/mL 12 unit (0.12 mL) subcut TID #30 mL 08/22/24 (3 mL) subcutaneous pen (Novolog FlexPen U-100 Insulin aspart) tramadol 50 mg tablet 25 mg (1/2 x 50 mg) PO TID PRN 08/29/24 severe pain #30 tabs Results & Data (ED) Vital Signs Vital Signs - 24 hr 09/01/24 22:10 09/01/24 22:10 09/01/24 22:42 Temperature 37.0 C Temperature Source Oral Pulse Rate 66 60 Pulse Rate [Finger] 66 Pulse Rhythm [Finger] Pulse Strength [Finger] Respiratory Rate 16 16 16 Respiratory Effort / Characteristics Non-Labored Spontaneous Non-Labored Spontaneous Respiratory Depth Normal Normal Respiratory Pattern Regular Regular Blood Pressure 148/69 H Blood Pressure [Right Arm] 148/69 H Blood Pressure Mean 95 Blood Pressure Mean [Right Arm] 95 Blood Pressure Position Semi-fowlers Blood Pressure Position [Right Arm] Semi-fowlers Pulse Oximetry 97 95 86 L Oxygen Delivery Method Room Air Room Air Room Air Oxygen Flow Rate Sepsis Recent Fever Within 48 Hours No Sepsis New/Unexplained Change in Mental Status No Sepsis Action Taken by Nursing No Action Required 09/01/24 22:43 09/01/24 22:44 09/01/24 23:05 Temperature Temperature Source Pulse Rate 59 L Pulse Rate [Finger] 61 68 Pulse Rhythm [Finger] Pulse Strength [Finger] Respiratory Rate 13 16 16 Respiratory Effort / Characteristics Non-Labored Spontaneous Non-Labored Spontaneous Respiratory Depth Normal Normal Respiratory Pattern Regular Regular Blood Pressure Blood Pressure [Right Arm] 136/62 121/61 Blood Pressure Mean Blood Pressure Mean [Right Arm] 86 81 Blood Pressure Position Blood Pressure Position [Right Arm] Semi-fowlers Semi-fowlers Pulse Oximetry 96 95 97 Oxygen Delivery Method Nasal Cannula Nasal Cannula Nasal Cannula Oxygen Flow Rate 4 2 2 Sepsis Recent Fever Within 48 Hours Sepsis New/Unexplained Change in Mental Status Sepsis Action Taken by Nursing 09/02/24 01:00 Temperature Temperature Source Pulse Rate Pulse Rate [Finger] 66 Pulse Rhythm [Finger] Regular Pulse Strength [Finger] Normal Respiratory Rate 17 Respiratory Effort / Characteristics Non-Labored Respiratory Depth Normal Respiratory Pattern Regular Blood Pressure Blood Pressure [Right Arm] 157/72 H Blood Pressure Mean Blood Pressure Mean [Right Arm] 100 Blood Pressure Position Blood Pressure Position [Right Arm] Lying Pulse Oximetry 100 Oxygen Delivery Method Nasal Cannula Oxygen Flow Rate 2 Sepsis Recent Fever Within 48 Hours Sepsis New/Unexplained Change in Mental Status Sepsis Action Taken by Detention Medications Current Medication List: was personally reviewed by me Laboratory Data Attestation: I reviewed the patient's lab results. 09/01/24 22:30 09/01/24 22:30 Lab Results 09/01/24 Range/Units 22:30 WBC 12.31 H (4.8-10.8) K/ul RBC 4.75 (4.20-5.40) M/uL Hgb 13.6 (12.0-16.0) g/dl Hct 42.7 (37.0-47.0) % MCV 89.9 (80.0-100.0) fL MCH 28.6 (25.0-34.0) pg MCHC 31.9 L (32.0-36.0) g/dL RDW Std Deviation 53.9 H (36.4-46.3) fL RDW Coeff of Mgaali 16.2 H (11.5-14.5) % Plt Count 291 (130-400) K/uL MPV 10.9 (9.4-12.4) fL Immature Gran % (Auto) 0.2 % Neut % (Auto) 82.5 % Lymph % (Auto) 9.2 % [place] % (Auto) 5.8 % Eos % (Auto) 2.0 % Baso % (Auto) 0.3 % Neut # (Auto) 10.15 H (1.40-6.50) K/uL Lymph # (Auto) 1.13 L (1.20-3.40) K/uL [place] # (Auto) 0.71 H (0.11-0.59) K/uL Eos # (Auto) 0.25 (0.00-0.50) K/uL Baso # (Auto) 0.04 (0.00-0.20) K/uL Immature Gran # (Auto) 0.03 (0.01-0.20) K/uL ESR 60 H (0-30) mm/hr PT 11.9 (9.0-12.0) Seconds INR 1.1 (0.9-1.1) APTT 32 H (21-31) Seconds PTT Ratio 1.2 Sodium 137 (136-145) mmol/L Potassium 5.2 H (3.5-5.1) mmol/L Chloride 105 (98-107) mmol/L Carbon Dioxide 24 (21-32) mmol/L Anion Gap 8 (3-11) BUN 54 H (6-23) mg/dl Creatinine 2.07 H (0.6-1.2) mg/dl Est Cr Clr Drug Dosing 20.7 ml/min eGFR 23.94 BUN/Creatinine Ratio 26.1 H (10-20) Glucose 99 (70-99(Fasting)) mg/dl Calcium 9.5 (8.6-10.3) mg/dl Total Bilirubin 0.4 (0.2-1.0) mg/dl AST 22 (13-39) U/L ALT 13 (7-52) U/L Alkaline Phosphatase 82 (34-104) U/L C-Reactive Protein 0.69 H (0-0.5) mg/dl Total Protein 7.2 (6.0-8.3) gm/dl Albumin 4.3 (3.4-5.0) gm/dl Globulin 2.9 (2.5-4.0) gm/dl Albumin/Globulin Ratio 1.5 (0.9-2) Administered Medications Discontinued Medications Ketorolac Tromethamine (Ketorolac Tromethamine 15 Mg/Ml Vial) 10 mg IV NOW ONE Stop: 09/01/24 22:25 Last Admin: 09/01/24 22:39 Dose: 10 mg Documented By: MONICA Morphine Sulfate (Morphine Sulfate 4 Mg/Ml 1 Ml Carp\\Vial) 4 mg IV NOW STA Stop: 09/01/24 22:25 Last Admin: 09/01/24 22:36 Dose: 4 mg Documented By: MONICA Ondansetron HCl (Ondansetron Inj 2 Mg/Ml 2 Ml Vial) 4 mg IV NOW STA Stop: 09/01/24 22:25 Last Admin: 09/01/24 22:38 Dose: 4 mg Documented By: MONICA Imaging Data Radiologist's Impression: Hip CT 09/01/24 22:16 Exam(s): CT LEFT HIP Without Contrast EXAM: CT Left Lower Extremity Without Intravenous Contrast, Hip CLINICAL HISTORY: Reason for exam: pain, neg xrays. TECHNIQUE: Axial computed tomography images of the left hip without intravenous contrast. CTDI is 30.25 mGy and DLP is 814.71 mGy-cm. Automated exposure control was utilized for the study. A dose lowering technique was utilized adhering to the principles of ALARA. COMPARISON: No relevant prior studies available. FINDINGS: Bones/joints: Osteopenia. No acute fracture or dislocation. Pelvic enthesopathy. Degenerative change in the left sacroiliac joint and the pubic symphysis. Minor osteoarthritic change in the left hip. Soft tissues: Swollen appearance of the distal iliopsoas muscle and tendon near the trochanteric insertion with some surrounding fat stranding. Vasculature: Vascular calcifications. IMPRESSION: Swollen appearance of the distal iliopsoas muscle and tendon near the trochanteric insertion with some surrounding fat stranding. Appearance raises the possibility of iliopsoas injury. Correlate clinically. No obvious tendon retraction is visualized, but tendon tear cannot be excluded on the basis of CT. No acute osseous findings. Electronically signed by: Jennifer Edwards M.D. 09/02/24 00:41 AM Discharge Plan Visit Data Chief Complaint: Hip Pain Stated Complaint: L HIP PAIN, NO INJURIES ED Provider: Will Yates Discharge Problem: Left hip pain, Ambulatory dysfunction, Failure of outpatient treatment, Anticoagulated, Leukocytosis Patient Disposition: Admitted As Inpatient Condition: Fair Forms Stand Alone Forms: [place] Prescriptions Prescriptions: No Action (DME) FreeStyle Marcelo 3 [place] Misc See Rx Instructions .Route Qty: 1 0RF Rx Instructions: for use with Marcelo 3 sensors (DME) FreeStyle Marcelo 3 Sensor Device See Rx Instructions .Route Qty: 2 11RF Rx Instructions: change every 14 days (DME) insulin syringe-needle U-100 [BD Insulin Syringe] 1 mL 29 gauge x 1/2" syringe See Rx Instructions .Route Qty: 150 5RF Rx Instructions: use 5 syringes daily Glucagon Emergency Kit (human) 1 mg recon soln 1 mg subcut Q20M PRN (Reason: hypoglycemia) Qty: 1 5RF Rx Instructions: until target blood sugar attained (DME) pen needle, diabetic [BD Ultra-Fine Brenda Pen Needle] 32 gauge x 5/32" needle See Rx Instructions .Route Qty: 200 5RF Rx Instructions: Use with insulin injection 4 times a day atorvastatin 40 mg tablet 40 mg PO QPM Qty: 90 0RF potassium chloride 10 mEq tablet extended release 10 meq PO DAILY Qty: 90 3RF spironolactone 25 mg tablet 25 mg PO DAILY Qty: 90 3RF Rx Instructions: 25mg per [place] records Entresto 24-26 mg tablet 1 tab PO BID Qty: 90 3RF acetaminophen 500 mg tablet 1,000 mg PO TID MDD 3g/24hr PRN (Reason: Temp >100/Pain) Qty: 180 1RF lidocaine 4 % adhesive patch,medicated 1 patch topical .COMPLEX Qty: 30 5RF Rx Instructions: apply to back of upper thighs in the AM and remove in PM apixaban 5 mg tablet 5 mg PO BID Qty: 180 3RF Hold Instructions: hold per discharge instructions carvedilol [Coreg] 3.125 mg tablet 3.125 mg PO BIDM Qty: 180 3RF Rx Instructions: must administer with a meal/food clopidogrel 75 mg tablet 75 mg PO QAM Qty: 90 3RF furosemide 40 mg tablet 20 mg PO QAM Qty: 45 3RF pantoprazole [Protonix] 40 mg tablet,delayed release (DR/EC) 40 mg PO DAILY Qty: 90 3RF (DME) pen needle, diabetic [BD Ultra-Fine Mini Pen Needle] 31 gauge x 3/16" needle See Rx Instructions .Route Qty: 400 3RF Rx Instructions: Inject insulin 4 times daily insulin degludec [Tresiba FlexTouch U-100] 100 unit/mL (3 mL) insulin pen 36 unit subcut DAILY Qty: 15 0RF insulin aspart U-100 [Novolog FlexPen U-100 Insulin] 100 unit/mL (3 mL) insulin pen 12 unit subcut TID Qty: 30 1RF (DME) lancets [Accu-Chek Softclix Lancets] Misc See Rx Instructions .ROUTE .MEDSUPPLY Rx Instructions: Test blood sugar once daily PRN Jardiance 10 mg tablet 10 mg PO DAILY tramadol 50 mg tablet 25 mg PO TID PRN (Reason: severe pain) Qty: 30 0RF Rx Instructions: Supervising physician Maribel KAHN [id number] [facility] [id number] loperamide [Imodium A-D] 2 mg tablet 2 mg PO Q6H PRN diclofenac sodium 1 % Gel 4 g TOPICAL BID Rx Instructions: left shoulder omega-3 fatty acids 1,000 mg Capsule 1,000 mg PO QAM PreserVision AREDS 2,148 mcg-113 mg-45 mg-17.4mg tablet 1 tab PO QAM bisacodyl [Dulcolax (bisacodyl)] 10 mg Suppository 10 mg MI DAILY PRN (Reason: Constipation) Rx Instructions: Give on day 3 on 3-11 shift if no BM after MOM Fleet Enema 19-7 gram/118 mL Enema 118 ml MI DAILY PRN (Reason: Constipation) Rx Instructions: If no BM after dulcolax on day 4 of 7-3 shift menthol-zinc oxide [Calmoseptine] 0.44-20.6 % Ointment 1 applic TOPICAL BID Rx Instructions: Start Date 02/11/24 x14 day supply nitroglycerin 0.4 mg tablet, sublingual 0.4 mg sublingual Q5M PRN (Reason: chest pain) Qty: 1 0RF Rx Instructions: max 3 tablets in 15 minutes. Referrals Referrals: Maribel Sanabria MD [Primary Care Provider] - Discharge Problem: Leukocytosis Qualifiers: Leukocytosis type: unspecified Qualified Code(s): D72.829 - Elevated white blood cell count, unspecified
[2024-09-01] MEDS: MoRPHine SULFATE 4 MG/ML 1 ML CARP\\VIAL IV STA (22:36)
[2024-09-01] MEDS: ONDANSETRON INJ 2 MG/ML 2 ML VIAL IV STA (22:38)
[2024-09-01] MEDS: KETOROLAC TROMETHAMINE 15 MG/ML VIAL IV ONE (22:39)
[2024-09-01 23:02] LABS: Basophils # (auto) 0.04 K/uL (0.00-0.20); Basophils % (auto) 0.3 %; Eosinophils # (auto) 0.25 K/uL (0.00-0.50); Hematocrit (blood only) 42.7 % (37.0-47.0); Hemoglobin 13.6 g/dl (12.0-16.0); Immature Granulocytes # (auto) 0.03 K/uL (0.01-0.20); Immature Granulocytes % (auto) 0.2 %; Lymphocytes # (auto) 1.13 K/uL (1.20-3.40); Lymphocytes % (auto) 9.2 %; Mean Corpuscular Hemoglobin 28.6 pg (25.0-34.0); Mean Corpuscular Hgb Conc 31.9 g/dL (32.0-36.0); Mean Corpuscular Volume 89.9 fL (80.0-100.0); Mean Platelet Volume 10.9 fL (9.4-12.4); Monocytes # (auto) 0.71 K/uL (0.11-0.59); Monocytes % (auto) 5.8 %; Neutrophils # (auto) 10.15 K/uL (1.40-6.50); Neutrophils % (auto) 82.5 %; Platelet Count 291 K/uL (130-400); RDW Coefficient of Variation 16.2 % (11.5-14.5); RDW Standard Deviation 53.9 fL (36.4-46.3); Red Blood Count 4.75 M/uL (4.20-5.40); White Blood Count 12.31 K/ul (4.8-10.8)
[2024-09-01 23:19] LABS: Albumin Globulin Ratio 1.5 (0.9-2); Albumin Level 4.3 gm/dl (3.4-5.0); BUN Creatinine Ratio 26.1 (10-20); Bilirubin,Total 0.4 mg/dl (0.2-1.0); Calcium 9.5 mg/dl (8.6-10.3); Creatinine Clr Calc Pharmacy 20.7 ml/min; Globulin 2.9 gm/dl (2.5-4.0); Potassium 5.2 mmol/L (3.5-5.1); Total Protein 7.2 gm/dl (6.0-8.3)
[2024-09-01 23:36] LABS: INR 1.1 (0.9-1.1); Partial Thromboplastin Ratio 1.2; Partial Thromboplastin Time 32 Seconds (21-31); Prothrombin Time 11.9 Seconds (9.0-12.0)
[2024-09-01 23:37] LABS: C Reactive Protein 0.69 mg/dl (0-0.5)
--- NOTE | 2024-09-02 00:42 | CT Scan Report ---
Exam(s): CT LEFT HIP Without Contrast EXAM: CT Left Lower Extremity Without Intravenous Contrast, Hip CLINICAL HISTORY: Reason for exam: pain, neg xrays. TECHNIQUE: Axial computed tomography images of the left hip without intravenous contrast. CTDI is 30.25 mGy and DLP is 814.71 mGy-cm. Automated exposure control was utilized for the study. A dose lowering technique was utilized adhering to the principles of ALARA. COMPARISON: No relevant prior studies available. FINDINGS: Bones/joints: Osteopenia. No acute fracture or dislocation. Pelvic enthesopathy. Degenerative change in the left sacroiliac joint and the pubic symphysis. Minor osteoarthritic change in the left hip. Soft tissues: Swollen appearance of the distal iliopsoas muscle and tendon near the trochanteric insertion with some surrounding fat stranding. Vasculature: Vascular calcifications. IMPRESSION: Swollen appearance of the distal iliopsoas muscle and tendon near the trochanteric insertion with some surrounding fat stranding. Appearance raises the possibility of iliopsoas injury. Correlate clinically. No obvious tendon retraction is visualized, but tendon tear cannot be excluded on the basis of CT. No acute osseous findings. Electronically signed by: Jennifer Edwards M.D. 09/02/24 00:41 AM
[2024-09-02] MEDS: dexAMETHasone**PF** 10 MG/ML VIAL IV ONE (01:18)
[2024-09-02] MEDS: MoRPHine SULFATE 2 MG/ML CARP IV PRN (01:18)
--- NOTE | 2024-09-02 02:17 | History & Physical Report ---
Date of Service September 02, 2024 Assessment & Plan (1) Ambulatory dysfunction: (2) Strain of right iliopsoas muscle: (3) History of pulmonary embolism: (4) Uncontrolled type 2 diabetes mellitus with hyperglycemia, with long-term current use of insulin: (5) Failure of outpatient treatment: Plan The patient is a 79-year-old female with past medical history including NSTEMI, NED, pulmonary embolism, CKD stage IV, HFmrEF, history of upper GI hemorrhage, CAD, hypertension, history of DVT and PE, cerebrovascular disease, GERD, SNHL bilaterally, and mild cognitive impairment.The patient presents to the emergency department with worsening of left groin pain initially began on 08/29/2024. She reports that the pain was initially occurring when she woke up in the morning at 08/29/2024, described as sharp and in her groin between her abdominal wall and leg. She was seen at her PCPs office, with x-ray performed which was negative. She was advised to take Tylenol 3 g spread throughout the day over 24-hour interval. And was placed on tramadol 25 mg p.o. 3 times daily as needed severe pain. Due to worsening pain, she presented to the ED for assessment this evening. Hip and pelvis x-ray showed bilateral hip degeneration. She then underwent CT scan of hip which showed a swollen distal iliopsoas muscle with significant inflammation at the site of the tendon near the trochanter insertion. From the ED she received dexamethasone 6 mg IV, morphine 2 mg IV then morphine 4 mg IV and Toradol 10 mg IV. Due to persistence of pain, and inability to ambulate, she was presented to the [facility] for further evaluation and treatment, and orthopedic assessment. #Strain of right iliopsoas muscle/ambulatory dysfunction/severe right hip pain- Failure of outpatient treatment with Tylenol and tramadol Admit to medical surgical for orthopedic assessment Status post dexamethasone 6 mg IV and morphine 2, then 4 mg IV in ED Continue dexamethasone 4 mg IV every morning Acetaminophen 1 g IV every 8 hours needed for mild pain or fever Tramadol 25 mg p.o. 3 times daily as needed moderate pain Morphine sulfate 4 mg IV every 3 hours as needed for severe pain Unclear etiology as origin of pain, which occurred spontaneously upon awaking on the morning of 08/29. Patient is not able to adequately explain her situation due to mild cognitive impairment She does continue to take apixaban, but there does not appear to be any sign on imaging of significant hematoma or abscess. Will defer to orthopedic consult whether MRI would be of more value Will need PT/OT, however, pain is too uncontrolled at this time Diabetes mellitus- Continue current regimen Consult pharmacy for glycemic management while on IV dexamethasone Chronic medical conditions: History of DVT/pulmonary embolism-temporarily hold apixaban Hyperlipidemia-continue atorvastatin GERD-continue pantoprazole CAD/hypertension/HFmrEF-continue carvedilol,. Due to mild hyperkalemia holding spironolactone, Entresto, potassium chloride. Temporarily holding clopidogrel History of Present Illness Chief Complaint: The patient presents to the emergency department with worsening of left groin pain initially began on 08/29/2024. She reports that the pain was initially occurring when she woke up in the morning at 08/29/2024, described as sharp and in her groin between her abdominal wall and leg. She was seen at her PCPs office, with x-ray performed which was negative. She was advised to take Tylenol 3 g spread throughout the day over 24-hour interval. And was placed on tramadol 25 mg p.o. 3 times daily as needed severe pain. Due to worsening pain, she presented to the ED for assessment this evening. Hip and pelvis x-ray showed bilateral hip degeneration. She then underwent CT scan of hip which showed a swollen distal iliopsoas muscle with significant inflammation at the site of the tendon near the trochanter insertion. From the ED she received dexamethasone 6 mg IV, morphine 2 mg IV then morphine 4 mg IV and Toradol 10 mg IV. Due to persistence of pain, she was presented to the [facility] for further evaluation and treatment, and orthopedic assessment. Primary Care Provider: Maribel Sanabria MD The patient is a 79-year-old female with past medical history including NSTEMI, NED, pulmonary embolism, CKD stage IV, HFmrEF, history of upper GI hemorrhage, CAD, hypertension, history of DVT and PE, cerebrovascular disease, GERD, SNHL bilaterally, and mild cognitive impairment.The patient presents to the emergency department with worsening of left groin pain initially began on 08/29/2024. She reports that the pain was initially occurring when she woke up in the morning at 08/29/2024, described as sharp and in her groin between her abdominal wall and leg. She was seen at her PCPs office, with x-ray performed which was negative. She was advised to take Tylenol 3 g spread throughout the day over 24-hour interval. And was placed on tramadol 25 mg p.o. 3 times daily as needed severe pain. Due to worsening pain, she presented to the ED for assessment this evening. Hip and pelvis x-ray showed bilateral hip degeneration. She then underwent CT scan of hip which showed a swollen distal iliopsoas muscle with significant inflammation at the site of the tendon near the trochanter insertion. From the ED she received dexamethasone 6 mg IV, morphine 2 mg IV then morphine 4 mg IV and Toradol 10 mg IV. Due to persistence of pain, she was presented to the [facility] for further evaluation and treatment, and orthopedic assessment. Allergies Allergy/AdvReac Type Severity Reaction Status Date / Time No Known Allergies Allergy Verified 08/29/24 12:26 Home Medications Medication Instructions Recorded Confirmed Type lancets (Accu-Chek Softclix 06/02/21 08/29/24 History Lancets) blood-glucose meter,continuous #1 ea 01/17/24 08/29/24 Rx (FreeStyle Marcelo 3 Hagan) blood-glucose sensor (FreeStyle #2 ea 01/17/24 08/29/24 Rx Marcelo 3 Sensor device) omega-3 fatty acids 1,000 mg 1,000 mg PO QAM 01/30/24 08/29/24 History capsule bisacodyl 10 mg rectal suppository 10 mg NM DAILY PRN Constipation 02/14/24 08/29/24 History (Dulcolax (bisacodyl)) menthol 0.44 %-zinc oxide 20.6 % 1 applic topical BID Rash 02/14/24 08/29/24 History topical ointment (Calmoseptine) sodium phosphates 19 gram-7 118 ml NM DAILY PRN Constipation 02/14/24 08/29/24 History gram/118 mL enema (Fleet Enema) nitroglycerin 0.4 mg sublingual 0.4 mg sublingual Q5M PRN chest 02/21/24 08/29/24 Rx tablet pain #1 btl insulin syringe-needle U-100 1 mL #150 ea 03/14/24 08/29/24 Rx 29 gauge x 1/2" (BD Insulin Syringe) vitamins A,C,W-jhuv-xtdcwe 2,148 1 tab PO QAM 03/15/24 08/29/24 History mcg-113 mg-45 mg-17.4 mg tablet (PreserVision AREDS) glucagon 1 mg solution for 1 mg subcut Q20M PRN hypoglycemia 03/17/24 08/29/24 Rx injection (Glucagon Emergency Kit) #1 ea pen needle, diabetic 32 gauge x #200 ea 03/17/24 08/29/24 Rx 5/32" (BD Ultra-Fine Brenda Pen Needle) atorvastatin 40 mg tablet 40 mg PO QPM #90 tabs 03/30/24 08/29/24 Rx potassium chloride 10 mEq 10 meq PO DAILY #90 tabs 04/04/24 08/29/24 Rx tablet,extended release sacubitril 24 mg-valsartan 26 mg 1 tab PO BID #90 tabs 04/18/24 08/29/24 Rx tablet (Entresto) spironolactone 25 mg tablet 25 mg PO DAILY #90 tabs 04/18/24 08/29/24 Rx acetaminophen 500 mg tablet 1,000 mg (2 x 500 mg) PO TID PRN 04/21/24 08/29/24 Rx Temp >100/Pain #180 tabs lidocaine 4 % topical patch 1 patch topical .COMPLEX pain #30 04/28/24 08/29/24 Rx ea apixaban 5 mg tablet 5 mg PO BID #180 tabs 06/01/24 08/29/24 Rx diclofenac sodium 1 % topical gel 4 g topical BID 06/10/24 08/29/24 History carvedilol 3.125 mg tablet (Coreg) 3.125 mg PO BIDM #180 tabs 07/13/24 08/29/24 Rx clopidogrel 75 mg tablet 75 mg PO QAM #90 tabs 07/13/24 08/29/24 Rx furosemide 40 mg tablet 20 mg (1/2 x 40 mg) PO QAM #45 tabs 07/13/24 08/29/24 Rx pantoprazole 40 mg tablet,delayed 40 mg PO DAILY #90 tabs 07/13/24 08/29/24 Rx release (Protonix) loperamide 2 mg tablet (Imodium 2 mg PO Q6H PRN 07/20/24 08/29/24 History A-D) insulin degludec 100 unit/mL (3 36 unit (0.36 mL) subcut DAILY #15 07/24/24 08/29/24 Rx mL) subcutaneous pen (Tresiba mL FlexTouch U-100 insulin) pen needle, diabetic 31 gauge x #400 ea 07/24/24 08/29/24 Rx 3/16" (BD Ultra-Fine Mini Pen Needle) empagliflozin 10 mg tablet 10 mg PO DAILY 08/09/24 08/29/24 History (Jardiance) insulin aspart U-100 100 unit/mL 12 unit (0.12 mL) subcut TID #30 mL 08/22/24 08/29/24 Rx (3 mL) subcutaneous pen (Novolog FlexPen U-100 Insulin aspart) tramadol 50 mg tablet 25 mg (1/2 x 50 mg) PO TID PRN 08/29/24 08/29/24 Rx severe pain #30 tabs Past Med/Surg History Problem List (Updated 09/02/24 @ 03:30 by Huey Myrick MD) Strain of right iliopsoas muscle Leukocytosis (Acute) Anticoagulated (Acute) Failure of outpatient treatment (Acute) Ambulatory dysfunction (Acute) Left hip pain (Acute) Elevated brain natriuretic peptide (BNP) level (Acute) Non-ST elevation AR (NSTEMI) (Acute) Acute kidney injury superimposed on chronic kidney disease (Acute) Influenza A virus present (Acute) Acute hypoxic respiratory failure (Acute) Loose stools History of pulmonary embolism (2020) Chronic anticoagulation Chronic renal disease, stage IV Heart 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, 41-49%) Hx of upper gastrointestinal hemorrhage History of non-ST elevation myocardial infarction (NSTEMI) (01/29/24) Dyslipidemia Hypertension CAD (coronary artery disease) Sacroiliac joint pain H/O deep venous thrombosis Left shoulder pain Low back pain Carpal tunnel syndrome, bilateral (Chronic) Gait disturbance (Chronic) Cerebral microvascular disease (Chronic) Uncontrolled type 2 diabetes mellitus with hyperglycemia, with long-term current use of insulin (Chronic) Current use of anticoagulant therapy Obesity, Class I, BMI 30-34.9 (Chronic) GERD (gastroesophageal reflux disease) Sensorineural hearing loss (SNHL) of both ears Bilateral tinnitus Mild cognitive impairment Medical History Elevated WBC count Excessive cerumen in both ear canals Hearing decreased Upper GI bleed Acute non-ST elevation myocardial infarction (NSTEMI) (01/29/24) Hypoxia Pulmonary edema Fall UTI (urinary tract infection) Osteoarthritis of left shoulder Esophageal ulcer Gastric ulcer Mitral regurgitation Ischemic cardiomyopathy Heart failure with reduced ejection fraction Acute blood loss anemia Acute GI bleeding Finger fracture, left Diabetes mellitus type 2, uncontrolled, with complications (~1988) Gastrointestinal hemorrhage Deep vein thrombosis (DVT) of left lower extremity (~05/2020) Chronic anticoagulation Cough Acute right-sided low back pain Trapezius muscle spasm Stroke COVID-19 virus infection (~05/14/20) Physical deconditioning Diabetes Surgical History S/P coronary artery stent placement S/P CABG x 5 (2009) History of heart bypass surgery History of carpal tunnel release of both wrists H/O partial thyroidectomy Family History Son Colorectal cancer Myocardial infarction Family/Other Colorectal cancer Aunt Colorectal cancer Father Myocardial infarction Uncle Myocardial infarction Brother Myocardial infarction Dyslipidemia Mother Heart disease Dementia Denies family history of Ovarian cancer Prostate cancer Breast cancer Social History Smoking Status: Former smoker Tobacco Type: Cigarettes Age Started Using Tobacco: 15; Age Quit Using Tobacco: 20; packs per day: 0.25; Second Hand Exposure: No; Do You Dip or Chew Tobacco: No; Hx Alcohol Use: No Hx Substance Use: No Preferred Language: [place]se Communication Ability: Effective Visual Impairment: Limited Hearing Ability: Use of Hearing Aid [email or web address] Application Developer Required: No Beliefs That Will Affect Care: None marital status: / Current Living Situation: Personal Care Facility current occupational status: retired Feels Safe at Home: Yes Childhood Exposure to Second-Hand Smoke: Yes Diet: regular caffeine: Yes (1-2 cups a day) Dental Care, Regularly: Yes Physical Activity Frequency: Does not Exercise Physical Activity Frequency Comment: Just PT for hands Seatbelt Use: always Sunscreen Use: No Do you think of yourself as: straight/heterosexual Gender Identity: Female Assistive Devices: Walker Review of Systems Review of Systems: The patient denies chest pain, palpitations, shortness of breath, dyspnea on exertion, cough, lower extremity swelling, sore throat, fevers, chills, sweats, weight change, fatigue, nausea, vomiting, diarrhea , constipation, blood in urine or stool, dysuria, urinary frequency or urgency, lightheadedness, dizziness, headache, memory loss, loss of consciousness, rash, abnormal bruising or bleeding, focal or generalized weakness, numbness or tingling in arms, generalized arthralgias or myalgias, neck pain, or night sweats. The review of systems is otherwise negative other than for that already noted above, and at least 10 systems have been reviewed. Results & Data Results & Data Vital Signs (Past 12 Hours) Vital Signs Temp Pulse Pulse Resp BP BP Pulse Ox 09/02/24 01:00 66 17 157/72 H 100 09/01/24 23:05 68 16 121/61 97 09/01/24 22:44 59 L 16 95 09/01/24 22:43 61 13 136/62 96 09/01/24 22:42 60 16 86 L 09/01/24 22:10 66 16 148/69 H 95 09/01/24 22:10 37.0 C 66 16 148/69 H 97 O2 Del Method O2 Flow Rate 09/02/24 01:00 Nasal Cannula 2 09/01/24 23:05 Nasal Cannula 2 09/01/24 22:44 Nasal Cannula 2 09/01/24 22:43 Nasal Cannula 4 09/01/24 22:42 Room Air 09/01/24 22:10 Room Air 09/01/24 22:10 Room Air Code Status & VTE Plan VTE Prophylaxis Plan VTE Prophylaxis will be ordered: Yes PG Care Time/CCT Total # of Minutes Spent Total Time Spent with Patient: Total time spent is greater than 50% in coordination of care (as documented) at patient's floor/unit and/or counseling patient: Coding Level of Care Code 23883 INT INP/OBS CARE 375MIN Diagnoses Ambulatory dysfunction R26.2 Strain of right iliopsoas muscle S76.811A History of pulmonary embolism Z86.711 Uncontrolled type 2 diabetes mellitus with hyperglycemia, with long-term current use of insulin E11.65; Z79.4 Failure of outpatient treatment Z78.9
[2024-09-02] MEDS ORDERED: NITROGLYCERIN SL 0.4 MG/TAB TAB SL PRN (02:18)
[2024-09-02] MEDS ORDERED: traMADol HCL 50 MG TABLET PO PRN (02:18)
[2024-09-02] MEDS ORDERED: GLUCOSE 40% GEL 15 GM TUBE PO PRN (03:32)
[2024-09-02] MEDS ORDERED: PHARMACY GLYCEMIC MGMT CONSULT PRN (03:32)
[2024-09-02] MEDS ORDERED: DEXTROSE 50% 50 ML SYRINGE IV PRN (03:32)
[2024-09-02] MEDS ORDERED: GLUCAGON FOR INJ 1 MG VIAL SQ PRN (03:32)
[2024-09-02] MEDS ORDERED: CARBOHYDRATES FOR HYPOGLYCEMIA PO PRN (03:32)
[2024-09-02] MEDS ORDERED: GLUCOSE 10 TAB/TUBE PO PRN (03:32)
[2024-09-02] MEDS: DEXAMETHASONE SOD INJ 4 MG/ML VIAL IV STA (04:38)
[2024-09-02] MEDS: MoRPHine SULFATE 4 MG/ML 1 ML CARP\\VIAL IV PRN (05:31)
[2024-09-02 06:21] LABS: Hematocrit (blood only) 40.9 % (37.0-47.0); Hemoglobin 12.8 g/dl (12.0-16.0); Mean Corpuscular Hemoglobin 28.4 pg (25.0-34.0); Mean Corpuscular Hgb Conc 31.3 g/dL (32.0-36.0); Mean Corpuscular Volume 90.7 fL (80.0-100.0); Mean Platelet Volume 10.9 fL (9.4-12.4); Platelet Count 268 K/uL (130-400); RDW Coefficient of Variation 16.2 % (11.5-14.5); RDW Standard Deviation 54.4 fL (36.4-46.3); Red Blood Count 4.51 M/uL (4.20-5.40); White Blood Count 12.05 K/ul (4.8-10.8)
[2024-09-02 06:43] LABS: Albumin Level 4.1 gm/dl (3.4-5.0); BUN Creatinine Ratio 26.9 (10-20); Calcium 9.2 mg/dl (8.6-10.3); Creatinine Clr Calc Pharmacy 19.9 ml/min; Phosphorus 5.2 mg/dl (2.5-4.9); Potassium 5.7 mmol/L (3.5-5.1)
[2024-09-02 06:47] LABS: Basophils # (auto) 0.02 K/uL (0.00-0.20); Basophils % (auto) 0.2 %; Echinocytes 1+; Eosinophils # (auto) 0.02 K/uL (0.00-0.50); Eosinophils % (auto) 0.2 %; Immature Granulocytes # (auto) 0.04 K/uL (0.01-0.20); Immature Granulocytes % (auto) 0.3 %; Lymphocytes # (auto) 0.76 K/uL (1.20-3.40); Lymphocytes % (auto) 6.3 %; Monocytes # (auto) 0.09 K/uL (0.11-0.59); Monocytes % (auto) 0.7 %; Neutrophils # (auto) 11.12 K/uL (1.40-6.50); Neutrophils % (auto) 92.3 %
[2024-09-02 07:12] LABS: INR 1.1 (0.9-1.1); Partial Thromboplastin Ratio 1.3; Partial Thromboplastin Time 35 Seconds (21-31); Prothrombin Time 12.2 Seconds (9.0-12.0)
--- NOTE | 2024-09-02 08:19 | Hospitalist Progress Note ---
Date of Service September 02, 2024 Assessment & Plan (1) Hyperkalemia: Plan: No ST changes on EKG Repeat potassium 6.6 -will treat with Patiromer, calcium gluconate, insulin, 1 amp of bicarb. Check BMP every 4 hours. Transfer to PCU Echocardiogram reviewed. Patient with congestive heart failure with ejection fraction of 40 to 45% Patient was on Entresto, potassium supplement, Aldactone at home. This was held on admission Monitor on telemetry (2) Strain of right iliopsoas muscle: Plan: CT imaging suggest possible tear of the iliopsoas tendon -consult orthopedics Patient also appears to have sided sacroiliitis -hip and pelvis x-rays with degenerative changes of both hip joints Patient may benefit from follow-up in the pain management office as an outpatient for further evaluation and treatment (3) Ambulatory dysfunction: Plan: PT/OT consult and evaluation (4) History of pulmonary embolism: Plan: Hold apixaban in the event that patient needs surgical intervention (5) Uncontrolled type 2 diabetes mellitus with hyperglycemia, with long-term current use of insulin: Plan: Diabetic consult with pharmacy appreciated Close monitoring while patient is on dexamethasone Hemoglobin A1c in May 2024 9.1% Continue diabetic diet Plan Patient transferred to PCU for hyperkalemia Change from observation to inpatient admission PT/OT evaluation and treatment Admission and Anticipated Discharge Date Admission Date: September 02, 2024 Supervising Physician Co-Signing Physician Notes Attending Attestation - Chart reviewed, care plan d/w BELINDA Stewart. I agree w/ the trivedi components of his documentation. Agree with Rx plan for hyperkalemia and transfer to PCU for telemetry monitoring. Justin Kilpatrick MD Subjective Attending: Dr. Kilpatrick This is a 79-year-old female who was admitted earlier this morning secondary to to complaints of hip pain requiring admission for intractable pain. Patient has received dexamethasone, morphine, Toradol with no significant improvement pain. She is hypoxic and is 95% on 2 L/min by nasal cannula at this time. Orthopedics has been consulted for evaluation. Patient's chief complaint is pain in the back radiating down to the groin. She has exquisite tenderness with palpation. She reports the pain can be 10/10 at worst 2/10 at best. Pain is aggravated with walking and standing, flexing the leg, and direct palpation in the groin. It is alleviated with rest. Some improvement with pain medication. Patient also noted to have hyperkalemia with a potassium level 5.7. She denies any chest pain or tightness no awareness of tacky arrhythmia. No other acute complaints at this time. Review of Systems 2 Review of Systems: A total of 10 systems was reviewed and is negative other than as listed in the HPI Physical Exam 2 Physical Exam: GENERAL : No acute distress EYES: No icterus, gaze conjugate NOSE: No evidence of epistaxis MOUTH: No lesions or candidiasis NECK: Supple LUNGS: CTA B/L, no wheezes, rales or rhonchi HEART: Regular, rate controlled. ABDOMEN: Soft, NT, ND, BS Present EXTREMITIES: No LE edema, pedal pulses intact. Exquisite tenderness with palpation in the groin. Right-sided LAISHA positive. Compression test, Gaenslen's test positive on the right and negative on the left. FADIR negative bilaterally. Negative for provocative testing of the facet joints in the lumbosacral region. Sensation is equal bilaterally lower extremities. No complaints of radicular pain. NEURO: A&OX3 Results & Data Results & Data Vital Signs (Past 12 Hours) Vital Signs Temp Pulse Pulse Resp BP BP Pulse Ox 09/02/24 03:05 09/02/24 03:05 36.5 C 64 18 144/74 H 95 09/02/24 02:56 87 18 142/76 H 96 09/02/24 01:00 66 17 157/72 H 100 09/01/24 23:05 68 16 121/61 97 09/01/24 22:44 59 L 16 95 09/01/24 22:43 61 13 136/62 96 09/01/24 22:42 60 16 86 L 09/01/24 22:10 66 16 148/69 H 95 09/01/24 22:10 37.0 C 66 16 148/69 H 97 O2 Del Method O2 Flow Rate 09/02/24 03:05 Nasal Cannula 2 09/02/24 03:05 Nasal Cannula 2 09/02/24 02:56 Nasal Cannula 2 09/02/24 01:00 Nasal Cannula 2 09/01/24 23:05 Nasal Cannula 2 09/01/24 22:44 Nasal Cannula 2 09/01/24 22:43 Nasal Cannula 4 09/01/24 22:42 Room Air 09/01/24 22:10 Room Air 09/01/24 22:10 Room Air Laboratory Results 09/02/24 05:36 09/02/24 05:[address] 09/01/24 22:16 Exam(s): CT LEFT HIP Without Contrast EXAM: CT Left Lower Extremity Without Intravenous Contrast, Hip CLINICAL HISTORY: Reason for exam: pain, neg xrays. TECHNIQUE: Axial computed tomography images of the left hip without intravenous contrast. CTDI is 30.25 mGy and DLP is 814.71 mGy-cm. Automated exposure control was utilized for the study. A dose lowering technique was utilized adhering to the principles of ALARA. COMPARISON: No relevant prior studies available. FINDINGS: Bones/joints: Osteopenia. No acute fracture or dislocation. Pelvic enthesopathy. Degenerative change in the left sacroiliac joint and the pubic symphysis. Minor osteoarthritic change in the left hip. Soft tissues: Swollen appearance of the distal iliopsoas muscle and tendon near the trochanteric insertion with some surrounding fat stranding. Vasculature: Vascular calcifications. IMPRESSION: Swollen appearance of the distal iliopsoas muscle and tendon near the trochanteric insertion with some surrounding fat stranding. Appearance raises the possibility of iliopsoas injury. Correlate clinically. No obvious tendon retraction is visualized, but tendon tear cannot be excluded on the basis of CT. No acute osseous findings. Electronically signed by: Jennifer Edwards M.D. 09/02/24 00:41 AM ECG Additional Comments: PG Care Time/CCT Total # of Minutes Spent Total Time Spent with Patient: Total time spent is greater than 50% in coordination of care (as documented) at patient's floor/unit and/or counseling patient: 50 minutes of [id number] time with extensive evaluation and transfer to telemetry unit Coding Level of Care Code 53433 SUB INP/OBS CARE 3/50MIN Diagnoses Hyperkalemia E87.5 Strain of right iliopsoas muscle S76.811A Ambulatory dysfunction R26.2 History of pulmonary embolism Z86.711 Uncontrolled type 2 diabetes mellitus with hyperglycemia, with long-term current use of insulin E11.65; Z79.4 Time Spent (min) 50
[2024-09-02] MEDS: INSULIN ASPART PER UNIT CHARGE SC SCH (08:45)
[2024-09-02] MEDS: LANTUS PER UNIT CHARGE SQ SCH (08:46)
[2024-09-02] MEDS: PANTOprazole 40 MG TAB PO SCH (08:49)
[2024-09-02] MEDS: carvediloL 3.125 MG TAB PO SCH (08:49)
[2024-09-02] MEDS ORDERED: LANTUS PER UNIT CHARGE SQ SCH (09:00)
[2024-09-02 11:43] LABS: Appearance Urine Clear (Clear); Bilirubin Urine Negative (Negative); Blood Urine Negative (Negative); Color Urine Yellow; Glucose Urine UA 3+ (Negative); Ketones Urine Negative (Negative); Leukocyte Esterase Urine Negative (Negative); Nitrite Urine Negative (Negative); Protein Urine Negative (Negative); Specific Gravity Urine 1.023 (1.000-1.030); Urobilinogen Urine Negative (Negative)
[2024-09-02] MEDS: CALCIUM GLUCONATE 1,000 MG/60 ML BAG IV STA (14:44)
[2024-09-02] MEDS: SODIUM BICARB 8.4% INJ 50 MEQ/50 ML SYR IV STA (14:44)
[2024-09-02] MEDS: PATIROMER CALCIUM SORBITEX 8.4 GM PACK PO ONE (14:44)
[2024-09-02 18:23] LABS: Calcium 9.7 mg/dl (8.6-10.3); Creatinine Clr Calc Pharmacy 19.7 ml/min; Potassium 5.6 mmol/L (3.5-5.1)
[2024-09-02] MEDS: ATORVASTATIN 40 MG TAB PO SCH (20:02)
[2024-09-02] MEDS: PATIROMER CALCIUM SORBITEX 8.4 GM PACK PO STA (20:15)
[2024-09-02] MEDS: DICLOFENAC SOD 1% GEL 100 GM TUBE EXT PRN (21:28)
[2024-09-02 21:37] LABS: BUN Creatinine Ratio 30.7 (10-20); Calcium 9.7 mg/dl (8.6-10.3); Creatinine Clr Calc Pharmacy 21.2 ml/min; Potassium 5.1 mmol/L (3.5-5.1)
[2024-09-02] MEDS: ACETAMINOPHEN 325 MG TAB PO PRN (23:56)
[2024-09-03 07:35] LABS: Basophils # (auto) 0.02 K/uL (0.00-0.20); Basophils % (auto) 0.1 %; Eosinophils # (auto) 0.04 K/uL (0.00-0.50); Eosinophils % (auto) 0.3 %; Hematocrit (blood only) 34.5 % (37.0-47.0); Immature Granulocytes # (auto) 0.06 K/uL (0.01-0.20); Immature Granulocytes % (auto) 0.4 %; Lymphocytes # (auto) 1.13 K/uL (1.20-3.40); Mean Corpuscular Hemoglobin 28.6 pg (25.0-34.0); Mean Corpuscular Hgb Conc 31.9 g/dL (32.0-36.0); Mean Corpuscular Volume 89.8 fL (80.0-100.0); Mean Platelet Volume 11.1 fL (9.4-12.4); Monocytes # (auto) 0.94 K/uL (0.11-0.59); Monocytes % (auto) 6.6 %; Neutrophils # (auto) 11.96 K/uL (1.40-6.50); Neutrophils % (auto) 84.6 %; Platelet Count 259 K/uL (130-400); RDW Coefficient of Variation 16.1 % (11.5-14.5); Red Blood Count 3.84 M/uL (4.20-5.40); White Blood Count 14.15 K/ul (4.8-10.8)
[2024-09-03 07:46] LABS: Albumin Level 3.7 gm/dl (3.4-5.0); BUN Creatinine Ratio 30.5 (10-20); Calcium 9.6 mg/dl (8.6-10.3); Creatinine Clr Calc Pharmacy 20.4 ml/min; Magnesium 2.1 mg/dl (1.7-2.4); Phosphorus 4.5 mg/dl (2.5-4.9); Potassium 5.1 mmol/L (3.5-5.1)
[2024-09-03] MEDS: dexAMETHasone 4 MG in SYRINGE 0 ML IV SCH (07:50)
--- NOTE | 2024-09-03 07:56 | Hospitalist Progress Note ---
Date of Service September 03, 2024 Assessment & Plan (1) Hyperkalemia: Plan: Improved today with 2 doses patiromer last night. Potassium this was 5.1. Will give 1 more dose of patiromer this morning No ST changes on EKG Continue telemetry pending tomorrow morning's labs Echocardiogram reviewed. Patient with congestive heart failure with ejection fraction of 40 to 45% Patient was on Entresto, potassium supplement, Aldactone at home. This was held on admission Monitor on telemetry (2) Strain of right iliopsoas muscle: Plan: CT imaging suggest possible tear of the iliopsoas tendon - apreciate orthopedic consult. No intervention at this time Patient also appears to have sided sacroiliitis -hip and pelvis x-rays with degenerative changes of both hip joints Patient may benefit from follow-up in the pain management office as an outpatient for further evaluation and treatment. She was last seen in the pain clinic 12/30/2023. She did not qualify for SI injections secondary to poor glucose control. Now the patient is a resident at [facility] and sugars are better controlled, she is invited to schedule follow-up appointment with the pain clinic if she desires further evaluation of her sacroiliitis (3) Ambulatory dysfunction: Plan: PT/OT consult and evaluation ordered and pending (4) History of pulmonary embolism: Plan: No surgical intervention. Can resume apixaban (5) Uncontrolled type 2 diabetes mellitus with hyperglycemia, with long-term current use of insulin: Plan: Diabetic consult with pharmacy appreciated Close monitoring while patient is on dexamethasone Hemoglobin A1c in May 2024 9.1% Continue diabetic diet Random glucose 137 Plan Patient transferred to PCU for hyperkalemia. Can move back to medical if am labs with K+< 5 PT/OT evaluation and treatment Plan is to return to [facility] on discharge Admission and Anticipated Discharge Date Admission Date: September 02, 2024 Supervising Physician Co-Signing Physician Notes Attending Attestation - Chart reviewed, care plan d/w BELINDA Stewart. I agree w/ the trivedi components of his documentation except -- hip pain and hip issue is on the LEFT (not right as listed above). Hyperkalemia resolved Cont to hold aldactone, Entresto, etc Justin Kilpatrick MD Subjective Attending: Dr. Kilpatrick This is a 79-year-old female who was admitted earlier this morning secondary to to complaints of hip pain requiring admission for intractable pain. Patient has received dexamethasone, morphine, Toradol with no significant improvement pain. She was hypoxic but has been weaned off of supplemental oxygen and is currently 92% on room air. Orthopedics has been consulted for evaluation. No intervention at this time. Pain seems to be improved today. She still has some difficulty with standing and ambulation. Lidocaine patch was ordered. This seems to help. Physical therapy eval is pending. Hyperkalemia is improved. Patient is asymptomatic. No other acute complaints. Review of Systems 2 Review of Systems: A total of 10 systems was reviewed and is negative other than as listed in the HPI Physical Exam 2 Physical Exam: GENERAL : No acute distress EYES: No icterus, gaze conjugate NOSE: No evidence of epistaxis MOUTH: No lesions or candidiasis NECK: Supple LUNGS: CTA B/L, no wheezes, rales or rhonchi HEART: Regular, rate controlled ABDOMEN: Soft, NT, ND, BS Present EXTREMITIES: No LE edema, pedal pulses intact. Patient still with tenderness in the left groin with deep palpation. Seems to be improved. NEURO: A&OX3 Results & Data Results & Data Vital Signs (Past 12 Hours) Vital Signs Temp Pulse Pulse Resp BP Pulse Ox O2 Del Method 09/02/24 23:55 36.7 C 87 18 127/69 93 Room Air 09/02/24 22:11 66 09/02/24 20:04 36.4 C L 84 18 145/84 H 96 Room Air Laboratory Results 09/03/24 06:46 09/03/24 06:46 PG Care Time/CCT Total # of Minutes Spent Total Time Spent with Patient: Total time spent is greater than 50% in coordination of care (as documented) at patient's floor/unit and/or counseling patient: Coding Level of Care Code 28416 SUB INP/OBS CARE 07/15MIN Diagnoses Hyperkalemia E87.5 Strain of right iliopsoas muscle S76.811A Ambulatory dysfunction R26.2 History of pulmonary embolism Z86.711 Uncontrolled type 2 diabetes mellitus with hyperglycemia, with long-term current use of insulin E11.65; Z79.4
[2024-09-03 08:02] LABS: INR 1.1 (0.9-1.1); Partial Thromboplastin Ratio 1.1; Partial Thromboplastin Time 29 Seconds (21-31); Prothrombin Time 11.5 Seconds (9.0-12.0)
--- NOTE | 2024-09-03 08:24 | Orthopedic Consultation ---
Date of Service September 03, 2024 Assessment & Plan (1) Ambulatory dysfunction: 79-year-old female with multiple medical comorbidities admitted with ambulatory dysfunction and left hip pain. Interestingly, she thinks she has been admitted for cardiac issues. We have been consulted for her left hip. She was admitted with his groin pain. She was given steroids and her hip pain is pretty much resolved. Her exam is pretty benign. X-rays are negative. CT scan suggest may have some iliopsoas tendinitis. No other real concerns. Her pain today is most consistent with referred pain from her back. Her sed rate and CRP are slightly elevated. She may have some degree of PMR. Plan: At this point no further invention for orthopedically is warranted. I agree with a steroid administration and I think that has helped her significantly. She can proceed with PT OT. She can weight-bear as tolerated. No need for further orthopedic evaluation. She does not need an MRI from our standpoint. If her pain recurs she can certainly let us know. I will see her back as needed. Any orthopedic questions can be directly [phone]. (2) Left hip pain: (3) History of pulmonary embolism: (4) Chronic renal disease, stage IV: History of Present Illness Reason for Consultation: . Left hip pain and iliopsoas tendinitis and ambulatory dysfunction. Requesting Physician: . Attending Physician: Justin Kilpatrick MD . Patient is a 79-year-old female with multiple medical comorbidities who was apparently admitted for ambulatory dysfunction and left hip pain. Upon asking her she thinks she has been admitted for a heart attack up. She has had about a 5 to 6-day history of some left groin pain that is gotten worse over time and was admitted yesterday through the ER. She had x-rays with in the past which have been relatively negative and a CT scan which showed iliopsoas tendinitis. She had gotten some prednisone and this morning she says the groin pain is gone. Describes a little bit of posterior buttock pain. No other complaints. She is sitting up in her chair eating breakfast. Once again her groin pain seems to be resolved. Allergies Allergy/AdvReac Type Severity Reaction Status Date / Time No Known Allergies Allergy Verified 08/29/24 12:26 Home Medications Medication Instructions Recorded Confirmed Type lancets (Accu-Chek Softclix 06/02/21 08/29/24 History Lancets) blood-glucose meter,continuous #1 ea 01/17/24 08/29/24 Rx (FreeStyle Marcelo 3 Shepherd) blood-glucose sensor (FreeStyle #2 ea 01/17/24 08/29/24 Rx Marcelo 3 Sensor device) omega-3 fatty acids 1,000 mg 1,000 mg PO QAM 01/30/24 08/29/24 History capsule bisacodyl 10 mg rectal suppository 10 mg SC DAILY PRN Constipation 02/14/24 08/29/24 History (Dulcolax (bisacodyl)) menthol 0.44 %-zinc oxide 20.6 % 1 applic topical BID Rash 02/14/24 08/29/24 History topical ointment (Calmoseptine) sodium phosphates 19 gram-7 118 ml SC DAILY PRN Constipation 02/14/24 08/29/24 History gram/118 mL enema (Fleet Enema) nitroglycerin 0.4 mg sublingual 0.4 mg sublingual Q5M PRN chest 02/21/24 08/29/24 Rx tablet pain #1 btl insulin syringe-needle U-100 1 mL #150 ea 03/14/24 08/29/24 Rx 29 gauge x 1/2" (BD Insulin Syringe) vitamins A,C,B-jcup-witcko 2,148 1 tab PO QAM 03/15/24 08/29/24 History mcg-113 mg-45 mg-17.4 mg tablet (PreserVision AREDS) glucagon 1 mg solution for 1 mg subcut Q20M PRN hypoglycemia 03/17/24 08/29/24 Rx injection (Glucagon Emergency Kit) #1 ea pen needle, diabetic 32 gauge x #200 ea 03/17/24 08/29/24 Rx 5/32" (BD Ultra-Fine Bernda Pen Needle) atorvastatin 40 mg tablet 40 mg PO QPM #90 tabs 03/30/24 08/29/24 Rx potassium chloride 10 mEq 10 meq PO DAILY #90 tabs 04/04/24 08/29/24 Rx tablet,extended release sacubitril 24 mg-valsartan 26 mg 1 tab PO BID #90 tabs 04/18/24 08/29/24 Rx tablet (Entresto) spironolactone 25 mg tablet 25 mg PO DAILY #90 tabs 04/18/24 08/29/24 Rx acetaminophen 500 mg tablet 1,000 mg (2 x 500 mg) PO TID PRN 04/21/24 08/29/24 Rx Temp >100/Pain #180 tabs lidocaine 4 % topical patch 1 patch topical .COMPLEX pain #30 04/28/24 08/29/24 Rx ea apixaban 5 mg tablet 5 mg PO BID #180 tabs 06/01/24 08/29/24 Rx diclofenac sodium 1 % topical gel 4 g topical BID 06/10/24 08/29/24 History carvedilol 3.125 mg tablet (Coreg) 3.125 mg PO BIDM #180 tabs 07/13/24 08/29/24 Rx clopidogrel 75 mg tablet 75 mg PO QAM #90 tabs 07/13/24 08/29/24 Rx furosemide 40 mg tablet 20 mg (1/2 x 40 mg) PO QAM #45 tabs 07/13/24 08/29/24 Rx pantoprazole 40 mg tablet,delayed 40 mg PO DAILY #90 tabs 07/13/24 08/29/24 Rx release (Protonix) loperamide 2 mg tablet (Imodium 2 mg PO Q6H PRN 07/20/24 08/29/24 History A-D) insulin degludec 100 unit/mL (3 36 unit (0.36 mL) subcut DAILY #15 07/24/24 08/29/24 Rx mL) subcutaneous pen (Tresiba mL FlexTouch U-100 insulin) pen needle, diabetic 31 gauge x #400 ea 07/24/24 08/29/24 Rx 3/16" (BD Ultra-Fine Mini Pen Needle) empagliflozin 10 mg tablet 10 mg PO DAILY 08/09/24 08/29/24 History (Jardiance) insulin aspart U-100 100 unit/mL 12 unit (0.12 mL) subcut TID #30 mL 08/22/24 08/29/24 Rx (3 mL) subcutaneous pen (Novolog FlexPen U-100 Insulin aspart) tramadol 50 mg tablet 25 mg (1/2 x 50 mg) PO TID PRN 08/29/24 08/29/24 Rx severe pain #30 tabs Past Med/Surg History Problem List Hyperkalemia Strain of right iliopsoas muscle Leukocytosis (Acute) Anticoagulated (Acute) Failure of outpatient treatment (Acute) Ambulatory dysfunction (Acute) Left hip pain (Acute) Elevated brain natriuretic peptide (BNP) level (Acute) Non-ST elevation DE (NSTEMI) (Acute) Acute kidney injury superimposed on chronic kidney disease (Acute) Influenza A virus present (Acute) Acute hypoxic respiratory failure (Acute) Loose stools History of pulmonary embolism (2019) Chronic anticoagulation Chronic renal disease, stage IV Heart 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, 41-49%) Hx of upper gastrointestinal hemorrhage History of non-ST elevation myocardial infarction (NSTEMI) (01/29/24) Dyslipidemia Hypertension CAD (coronary artery disease) Sacroiliac joint pain H/O deep venous thrombosis Left shoulder pain Low back pain Carpal tunnel syndrome, bilateral (Chronic) Gait disturbance (Chronic) Cerebral microvascular disease (Chronic) Uncontrolled type 2 diabetes mellitus with hyperglycemia, with long-term current use of insulin (Chronic) Current use of anticoagulant therapy Obesity, Class I, BMI 30-34.9 (Chronic) GERD (gastroesophageal reflux disease) Sensorineural hearing loss (SNHL) of both ears Bilateral tinnitus Mild cognitive impairment Medical History Elevated WBC count Excessive cerumen in both ear canals Hearing decreased Upper GI bleed Acute non-ST elevation myocardial infarction (NSTEMI) (01/29/24) Hypoxia Pulmonary edema Fall UTI (urinary tract infection) Osteoarthritis of left shoulder Esophageal ulcer Gastric ulcer Mitral regurgitation Ischemic cardiomyopathy Heart failure with reduced ejection fraction Acute blood loss anemia Acute GI bleeding Finger fracture, left Diabetes mellitus type 2, uncontrolled, with complications (~1988) Gastrointestinal hemorrhage Deep vein thrombosis (DVT) of left lower extremity (~05/2020) Chronic anticoagulation Cough Acute right-sided low back pain Trapezius muscle spasm Stroke COVID-19 virus infection (~05/14/20) Physical deconditioning Diabetes Surgical History S/P coronary artery stent placement S/P CABG x 5 (2009) History of heart bypass surgery History of carpal tunnel release of both wrists H/O partial thyroidectomy Family History Son Colorectal cancer Myocardial infarction Family/Other Colorectal cancer Aunt Colorectal cancer Father Myocardial infarction Uncle Myocardial infarction Brother Myocardial infarction Dyslipidemia Mother Heart disease Dementia Denies family history of Ovarian cancer Prostate cancer Breast cancer Social History Smoking Status: Former smoker Tobacco Type: Declines Age Started Using Tobacco: 15; Age Quit Using Tobacco: 20; packs per day: 0.25; Second Hand Exposure: No; Do You Dip or Chew Tobacco: No; Tobacco Cessation Education Requested by Patient: No Hx Alcohol Use: No Hx Substance Use: No Preferred Language: Slovak Communication Ability: Effective Visual Impairment: Limited Hearing Ability: Use of Hearing Aid Plate Former Required: No Beliefs That Will Affect Care: None marital status: / Current Living Situation: Personal Care Facility current occupational status: retired Other Information That Helps Us Care for You: No Feels Safe at Home: Yes Safety Concerns: Feels Safe At This Time Childhood Exposure to Second-Hand Smoke: Yes Diet: regular caffeine: Yes (1-2 cups a day) Dental Care, Regularly: Yes Physical Activity Frequency: Does not Exercise Physical Activity Frequency Comment: Just PT for hands Seatbelt Use: always Sunscreen Use: No Do you think of yourself as: straight/heterosexual Gender Identity: Female Assistive Devices: Glasses and Walker Review of Systems All systems reviewed & are unremarkable except as noted in HPI & below. Physical Exam . Physical examination reveals a pleasant elderly female. As she is sitting up in her bedside chair eating breakfast and looks comfortable. Examination left hip and leg reveals a fairly thin soft tissue envelope. Leg lengths are equal. She gets up and stands without difficulty. She got no particular pain with hip motion. She describes her pain in her buttock area. She is neurologically intact. Results & Data Results & Data Laboratory Results . Laboratory results reveal an elevated white count of 14. Sed rate was elevated at 60. The CRP is 0.69. Diagnostic Findings . X-rays of the pelvis and hips left hip were reviewed. Minimal arthritic change. No signs of fracture. A CT scan was also reviewed. Shows no signs of fracture. Some mild arthritic change. PG Care Time/CCT Total # of Minutes Spent Total Time Spent with Patient: Total time spent is greater than 50% in coordination of care (as documented) at patient's floor/unit and/or counseling patient: Coding Level of Care Code 07103 IN/OBS CONSULT LVL 4,60M Diagnoses Ambulatory dysfunction R26.2 Left hip pain M25.552 History of pulmonary embolism Z86.711 Chronic renal disease, stage IV N18.4
[2024-09-03] MEDS: PATIROMER CALCIUM SORBITEX 8.4 GM PACK PO SCH (12:24)
--- NOTE | 2024-09-03 14:28 | Pharmacy Report ---
Pharmacy Glycemic Short Note 2 - Date of Service September 03, 2024 - Glycemic Short BSG Results (Last 24 hours): 09/02/24 09/02/24 09/02/24 16:50 17:40 20:45 Glucose 224 H POC Glucose 191 H 178 H 09/02/24 09/03/24 09/03/24 20:55 06:46 07:54 Glucose 183 H 137 H POC Glucose 146 H 09/03/24 11:52 Glucose POC Glucose 241 H OUTPATIENT ANTIDIABETIC REGIMEN: * Tresiba 36 units SC daily * Novolog 12 units SC TID with meals * Empagliflozin 10 mg PO daily ASSESSMENT: * Francine is a 79 yo T2DM admitted with intractable hip/back pain. * Ordered dexamethasone 4 mg IV daily for pain. Ortho consulted. * Will empirically increase home basal dose to account for steroid induced hyperglycemia. * Novolog parameters based on patients home use of 72 units of insulin/day + stress of 2-3. PLAN FOR INPATIENT GLYCEMIC CONTROL: * Hold outpatient oral diabetes medications * Basal insulin * Lantus 42 units SQ daily * Bolus insulin * NovoLog per scale ACHS or Q6hrs while NPO * Goal Range: Low 110 mg/dL - High 140 mg/dL * Correction Factor: 15 mg/dL/unit * Nutritional / Prandial insulin per carb ratio of 1 unit per 4 grams CHO consumed Thank you
[2024-09-03] MEDS: LIDOCAINE 5% 1 PATCH TD SCH (16:16)
[2024-09-03] MEDS: ONDANSETRON INJ 2 MG/ML 2 ML VIAL IV PRN (20:49)
[2024-09-03] MEDS: APIXABAN 5 MG TABLET PO SCH (20:51)
[2024-09-04 06:22] LABS: Basophils # (auto) 0.02 K/uL (0.00-0.20); Basophils % (auto) 0.2 %; Eosinophils # (auto) 0.05 K/uL (0.00-0.50); Eosinophils % (auto) 0.4 %; Hematocrit (blood only) 35.5 % (37.0-47.0); Hemoglobin 11.2 g/dl (12.0-16.0); Immature Granulocytes # (auto) 0.04 K/uL (0.01-0.20); Immature Granulocytes % (auto) 0.3 %; Mean Corpuscular Hemoglobin 28.8 pg (25.0-34.0); Mean Corpuscular Hgb Conc 31.5 g/dL (32.0-36.0); Mean Corpuscular Volume 91.3 fL (80.0-100.0); Mean Platelet Volume 11.2 fL (9.4-12.4); Monocytes # (auto) 0.98 K/uL (0.11-0.59); Monocytes % (auto) 8.4 %; Neutrophils # (auto) 9.18 K/uL (1.40-6.50); Neutrophils % (auto) 78.7 %; Platelet Count 262 K/uL (130-400); RDW Coefficient of Variation 16.1 % (11.5-14.5); RDW Standard Deviation 54.1 fL (36.4-46.3); Red Blood Count 3.89 M/uL (4.20-5.40); White Blood Count 11.67 K/ul (4.8-10.8)
[2024-09-04 06:57] LABS: Partial Thromboplastin Ratio 1.1; Partial Thromboplastin Time 29 Seconds (21-31); Prothrombin Time 11.1 Seconds (9.0-12.0)
[2024-09-04 07:01] LABS: Albumin Level 3.9 gm/dl (3.4-5.0); BUN Creatinine Ratio 35.7 (10-20); Calcium 9.2 mg/dl (8.6-10.3); Creatinine Clr Calc Pharmacy 20.6 ml/min; Magnesium 2.2 mg/dl (1.7-2.4); Phosphorus 4.1 mg/dl (2.5-4.9); Potassium 5.1 mmol/L (3.5-5.1)
[2024-09-04 07:48] VITALS: RESP 18
[2024-09-04] MEDS ORDERED: DICLOFENAC SOD 1% GEL 100 GM TUBE EXT PRN (07:56)
[2024-09-04] MEDS: LANTUS PER UNIT CHARGE SQ SCH (08:45)
[2024-09-04] MEDS: FUROSEMIDE 20 MG TAB PO SCH (09:30)
[2024-09-04] MEDS: CALCIUM CARBONATE 500 MG CHEWABLE TAB PO PRN (10:18)
[2024-09-04 12:01] VITALS: BP 128/62; PULSE 66; TEMP 97.7; O2SAT 96
--- NOTE | 2024-09-04 12:57 | Discharge Summary ---
Discharge Summary Date of Service September 04, 2024 Principal Dx & Hospital Course #1 = Principal Diagnosis (1) Strain of left iliopsoas muscle: (2) Hyperkalemia: (3) Ambulatory dysfunction: (4) History of pulmonary embolism: (5) Uncontrolled type 2 diabetes mellitus with hyperglycemia, with long-term current use of insulin: Plan #Strain of left iliopsoas muscle / ambulatory dysfunction The patient is a 79-year-old female with past medical history including NSTEMI, NED, pulmonary embolism, CKD stage IV, HFmrEF, history of upper GI hemorrhage, CAD, hypertension, history of DVT and PE, cerebrovascular disease, GERD, SNHL bilaterally, and mild cognitive impairment. Presents with worsening of left groin pain starting on 08/29/2024. She was seen at her PCPs office, with x-ray performed which was negative. Presented because of worsening pain. Hip and pelvis x-ray showed bilateral hip degeneration. CT hip showed a swollen distal iliopsoas muscle with significant inflammation at the site of the tendon near th e trochanter insertion. Orthopedics was consulted who did not recommend any operative intervention, continue pain control and mobilization. Pain control at discharge short steroid taper, tylenol, ice, heat, prn tramadol. Consider pain management appointment for injection if not improving. Evaluated by PT who recommend return to [facility]. #hyperkalemia 5.2 on admission, highest 6.6. improved after patriomer. this is continued for [address] changes on EKG, no chest pain. Continue lasix. Hold entresto and spironolactone. potassium supplementation discontinued. Echocardiogram reviewed. Patient with congestive heart failure with ejection fraction of 40 to 45% - Recommend repeat labs next week and resume Entresto as able. DM - continue home regiment, mild elevations with steroid use Hx of PE - continue Eliquis Dispo: return to [place] today Notes For Next Care Provider recommend repeat BMP next week, if able recent resume Entresto with decreasing ejection fraction Medication Changes From Visit Entresto and spironolactone held pending repeat BMP Potassium supplement discontinued Short steroid taper Admission HPI Per Admitting Provider The patient is a 79-year-old female with past medical history including NSTEMI, NED, pulmonary embolism, CKD stage IV, HFmrEF, history of upper GI hemorrhage, CAD, hypertension, history of DVT and PE, cerebrovascular disease, GERD, SNHL bilaterally, and mild cognitive impairment.The patient presents to the emergency department with worsening of left groin pain initially began on 08/29/2024. She reports that the pain was initially occurring when she woke up in the morning at 08/29/2024, described as sharp and in her groin between her abdominal wall and leg. She was seen at her PCPs office, with x-ray performed which was negative. She was advised to take Tylenol 3 g spread throughout the day over 24-hour interval. And was placed on tramadol 25 mg p.o. 3 times daily as needed severe pain. Due to worsening pain, she presented to the ED for assessment this evening. Hip and pelvis x-ray showed bilateral hip degeneration. She then underwent CT scan of hip which showed a swollen distal iliopsoas muscle with significant inflammation at the site of the tendon near the trochanter insertion. From the ED she received dexamethasone 6 mg IV, morphine 2 mg IV then morphine 4 mg IV and Toradol 10 mg IV. Due to persistence of pain, [facility] and treatment, and orthopedic assessment. Discharge Exam General: NAD, VS as above, sitting up in the chair eating lunch, asking to go home Resp: normal respiratory effort, lungs clear to auscultation CV: RRR, no murmur, Abd: normal bowel sounds, non tender, soft Extremities: nontender to palpation in the thigh area does report that her tenderness is more in the hip/back area but this is not reproduced on palpation Neuro: A&O x3, Discharge Plan Discharge Items Patient Disposition: Personal Long-Term Reason For Visit: LEFT ILIOPSOAS MUSCLE INFLAMATION Discharge Diagnosis: Iliopsoas muscle inflammation Condition on Discharge: Fair Activity: Resume your previous activity Weightbearing: Full weightbearing Non-emergency contact: Primary Care Provider Call non-emergency contact if: you have any medication questions, your symptoms worsen and your temperature is above 101 Follow-up/Referrals: Maribel Sanabria MD [Primary Care Provider] - (follow up within one week ) Will Stewart PA-C [Physician] - (pain management if desire referral ) Diet: Carb Consistent or DM2 and Heart Healthy Addtl Attending Provider Instructions: Yung, You were hospitalized after having worsening groin pain. CT imaging showed that this muscle was inflamed. You were seen by the orthopedic team who did not recommend any surgical intervention. Continue with steroids, you received IV george roid here and will have an oral steroid taper You also had high potassium level - this improved with adding medications and taking away other medications. Full recommendations below. You were seen by physical therapy who recommend you return back to your personal [facility]. Pain control Recommendations: * Continue steroid taper as prescribed * Pain control options: tylenol, tramadol, heat or ice * If pain is uncontrolled can follow up with Pain management clinic for possible injection. Their information is above * Moves as able High potassium recommendations: * Continue patiromer (new prescription) for next 4 days * Stop potassium supplementation * Hold Entresto and spironolactone - until instructed to resume by PCP * Recommend getting repeat labs in a week to check potassium level * low potassium diet Activity: You can do normal everyday activities as your body allows. Take rest breaks if you feel tired. Do not overexert. Stop activity if you have pain, shortness of breath or feel dizzy. Follow-up appointments: Make an appointment with your primary care physician within one week of discharge. A copy of this summary will be sent to them. Every time you see your primary care physician, or any other doctor, bring your medication list, and a list of questions. CONTACT YOUR PRIMARY CARE PROVIDER if you experience any of the following: Shortness of breath or difficulty breathing Fevers or chills Feeling tired with normal activity or experiencing dizziness or fainting Difficulty following your treatment plan, or difficulty taking medications CALL 911 OR GO TO THE EMERGENCY DEPARTMENT if you experience any of the following: Severe abdominal pain or nausea/vomiting Severe chest pain, or chest pain that radiates (moves) to your jaw or arm Sudden, severe shortness of breath or difficulty breathing Thank you for allowing us to participate in your care. Pending Studies at Discharge: No Stand-Alone Forms: [employer], Smoking Cessation Skilled Items Patient informed of condition?: Yes DNR: Yes Discharge Level of Care: Other Communicable Disease: No Discharge Prognosis: Stable Lines: None Urinary Catheter: No Medications and DC Order Prescriptions: New [place] 8.4 gram Powder In Packet 8.4 g PO DAILY@1200 4 Days Qty: 4 0RF prednisone 20 mg tablet See Taper PO DAILY Qty: 5 0RF Taper: Taper, Blank 20 mg DAILY for 3 Days 10 mg DAILY for 4 Days Continued (DME) FreeStyle Marcelo 3 Partridge Misc See Rx Instructions .Route Qty: 1 0RF Rx Instructions: for use with Marcelo 3 sensors (DME) FreeStyle Marcelo 3 Sensor Device See Rx Instructions .Route Qty: 2 11RF Rx Instructions: change every 14 days (DME) insulin syringe-needle U-100 [BD Insulin Syringe] 1 mL 29 gauge x 1/2" syringe See Rx Instructions .Route Qty: 150 5RF Rx Instructions: use 5 syringes daily Glucagon Emergency Kit (human) 1 mg recon soln 1 mg subcut Q20M PRN (Reason: hypoglycemia) Qty: 1 5RF Rx Instructions: until target blood sugar attained (DME) pen needle, diabetic [BD Ultra-Fine Brenda Pen Needle] 32 gauge x 5/32" needle See Rx Instructions .Route Qty: 200 5RF Rx Instructions: Use with insulin injection 4 times a day atorvastatin 40 mg tablet 40 mg PO QPM Qty: 90 0RF acetaminophen 500 mg tablet 1,000 mg PO TID MDD 3g/24hr PRN (Reason: Temp >100/Pain) Qty: 180 1RF lidocaine 4 % adhesive patch,medicated 1 patch topical .COMPLEX Qty: 30 5RF Rx Instructions: apply to back of upper thighs in the AM and remove in PM apixaban 5 mg tablet 5 mg PO BID Qty: 180 3RF Hold Instructions: hold per discharge instructions carvedilol [Coreg] 3.125 mg tablet 3.125 mg PO BIDM Qty: 180 3RF Rx Instructions: must administer with a meal/food clopidogrel 75 mg tablet 75 mg PO QAM Qty: 90 3RF furosemide 40 mg tablet 20 mg PO QAM Qty: 45 3RF pantoprazole [Protonix] 40 mg tablet,delayed release (DR/EC) 40 mg PO DAILY Qty: 90 3RF (DME) pen needle, diabetic [BD Ultra-Fine Mini Pen Needle] 31 gauge x 3/16" needle See Rx Instructions .Route Qty: 400 3RF Rx Instructions: Inject insulin 4 times daily insulin degludec [Tresiba FlexTouch U-100] 100 unit/mL (3 mL) insulin pen 36 unit subcut DAILY Qty: 15 0RF insulin aspart U-100 [Novolog FlexPen U-100 Insulin] 100 unit/mL (3 mL) insulin pen 12 unit subcut TID Qty: 30 1RF (DME) lancets [Accu-Chek Softclix Lancets] Misc See Rx Instructions .ROUTE .MEDSUPPLY Rx Instructions: Test blood sugar once daily PRN Jardiance 10 mg tablet 10 mg PO DAILY tramadol 50 mg tablet 25 mg PO TID PRN (Reason: severe pain) Qty: 30 0RF Rx Instructions: Supervising physician Maribel Howell [facility] [id number] loperamide [Imodium A-D] 2 mg tablet 2 mg PO Q6H PRN diclofenac sodium 1 % Gel 4 g TOPICAL BID Rx Instructions: left shoulder omega-3 fatty acids 1,000 mg Capsule 1,000 mg PO QAM PreserVision AREDS 2,148 mcg-113 mg-45 mg-17.4mg tablet 1 tab PO QAM bisacodyl [Dulcolax (bisacodyl)] 10 mg Suppository 10 mg TN DAILY PRN (Reason: Constipation) Rx Instructions: Give on day 3 on 3-11 shift if no BM after MOM Fleet Enema 19-7 gram/118 mL Enema 118 ml TN DAILY PRN (Reason: Constipation) Rx Instructions: If no BM after dulcolax on day 4 of 7-3 shift menthol-zinc oxide [Calmoseptine] 0.44-20.6 % Ointment 1 applic TOPICAL BID Rx Instructions: Start Date 02/11/24 x14 day supply nitroglycerin 0.4 mg tablet, sublingual 0.4 mg sublingual Q5M PRN (Reason: chest pain) Qty: 1 0RF Rx Instructions: max 3 tablets in 15 minutes. Held spironolactone 25 mg tablet 25 mg PO DAILY Qty: 90 3RF Hold Instructions: Provider's Order Rx Instructions: 25mg per [facility] records Entresto 24-26 mg tablet 1 tab PO BID Qty: 90 3RF Hold Instructions: Provider's Order Discontinued potassium chloride 10 mEq tablet extended release 10 meq PO DAILY Qty: 90 3RF Discharge Orders: Discharge Order (Routine); Ordered 09/04/24 Ordered By: Tragn Arroyo/Other Patient Handouts: Low Potassium Diet Dc Admission Data Admit Date/Time: 09/02/24 15:02 Attending Provider: Justin Kilpatrick Admit Provider: Huey Myrick Primary Care Provider: Maribel Sanabria V. Other Providers: Huey Myrick; Carlos Bragg; Lisbeth Richter; Delfina Ellis; Shweta Durand; Gopi De La Vega; Robina Yusuf; Mannie San; Cassandra Orozco; Thee Juarez; Silvio Pérez; Lizzy Howard; David Moreno; Kika Dyer; Luther Ruffin; Kevin Razo; Porsche Ro; Jena Delgadillo; Keegan Cortes; Marisol Moses Other Interventions: Discharge Summary Assessment (RN) Last Done: 09/04/24 13:14 Hospital Stay Data Consultations 09/02/24 00:48 ED Decision to Admit Stat 09/02/24 09:56 Consult Orthopedic Surgery Routine Diagnostic Imagining Performed Hip CT 09/01/24 22:16 Exam(s): CT LEFT HIP Without Contrast EXAM: CT Left Lower Extremity Without Intravenous Contrast, Hip CLINICAL HISTORY: Reason for exam: pain, neg xrays. TECHNIQUE: Axial computed tomography images of the left hip without intravenous contrast. CTDI is 30.25 mGy and DLP is 814.71 mGy-cm. Automated exposure control was utilized for the study. A dose lowering technique was utilized adhering to the principles of ALARA. COMPARISON: No relevant prior studies available. FINDINGS: Bones/joints: Osteopenia. No acute fracture or dislocation. Pelvic enthesopathy. Degenerative change in the left sacroiliac joint and the pubic symphysis. Minor osteoarthritic change in the left hip. Soft tissues: Swollen appearance of the distal iliopsoas muscle and tendon near the trochanteric insertion with some surrounding fat stranding. Vasculature: Vascular calcifications. IMPRESSION: Swollen appearance of the distal iliopsoas muscle and tendon near the trochanteric insertion with some surrounding fat stranding. Appearance raises the possibility of iliopsoas injury. Correlate clinically. No obvious tendon retraction is visualized, but tendon tear cannot be excluded on the basis of CT. No acute osseous findings. Electronically signed by: Jennifer Edwards M.D. 09/02/24 00:41 AM Pending Results Patient Have Any Pending Studies at Discharge: No Discharge Instructions Given to Patient (Per Discharging Provider) Ms. Barragan, Leonardo were hospitalized after having worsening groin pain. CT imaging showed that this muscle was inflamed. You were seen by the orthopedic team who did not recommend any surgical intervention. Continue with steroids, you received IV steroid here and will have an oral steroid taper You also had high potassium level - this improved with adding medications and taking away other medications. Full recommendations below. You were seen by physical therapy who recommend you return back to your personal [facility]. Pain control Recommendations: * Continue steroid taper as prescribed * Pain control options: tylenol, tramadol, heat or ice * If pain is uncontrolled can follow up with Pain management clinic for possible injection. Their information is above * Moves as able High potassium recommendations: * Continue patiromer (new prescription) for next 4 days * Stop potassium supplementation * Hold Entresto and spironolactone - until instructed to resume by PCP * Recommend getting repeat labs in a week to check potassium level * low potassium diet Activity: You can do normal everyday activities as your body allows. Take rest breaks if you feel tired. Do not overexert. Stop activity if you have pain, shortness of breath or feel dizzy. Follow-up appointments: Make an appointment with your primary care physician within one week of discharge. A copy of this summary will be sent to them. Every time you see your primary care physician, or any other doctor, bring your medication list, and a list of questions. CONTACT YOUR PRIMARY CARE PROVIDER if you experience any of the following: Shortness of breath or difficulty breathing Fevers or chills Feeling tired with normal activity or experiencing dizziness or fainting Difficulty following your treatment plan, or difficulty taking medications CALL 911 OR GO TO THE EMERGENCY DEPARTMENT if you experience any of the following: Severe abdominal pain or nausea/vomiting Severe chest pain, or chest pain that radiates (moves) to your jaw or arm Sudden, severe shortness of breath or difficulty breathing Thank you for allowing us to participate in your care. Total Time Total Time Spent Total Time Spent (In Minutes): Time spent day of discharge 37 minutes including direct patient care, medication reconciliation, documentation, review of labs and images, and coordination of care. Coding Level of Care Code 96670 INP/OBS DISCH >30 MIN Diagnoses Strain of left iliopsoas muscle S76.812A Hyperkalemia E87.5 Ambulatory dysfunction R26.2 History of pulmonary embolism Z86.711 Uncontrolled type 2 diabetes mellitus with hyperglycemia, with long-term current use of insulin E11.65; Z79.4
--- NOTE | 2024-09-04 14:38 | Electrocardiogram Report ---
Test Reason : Blood Pressure : */* mmHG Vent. Rate : 72 BPM Atrial Rate : 72 BPM P-R Int : 142 ms QRS Dur : 98 ms QT Int : 392 ms P-R-T Axes : 48 0 82 degrees QTcB Int : 429 ms Normal sinus rhythm Poor R wave progression, consider anterior DE vs. lead placement vs. LVH Abnormal ECG Confirmed by Dwayne Mukherjee ([id number]) on 09/04/2024 2:37:44 PM Referred By: REFERRED SELF Confirmed By: Dwayne Mukherjee
--- NOTE | 2024-09-04 14:45 | Electrocardiogram Report ---
Test Reason : Blood Pressure : */* mmHG Vent. Rate : 75 BPM Atrial Rate : 75 BPM P-R Int : 162 ms QRS Dur : 106 ms QT Int : 386 ms P-R-T Axes : 61 17 116 degrees QTcB Int : 431 ms Normal sinus rhythm with sinus arrhythmia Abnormal ECG Confirmed by Dwayne Mukherjee ([id number]) on 09/04/2024 2:45:43 PM Referred By: REFERRED SELF Confirmed By: Dwayne Mukherjee
== END 2024-09-04 14:27 | disposition home or self-care (01) | DRG 537 ==
LOC: ED 22:03 → 3W 22:03 → SUATTDRO 09-02 02:16 → 3W 09-02 02:56 → 4W 09-02 14:27

== ENCOUNTER 2025-01-30 06:14 | Inpatient (IN) ==
[2025-01-30] MEDS: FUROSEMIDE 40 MG/4 ML VIAL IV ONE (06:30)
--- NOTE | 2025-01-30 06:30 | Emergency Department Note ---
History of Present Illness General Chief complaint: Respiratory Distress Stated complaint: SHORTNESS OF BREATH Time Seen by Provider: 01/30/25 06:26 Source: patient and EMS Mode of arrival: EMS Limitations: clinical acuity History of Present Illness Patient is a 79-year-old female with history of HFpEF, CAD status post CABG, CKD, type 2 diabetes tension, dyslipidemia who presents in acute respiratory distress. EMS [facility] for sudden onset of shortness of breath that started this morning. Oxygen saturations were in the upper 70s on room air. Patient did not tolerate a nonrebreather and was transition to CPAP en route. Her respiratory distress improved with CPAP. She was given a DuoNeb treatment and Solu-Medrol en route. Patient denies any chest pain at this time. No lower extremity swelling history is limited due to acute respiratory distress. Home Medications Medication Instructions Recorded Confirmed Type lancets (Accu-Chek Softclix 06/02/21 01/08/25 History Lancets) blood-glucose sensor (FreeStyle #2 ea 01/17/24 01/08/25 Rx Marcelo 3 Sensor device) blood-glucose,java designer,cont #1 ea 01/17/24 01/08/25 Rx (FreeStyle Marcelo 3 [place]) omega-3 fatty acids 1,000 mg 1,000 mg PO QAM 01/30/24 01/08/25 History capsule bisacodyl 10 mg rectal suppository 10 mg ID DAILY PRN Constipation 02/14/24 01/08/25 History (Dulcolax (bisacodyl)) sodium phosphates 19 gram-7 118 ml ID DAILY PRN Constipation 02/14/24 01/08/25 History gram/118 mL enema (Fleet Enema) nitroglycerin 0.4 mg sublingual 0.4 mg sublingual Q5M PRN chest 02/21/24 01/08/25 Rx tablet pain #1 btl insulin syringe-needle U-100 1 mL #150 ea 03/14/24 01/08/25 Rx 29 gauge x 1/2" (BD Insulin Syringe) vitamins A,C,P-prjt-vzfoml 2,148 1 tab PO QAM 03/15/24 01/08/25 History mcg-113 mg-45 mg-17.4 mg tablet (PreserVision AREDS) glucagon 1 mg solution for 1 mg subcut Q20M PRN hypoglycemia 03/17/24 01/08/25 Rx injection (Glucagon Emergency Kit) #1 ea sacubitril 24 mg-valsartan 26 mg 1 tab PO BID #90 tabs 04/18/24 01/08/25 Rx tablet (Entresto) acetaminophen 500 mg tablet 1,000 mg (2 x 500 mg) PO TID PRN 04/21/24 01/08/25 Rx Temp >100/Pain #180 tabs lidocaine 4 % topical patch 1 patch topical .COMPLEX pain #30 04/28/24 01/08/25 Rx ea apixaban 5 mg tablet 5 mg PO BID #180 tabs 06/01/24 01/08/25 Rx carvedilol 3.125 mg tablet (Coreg) 3.125 mg PO BIDM #180 tabs 07/13/24 01/08/25 Rx clopidogrel 75 mg tablet 75 mg PO QAM #90 tabs 07/13/24 01/08/25 Rx furosemide 40 mg tablet 20 mg (1/2 x 40 mg) PO QAM #45 tabs 07/13/24 01/08/25 Rx pantoprazole 40 mg tablet,delayed 40 mg PO DAILY #90 tabs 07/13/24 01/08/25 Rx release (Protonix) loperamide 2 mg tablet (Imodium 2 mg PO Q6H PRN 07/20/24 01/08/25 History A-D) insulin degludec 100 unit/mL (3 36 unit (0.36 mL) subcut DAILY #15 07/24/24 01/08/25 Rx mL) subcutaneous pen (Tresiba mL FlexTouch U-100 insulin) pen needle, diabetic 31 gauge x #400 ea 07/24/24 01/08/25 Rx 3/16" (BD Ultra-Fine Mini Pen Needle) empagliflozin 10 mg tablet 10 mg PO DAILY 08/09/24 01/08/25 History (Jardiance) insulin aspart U-100 100 unit/mL 12 unit (0.12 mL) subcut TID #30 mL 08/22/24 01/08/25 Rx (3 mL) subcutaneous pen (Novolog FlexPen U-100 Insulin aspart) menthol 0.44 %-zinc oxide 20.6 % 1 applic topical BID PRN Rash #113 09/19/24 01/08/25 Rx topical ointment (Calmoseptine) grams Gel seat cushion miscellaneous 09/28/24 01/08/25 History tramadol 50 mg tablet 50 mg PO TID PRN severe pain #90 12/20/24 01/08/25 Rx tabs nystatin 100,000 unit/gram topical 1 applic topical TID #60 grams 12/21/24 01/08/25 Rx powder atorvastatin 40 mg tablet 40 mg PO QPM #90 tabs 01/04/25 01/08/25 Rx lidocaine HCl 4 % topical liquid 1 ea topical QID PRN pain #73 mL 01/17/25 Rx roll-on (Theraworx Pain Relief) ergocalciferol (vitamin D2) 1,250 1,250 mcg PO .weekly #10 caps 01/24/25 Rx mcg (50,000 unit) capsule Allergies Allergy/AdvReac Type Severity Reaction Status Date / Time No Known Allergies Allergy Verified 01/08/25 08:48 Past Med/Surg History Problem List (Updated 01/30/25 @ 08:14 by Luther Tamayo MD) CHF exacerbation (Acute) Heart failure with improved ejection fraction (HFimpEF) Atherosclerotic peripheral vascular disease with intermittent claudication Chronic renal disease, stage IV Uncontrolled type 2 diabetes mellitus with hyperglycemia, with long-term current use of insulin Pancreatic abnormality Elevated brain natriuretic peptide (BNP) level (Acute) Heart 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, 41-49%) Hx of upper gastrointestinal hemorrhage History of non-ST elevation myocardial infarction (NSTEMI) (01/29/24) Dyslipidemia Hypertension CAD (coronary artery disease) H/O deep venous thrombosis Low back pain Carpal tunnel syndrome, bilateral (Chronic) Gait disturbance (Chronic) Cerebral microvascular disease (Chronic) Current use of anticoagulant therapy Obesity, Class I, BMI 30-34.9 (Chronic) GERD (gastroesophageal reflux disease) Sensorineural hearing loss (SNHL) of both ears Bilateral tinnitus Mild cognitive impairment Medical History Non-ST elevation [place] (NSTEMI) Acute kidney injury superimposed on chronic kidney disease Influenza A virus present Acute hypoxic respiratory failure Loose stools Sacroiliac joint pain Left shoulder pain Strain of left iliopsoas muscle Hyperkalemia Strain of right iliopsoas muscle History of pulmonary embolism (2019) Elevated WBC count Excessive cerumen in both ear canals Hearing decreased Upper GI bleed Acute non-ST elevation myocardial infarction (NSTEMI) (01/29/24) Hypoxia Pulmonary edema Fall UTI (urinary tract infection) Osteoarthritis of left shoulder Esophageal ulcer Gastric ulcer Mitral regurgitation Ischemic cardiomyopathy Heart failure with reduced ejection fraction Acute blood loss anemia Acute GI bleeding Finger fracture, left Diabetes mellitus type 2, uncontrolled, with complications (~1988) Gastrointestinal hemorrhage Deep vein thrombosis (DVT) of left lower extremity (~05/2020) Cough Acute right-sided low back pain Trapezius muscle spasm Stroke COVID-19 virus infection (~05/14/20) Physical deconditioning Diabetes Surgical History S/P coronary artery stent placement S/P CABG x 5 (2009) History of heart bypass surgery History of carpal tunnel release of both wrists H/O partial thyroidectomy Family History Son Colorectal cancer Myocardial infarction Family/Other Colorectal cancer Aunt Colorectal cancer Father Myocardial infarction Uncle Myocardial infarction Brother Myocardial infarction Dyslipidemia Mother Heart disease Dementia Denies family history of Ovarian cancer Prostate cancer Breast cancer Social History Smoking Status: Former smoker Tobacco Type: Declines Age Started Using Tobacco: 15; Age Quit Using Tobacco: 20; packs per day: 0.25; Second Hand Exposure: No; Do You Dip or Chew Tobacco: No; Hx Alcohol Use: No Hx Substance Use: No Preferred Language: Mac[place] Communication Ability: Effective Visual Impairment: Limited Hearing Ability: Use of Hearing Aid Rubbish Collection Supervisor Required: No Beliefs That Will Affect Care: None marital status: / Current Living Situation: Personal Care Facility current occupational status: retired Feels Safe at Home: Yes Childhood Exposure to Second-Hand Smoke: Yes Diet: regular caffeine: Yes (1-2 cups a day) Dental Care, Regularly: Yes Physical Activity Frequency: Does not Exercise Physical Activity Frequency Comment: Just PT for hands Seatbelt Use: always Sunscreen Use: No Do you think of yourself as: straight/heterosexual Gender Identity: Female Assistive Devices: Walker Review of Systems See HPI for pertinent positives & negatives. Physical Exam Vital Signs Vital Signs - 24 hr 01/30/25 06:15 01/30/25 06:15 01/30/25 06:15 Temperature 37.0 C Temperature Source Axillary Pulse Rate 89 Pulse Rate from SpO2 Sensor Respiratory Rate 24 Respiratory Effort / Characteristics Non-Labored Spontaneous Spontaneous Labored Short of Breath Respiratory Depth Normal Deep Respiratory Pattern Regular Blood Pressure 136/91 Blood Pressure Mean 106 Pulse Oximetry 96 96 Oxygen Delivery Method Room Air BiPAP Room Air Fraction of Inspired Oxygen 40 40 SaO2/FiO2 Ratio 240 Sepsis Recent Fever Within 48 Hours No Sepsis New/Unexplained Change in Mental Status N/A Sepsis Action Taken by Nursing No Action Required 01/30/25 06:25 01/30/25 06:28 01/30/25 06:31 Temperature Temperature Source Pulse Rate 87 90 84 Pulse Rate from SpO2 Sensor Respiratory Rate 35 H 24 Respiratory Effort / Characteristics Non-Labored Spontaneous Respiratory Depth Normal Respiratory Pattern Blood Pressure Blood Pressure Mean Pulse Oximetry 96 96 Oxygen Delivery Method BiPAP Fraction of Inspired Oxygen 40 40 SaO2/FiO2 Ratio 240 Sepsis Recent Fever Within 48 Hours Sepsis New/Unexplained Change in Mental Status Sepsis Action Taken by Nursing 01/30/25 07:00 01/30/25 07:06 01/30/25 07:10 Temperature Temperature Source Pulse Rate 67 Pulse Rate from SpO2 Sensor 67 Respiratory Rate 19 Respiratory Effort / Characteristics Respiratory Depth Respiratory Pattern Blood Pressure 127/67 106/55 L Blood Pressure Mean 91 79 Pulse Oximetry 97 Oxygen Delivery Method BiPAP Fraction of Inspired Oxygen SaO2/FiO2 Ratio Sepsis Recent Fever Within 48 Hours Sepsis New/Unexplained Change in Mental Status Sepsis Action Taken by Nursing See below Constitutional WD/WN, vitals as above Respiratory + respiratory distress, + labored breathing and + uses accessory muscles Auscultation: + rales Cardiovascular Rate/Rhythm: regular rate Heart Sounds: normal S1 and normal S2 Vessels: no JVD Extremities: no edema Gastrointestinal (Abdomen) normal bowel sounds, soft, nontender, no hepatosplenomegaly Course Administered Medications Discontinued Medications Furosemide (Furosemide 40 Mg/4 Ml Vial) 40 mg IV ONE ONE Stop: 01/30/25 06:28 Last Admin: 01/30/25 06:30 Dose: 40 mg Documented By: JULES Critical Care Time Critical Care Time: Yes Total Critical Care Time: 35 Medical Decision Making Differential Diagnosis CHF exacerbation, flash pulmonary edema, ACS, PE, pneumonia, pneumothorax COPD exacerbation Medical Records Attestation: I reviewed the patient's medical records. Home Medications Current Medication List: was personally reviewed by me Laboratory Data Attestation: I reviewed the patient's lab results. 01/30/25 06:27 01/30/25 06:27 Lab Results 01/30/25 Range/Units 06:27 WBC 11.65 H (4.8-10.8) K/ul RBC 5.11 (4.20-5.40) M/uL Hgb 12.7 (12.0-16.0) g/dl Hct 42.6 (37.0-47.0) % MCV 83.4 (80.0-100.0) fL MCH 24.9 L (25.0-34.0) pg MCHC 29.8 L (32.0-36.0) g/dL RDW Std Deviation 58.6 H (36.4-46.3) fL RDW Coeff of Magali 19.7 H (11.5-14.5) % Plt Count 308 (130-400) K/uL MPV 11.0 (9.4-12.4) fL Immature Gran % (Auto) 0.3 % Neut % (Auto) 72.6 % Lymph % (Auto) 17.5 % Emmet % (Auto) 6.4 % Eos % (Auto) 2.7 % Baso % (Auto) 0.5 % Neut # (Auto) 8.45 H (1.40-6.50) K/uL Lymph # (Auto) 2.04 (1.20-3.40) K/uL Emmet # (Auto) 0.74 H (0.11-0.59) K/uL Eos # (Auto) 0.32 (0.00-0.50) K/uL Baso # (Auto) 0.06 (0.00-0.20) K/uL Immature Gran # (Auto) 0.04 (0.01-0.20) K/uL PT 11.5 (9.0-12.0) Seconds INR 1.1 (0.9-1.1) APTT 30 (21-31) Seconds PTT Ratio 1.1 Sodium 143 (136-145) mmol/L Potassium 4.1 (3.5-5.1) mmol/L Chloride 106 (98-107) mmol/L Carbon Dioxide 26 (21-32) mmol/L Anion Gap 11 (3-11) BUN 32 H (6-23) mg/dl Creatinine 1.50 H (0.6-1.2) mg/dl Est Cr Clr Drug Dosing 34.9 ml/min eGFR 35.23 BUN/Creatinine Ratio 21.3 H (10-20) Glucose 205 H (70-99(Fasting)) mg/dl Calcium 9.1 (8.6-10.3) mg/dl Total Bilirubin 0.6 (0.2-1.0) mg/dl AST 18 (13-39) U/L ALT 21 (7-52) U/L Alkaline Phosphatase 82 (34-104) U/L Troponin I High Sens 62.9 H* (0-14) pg/ml B-Natriuretic Peptide 633 H (0-100) pg/ml Total Protein 6.7 (6.0-8.3) gm/dl Albumin 4.2 (3.4-5.0) gm/dl Globulin 2.5 (2.5-4.0) gm/dl Albumin/Globulin Ratio 1.7 (0.9-2) SARS-CoV-2 (PCR) NEGATIVE (Negative) Influenza Type A (PCR) Negative (Neg) Influenza Type B (PCR) Negative (Neg) RSV (RT-PCR) Negative (Neg) Imaging Data Attestation: I personally reviewed and interpreted this imaging study as follows: Radiologist's Impression: Chest X-Ray 01/30/25 06:26 EXAM: XR chest 1V portable CLINICAL HISTORY: Chest pain, nonspecific TECHNIQUE: An X-ray image of the chest is obtained in PA projection. COMPARISON: Comparison is made with the prior examination dated 06/09/2024. FINDINGS: Pulmonary Parenchyma: The pulmonary interstitial markings are prominent. There are reticular and alveolar opacities predominantly in bilateral lower lobes, new since the prior examination. There is mild blunting of the left costophrenic angle, which may represent a small pleural effusion. No evidence of right pleural effusion or pleural thickening. Heart and Mediastinum: Heart size and shape are normal. No mediastinal widening or masses. No hilar or mediastinal lymphadenopathy. Bony Thorax: Bony thorax appears intact without fractures or deformities. Median sternotomy wires are seen. Soft Tissues: Soft tissues overlying the chest wall are unremarkable. IMPRESSION: 1. Findings suggestive of interstitial pulmonary edema, new since the prior examination, differential diagnosis includes acute infectious process, and need clinical correlation. 2. Mild blunting of the left costophrenic angle, which may represent small pleural effusion, new finding. Electronically signed by Flaquito Garcia 01-30-2025 07:35 AM ECG Data Attestation: I personally reviewed and interpreted this ECG as follows: Indication: + SOB/dyspnea Rate (beats per minute): 89 Rhythm: + normal sinus ECG Intervals/blocks: + Normal QRS, + Normal QT and + Normal ID ECG [place]ner: + Normal ECG ST segments: + Normal ST segments Comparison ECG Date: from (09/04/2024.) Change: the following changes noted Additional Comments: ST depressions in V4 through V6 have resolved. No other acute changes noted. Blood Pressure Blood Pressure Findings: Low blood pressure Blood Pressure Disposition: elevated BP felt to be situational Additional Comments: Related to BiPAP MDM Narrative Patient is a 79-year-old female presents in acute respiratory distress. She was transition from CPAP to BiPAP on arrival and looked much more comfortable from a work of breathing perspective. Initial evaluation with lung exam and bedside ultrasound was consistent with flash pulmonary edema. Patient was given IV Lasix and lab work was ordered and reviewed. Cardiac enzymes are elevated consistent with CHF exacerbation. Low suspicion for acute ACS or indication for heparin initiation at this time. No infectious source noted or concern for overlying pneumonia. Patient remained comfortable on BiPAP settings and will be admitted to hospitalist service for further management of CHF exacerbation. Impression & Plan CHF exacerbation Discharge Plan Visit Data Chief Complaint: Respiratory Distress Stated Complaint: SHORTNESS OF BREATH ED Provider: Luther Tamayo Discharge Problem: CHF exacerbation Patient Disposition: Admitted As Inpatient Condition: Good Forms Stand Alone Forms: My [facility] [place] Prescriptions Prescriptions: No Action (DME) FreeStyle Marcelo 3 [place] Misc See Rx Instructions .Route Qty: 1 0RF Rx Instructions: for use with Marcelo 3 sensors (DME) FreeStyle Marcelo 3 Sensor Device See Rx Instructions .Route Qty: 2 11RF Rx Instructions: change every 14 days (DME) insulin syringe-needle U-100 [BD Insulin Syringe] 1 mL 29 gauge x 1/2" syringe See Rx Instructions .Route Qty: 150 5RF Rx Instructions: use 5 syringes daily Glucagon Emergency Kit (human) 1 mg recon soln 1 mg subcut Q20M PRN (Reason: hypoglycemia) Qty: 1 5RF Rx Instructions: until target blood sugar attained Entresto 24-26 mg tablet 1 tab PO BID Qty: 90 3RF Hold Instructions: Provider's Order acetaminophen 500 mg tablet 1,000 mg PO TID MDD 3g/24hr PRN (Reason: Temp >100/Pain) Qty: 180 1RF lidocaine 4 % adhesive patch,medicated 1 patch topical .COMPLEX Qty: 30 5RF Rx Instructions: apply to back of upper thighs in the AM and remove in PM apixaban 5 mg tablet 5 mg PO BID Qty: 180 3RF Hold Instructions: hold per discharge instructions carvedilol [Coreg] 3.125 mg tablet 3.125 mg PO BIDM Qty: 180 3RF Rx Instructions: must administer with a meal/food clopidogrel 75 mg tablet 75 mg PO QAM Qty: 90 3RF furosemide 40 mg tablet 20 mg PO QAM Qty: 45 3RF pantoprazole [Protonix] 40 mg tablet,delayed release (DR/EC) 40 mg PO DAILY Qty: 90 3RF (DME) pen needle, diabetic [BD Ultra-Fine Mini Pen Needle] 31 gauge x 3/16" needle See Rx Instructions .Route Qty: 400 3RF Rx Instructions: Inject insulin 4 times daily insulin degludec [Tresiba FlexTouch U-100] 100 unit/mL (3 mL) insulin pen 36 unit subcut DAILY Qty: 15 0RF insulin aspart U-100 [Novolog FlexPen U-100 Insulin] 100 unit/mL (3 mL) insulin pen 12 unit subcut TID Qty: 30 1RF menthol-zinc oxide [Calmoseptine] 0.44-20.6 % ointment 1 applic TOPICAL BID PRN (Reason: Rash) Qty: 113 0RF Gel seat cushion miscellaneous tramadol 50 mg tablet 50 mg PO TID PRN (Reason: severe pain) Qty: 90 5RF Rx Instructions: Supervising physician Maribel KAHN [id number] [facility] [id number] nystatin 100,000 unit/gram powder 1 applic topical TID Qty: 60 0RF atorvastatin 40 mg tablet 40 mg PO QPM Qty: 90 3RF lidocaine HCl [Theraworx Pain Relief] 4 % liquid roll-on 1 ea topical QID PRN (Reason: pain) Qty: 73 3RF Rx Instructions: Pt may self administer ergocalciferol (vitamin D2) 1,250 mcg (50,000 unit) capsule 1,250 mcg PO .weekly Qty: 10 0RF (DME) lancets [Accu-Chek Softclix Lancets] Misc See Rx Instructions .ROUTE .MEDSUPPLY Rx Instructions: Test blood sugar once daily PRN Jardiance 10 mg tablet 10 mg PO DAILY loperamide [Imodium A-D] 2 mg tablet 2 mg PO Q6H PRN omega-3 fatty acids 1,000 mg Capsule 1,000 mg PO QAM PreserVision AREDS 2,148 mcg-113 mg-45 mg-17.4mg tablet 1 tab PO QAM bisacodyl [Dulcolax (bisacodyl)] 10 mg Suppository 10 mg ID DAILY PRN (Reason: Constipation) Rx Instructions: Give on day 3 on 3-11 shift if no BM after MOM Fleet Enema 19-7 gram/118 mL Enema 118 ml ID DAILY PRN (Reason: Constipation) Rx Instructions: If no BM after dulcolax on day 4 of 7-3 shift nitroglycerin 0.4 mg tablet, sublingual 0.4 mg sublingual Q5M PRN (Reason: chest pain) Qty: 1 0RF Rx Instructions: max 3 tablets in 15 minutes. Referrals Referrals: Maribel Sanabria MD [Primary Care Provider] -
[2025-01-30 06:51] LABS: Hematocrit (blood only) 42.6 % (37.0-47.0); Hemoglobin 12.7 g/dl (12.0-16.0); Immature Granulocytes # (auto) 0.04 K/uL (0.01-0.20); Immature Granulocytes % (auto) 0.3 %; Mean Corpuscular Hemoglobin 24.9 pg (25.0-34.0); Mean Corpuscular Volume 83.4 fL (80.0-100.0); Platelet Count 308 K/uL (130-400); RDW Standard Deviation 58.6 fL (36.4-46.3); Red Blood Count 5.11 M/uL (4.20-5.40); White Blood Count 11.65 K/ul (4.8-10.8)
[2025-01-30 07:10] LABS: Alanine Aminotransferase 21.0 U/L (7-52); Albumin Globulin Ratio 1.7 (0.9-2); Alkaline Phosphatase 82.0 U/L (34-104); Anion Gap 11.0 (3-11); Bilirubin,Total 0.6 mg/dl (0.2-1.0); Blood Urea Nitrogen 32.0 mg/dl (6-23); Calcium 9.1 mg/dl (8.6-10.3); Carbon Dioxide 26.0 mmol/L (21-32); Chloride 106.0 mmol/L (98-107); Creatinine Clr Calc Pharmacy 34.9 ml/min; Globulin 2.5 gm/dl (2.5-4.0); Glucose 205.0 mg/dl (70-99(Fasting)); Potassium 4.1 mmol/L (3.5-5.1); Sodium 143.0 mmol/L (136-145); Total Protein 6.7 gm/dl (6.0-8.3)
[2025-01-30 07:20] LABS: INR 1.1 (0.9-1.1); Partial Thromboplastin Time 30 Seconds (21-31); Prothrombin Time 11.5 Seconds (9.0-12.0)
[2025-01-30 07:35] LABS: Influenza A virus by PCR Negative (Neg); Influenza B virus by PCR Negative (Neg); SARS CoV2 RNA(COVID-19) Ceph NEGATIVE (Negative)
--- NOTE | 2025-01-30 07:35 | XRay Report ---
EXAM: XR chest 1V portable CLINICAL HISTORY: Chest pain, nonspecific TECHNIQUE: An X-ray image of the chest is obtained in PA projection. COMPARISON: Comparison is made with the prior examination dated 06/09/2024. FINDINGS: Pulmonary Parenchyma: The pulmonary interstitial markings are prominent. There are reticular and alveolar opacities predominantly in bilateral lower lobes, new since the prior examination. There is mild blunting of the left costophrenic angle, which may represent a small pleural effusion. No evidence of right pleural effusion or pleural thickening. Heart and Mediastinum: Heart size and shape are normal. No mediastinal widening or masses. No hilar or mediastinal lymphadenopathy. Bony Thorax: Bony thorax appears intact without fractures or deformities. Median sternotomy wires are seen. Soft Tissues: Soft tissues overlying the chest wall are unremarkable. IMPRESSION: 1. Findings suggestive of interstitial pulmonary edema, new since the prior examination, differential diagnosis includes acute infectious process, and need clinical correlation. 2. Mild blunting of the left costophrenic angle, which may represent small pleural effusion, new finding. Electronically signed by Flaquito Garcia 01-30-2025 07:35 AM
[2025-01-30] MEDS ORDERED: ONDANSETRON INJ 2 MG/ML 2 ML VIAL IV PRN (08:17)
[2025-01-30] MEDS ORDERED: POLYETHYLENE (MIRALAX) 17 GM PACK PO PRN (08:17)
--- NOTE | 2025-01-30 08:17 | History & Physical Report ---
Date of Service January 30, 2025 Assessment & Plan (1) Heart failure with improved ejection fraction (HFimpEF): (2) Uncontrolled type 2 diabetes mellitus with hyperglycemia, with long-term current use of insulin: Plan Acute respiratory failure with likely acute diastolic CHF will admit to PCU WIll remain on BIPAP for now. WIll give an additional lasix of 20 mg to equal 60 mg for today. Will try to remove BIPAP later in the day. Update: BIPAP was removed, diet ordered. Diuretics will need to be ordered on 01/31 Acute kidney injury superimposed on CKD stage IV- Creatinine 1.5, with base 1.5-1.7 Resume Entresto in the a.m. Repeat laboratories in the a.m. NSTEMI- Troponin elevated, repeat levels were checked and showed close to 3k Echo ordered: NO changes Heparin drip ordered CAD/hypertension/elevated troponin- Admit to monitored bed Most recent echocardiogram on 01/04/25 with ejection fraction 50-55% Likely supply/demand mismatch Continue carvedilol, Diabetes mellitus- Hold empagliflozin and consult glycemic controlng Check hemoglobin A1c History of PE and DVT- Continue heparin apixaban on hold Updated Daughter in the AM and PM. History of Present Illness Primary Care Provider: Maribel Sanabria MD the patient is a 79-year-old female with past medical history including NSTEMI, NED, pulmonary embolism, CKD stage IV, HFmrEF, history of upper GI hemorrhage, CAD, hypertension, history of DVT and PE, cerebrovascular disease, GERD, SNHL bilaterally, and mild cognitive impairment.The patient presents to the emergency department with worsening SOB which began this mornng. Patient is a poor historian as she is currenly on BIPAP device and is unable to provide significant history. Patient reports she woke up in the middle of the night with SOB. She went had to sit up and stay in the recliner. Her SOB did not improve. She was then treated with neb treatments and was placed on BIPAP enroute to the hospital. IN the ED, patient improved with diuretic therapy and appears to be more comfortable. Allergies Allergy/AdvReac Type Severity Reaction Status Date / Time No Known Allergies Allergy Verified 01/30/25 09:21 Home Medications Medication Instructions Recorded Confirmed Type lancets (Accu-Chek Softclix 06/02/21 01/08/25 History Lancets) blood-glucose sensor (FreeStyle #2 ea 01/17/24 01/08/25 Rx Marcelo 3 Sensor device) blood-glucose,occupational health rn,cont #1 ea 01/17/24 01/08/25 Rx (FreeStyle Marcelo 3 [place]) omega-3 fatty acids 1,000 mg 1,000 mg PO QAM 01/30/24 01/30/25 History capsule insulin syringe-needle U-100 1 mL #150 ea 03/14/24 01/08/25 Rx 29 gauge x 1/2" (BD Insulin Syringe) vitamins A,C,H-rhsn-gluyha 2,148 1 tab PO QAM 03/15/24 01/30/25 History mcg-113 mg-45 mg-17.4 mg tablet (PreserVision AREDS) sacubitril 24 mg-valsartan 26 mg 1 tab PO BID #90 tabs 04/18/24 01/30/25 Rx tablet (Entresto) acetaminophen 500 mg tablet 1,000 mg (2 x 500 mg) PO TID PRN 04/21/24 01/30/25 Rx Temp >100/Pain #180 tabs apixaban 5 mg tablet 5 mg PO BID #180 tabs 06/01/24 01/30/25 Rx carvedilol 3.125 mg tablet (Coreg) 3.125 mg PO BIDM #180 tabs 07/13/24 01/30/25 Rx clopidogrel 75 mg tablet 75 mg PO QAM #90 tabs 07/13/24 01/30/25 Rx furosemide 40 mg tablet 20 mg (1/2 x 40 mg) PO QAM #45 tabs 07/13/24 01/30/25 Rx pantoprazole 40 mg tablet,delayed 40 mg PO DAILY #90 tabs 07/13/24 01/30/25 Rx release (Protonix) loperamide 2 mg tablet (Imodium 2 mg PO Q6H PRN Diarrhea 07/20/24 01/30/25 History A-D) insulin degludec 100 unit/mL (3 36 unit (0.36 mL) subcut DAILY #15 07/24/24 01/30/25 Rx mL) subcutaneous pen (Tresiba mL FlexTouch U-100 insulin) pen needle, diabetic 31 gauge x #400 ea 07/24/24 01/08/25 Rx 3/16" (BD Ultra-Fine Mini Pen Needle) empagliflozin 10 mg tablet 10 mg PO QAM 08/09/24 01/30/25 History (Jardiance) insulin aspart U-100 100 unit/mL 12 unit (0.12 mL) subcut TID #30 mL 08/22/24 01/30/25 Rx (3 mL) subcutaneous pen (Novolog FlexPen U-100 Insulin aspart) atorvastatin 40 mg tablet 40 mg PO QPM #90 tabs 01/04/25 01/30/25 Rx acetaminophen 500 mg tablet 1,000 mg PO TID Pain 01/30/25 01/30/25 History diclofenac sodium 1 % topical gel 4 g topical BID Left Shoulder Pain 01/30/25 01/30/25 History ergocalciferol (vitamin D2) 1,250 1,250 mcg PO WK 01/30/25 01/30/25 History mcg (50,000 unit) capsule (Vitamin D2) glucose 4 gram chewable tablet 16 g PO DAILY PRN BG<70 01/30/25 01/30/25 History lidocaine 4 % topical patch 1 patch topical DAILY PRN Back 01/30/25 01/30/25 History Upper thigh Pain magnesium hydroxide 400 mg/5 mL 2,400 mg PO DAILY PRN Constipation 01/30/25 01/30/25 History oral suspension (Milk of Magnesia) menthol 0.44 %-zinc oxide 20.6 % 1 applic topical TID PRN Rash/Skin 01/30/25 01/30/25 History topical ointment (Calmoseptine) Protection nitroglycerin 0.4 mg sublingual 4 mg sublingual Q5M PRN Chest Pain 01/30/25 01/30/25 History tablet polyethylene glycol 3350 17 17 g PO DAILY PRN Constipation 01/30/25 01/30/25 History gram/dose oral powder (Miralax) tramadol 50 mg tablet 50 mg PO TID PRN Pain 01/30/25 01/30/25 History Past Med/Surg History Problem List CHF exacerbation (Acute) Heart failure with improved ejection fraction (HFimpEF) Atherosclerotic peripheral vascular disease with intermittent claudication Chronic renal disease, stage IV Uncontrolled type 2 diabetes mellitus with hyperglycemia, with long-term current use of insulin Pancreatic abnormality Elevated brain natriuretic peptide (BNP) level (Acute) Heart 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, 41-49%) Hx of upper gastrointestinal hemorrhage History of non-ST elevation myocardial infarction (NSTEMI) (01/29/24) Dyslipidemia Hypertension CAD (coronary artery disease) H/O deep venous thrombosis Low back pain Carpal tunnel syndrome, bilateral (Chronic) Gait disturbance (Chronic) Cerebral microvascular disease (Chronic) Current use of anticoagulant therapy Obesity, Class I, BMI 30-34.9 (Chronic) GERD (gastroesophageal reflux disease) Sensorineural hearing loss (SNHL) of both ears Bilateral tinnitus Mild cognitive impairment Medical History Non-ST elevation [place] (NSTEMI) Acute kidney injury superimposed on chronic kidney disease Influenza A virus present Acute hypoxic respiratory failure Loose stools Sacroiliac joint pain Left shoulder pain Strain of left iliopsoas muscle Hyperkalemia Strain of right iliopsoas muscle History of pulmonary embolism (2019) Chronic anticoagulation Elevated WBC count Excessive cerumen in both ear canals Hearing decreased Upper GI bleed Acute non-ST elevation myocardial infarction (NSTEMI) (01/29/24) Hypoxia Pulmonary edema Fall UTI (urinary tract infection) Osteoarthritis of left shoulder Esophageal ulcer Gastric ulcer Mitral regurgitation Ischemic cardiomyopathy Heart failure with reduced ejection fraction Acute blood loss anemia Acute GI bleeding Finger fracture, left Diabetes mellitus type 2, uncontrolled, with complications (~1988) Gastrointestinal hemorrhage Deep vein thrombosis (DVT) of left lower extremity (~05/2020) Chronic anticoagulation Cough Acute right-sided low back pain Trapezius muscle spasm Stroke COVID-19 virus infection (~05/14/20) Physical deconditioning Diabetes Surgical History S/P coronary artery stent placement S/P CABG x 5 (2009) History of heart bypass surgery History of carpal tunnel release of both wrists H/O partial thyroidectomy Family History Son Colorectal cancer Myocardial infarction Family/Other Colorectal cancer Aunt Colorectal cancer Father Myocardial infarction Uncle Myocardial infarction Brother Myocardial infarction Dyslipidemia Mother Heart disease Dementia Denies family history of Ovarian cancer Prostate cancer Breast cancer Social History Smoking Status: Former smoker Tobacco Type: Declines Age Started Using Tobacco: 15; Age Quit Using Tobacco: 20; packs per day: 0.25; Second Hand Exposure: No; Do You Dip or Chew Tobacco: No; Hx Alcohol Use: No Hx Substance Use: No Preferred Language: Colombian Communication Ability: Effective Visual Impairment: Limited Hearing Ability: Use of Hearing Aid Lithopone Charger Required: No Beliefs That Will Affect Care: None marital status: / Current Living Situation: Personal Care Facility Current Living Situation Comment: [facility] current occupational status: retired Feels Safe at Home: Yes Safety Concerns: Feels Safe At This Time Childhood Exposure to Second-Hand Smoke: Yes Diet: regular caffeine: Yes (1-2 cups a day) Dental Care, Regularly: Yes Physical Activity Frequency: Does not Exercise Physical Activity Frequency Comment: Just PT for hands Seatbelt Use: always Sunscreen Use: No Do you think of yourself as: straight/heterosexual Gender Identity: Female Assistive Devices: Walker Review of Systems Review of Systems: Other (unable due to patient being on BIPAP device) Physical Exam Constitutional: well developed, + acute distress and + ill appearing (On BIPAP) Neck: trachea midline, no thyromegaly Respiratory: bilateral rales Cardiovascular: Rate/Rhythm: regular rate and regular rhythm Gastrointestinal (Abdomen): normal bowel sounds, soft, nontender, no hepatosplenomegaly Musculoskeletal: no cyanosis or clubbing, extremities motor strength 5/5 Skin: no rashes, warm and dry mild lower extremity edema. Neurologic: PERRL, EOMI, accommodation nl, no face palsy, no dysarthria Psychiatric: Apperance: appeared stated age Lymphatic: no cervical or axillary lymphadenopathy Results & Data Results & Data Vital Signs (Past 12 Hours) Vital Signs Temp Pulse Resp BP Pulse Ox O2 Del Method FiO2 01/30/25 07:10 106/55 L 01/30/25 07:06 67 19 97 BiPAP 01/30/25 07:00 127/67 01/30/25 06:31 84 24 96 BiPAP 40 01/30/25 06:28 90 35 H 96 40 01/30/25 06:25 87 01/30/25 06:15 96 Room Air 40 01/30/25 06:15 37.0 C 89 24 136/91 96 BiPAP 40 01/30/25 06:15 Room Air PG Care Time/CCT Total # of Minutes Spent Total Time Spent with Patient: Total time spent is greater than 50% in coordination of care (as documented) at patient's floor/unit and/or counseling patient: Coding Level of Care Code 53469 INT INP/OBS CARE 3/75MIN Diagnoses Heart failure with improved ejection fraction (HFimpEF) I50.20 Uncontrolled type 2 diabetes mellitus with hyperglycemia, with long-term current use of insulin E11.65; Z79.4
[2025-01-30] MEDS ORDERED: PHARMACY GLYCEMIC MGMT CONSULT PRN (08:22)
[2025-01-30] MEDS: FUROSEMIDE INJ 20 MG/2 ML VIAL IV ONE (08:42)
[2025-01-30] MEDS ORDERED: LIDOCAINE 4% CREAM 15 GM TUBE EXT PRN (09:15)
[2025-01-30 09:16] LABS: Appearance Urine Clear (Clear); Glucose Urine UA 2+ (Negative)
[2025-01-30] MEDS ORDERED: GLUCOSE 10 TAB/TUBE PO PRN (09:30)
[2025-01-30] MEDS ORDERED: GLUCAGON FOR INJ 1 MG VIAL SQ PRN (09:30)
[2025-01-30] MEDS ORDERED: CARBOHYDRATES FOR HYPOGLYCEMIA PO PRN (09:30)
[2025-01-30] MEDS ORDERED: DEXTROSE 50% 50 ML SYRINGE IV PRN (09:30)
[2025-01-30] MEDS ORDERED: GLUCOSE 40% GEL 15 GM TUBE PO PRN (09:30)
--- NOTE | 2025-01-30 09:32 | Pharmacy Report ---
Pharmacy Glycemic Short Note 2 - Date of Service January 30, 2025 - Glycemic Short BSG Results (Last 24 hours): 01/30/25 06:27 Glucose 205 H OUTPATIENT ANTIDIABETIC REGIMEN: * Tresiba 36 units SC daily * Novolog 12 units TID with meals * Empagliflozin 10 mg PO daily A1c = pending ASSESSMENT: * Francine is a 79 yo T2DM with PMH significant for HFpEF, CAD status post CABG, CKD, dyslipidemia who presents in acute respiratory distress. Per H&P, patient was administered Solu-Medrol en route to the ED. No further steroids ordered at this time. BSG 205 mg/dL. * Basal insulin will be reduced for NPO status. * Novolog CF and CR will be based on home usage of ~72 units of insulin per day which is equivalent to 18 units BID basal + CF 20, CR7. PLAN FOR INPATIENT GLYCEMIC CONTROL: * Hold outpatient oral diabetes medications * Basal insulin * Lantus 25 units SQ X 1 * Further basal dosing TBD * Bolus insulin * NovoLog per scale ACHS or Q6hrs while NPO * Goal Range: Low 110 mg/dL - High 160 mg/dL * Correction Factor: 20 mg/dL/unit * Nutritional / Prandial insulin per carb ratio of 1 unit per 8 grams CHO consumed
[2025-01-30] MEDS: INSULIN ASPART PER UNIT CHARGE SC SCH ×2 (12:10→16:57)
[2025-01-30] MEDS ORDERED: Heparin IV Adult Wt-Based Standard *NO* INITIAL Bolus Protocol IV SCH (12:19)
[2025-01-30] MEDS: HEPARIN 25000 UNIT/500 ML D5W 25,000 UNITS/500 ML BAG IV SCH (12:40)
--- NOTE | 2025-01-30 13:32 | Electrocardiogram Report ---
Test Reason : Blood Pressure : */* mmHG Vent. Rate : 89 BPM Atrial Rate : 89 BPM P-R Int : 156 ms QRS Dur : 94 ms QT Int : 400 ms P-R-T Axes : -6 -7 -36 degrees QTcB Int : 486 ms Sinus rhythm with occasional Premature ventricular complexes Septal infarct Marked ST abnormality, possible lateral subendocardial injury Abnormal ECG When compared with ECG of 04-Sep-2024 09:58, Significant changes have occurred Confirmed by Gibran Ramon ([id number]) on 01/30/2025 1:32:11 PM Referred By: Confirmed By: Gibran Ramon
--- NOTE | 2025-01-30 13:56 | XCELERA ---
[id number]
[2025-01-30] MEDS: LANTUS PER UNIT CHARGE SC ONE ×2 (14:22→20:55)
--- NOTE | 2025-01-30 15:50 | Cardiology Consultation ---
Date of Consultation January 30, 2025 Assessment & Plan (1) Heart failure with improved ejection fraction (HFimpEF): -The patient is improving with intravenous diuretics. -Suspect the etiology of her decompensation is related to dietary indiscretion with salt. -Reviewed daily weights and sliding scale diuretics with patient and her daughter. -Continue intravenous diuretics. (2) CAD (coronary artery disease): - Extensive history as outlined above. (3) Hypertension: - Borderline control on current regimen. (4) Dyslipidemia: - Continue atorvastatin. History of Present Illness Reason for Consultation: Mrs. Barragan is a 79-year-old female admitted earlier today in decompensated CHF. This consultation was ordered to assess her cardiac management. Of note, the patient typically follows with Dr. Cherry and in the CHF clinic. The patient was in her usual state of health until approximately 1 AM on the day of presentation. She woke from sleep short of breath and then went to use the bathroom. She was unable to come back to bed and sat up in her recliner chair at the rest of the night. She called 911 as her shortness of breath became progressive. At no time did she experience chest discomfort. She does admit to noncompliance with a salt restricted diet, adding salt to her food and eating salted chips. She does follow daily weights. She apparently gained 2 pounds in the 24 hours prior to presentation. On arrival here, the patient was noted to be hypoxic with her saturations in the upper 70% range. She was placed on BiPAP and given intravenous diuretics. Her symptoms improved. She did have an echocardiogram performed last month which noted normal left ventricular systolic function with ejection fraction of 50-55% with an inferior wall motion abnormality. She does carry history of coronary artery disease having undergone a 5 vessel bypass while living in [place] back in 2009. She underwent PCI of her SVG to the right PDA, and a PCI to the SVG to OM 3 back in January 2024. Currently, patient resting comfortably in bed and without complaints. Past medical and surgical history 1. Coronary artery diseasesee above 2. Ischemic cardiomyopathyresolved 3. Chronic diastolic CHF 4. Hypertension 5. Hypercholesterolemia 6. Diabetes mellitus 7. Chronic renal failure 8. GERD 9. Recurrent DVT/PE 10. Chronic anticoagulation 11. Obesity 12. Hearing deficit 13. History of upper GI bleed 14. Bilateral carpal tunnel release Social history , resides at [facility] No tobacco or alcohol Family history Noncontributory Review of system A 10 point review of system was undertaken and negative except that described above. Attending Physician: Alex Del Valle Allergies Allergy/AdvReac Type Severity Reaction Status Date / Time No Known Allergies Allergy Verified 01/30/25 09:21 Home Medications Medication Instructions Recorded Confirmed Type lancets (Accu-Chek Softclix 06/02/21 01/08/25 History Lancets) blood-glucose sensor (FreeStyle #2 ea 01/17/24 01/08/25 Rx Marcelo 3 Sensor device) blood-glucose,document analyst,cont #1 ea 01/17/24 01/08/25 Rx (FreeStyle Marcelo 3 [place]) omega-3 fatty acids 1,000 mg 1,000 mg PO QAM 01/30/24 01/30/25 History capsule insulin syringe-needle U-100 1 mL #150 ea 03/14/24 01/08/25 Rx 29 gauge x 1/2" (BD Insulin Syringe) vitamins A,C,V-ymvx-nhkqlw 2,148 1 tab PO QAM 03/15/24 01/30/25 History mcg-113 mg-45 mg-17.4 mg tablet (PreserVision AREDS) sacubitril 24 mg-valsartan 26 mg 1 tab PO BID #90 tabs 04/18/24 01/30/25 Rx tablet (Entresto) acetaminophen 500 mg tablet 1,000 mg (2 x 500 mg) PO TID PRN 04/21/24 01/30/25 Rx Temp >100/Pain #180 tabs apixaban 5 mg tablet 5 mg PO BID #180 tabs 06/01/24 01/30/25 Rx carvedilol 3.125 mg tablet (Coreg) 3.125 mg PO BIDM #180 tabs 07/13/24 01/30/25 Rx clopidogrel 75 mg tablet 75 mg PO QAM #90 tabs 07/13/24 01/30/25 Rx furosemide 40 mg tablet 20 mg (1/2 x 40 mg) PO QAM #45 tabs 07/13/24 01/30/25 Rx pantoprazole 40 mg tablet,delayed 40 mg PO DAILY #90 tabs 07/13/24 01/30/25 Rx release (Protonix) loperamide 2 mg tablet (Imodium 2 mg PO Q6H PRN Diarrhea 07/20/24 01/30/25 History A-D) insulin degludec 100 unit/mL (3 36 unit (0.36 mL) subcut DAILY #15 07/24/24 01/30/25 Rx mL) subcutaneous pen (Tresiba mL FlexTouch U-100 insulin) pen needle, diabetic 31 gauge x #400 ea 07/24/24 01/08/25 Rx 3/16" (BD Ultra-Fine Mini Pen Needle) empagliflozin 10 mg tablet 10 mg PO QAM 08/09/24 01/30/25 History (Jardiance) insulin aspart U-100 100 unit/mL 12 unit (0.12 mL) subcut TID #30 mL 08/22/24 01/30/25 Rx (3 mL) subcutaneous pen (Novolog FlexPen U-100 Insulin aspart) atorvastatin 40 mg tablet 40 mg PO QPM #90 tabs 01/04/25 01/30/25 Rx acetaminophen 500 mg tablet 1,000 mg PO TID Pain 01/30/25 01/30/25 History diclofenac sodium 1 % topical gel 4 g topical BID Left Shoulder Pain 01/30/25 01/30/25 History ergocalciferol (vitamin D2) 1,250 1,250 mcg PO WK 01/30/25 01/30/25 History mcg (50,000 unit) capsule (Vitamin D2) glucose 4 gram chewable tablet 16 g PO DAILY PRN BG<70 01/30/25 01/30/25 History lidocaine 4 % topical patch 1 patch topical DAILY PRN Back 01/30/25 01/30/25 History Upper thigh Pain magnesium hydroxide 400 mg/5 mL 2,400 mg PO DAILY PRN Constipation 01/30/25 01/30/25 History oral suspension (Milk of Magnesia) menthol 0.44 %-zinc oxide 20.6 % 1 applic topical TID PRN Rash/Skin 01/30/25 01/30/25 History topical ointment (Calmoseptine) Protection nitroglycerin 0.4 mg sublingual 4 mg sublingual Q5M PRN Chest Pain 01/30/25 01/30/25 History tablet polyethylene glycol 3350 17 17 g PO DAILY PRN Constipation 01/30/25 01/30/25 History gram/dose oral powder (Miralax) tramadol 50 mg tablet 50 mg PO TID PRN Pain 01/30/25 01/30/25 History Patient History Medical History Non-ST elevation [place] (NSTEMI) Acute kidney injury superimposed on chronic kidney disease Influenza A virus present Acute hypoxic respiratory failure Loose stools Sacroiliac joint pain Left shoulder pain Strain of left iliopsoas muscle Hyperkalemia Strain of right iliopsoas muscle History of pulmonary embolism (2019) Elevated WBC count Excessive cerumen in both ear canals Hearing decreased Upper GI bleed Acute non-ST elevation myocardial infarction (NSTEMI) (01/29/24) Hypoxia Pulmonary edema Fall UTI (urinary tract infection) Osteoarthritis of left shoulder Esophageal ulcer Gastric ulcer Mitral regurgitation Ischemic cardiomyopathy Heart failure with reduced ejection fraction Acute blood loss anemia Acute GI bleeding Finger fracture, left Diabetes mellitus type 2, uncontrolled, with complications (~1988) Gastrointestinal hemorrhage Deep vein thrombosis (DVT) of left lower extremity (~05/2020) Cough Acute right-sided low back pain Trapezius muscle spasm Stroke COVID-19 virus infection (~05/14/20) Physical deconditioning Diabetes Surgical History S/P coronary artery stent placement S/P CABG x 5 (2009) History of heart bypass surgery History of carpal tunnel release of both wrists H/O partial thyroidectomy Family History Son Colorectal cancer Myocardial infarction Family/Other Colorectal cancer Aunt Colorectal cancer Father Myocardial infarction Uncle Myocardial infarction Brother Myocardial infarction Dyslipidemia Mother Heart disease Dementia Denies family history of Ovarian cancer Prostate cancer Breast cancer Social History Smoking Status: Former smoker Tobacco Type: Declines Age Started Using Tobacco: 15; Age Quit Using Tobacco: 20; packs per day: 0.25; Second Hand Exposure: No; Do You Dip or Chew Tobacco: No; Hx Alcohol Use: No Hx Substance Use: No Preferred Language: Faroese Communication Ability: Effective Visual Impairment: Limited Hearing Ability: Use of Hearing Aid Compliance Representative Required: No Beliefs That Will Affect Care: None marital status: / Current Living Situation: Personal Care Facility Current Living Situation Comment: [facility] current occupational status: retired Feels Safe at Home: Yes Safety Concerns: Feels Safe At This Time Childhood Exposure to Second-Hand Smoke: Yes Diet: regular caffeine: Yes (1-2 cups a day) Dental Care, Regularly: Yes Physical Activity Frequency: Does not Exercise Physical Activity Frequency Comment: Just PT for hands Seatbelt Use: always Sunscreen Use: No Do you think of yourself as: straight/heterosexual Gender Identity: Female Assistive Devices: Walker Physical Exam Physical Exam: In general this is an obese white female in no acute distress. HEENT exam is negative. Neck reveals normal carotid upstrokes without bruits. Jugular venous pressure is flat at 90. There is no thyromegaly. Cardiovascular exam reveals a regular rhythm with distant heart sounds. No obvious murmurs. Lungs note by basilar rales. Abdomen is soft without bruits. Extremities reveal intact radial artery and posterior tibial pulses bilaterally. There is no peripheral edema. Results & Data Vital Signs (Past 12 Hours) Vital Signs Temp Pulse Pulse Resp BP BP Pulse Ox 01/30/25 14:33 01/30/25 13:24 79 20 174/88 H 94 01/30/25 13:01 78 21 178/88 H 98 01/30/25 10:56 66 16 161/86 H 95 01/30/25 10:26 74 20 98 01/30/25 09:48 65 20 150/80 H 92 01/30/25 08:42 75 17 168/82 H 95 01/30/25 07:10 106/55 L 01/30/25 07:06 67 19 97 01/30/25 07:00 127/67 01/30/25 06:31 84 24 96 01/30/25 06:28 90 35 H 96 01/30/25 06:25 87 01/30/25 06:15 96 01/30/25 06:15 37.0 C 89 24 136/91 96 01/30/25 06:15 O2 Del Method O2 Flow Rate FiO2 01/30/25 14:33 Nasal Cannula 2 01/30/25 13:24 Nasal Cannula 2 01/30/25 13:01 Nasal Cannula 2 01/30/25 10:56 BiPAP 01/30/25 10:26 40 01/30/25 09:48 BiPAP 01/30/25 08:42 BiPAP 01/30/25 07:10 01/30/25 07:06 BiPAP 01/30/25 07:00 01/30/25 06:31 BiPAP 40 01/30/25 06:28 40 01/30/25 06:25 01/30/25 06:15 Room Air 40 01/30/25 06:15 BiPAP 40 01/30/25 06:15 Room Air Laboratory Results CBC is unremarkable. PRP notes a creatinine of 1.5. Initial high-sensitivity troponin was 63 with follow-up values of 892 and 2621. BNP is elevated at 633. Diagnostic Findings Echocardiogram notes normal left ventricular systolic function with an ejection fraction of 50 to 55%. There is hypokinesis of the proximal and mid inferior wall. There is moderate LVH along with mild mitral digitation. Compared with study performed on January 04, 2025, no significant change. EKG notes sinus rhythm with PVCs and old anteroseptal VT pattern. There is lateral ST depression. Chest x-ray notes cardiomegaly and diffuse interstitial edema. PG Care Time/CCT Total # of Minutes Spent Total Time Spent with Patient: Total time spent is greater than 50% in coordination of care (as documented) at patient's floor/unit and/or counseling patient: Coding Level of Care Code 92210 IN/OBS CONSULT LVL 4,60M Diagnoses Heart failure with improved ejection fraction (HFimpEF) I50.20 Coronary artery disease involving [place] coronary artery of [place] heart without angina pectoris I25.10 Coronary Disease-Associated Artery/Lesion type: [place] artery [place] vs. transplanted heart: [place] heart Associated angina: without angina Primary hypertension I10 Hypertension type: primary hypertension Dyslipidemia E78.5 (2) CAD (coronary artery disease) Coronary Disease-Associated Artery/Lesion type: [place] artery [place] vs. transplanted heart: [place] heart Associated angina: without angina Qualified Code(s): I25.10 - Atherosclerotic heart disease of [place] coronary artery without angina pectoris (3) Hypertension Hypertension type: primary hypertension Qualified Code(s): I10 - Essential (primary) hypertension
[2025-01-30] MEDS: ATORVASTATIN 40 MG TAB PO SCH (20:55)
[2025-01-30] MEDS: VALSARTAN/SACUBITRIL 26/24MG TAB PO SCH (20:55)
[2025-01-30] MEDS ORDERED: APIXABAN 5 MG TABLET PO SCH (21:00)
[2025-01-30 21:58] LABS: ANTI-Xa, UFH(UnfractionatedHep > 1.50 IU/ml (0.3-0.7)
[2025-01-31 00:40] LABS: ANTI-Xa, UFH(UnfractionatedHep 1.14 IU/ml (0.3-0.7)
[2025-01-31 02:29] LABS: ANTI-Xa, UFH(UnfractionatedHep 0.84 IU/ml (0.3-0.7)
[2025-01-31 04:01] LABS: Hematocrit (blood only) 37.4 % (37.0-47.0); Hemoglobin 11.6 g/dl (12.0-16.0); Mean Corpuscular Hemoglobin 25.0 pg (25.0-34.0); Mean Corpuscular Volume 80.6 fL (80.0-100.0); Platelet Count 280 K/uL (130-400); RDW Standard Deviation 56.2 fL (36.4-46.3); Red Blood Count 4.64 M/uL (4.20-5.40); White Blood Count 12.26 K/ul (4.8-10.8)
[2025-01-31 04:15] LABS: Anion Gap 6.0 (3-11); Blood Urea Nitrogen 41.0 mg/dl (6-23); Calcium 9.0 mg/dl (8.6-10.3); Carbon Dioxide 28.0 mmol/L (21-32); Chloride 106.0 mmol/L (98-107); Creatinine Clr Calc Pharmacy 31.3 ml/min; Glucose 226.0 mg/dl (70-99(Fasting)); Potassium 3.8 mmol/L (3.5-5.1); Sodium 140.0 mmol/L (136-145)
[2025-01-31 05:00] LABS: ANTI-Xa, UFH(UnfractionatedHep 0.74 IU/ml (0.3-0.7)
[2025-01-31] MEDS: CLOPIDOGREL BISULFATE 75 MG TAB PO SCH (05:26)
[2025-01-31 06:36] LABS: ANTI-Xa, UFH(UnfractionatedHep 0.65 IU/ml (0.3-0.7)
[2025-01-31 07:32] LABS: Hemoglobin A1C 8.6 % (4.5-5.6)
--- NOTE | 2025-01-31 09:12 | Hospitalist Progress Note ---
Date of Service January 31, 2025 Assessment & Plan (1) Heart failure with improved ejection fraction (HFimpEF): (2) Uncontrolled type 2 diabetes mellitus with hyperglycemia, with long-term current use of insulin: Plan 79-year-old female history of heart failure improved ejection fraction on Entresto who presented with weight gain in the outpatient setting and respiratory distress consistent with exacerbation of heart failure. Acute respiratory failure secondary to acute HFimpEF bipap support as needed WIll give an additional lasix cautiously with elevation of BUN and creatinine attempts to titrate oxygen to off Acute kidney injury superimposed on CKD stage IV- Potassium and bicarbonate are stable Resume Entresto in the a.m. NSTEMI- elevated troponin, more likely type II [place] from strain pattern history of CAB and coronary artery stenting as recent as 2023 Troponin elevated, repeat levels were checked and showed close to 3k Echo ordered: NO changes Heparin drip ordered discussed with cardiology feels this is more related to demand ischemia from heart failure and not acute coronary syndrome. Recommends discontinuation of heparin therapy Continue carvedilol,plavix, atorvastatin empagliflozin will also be helpful with her heart failure treatment plan Diabetes mellitus- Hold empagliflozin and consult glycemic control hemoglobin A1c- 8.6% History of PE and DVT- Resume apixaban 02/01 Admission and Anticipated Discharge Date Admission Date: January 30, 2025 Subjective Patient has had good improvement. She continues to require supplemental oxygen. Reportedly she had some weight gain while at [employer] but this is not reported back to the heart failure clinic patient is open to home rehab will have a PT OT evaluation on 02/01/2025 Daughter at the bedside and updated Physical Exam Physical Exam: Patient awake alert appropriate. Cardiac exam is regular lungs are diminished throughout with fair air movement no focal losses. Attempts to wean to room air during my visit were met with O2 sats in the 86 to 87% range Abdomen was NABS soft extremities are with trace pretibial edema bilaterally Results & Data Results & Data Vital Signs (Past 12 Hours) Vital Signs Temp Pulse Pulse Resp BP Pulse Ox O2 Del Method 01/31/25 07:51 98.2 F 94 H 17 146/77 H 94 Nasal Cannula 01/31/25 07:17 Nasal Cannula 01/31/25 03:21 98.4 F 78 20 131/68 93 Nasal Cannula 01/31/25 00:09 76 01/30/25 23:57 Nasal Cannula 01/30/25 22:22 97.5 F L 77 20 134/65 93 Nasal Cannula O2 Flow Rate 01/31/25 07:51 2 01/31/25 07:17 2 01/31/25 03:21 2 01/31/25 00:09 01/30/25 23:57 2 01/30/25 22:22 2.0 Laboratory Results Reviewed CBC reviewed chemistry mild increase in BUN and creatinine order repeat labs for 02/01 PG Care Time/CCT Total # of Minutes Spent Total Time Spent with Patient: Total time spent is greater than 50% in coordination of care (as documented) at patient's floor/unit and/or counseling patient: Coding Level of Care Code 93179 SUB INP/OBS CARE 3/50MIN Diagnoses Heart failure with improved ejection fraction (HFimpEF) I50.20 Uncontrolled type 2 diabetes mellitus with hyperglycemia, with long-term current use of insulin E11.65; Z79.4
--- NOTE | 2025-01-31 09:18 | Pharmacy Report ---
Pharmacy Glycemic Short Note 2 - Date of Service January 31, 2025 - Glycemic Short BSG Results (Last 24 hours): 01/30/25 01/30/25 01/30/25 12:00 16:14 20:26 Glucose POC Glucose 201 H 211 H 261 H 01/31/25 01/31/25 03:45 07:18 Glucose 226 H POC Glucose 169 H OUTPATIENT ANTIDIABETIC REGIMEN: * Tresiba 36 units SC daily * Novolog 12 units TID with meals * Empagliflozin 10 mg PO daily A1c = 8.6% ASSESSMENT: 01/31 * Diet advanced. Patient remains on heparin IV infusion. * Francine received a total of 30 units of Lantus yesterday (25 units @ 1430 + 5 units @ bedtime). Fasting BSG of 169 mg/dL. Patient typically takes Lantus in the morning, thus her basal insulin dose yesterday was significantly delayed. Suspect this will trend down further with repeat dosing. * Post prandial BSGs elevated yesterday. Anticipate improvement given effect of solu-medrol has worn off. Note, lunch BSG reported at 285 mg/dL. Per discussion with RN, candy and chocolate wrappers found in patient room. Will not react to lunch BSG. 01/30 * Francine is a 79 yo T2DM with PMH significant for HFpEF, CAD status post CABG, CKD, dyslipidemia who presents in acute respiratory distress. Per H&P, patient was administered Solu-Medrol en route to the ED. No further steroids ordered at this time. BSG 205 mg/dL. * Basal insulin will be reduced for NPO status. * Novolog CF and CR will be based on home usage of ~72 units of insulin per day which is equivalent to 18 units BID basal + CF 20, CR7. PLAN FOR INPATIENT GLYCEMIC CONTROL: * Hold outpatient oral diabetes medications * Basal insulin * Lantus 30 units SC qAM * Bolus insulin * NovoLog per scale ACHS or Q6hrs while NPO * Goal Range: Low 110 mg/dL - High 160 mg/dL * Correction Factor: 20 mg/dL/unit * Nutritional / Prandial insulin per carb ratio of 1 unit per 7 grams CHO consumed
[2025-01-31] MEDS: LANTUS PER UNIT CHARGE SC SCH (09:29)
[2025-01-31] MEDS: FUROSEMIDE 40 MG/4 ML VIAL IV ONE ×2 (09:37→11:51)
--- NOTE | 2025-01-31 12:35 | Cardiology Progress Note ---
Date of Service January 31, 2025 Assessment & Plan (1) Heart failure with improved ejection fraction (HFimpEF): Plan: -Improving with intravenous diuretics. -Suspect the etiology of her decompensation is related to dietary indiscretion with salt. -Reviewed daily weights and sliding scale diuretics with patient and her daughter. -Apparently, daily weights only reported to the CHF clinic once per week. -Continue intravenous diuretics. (2) CAD (coronary artery disease): Plan: -Extensive history as outlined above. -Troponin peaked at 2606. -Troponin elevation likely a supply/demand mismatch. -No evidence of an acute coronary syndrome. -Would discontinue heparin. (3) Hypertension: Plan: -Borderline control on current regimen. (4) Dyslipidemia: Plan: -Continue atorvastatin. Admission and Anticipated Discharge Date Admission Date: January 30, 2025 Subjective The patient is resting comfortably in the bedside chair without complaints of chest pain or dyspnea. She still requires oxygen supplementation. Physical Exam Physical Exam: In general this is an obese white female in no acute distress. HEENT exam is negative. Neck reveals normal carotid upstrokes without bruits. Jugular venous pressure is flat at 90. There is no thyromegaly. Cardiovascular exam reveals a regular rhythm with distant heart sounds. No obvious murmurs. Lungs note by basilar rales. Abdomen is soft without bruits. Extremities reveal intact radial artery and posterior tibial pulses bilaterally. There is no peripheral edema. Results & Data Vital Signs (Past 12 Hours) Vital Signs Temp Pulse Resp BP Pulse Ox O2 Del Method O2 Flow Rate 01/31/25 09:40 75 128/78 01/31/25 07:51 36.8 C 94 H 17 146/77 H 94 Nasal Cannula 2 01/31/25 07:17 Nasal Cannula 2 01/31/25 03:21 36.9 C 78 20 131/68 93 Nasal Cannula 2 Diagnostic Findings athletic monitor is benign. PG Care Time/CCT Total # of Minutes Spent Total Time Spent with Patient: Total time spent is greater than 50% in coordination of care (as documented) at patient's floor/unit and/or counseling patient: Coding Level of Care Code 90015 SUB INP/OBS CARE 3/50MIN Diagnoses Heart failure with improved ejection fraction (HFimpEF) I50.20 Coronary artery disease involving [place] coronary artery of [place] heart without angina pectoris I25.10 Coronary Disease-Associated Artery/Lesion type: [place] artery [place] vs. transplanted heart: [place] heart Associated angina: without angina Primary hypertension I10 Hypertension type: primary hypertension Dyslipidemia E78.5 (2) CAD (coronary artery disease) Coronary Disease-Associated Artery/Lesion type: [place] artery [place] vs. transplanted heart: [place] heart Associated angina: without angina Qualified Code(s): I25.10 - Atherosclerotic heart disease of [place] coronary artery without angina pectoris (3) Hypertension Hypertension type: primary hypertension Qualified Code(s): I10 - Essential (primary) hypertension
[2025-01-31 14:52] LABS: ANTI-Xa, UFH(UnfractionatedHep 0.86 IU/ml (0.3-0.7)
[2025-01-31] MEDS: APIXABAN 5 MG TABLET PO SCH (20:43)
[2025-01-31] MEDS: DICLOFENAC SOD 1% GEL 100 GM TUBE EXT PRN (22:41)
[2025-02-01] MEDS: INSULIN ASPART PER UNIT CHARGE SC SCH (02:00)
[2025-02-01 07:31] LABS: Anion Gap 9.0 (3-11); Blood Urea Nitrogen 50.0 mg/dl (6-23); Calcium 8.9 mg/dl (8.6-10.3); Carbon Dioxide 29.0 mmol/L (21-32); Chloride 103.0 mmol/L (98-107); Creatinine Clr Calc Pharmacy 29.3 ml/min; Glucose 130.0 mg/dl (70-99(Fasting)); Magnesium 2.0 mg/dl (1.7-2.4); Potassium 3.9 mmol/L (3.5-5.1); Sodium 141.0 mmol/L (136-145)
--- NOTE | 2025-02-01 07:45 | Hospitalist Progress Note ---
Date of Service February 01, 2025 Assessment & Plan (1) Heart failure with improved ejection fraction (HFimpEF): (2) Uncontrolled type 2 diabetes mellitus with hyperglycemia, with long-term current use of insulin: Plan 79-year-old female history of heart failure improved ejection fraction on Entresto who presented with weight gain in the outpatient setting and respiratory distress consistent with exacerbation of heart failure. Acute respiratory failure secondary to acute HFimpEF bipap support as needed WIll give an additional lasix cautiously with elevation of BUN and creatinine attempts to titrate oxygen to off Acute kidney injury superimposed on CKD stage IV- Potassium and bicarbonate are stable Resume Entresto in the a.m. NSTEMI- elevated troponin, more likely type II [place] from strain pattern history of CAB and coronary artery stenting as recent as 2023 Troponin elevated, repeat levels were checked and showed close to 3k Echo ordered: NO changes Heparin drip ordered discussed with cardiology feels this is more related to demand ischemia from heart failure and not acute coronary syndrome. Recommends discontinuation of heparin therapy Continue carvedilol,plavix, atorvastatin empagliflozin will also be helpful with her heart failure treatment plan Diabetes mellitus- Hold empagliflozin and consult glycemic control hemoglobin A1c- 8.6% History of PE and DVT- Resume apixaban 02/01 Admission and Anticipated Discharge Date Admission Date: January 30, 2025 Results & Data Results & Data Vital Signs (Past 12 Hours) Vital Signs Temp Pulse Pulse Resp BP BP Pulse Ox 02/01/25 07:13 98.1 F 78 18 160/76 H 91 02/01/25 02:23 98.2 F 68 20 110/53 L 95 01/31/25 23:01 97.5 F L 67 18 121/64 90 01/31/25 21:42 60 01/31/25 19:46 98.1 F 66 18 119/71 95 01/31/25 19:45 O2 Del Method O2 Flow Rate 02/01/25 07:13 Room Air 02/01/25 02:23 Room Air 01/31/25 23:01 Nasal Cannula 2 01/31/25 21:42 01/31/25 19:46 Nasal Cannula 01/31/25 19:45 Nasal Cannula 2 PG Care Time/CCT Total # of Minutes Spent Total Time Spent with Patient: Total time spent is greater than 50% in coordination of care (as documented) at patient's floor/unit and/or counseling patient: Coding Diagnoses Heart failure with improved ejection fraction (HFimpEF) I50.20 Uncontrolled type 2 diabetes mellitus with hyperglycemia, with long-term current use of insulin E11.65; Z79.4
[2025-02-01] MEDS ORDERED: FUROSEMIDE 20 MG TAB PO SCH (09:00)
[2025-02-01] MEDS: FUROSEMIDE 40 MG TAB PO SCH (09:01)
--- NOTE | 2025-02-01 10:35 | Cardiology Progress Note ---
Date of Service February 01, 2025 Assessment & Plan (1) Heart failure with improved ejection fraction (HFimpEF): Plan: -Seems euvolemic. -Suspect the etiology of her decompensation is related to dietary indiscretion with salt. -Reviewed daily weights and sliding scale diuretics with patient and her daughter. -Apparently, daily weights only reported to the CHF clinic once per week. (2) CAD (coronary artery disease): Plan: -Extensive history as outlined. -Troponin peaked at 2606. -Troponin elevation likely a supply/demand mismatch. (3) Hypertension: Plan: -Adequate control on current regimen. (4) Dyslipidemia: Plan: -Continue atorvastatin. Admission and Anticipated Discharge Date Admission Date: January 30, 2025 Subjective The patient is resting comfortably in bed without complaints of chest pain, dyspnea, or palpitations. She is anxious for hospital discharge. Physical Exam Physical Exam: In general this is an obese white female in no acute distress. HEENT exam is negative. Neck reveals normal carotid upstrokes without bruits. No JVD. There is no thyromegaly. Cardiovascular exam reveals a regular rhythm with distant heart sounds. No obvious murmurs. Lungs note by basilar rales. Abdomen is soft without bruits. Extremities reveal intact radial artery and posterior tibial pulses bilaterally. There is no peripheral edema. Results & Data Vital Signs (Past 12 Hours) Vital Signs Temp Pulse Resp BP Pulse Ox O2 Del Method O2 Flow Rate 02/01/25 07:13 36.7 C 78 18 160/76 H 91 Room Air 02/01/25 02:23 36.8 C 68 20 110/53 L 95 Room Air 01/31/25 23:01 36.4 C L 67 18 121/64 90 Nasal Cannula 2 PG Care Time/CCT Total # of Minutes Spent Total Time Spent with Patient: Total time spent is greater than 50% in coordination of care (as documented) at patient's floor/unit and/or counseling patient: Coding Level of Care Code 82836 SUB INP/OBS CARE 3/50MIN Diagnoses Heart failure with improved ejection fraction (HFimpEF) I50.20 Coronary artery disease involving [place] coronary artery of [place] heart without angina pectoris I25.10 Coronary Disease-Associated Artery/Lesion type: [place] artery [place] vs. transplanted heart: [place] heart Associated angina: without angina Primary hypertension I10 Hypertension type: primary hypertension Dyslipidemia E78.5 (2) CAD (coronary artery disease) Coronary Disease-Associated Artery/Lesion type: [place] artery [place] vs. transplanted heart: [place] heart Associated angina: without angina Qualified Code(s): I25.10 - Atherosclerotic heart disease of [place] coronary artery without angina pectoris (3) Hypertension Hypertension type: primary hypertension Qualified Code(s): I10 - Essential (primary) hypertension
[2025-02-01 11:13] VITALS: BP 117/67; RESP 19; TEMP 98.4
--- NOTE | 2025-02-01 12:00 | Pharmacy Report ---
Pharmacy Glycemic Short Note 2 - Date of Service February 01, 2025 - Glycemic Short BSG Results (Last 24 hours): 01/31/25 01/31/25 02/01/25 16:35 19:58 01:58 Glucose POC Glucose 162 H 230 H 117 H 02/01/25 02/01/25 02/01/25 06:30 07:12 11:11 Glucose 130 H POC Glucose 125 H 234 H OUTPATIENT ANTIDIABETIC REGIMEN: * Tresiba 36 units SC daily * Novolog 12 units TID with meals * Empagliflozin 10 mg PO daily A1c = 8.6% ASSESSMENT: 814 * Francine received 55 units of SC insulin yesterday (30 units basal + 25 units bolus) * Fasting BSG improving at 125 mg/dL today. No changes to basal dosing. * Post prandial BSGs fluctuate despite tightening carb ratio yesterday. Will further tighten today. 01/31 * Diet advanced. Patient remains on heparin IV infusion. * Francine received a total of 30 units of Lantus yesterday (25 units @ 1430 + 5 units @ bedtime). Fasting BSG of 169 mg/dL. Patient typically takes Lantus in the morning, thus her basal insulin dose yesterday was significantly delayed. Suspect this will trend down further with repeat dosing. * Post prandial BSGs elevated yesterday. Anticipate improvement given effect of solu-medrol has worn off. Note, lunch BSG reported at 285 mg/dL. Per discussion with RN, candy and chocolate wrappers found in patient room. Will not react to lunch BSG. 01/30 * Francine is a 79 yo T2DM with PMH significant for HFpEF, CAD status post CABG, CKD, dyslipidemia who presents in acute respiratory distress. Per H&P, patient was administered Solu-Medrol en route to the ED. No further steroids ordered at this time. BSG 205 mg/dL. * Basal insulin will be reduced for NPO status. * Novolog CF and CR will be based on home usage of ~72 units of insulin per day which is equivalent to 18 units BID basal + CF 20, CR7. PLAN FOR INPATIENT GLYCEMIC CONTROL: * Hold outpatient oral diabetes medications * Basal insulin * Lantus 30 units SC qAM * Bolus insulin * NovoLog per scale ACHS or Q6hrs while NPO * Goal Range: Low 110 mg/dL - High 160 mg/dL * Correction Factor: 20 mg/dL/unit * Nutritional / Prandial insulin per carb ratio of 1 unit per 5 grams CHO consumed
[2025-02-01 14:27] VITALS: PULSE 75; O2SAT 88
--- NOTE | 2025-02-01 19:49 | Discharge Summary ---
Discharge Summary Date of Service February 01, 2025 Principal Dx & Hospital Course #1 = Principal Diagnosis (1) Heart failure with improved ejection fraction (HFimpEF): (2) Uncontrolled type 2 diabetes mellitus with hyperglycemia, with long-term current use of insulin: Plan 79-year-old female history of heart failure improved ejection fraction on Entresto who presented with weight gain in the outpatient setting and respiratory distress consistent with exacerbation of heart failure. Acute respiratory failure secondary to acute HFimpEF Resume home heart failure management with daily weights salt restrictions and daily Lasix therapy. Acute kidney injury superimposed on CKD stage IV- Potassium and bicarbonate are stable Resume Entresto NSTEMI- elevated troponin, more likely type II PR from strain pattern history of CAB and coronary artery stenting as recent as 2023 Troponin elevated, repeat levels were checked and showed close to 3k Echo ordered: NO changes Continue carvedilol,plavix, atorvastatin empagliflozin will also be helpful with her heart failure treatment plan Diabetes mellitus- empagliflozin hemoglobin A1c- 8.6% History of PE and DVT- Resume apixaban 02/01 Notes For Next Care Provider Currently need to pay attention to her daily weights and Lasix dose with respect to her renal function and oxygen need Admission HPI Per Admitting Provider the patient is a 79-year-old female with past medical history including NSTEMI, NED, pulmonary embolism, CKD stage IV, HFmrEF, history of upper GI hemorrhage, CAD, hypertension, history of DVT and PE, cerebrovascular disease, GERD, SNHL bilaterally, and mild cognitive impairment.The patient presents to the emergency department with worsening SOB which began this mornng. Patient is a poor historian as she is currenly on BIPAP device and is unable to provide significant history. Patient reports she woke up in the middle of the night with SOB. She went had to sit up and stay in the recliner. Her SOB did not improve. She was then treated with neb treatments and was placed on BIPAP enroute to the hospital. IN the ED, patient improved with diuretic therapy and appears to be more comfortable. Discharge Exam Patient is spry has no complaints did well with physical therapy stable to be discharged Discharge Plan Discharge Items Patient Disposition: Home - Home Health Services Reason For Visit: CHF ACUTE HYPOXIC RESPIRATORY FAILURE Discharge Diagnosis: heart failure improved ejection fraction diabetes Condition on Discharge: Good Activity: Resume your previous activity Non-emergency contact: Primary Care Provider and [place] [employer] Call non-emergency contact if: your symptoms worsen Follow-up/Referrals: Maribel Sanabria MD [Primary Care Provider] - 02/09/25 10:30 am Zia Cherry MD [Physician] - (Cardiology office will call to schedule follow up.) Diet: Carb Consistent or DM2 and Low Sodium (2gm) Addtl Attending Provider Instructions: Please communicate the patients weights to the heart failure optimization clinic on Wednesday and Wednesday Continue to watch your salt and fluid intake be sure to be in touch with cardiology and follow up next week Pending Studies at Discharge: No Stand-Alone Forms: My [employer]Prom, Smoking Cessation Medications and DC Order Prescriptions: Continued (DME) FreeStyle Marcelo 3 Jakin Misc See Rx Instructions .Route Qty: 1 0RF Rx Instructions: for use with Marcelo 3 sensors (DME) FreeStyle Marcelo 3 Sensor Device See Rx Instructions .Route Qty: 2 11RF Rx Instructions: change every 14 days (DME) insulin syringe-needle U-100 [BD Insulin Syringe] 1 mL 29 gauge x 1/2" syringe See Rx Instructions .Route Qty: 150 5RF Rx Instructions: use 5 syringes daily Entresto 24-26 mg tablet 1 tab PO BID Qty: 90 3RF Hold Instructions: Provider's Order acetaminophen 500 mg tablet 1,000 mg PO TID MDD 3g/24hr PRN (Reason: Temp >100/Pain) Qty: 180 1RF apixaban 5 mg tablet 5 mg PO BID Qty: 180 3RF Hold Instructions: hold per discharge instructions carvedilol [Coreg] 3.125 mg tablet 3.125 mg PO BIDM Qty: 180 3RF Rx Instructions: must administer with a meal/food clopidogrel 75 mg tablet 75 mg PO QAM Qty: 90 3RF pantoprazole [Protonix] 40 mg tablet,delayed release (DR/EC) 40 mg PO DAILY Qty: 90 3RF (DME) pen needle, diabetic [BD Ultra-Fine Mini Pen Needle] 31 gauge x 3/16" needle See Rx Instructions .Route Qty: 400 3RF Rx Instructions: Inject insulin 4 times daily insulin degludec [Tresiba FlexTouch U-100] 100 unit/mL (3 mL) insulin pen 36 unit subcut DAILY Qty: 15 0RF insulin aspart U-100 [Novolog FlexPen U-100 Insulin] 100 unit/mL (3 mL) insulin pen 12 unit subcut TID Qty: 30 1RF Rx Instructions: Immediately before meals-Hold if not eating atorvastatin 40 mg tablet 40 mg PO QPM Qty: 90 3RF (DME) lancets [Accu-Chek Softclix Lancets] Misc See Rx Instructions .ROUTE .MEDSUPPLY Rx Instructions: Test blood sugar once daily PRN Jardiance 10 mg tablet 10 mg PO QAM loperamide [Imodium A-D] 2 mg tablet 2 mg PO Q6H PRN (Reason: Diarrhea) omega-3 fatty acids 1,000 mg Capsule 1,000 mg PO QAM PreserVision AREDS 2,148 mcg-113 mg-45 mg-17.4mg tablet 1 tab PO QAM acetaminophen 500 mg Tablet 1,000 mg PO TID glucose 4 gram Tablet,Chewable 16 g PO DAILY PRN (Reason: BG<70) ergocalciferol (vitamin D2) [Vitamin D2] 1,250 mcg (50,000 unit) Capsule 1,250 mcg PO WK Rx Instructions: Wednesdays lidocaine 4 % Adhesive Patch,Medicated 1 patch TOPICAL DAILY PRN (Reason: Back Upper thigh Pain) tramadol 50 mg Tablet 50 mg PO TID PRN (Reason: Pain) magnesium hydroxide [Milk of Magnesia] 400 mg/5 mL Suspension 2,400 mg PO DAILY PRN (Reason: Constipation) Rx Instructions: Give if 3 days no BM nitroglycerin 0.4 mg Tablet, Sublingual 4 mg sublingual Q5M PRN (Reason: Chest Pain) polyethylene glycol 3350 [Miralax] 17 gram/dose Powder 17 g PO DAILY PRN (Reason: Constipation) diclofenac sodium 1 % Gel 4 g TOPICAL BID menthol-zinc oxide [Calmoseptine] 0.44-20.6 % Ointment 1 applic TOPICAL TID PRN (Reason: Rash/Skin Protection) Changed furosemide 40 mg tablet 40 mg PO QAM Qty: 45 3RF Discharge Orders: Discharge Order (Routine); Ordered 02/01/25 Ordered By: Darwin Desir Admission Data Admit Date/Time: 01/30/25 08:22 Attending Provider: Darwin Desir Admit Provider: Alex Del Valle Primary Care Provider: Maribel Sanabria V. Other Providers: Alex Del Valle; Eladio Xie; Gibran Ramon; Silvio Valentine; Saqib Powell; Charlie Angel Jr; Zia Cherry; Nicole Donhaue; Moira Catalan; Dwayne Sifuentes; Dwayne Mukherjee; Shweta Ortega; Amos Rodríguez; Mavis Paul; Amos Davis; Alvarez Brizuela; Tristan Lambert; Harish Graham; Bayron Bonner; Abundio Buck; Radha Kurtz Other Interventions: Discharge Summary Assessment (RN) Last Done: 02/01/25 14:25 Hospital Stay Data Consultations 01/30/25 08:10 ED Decision to Admit Stat 01/30/25 12:11 Consult Cardiology Routine 02/01/25 07:51 [facility] Referral Routine Pending Results Patient Have Any Pending Studies at Discharge: No Discharge Instructions Given to Patient (Per Discharging Provider) Please communicate the patients weights to the heart failure optimization clinic on Wednesday and Wednesday Continue to watch your salt and fluid intake be sure to be in touch with cardiology and follow up next week Total Time Total Time Spent Total Time Spent (In Minutes): It required greater than 30 minutes to prepare this patient for discharge. Coding Level of Care Code 06136 INP/OBS DISCH >30 MIN Diagnoses Heart failure with improved ejection fraction (HFimpEF) I50.20 Uncontrolled type 2 diabetes mellitus with hyperglycemia, with long-term current use of insulin E11.65; Z79.4
== END 2025-02-01 15:14 | disposition home or self-care (01) | DRG 280 ==
LOC: ED 06:14 → EDINP 08:22 → SUATTDRO 08:22 → 2S 09:11

== ENCOUNTER 2025-04-03 07:08 | Inpatient (IN) ==
[2025-04-03] MEDS: ALBUT/IPRATROP 3MG/0.5MG NEB 3 ML VIAL INH STA (07:14)
--- NOTE | 2025-04-03 07:32 | Emergency Department Note ---
Impression & Plan Acute exacerbation of CHF (congestive heart failure), Acute on chronic respiratory failure with hypoxia and hypercapnia, Pulmonary edema ED Provider Note NAME: ZAHIDA EUCEDA AGE: 80 SEX: F : 1945 ARRIVES VIA: Ambulance INFORMANT: Patient, EMS, daughter ED PROVIDER(S): Roger Hough DO CHIEF COMPLAINT: SOB HPI: This is a 80-year-old female with the PMHx of CHF, CAD s/p CABG presenting to [facility] for further evaluation of SOB. Patient is accompanied by EMS who provide additional history. EMS reports the patient was in respiratory distress this morning. Required CPAP and route. Was given a DuoNeb. They do feel there is a component of anxiety. intermediate noted that she had increased weight gain and shortness of breath. She resides at [place]. They deny fever or chills. No cough or congestion. Denies chest pain or palpitations. They deny abdominal pain, nausea and vomiting. No urinary complaints. No recent changes in bowel movements. Patient denies recent changes in medications or OTC supplements. Patient offers no other complaints, today. ADDITIONAL HISTORY OBTAINED: Per HPI Chronic Medical/Social Conditions Affecting Care: Per HPI PAST MEDICAL HISTORY: See Below PAST SURGICAL HISTORY: See Below FAMILY HISTORY: See Below SOCIAL HISTORY: See Below HOME MEDICATIONS: See Below ALLERGIES: See Below VITALS: See Below PHYSICAL EXAMINATION: GENERAL: Sitting up in bed, alert, ill appearing, well nourished, no distress, non-toxic EYE EXAM: normal conjunctiva. OROPHARYNX: no exudate, no erythema, lips, buccal mucosa, and tongue normal and mucous membranes are moist NECK: supple, no nuchal rigidity, no adenopathy, non-tender LUNGS: Rales at the bases. Tachypnea. Mild expiratory and inspiratory wheezing. Normal chest wall mechanics HEART: no murmurs, regular rate, regular rhythm ABDOMEN: abdomen soft, non-tender, no masses, no rebound or guarding. BACK: Back is symmetrical on inspection and there is no deformity, no midline tenderness, no CVA tenderness. SKIN: no rashes and no bruising UPPER EXTREMITIES: upper extremities are grossly normal. LOWER EXTREMITIES: 2+ pitting edema in the lower extremities NEURO EXAM: Normal sensorium, GCS 15, normal speech, no gross weakness of arms, no weakness of legs. MEDICAL DECISION MAKING: Differential diagnoses includes but not limited to ACS, unstable angina, dysrhythmia, PNA, hypervolemia/pulmonary edema, CHF exacerbation, COPD exacerbation, PE, pneumothorax, pericardial effusion, cardiac tamponade, anxiety/psychogenic, viral URI In summary, this is a 80 year old female who presented with respiratory distress. Differential as above. Nursing notes and pertinent past medical records reviewed. Vital signs reviewed and the patient is significantly tachypneic but maintaining oxygenation on CPAP. She is in mild respiratory distress. History and presentation revealed known CHF. Physical examination revealed as above. As a result of my initial evaluation, there are concerns for respiratory failure 2/2 CHF excerbation. On arrival, EMS had the patient on CPAP. She is tachypneic and hypertensive. Increased weight gain at home with evidence of peripheral edema within the abdomen and extremities. Does have wheezing present. Plan for DuoNeb and transition to BPAP. Patient was placed on BPAP at 10/5 with an FiO2 of 50%. Tidal volumes have been appropriate for the patient's height. Her tidal volumes have been in the 4-500s. Chest x-ray is independently interpreted by me on arrival showing interstitial edema with cephalization.. Findings today are consistent with CHF exacerbation. Patient does take 40 mg of Lasix daily. Given increased weight gain, hypertension, tachypnea and respiratory findings, will manage with bolus of Lasix 80 mg. Plan for Nitropaste as well. Will continue ventilation support with BPAP. Diagnostics interpreted by me include EKG and cardiac monitoring as listed below: -Cardiac Monitoring: An order was placed for continuous cardiac monitoring. The monitor shows a rate of 60-90s with regular rhythm. -ECG: normal sinus rhythm at a ventricular rate of 86 bpm. Numerous areas of artifact and a poor baseline on this EKG. Does appear to have PVCs. 3 PVCs present on this rhythm strip. I do believe there is likely diffuse ST segment depressions. Mostly appears in the lateral leads. There are no significant ST segment changes to suggest STEMI. Intervals are within normal limits. Patient completed laboratory studies and imaging. Results independently interpreted by me are no significant leukocytosis or anemia. VBG shows acute respiratory acidosis. Coagulation studies are normal. Kidney function stable. Electrolytes unremarkable. Slight troponin leak likely in the setting of respiratory distress. BNP is elevated. The patient was managed with NIV support, IV diuresis and Nitropaste. She also given a loading dose of aspirin. The patient's wishes and POLST form reviewed with her as well as her daughter at the bedside. Patient is a DNI/DNR. No significant escalation of care or life- sustaining treatments. They are comfortable with therapeutics utilizes now. They are comfortable with BPAP as well as diuresis. They are comfortable with hospitalization. Ultimately, the decision was made to admit the patient for acute hypoxemic hypercapnic respiratory failure secondary to CHF exacerbation. It was recommended to admit this patient at 0817. I discussed the case with the hospitalist service via telephone/TigerText and they are agreeable to admit the patient to their services. Discussed with Dr. Camejo by telephone for admission. Based on the above, including the patient's age, coexisting illnesses, labs, imaging, and exam findings the decision to treat as an inpatient. I discussed the patient with the hospitalist team who recommended admission to their services. They received the medications, treatments, interventions indicated above and their condition remained guarded. I discussed my findings with the patient and their family and they understand and agree with the treatment plan. All patient / family questions were answered to their satisfaction. Consults/Care Managements Discussions: Per [facility] ER treatment provided: See above Procedures:none Critical Care: I have personally spent 36 minutes of critical care time in direct management of this patient. This includes bedside care, interpretation of diagnostic studies, and testing, discussion with consultants, patient, and family members, and other require inpatient management activities. This 36 minutes is in excess of all separately billable procedures. The chart was completed utilizing [email or web address] Speech voice recognition software. Grammatical errors, random word insertions, pronoun errors, and incomplete sentences are an occasional consequence of this system due to software limitations, ambient noise, and hardware issues. Any formal questions or concerns about the content, text, or information contained within the body of this dictation should be directly addressed to the physician for clarification. Past Med/Surg History Problem List (Updated 04/03/25 @ 17:27 by Roger Hough DO) Pulmonary edema (Acute) Acute on chronic respiratory failure with hypoxia and hypercapnia (Acute) Acute exacerbation of CHF (congestive heart failure) (Acute) Type 2 myocardial infarction due to heart failure Acute hypoxic respiratory failure Acute exacerbation of chronic heart failure Heart failure with improved ejection fraction (HFimpEF) Atherosclerotic peripheral vascular disease with intermittent claudication Chronic renal disease, stage IV Uncontrolled type 2 diabetes mellitus with hyperglycemia, with long-term current use of insulin Pancreatic abnormality Elevated brain natriuretic peptide (BNP) level (Acute) Heart 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, 41-49%) Hx of upper gastrointestinal hemorrhage History of non-ST elevation myocardial infarction (NSTEMI) (01/29/24) H/O deep venous thrombosis Low back pain Carpal tunnel syndrome, bilateral (Chronic) Gait disturbance (Chronic) Cerebral microvascular disease (Chronic) Current use of anticoagulant therapy Obesity, Class I, BMI 30-34.9 (Chronic) GERD (gastroesophageal reflux disease) Sensorineural hearing loss (SNHL) of both ears Bilateral tinnitus Mild cognitive impairment Medical History Non-ST elevation AL (NSTEMI) Acute kidney injury superimposed on chronic kidney disease Influenza A virus present Acute hypoxic respiratory failure Loose stools Sacroiliac joint pain Left shoulder pain Strain of left iliopsoas muscle Hyperkalemia Strain of right iliopsoas muscle History of pulmonary embolism (2019) Chronic anticoagulation Elevated WBC count Excessive cerumen in both ear canals Hearing decreased Upper GI bleed Acute non-ST elevation myocardial infarction (NSTEMI) (01/29/24) Hypoxia Pulmonary edema Fall UTI (urinary tract infection) Osteoarthritis of left shoulder Esophageal ulcer Gastric ulcer Mitral regurgitation Ischemic cardiomyopathy Heart failure with reduced ejection fraction Acute blood loss anemia Acute GI bleeding Finger fracture, left Diabetes mellitus type 2, uncontrolled, with complications (~1988) Gastrointestinal hemorrhage Deep vein thrombosis (DVT) of left lower extremity (~05/2020) Chronic anticoagulation Cough Acute right-sided low back pain Trapezius muscle spasm Stroke COVID-19 virus infection (~05/14/20) Physical deconditioning Diabetes Surgical History S/P coronary artery stent placement S/P CABG x 5 (2009) History of heart bypass surgery History of carpal tunnel release of both wrists H/O partial thyroidectomy Family History Son Colorectal cancer Myocardial infarction Family/Other Colorectal cancer Aunt Colorectal cancer Father Myocardial infarction Uncle Myocardial infarction Brother Myocardial infarction Dyslipidemia Mother Heart disease Dementia Denies family history of Ovarian cancer Prostate cancer Breast cancer Social History Smoking Status: Former smoker Tobacco Type: Cigarettes Age Started Using Tobacco: 15; Age Quit Using Tobacco: 20; packs per day: 0.25; Second Hand Exposure: No; Do You Dip or Chew Tobacco: No; Hx Alcohol Use: No Hx Substance Use: No Preferred Language: Mozambican Communication Ability: Effective Visual Impairment: Limited Hearing Ability: Use of Hearing Aid Retail Team Member Required: No Beliefs That Will Affect Care: None marital status: / Current Living Situation: Senior Care Current Living Situation Comment: [facility] [place] [facility] current occupational status: retired Feels Safe at Home: Yes Childhood Exposure to Second-Hand Smoke: Yes Diet: regular caffeine: Yes (1-2 cups a day) Dental Care, Regularly: Yes Physical Activity Frequency: Does not Exercise Physical Activity Frequency Comment: Just PT for hands Seatbelt Use: always Sunscreen Use: No Do you think of yourself as: straight/heterosexual Gender Identity: Female Assistive Devices: Walker Allergies Allergies Allergy/AdvReac Type Severity Reaction Status Date / Time No Known Allergies Allergy Verified 03/30/25 10:03 Home Meds Home Medications Medication Instructions Recorded Confirmed lancets (Accu-Chek Softclix 06/02/21 03/30/25 Lancets) omega-3 fatty acids 1,000 mg 1,000 mg PO QAM 01/30/24 04/03/25 capsule vitamins A,C,F-bhmu-phadmv 2,148 1 tab PO QAM 03/15/24 04/03/25 mcg-113 mg-45 mg-17.4 mg tablet (PreserVision AREDS) loperamide 2 mg tablet (Imodium 2 mg PO Q6H PRN Diarrhea 07/20/24 04/03/25 A-D) empagliflozin 10 mg tablet 10 mg PO QAM 08/09/24 04/03/25 (Jardiance) acetaminophen 500 mg tablet 1,000 mg PO TID Pain 01/30/25 04/03/25 diclofenac sodium 1 % topical gel 4 g topical BID Left Shoulder Pain 01/30/25 04/03/25 ergocalciferol (vitamin D2) 1,250 0 mcg PO WK 01/30/25 04/03/25 mcg (50,000 unit) capsule (Vitamin D2) glucose 4 gram chewable tablet 0 g PO DAILY PRN BG<70 01/30/25 04/03/25 magnesium hydroxide 400 mg/5 mL 2,400 mg PO DAILY PRN Constipation 01/30/25 04/03/25 oral suspension (Milk of Magnesia) menthol 0.44 %-zinc oxide 20.6 % 1 applic topical TID PRN Rash/Skin 01/30/25 04/03/25 topical ointment (Calmoseptine) Protection nitroglycerin 0.4 mg sublingual 4 mg sublingual Q5M PRN Chest Pain 01/30/25 04/03/25 tablet polyethylene glycol 3350 17 17 g PO DAILY PRN Constipation 01/30/25 04/03/25 gram/dose oral powder (Miralax) tramadol 50 mg tablet 50 mg PO TID PRN Pain 01/30/25 04/03/25 insulin aspart U-100 100 unit/mL 0 unit subcut TID 04/03/25 04/03/25 (3 mL) subcutaneous pen (Novolog FlexPen U-100 Insulin aspart) Previous Rx's Medication Instructions Recorded blood-glucose sensor (FreeStyle #2 ea 01/17/24 Marcelo 3 Sensor device) blood-glucose,beam dyer recessed vat,cont #1 ea 01/17/24 (FreeStyle Marcelo 3 [place]) insulin syringe-needle U-100 1 mL #150 ea 03/14/24 29 gauge x 1/2" (BD Insulin Syringe) sacubitril 24 mg-valsartan 26 mg 1 tab PO BID #90 tabs 04/18/24 tablet (Entresto) acetaminophen 500 mg tablet 1,000 mg (2 x 500 mg) PO TID PRN 04/21/24 Temp >100/Pain #180 tabs apixaban 5 mg tablet 5 mg PO BID #180 tabs 06/01/24 carvedilol 3.125 mg tablet (Coreg) 3.125 mg PO BIDM #180 tabs 07/13/24 clopidogrel 75 mg tablet 75 mg PO QAM #90 tabs 07/13/24 pantoprazole 40 mg tablet,delayed 40 mg PO DAILY #90 tabs 07/13/24 release (Protonix) insulin degludec 100 unit/mL (3 36 unit (0.36 mL) subcut DAILY #15 07/24/24 mL) subcutaneous pen (Tresiba mL FlexTouch U-100 insulin) pen needle, diabetic 31 gauge x #400 ea 07/24/24/" (BD Ultra-Fine Mini Pen Needle) atorvastatin 40 mg tablet 40 mg PO QPM #90 tabs 01/04/25 furosemide 40 mg tablet 40 mg PO QAM #45 tabs 02/01/25 lidocaine 4 % topical patch 1 patch topical DAILY PRN Back 02/14/25 Upper thigh Pain #100 ea sennosides 8.6 mg-docusate sodium 1 tab-cap PO DAILY PRN 03/08/25 50 mg tablet (Senokot-S) constipation #30 tabs Results & Data (ED) Vital Signs Vital Signs - 24 hr 04/03/25 07:08 04/03/25 07:08 04/03/25 07:08 Temperature 36.7 C Temperature Source Axillary Pulse Rate 98 H 98 H Pulse Rate from SpO2 Sensor Pulse Rhythm Regular Respiratory Rate 30 H 30 H Respiratory Effort / Characteristics Non-Labored Respiratory Depth Normal Respiratory Pattern Regular Blood Pressure 150/94 H Blood Pressure Mean 112 Pulse Oximetry 100 100 100 Oxygen Delivery Method BiPAP BiPAP BiPAP Oxygen Flow Rate 15 15 Fraction of Inspired Oxygen 50 Sepsis Recent Fever Within 48 Hours No Sepsis New/Unexplained Change in Mental Status N/A Sepsis Action Taken by Nursing No Action Required 04/03/25 07:14 04/03/25 07:15 04/03/25 07:17 Temperature Temperature Source Pulse Rate 97 H 97 H 97 H Pulse Rate from SpO2 Sensor 72 Pulse Rhythm Respiratory Rate 32 H 31 H Respiratory Effort / Characteristics Spontaneous Labored Moaning Short of Breath Respiratory Depth Retractive Respiratory Pattern Rapid/Shallow Tachypnea Blood Pressure 150/94 H Blood Pressure Mean 112 Pulse Oximetry 100 98 Oxygen Delivery Method Oxygen Flow Rate Fraction of Inspired Oxygen 50 Sepsis Recent Fever Within 48 Hours Sepsis New/Unexplained Change in Mental Status Sepsis Action Taken by Nursing 04/03/25 07:30 04/03/25 07:30 04/03/25 08:01 Temperature Temperature Source Pulse Rate 86 72 Pulse Rate from SpO2 Sensor 100 H 70 Pulse Rhythm Respiratory Rate 26 H 21 Respiratory Effort / Characteristics Respiratory Depth Respiratory Pattern Blood Pressure 149/108 H 149/108 H 141/82 H Blood Pressure Mean 128 121 114 Pulse Oximetry 98 98 Oxygen Delivery Method Oxygen Flow Rate Fraction of Inspired Oxygen Sepsis Recent Fever Within 48 Hours Sepsis New/Unexplained Change in Mental Status Sepsis Action Taken by Nursing 04/03/25 08:30 Temperature Temperature Source Pulse Rate 68 Pulse Rate from SpO2 Sensor 68 Pulse Rhythm Respiratory Rate 20 Respiratory Effort / Characteristics Respiratory Depth Respiratory Pattern Blood Pressure 124/74 Blood Pressure Mean 90 Pulse Oximetry 98 Oxygen Delivery Method Oxygen Flow Rate Fraction of Inspired Oxygen Sepsis Recent Fever Within 48 Hours Sepsis New/Unexplained Change in Mental Status Sepsis Action Taken by Nursing Laboratory Data 04/03/25 07:20 04/03/25 07:20 Lab Results 04/03/25 Range/Units 07:20 WBC 10.60 (4.8-10.8) K/ul RBC 5.12 (4.20-5.40) M/uL Hgb 12.5 (12.0-16.0) g/dl Hct 42.6 (37.0-47.0) % MCV 83.2 (80.0-100.0) fL MCH 24.4 L (25.0-34.0) pg MCHC 29.3 L (32.0-36.0) g/dL RDW Std Deviation 56.0 H (36.4-46.3) fL RDW Coeff of Magali 18.6 H (11.5-14.5) % Plt Count 339 (130-400) K/uL MPV 11.3 (9.4-12.4) fL Immature Gran % (Auto) 0.3 % Neut % (Auto) 70.3 % Lymph % (Auto) 18.8 % Alfalfa % (Auto) 6.3 % Eos % (Auto) 3.8 % Baso % (Auto) 0.5 % Neut # (Auto) 7.46 H (1.40-6.50) K/uL Lymph # (Auto) 1.99 (1.20-3.40) K/uL Alfalfa # (Auto) 0.67 H (0.11-0.59) K/uL Eos # (Auto) 0.40 (0.00-0.50) K/uL Baso # (Auto) 0.05 (0.00-0.20) K/uL Immature Gran # (Auto) 0.03 (0.01-0.20) K/uL PT 11.4 (9.0-12.0) Seconds INR 1.1 (0.9-1.1) APTT 28 (21-31) Seconds PTT Ratio 1.0 VBG pH 7.27 L (7.36-7.41) VBG pCO2 54 H (38-50) mmHg VBG pO2 73 mmHg VBG HCO3 25 mmol/L VBG O2 Saturation 93.1 % VBG Base Excess -2.8 mEq/L Sodium 145 (136-145) mmol/L Potassium 3.9 (3.5-5.1) mmol/L Chloride 109 H (98-107) mmol/L Carbon Dioxide 26 (21-32) mmol/L Anion Gap 10 (3-11) BUN 35 H (6-23) mg/dl Creatinine 1.69 H (0.6-1.2) mg/dl Est Cr Clr Drug Dosing 25.7 ml/min eGFR 30.34 BUN/Creatinine Ratio 20.7 H (10-20) Glucose 213 H (70-99(Fasting)) mg/dl Calcium 9.1 (8.6-10.3) mg/dl Magnesium 1.8 (1.7-2.4) mg/dl Total Bilirubin 0.5 (0.2-1.0) mg/dl AST 17 (13-39) U/L ALT 18 (7-52) U/L Alkaline Phosphatase 82 (34-104) U/L Troponin I High Sens 30.5 H (0-14) pg/ml B-Natriuretic Peptide 1022 H (0-100) pg/ml Total Protein 6.8 (6.0-8.3) gm/dl Albumin 4.2 (3.4-5.0) gm/dl Globulin 2.6 (2.5-4.0) gm/dl Albumin/Globulin Ratio 1.6 (0.9-2) Administered Medications Acetaminophen (Acetaminophen 500 Mg Tab) 1,000 mg PO TID SNEHA Stop: 05/03/25 12:44 Last Admin: 04/03/25 14:25 Dose: 1,000 mg Documented By: [facility] Apixaban (Apixaban 5 Mg Tablet) 5 mg PO BID SNEHA Stop: 05/03/25 12:44 Last Admin: 04/03/25 14:12 Dose: 5 mg Documented By: [facility] Clopidogrel Bisulfate (Clopidogrel Bisulfate 75 Mg Tab) 75 mg PO QAM SNEHA Stop: 05/03/25 12:44 Last Admin: 04/03/25 14:12 Dose: 75 mg Documented By: [facility] Diclofenac Sodium (Diclofenac Sod 1% Gel 100 Gm Tube) 4 gm EXT BID [facility]; Protocol Stop: 05/03/25 12:44 Last Admin: 04/03/25 14:38 Dose: 4 gm Documented By: [facility] Bumetanide 2 mg/ Syringe 8 mls @ 4 mls/min IV BID@0900,1700 SNEHA Stop: 05/03/25 12:44 Last Admin: 04/03/25 14:13 Dose: 4 mls/min Documented By: [facility] Insulin Aspart (Insulin Aspart Per Unit Charge) 0 units SC ACHS SNEHA Stop: 05/03/25 12:59 Last Admin: 04/03/25 14:26 Dose: 9 units Documented By: [facility] Co-signed By: colleen Pantoprazole Sodium (Pantoprazole 40 Mg Tab) 40 mg PO DAILY [facility] Stop: 05/03/25 12:59 Last Admin: 04/03/25 15:52 Dose: 40 mg Documented By: majo Polyethylene Glycol (Polyethylene (Miralax) 17 Gm Pack) 17 gm PO DAILY [facility] Stop: 05/03/25 12:44 Last Admin: 04/03/25 14:35 Dose: Not Given Documented By: [facility] Sacubitril/Valsartan (Valsartan/Sacubitril 26/24mg Tab) 1 tab PO BID [facility] Stop: 05/03/25 12:44 Last Admin: 04/03/25 14:12 Dose: 1 tab Documented By: [facility] Discontinued Medications Albuterol (Albut/Ipratrop 3mg/0.5mg Neb 3 Ml Vial) 3 ml INH NOW STA Stop: 04/03/25 07:16 Last Admin: 04/03/25 07:14 Dose: 3 ml Documented By: [id number] Aspirin (Aspirin Chew 324 Mg) 324 mg PO NOW STA Stop: 04/03/25 07:52 Last Admin: 04/03/25 07:57 Dose: 324 mg Documented By: TROY Furosemide (Furosemide 40 Mg/4 Ml Vial) 80 mg IV ONE ONE Stop: 04/03/25 07:32 Last Admin: 04/03/25 07:37 Dose: 80 mg Documented By: GGG Insulin Glargine (Lantus Per Unit Charge) 25 units SC NOW ONE Stop: 04/03/25 13:01 Last Admin: 04/03/25 14:27 Dose: 25 units Documented By: [facility] Co-signed By: colleen Nitroglycerin (Nitroglycerin 2% Ointment 30gm Tube) 1 inch EXT Q6H SNEHA Stop: 05/03/25 07:44 Last Admin: 04/03/25 07:37 Dose: 1 inch Documented By: ISABELLA Imaging Data Radiologist's Impression: Chest X-Ray 04/03/25 07:15 EXAM: XR chest 1V portable CLINICAL HISTORY: Dyspnea TECHNIQUE: X-ray of the chest was obtained in the AP position. COMPARISON: Prior dated 01/30/2025 was reviewed. FINDINGS: Pulmonary Parenchyma: There is a redemonstration of bilateral lower zonal increased opacities, more medially, with air bronchogram, prominent kaylan, and bronchovascular markings, suggesting pulmonary edema. No newly developed opacities are identified. Bilateral chest leads are present. Heart and Mediastinum: Apparent cardiomegaly is noted. No mediastinal widening or masses are identified. No hilar or mediastinal lymphadenopathy is present. Bony Thorax: Degenerative changes are seen in the visualized bones. Sternotomy sutures are present. Soft Tissues: The soft tissues overlying the chest wall are unremarkable. Bilateral chest leads are present. IMPRESSION: 1. Features suggesting pulmonary edema appear unchanged. The possibility of an underlying infectious process cannot be ruled out; correlate with clinical and laboratory data. 2. Cardiomegaly. 3. No interval changes. Electronically signed by Flaquito Garcia 04-03-2025 08:46 AM Discharge Plan Visit Data Chief Complaint: Shortness of Breath/Dyspnea ED Provider: Roger Hough Discharge Problem: Acute exacerbation of CHF (congestive heart failure), Acute on chronic respiratory failure with hypoxia and hypercapnia, Pulmonary edema Patient Disposition: Admitted As Inpatient Condition: Serious Discharge Instructions Interventions: ED Discharge Assessment Last Done: 04/03/25 10:35
[2025-04-03] MEDS: NITROGLYCERIN 2% OINTMENT 30GM TUBE EXT SCH (07:37)
[2025-04-03] MEDS: FUROSEMIDE 40 MG/4 ML VIAL IV ONE (07:37)
[2025-04-03 07:40] LABS: Hematocrit (blood only) 42.6 % (37.0-47.0); Hemoglobin 12.5 g/dl (12.0-16.0); Immature Granulocytes # (auto) 0.03 K/uL (0.01-0.20); Immature Granulocytes % (auto) 0.3 %; Mean Corpuscular Hemoglobin 24.4 pg (25.0-34.0); Mean Corpuscular Volume 83.2 fL (80.0-100.0); Platelet Count 339 K/uL (130-400); RDW Standard Deviation 56.0 fL (36.4-46.3); Red Blood Count 5.12 M/uL (4.20-5.40); White Blood Count 10.60 K/ul (4.8-10.8)
[2025-04-03 07:47] LABS: Base Excess VBG -2.8 mEq/L; HCO3 VBG 25 mmol/L; Oxygen Saturation VBG 93.1 %; PCO2 VBG 54 mmHg (38-50); PO2 VBG 73 mmHg; pH VBG 7.27 (7.36-7.41)
[2025-04-03] MEDS: ASPIRIN CHEW 324 MG PO STA (07:57)
[2025-04-03 08:00] LABS: Alanine Aminotransferase 18.0 U/L (7-52); Albumin Globulin Ratio 1.6 (0.9-2); Albumin Level 4.2 gm/dl (3.4-5.0); Alkaline Phosphatase 82.0 U/L (34-104); Anion Gap 10.0 (3-11); Bilirubin,Total 0.5 mg/dl (0.2-1.0); Blood Urea Nitrogen 35.0 mg/dl (6-23); Calcium 9.1 mg/dl (8.6-10.3); Carbon Dioxide 26.0 mmol/L (21-32); Chloride 109.0 mmol/L (98-107); Creatinine Clr Calc Pharmacy 25.7 ml/min; Globulin 2.6 gm/dl (2.5-4.0); Glucose 213.0 mg/dl (70-99(Fasting)); Magnesium 1.8 mg/dl (1.7-2.4); Potassium 3.9 mmol/L (3.5-5.1); Sodium 145.0 mmol/L (136-145); Total Protein 6.8 gm/dl (6.0-8.3)
[2025-04-03 08:12] LABS: INR 1.1 (0.9-1.1); Partial Thromboplastin Time 28 Seconds (21-31); Prothrombin Time 11.4 Seconds (9.0-12.0)
[2025-04-03 08:43] LABS: Chlamydia pneumoniae PCR Not Detected (NotDetected); Coronavirus 229E PCR Not Detected (NotDetected); Coronavirus CoV-2 (COVID19)PCR Not Detected (NotDetected); Coronavirus HKU1 PCR Not Detected (NotDetected); Coronavirus NL63 PCR Not Detected (NotDetected); Coronavirus OC43PCR Not Detected (NotDetected); Human Metapneumovirus PCR Not Detected (NotDetected); Parainfluenza Virus 1 PCR Not Detected (NotDetected); Parainfluenza Virus 2 PCR Not Detected (NotDetected); Parainfluenza Virus 3 PCR Not Detected (NotDetected); Parainfluenza Virus 4 PCR Not Detected (NotDetected); Respiratory Syncytial VirusPCR Not Detected (NotDetected); Rhinovirus/Enterovirus PCR Not Detected (NotDetected)
--- NOTE | 2025-04-03 08:46 | XRay Report ---
EXAM: XR chest 1V portable CLINICAL HISTORY: Dyspnea TECHNIQUE: X-ray of the chest was obtained in the AP position. COMPARISON: Prior dated 01/30/2025 was reviewed. FINDINGS: Pulmonary Parenchyma: There is a redemonstration of bilateral lower zonal increased opacities, more medially, with air bronchogram, prominent kaylan, and bronchovascular markings, suggesting pulmonary edema. No newly developed opacities are identified. Bilateral chest leads are present. Heart and Mediastinum: Apparent cardiomegaly is noted. No mediastinal widening or masses are identified. No hilar or mediastinal lymphadenopathy is present. Bony Thorax: Degenerative changes are seen in the visualized bones. Sternotomy sutures are present. Soft Tissues: The soft tissues overlying the chest wall are unremarkable. Bilateral chest leads are present. IMPRESSION: 1. Features suggesting pulmonary edema appear unchanged. The possibility of an underlying infectious process cannot be ruled out; correlate with clinical and laboratory data. 2. Cardiomegaly. 3. No interval changes. Electronically signed by Flaquito Garcia 04-03-2025 08:46 AM
[2025-04-03 10:29] LABS: Appearance Urine Clear (Clear); Bacteria Urine Automated 1+ (None Seen); Cast Urine Automated 0-2 /lpf (0-2); Glucose Urine UA 2+ (Negative)
--- NOTE | 2025-04-03 10:48 | History & Physical Report ---
Date of Service April 03, 2025 Assessment & Plan (1) Acute hypoxic respiratory failure: (2) Acute exacerbation of chronic heart failure: (3) Type 2 myocardial infarction due to heart failure: (4) Chronic renal disease, stage IV: (5) Uncontrolled type 2 diabetes mellitus with hyperglycemia, with long-term current use of insulin: (6) H/O deep venous thrombosis: Plan In summary this is an 80-year-old female who presents with acute respiratory failure with hypoxia consequential open acute on chronic exacerbation of heart failure #Acute on chronic heart failure exacerbation // Type II myocardial infarction secondary to heart failure exacerbation // Ischemic cardiomyopathy Previously diagnosed; most recent ejection fraction from 01/2000 2550 to 55% which is improved from prior consistent with HFimpEF; current findings suggestive of heart failure status patient include new oxygen requirement, increased weight, lower extremity edema, basilar pulmonary congestion both on exam and with imaging; found to have a troponin rise with initial serial as sessment, EKG is with some slight subendocardial evidence of ischemia in the lateral precordial leads without any additional anginal findings other than the patient's reported dyspnea -Nursing to notify of new or increased oxygen requirement, sustained heart rate of greater than 120 or less than 50 bpm - Consistent carbohydrate and low-sodium diet -Measure intake and output every shift - Continue bumetanide 2 mg IV twice daily -Follow daily RFP and Magnesium - At this time, no jesse evidence of hemodynamic compromise that would suggest the need for a repeat transthoracic echocardiogram; if the patient's troponin continues to rise, would anticipate cardiology consultation for further recommendations and determination of further diagnostic needs during this hospitalization #Chronic kidney disease, Stage IV secondary to hypertensive nephrosclerosis and diabetic nephropathy Baseline creatinine measure is in the range of 1.5-1.8; currently at their baseline; may exhibit some creatinine rise that will be necessary during diuresis, this should not prohibit loop diuretic therapy unless there is significant other electrolyte abnormalities or other evidence of consequences of an acute kidney injury noted #Type II Diabetes mellitus with hyperglycemia, CKD, and PAD dependent on insulin therapy Most recent hemoglobin A1c of 8.6 on 01/2025; continue the patient's home scheduled basal insulin, with pharmacy consultation to assist with sliding scale dosing; goal glucose of less than 140 for all preprandial measures and less than 180 for all random glucose checks Continue [facility] consulted for assistance with prandial insulin regimen #Recurrrent DVT Continue patient's home anticoagulation regimen during hospitalization History of Present Illness Chief Complaint: Progressive shortness of breath and unintentional weight gain Primary Care Provider: Maribel Sanabria MD Ms. Barragan is an 80-year-old female whose active medical conditions include heart failure with improved ejection fraction with ischemic cardiomyopathy, CKD stage IV with uncontrolled type 2 diabetes mellitus with hyperglycemia among other complications, peripheral arterial disease among other chronic medical conditions who presented to [facility] 04/[facility] by EMS from [facility] due to progressive shortness of breath, and weight gain. The patient denies any recent medication changes, upper respiratory congestion, cough, fevers, chills. She does state that she still regularly "put salt on everything". She is unable to provide much of a medical history exhibiting poor insight to her chronic medical conditions. Allergies Allergy/AdvReac Type Severity Reaction Status Date / Time No Known Allergies Allergy Verified 03/30/25 10:03 Home Medications Medication Instructions Recorded Confirmed Type lancets (Accu-Chek Softclix 06/02/21 03/30/25 History Lancets) blood-glucose sensor (FreeStyle #2 ea 01/17/24 03/30/25 Rx Marcelo 3 Sensor device) blood-glucose,vulcanizer rubber plate,cont #1 ea 01/17/24 03/30/25 Rx (FreeStyle Marcelo 3 Thoreau) omega-3 fatty acids 1,000 mg 1,000 mg PO QAM 01/30/24 04/03/25 History capsule insulin syringe-needle U-100 1 mL #150 ea 03/14/24 03/30/25 Rx 29 gauge x 1/2" (BD Insulin Syringe) vitamins A,C,V-bbin-cwgdip 2,148 1 tab PO QAM 03/15/24 04/03/25 History mcg-113 mg-45 mg-17.4 mg tablet (PreserVision AREDS) sacubitril 24 mg-valsartan 26 mg 1 tab PO BID #90 tabs 04/18/24 04/03/25 Rx tablet (Entresto) acetaminophen 500 mg tablet 1,000 mg (2 x 500 mg) PO TID PRN 04/21/24 04/03/25 Rx Temp >100/Pain #180 tabs apixaban 5 mg tablet 5 mg PO BID #180 tabs 06/01/24 04/03/25 Rx carvedilol 3.125 mg tablet (Coreg) 3.125 mg PO BIDM #180 tabs 07/13/24 04/03/25 Rx clopidogrel 75 mg tablet 75 mg PO QAM #90 tabs 07/13/24 04/03/25 Rx pantoprazole 40 mg tablet,delayed 40 mg PO DAILY #90 tabs 07/13/24 04/03/25 Rx release (Protonix) loperamide 2 mg tablet (Imodium 2 mg PO Q6H PRN Diarrhea 07/20/24 04/03/25 History A-D) insulin degludec 100 unit/mL (3 36 unit (0.36 mL) subcut DAILY #15 07/24/24 04/03/25 Rx mL) subcutaneous pen (Tresiba mL FlexTouch U-100 insulin) pen needle, diabetic 31 gauge x #400 ea 07/24/24 03/30/25 Rx 3/16" (BD Ultra-Fine Mini Pen Needle) empagliflozin 10 mg tablet 10 mg PO QAM 08/09/24 04/03/25 History (Jardiance) atorvastatin 40 mg tablet 40 mg PO QPM #90 tabs 01/04/25 04/03/25 Rx acetaminophen 500 mg tablet 1,000 mg PO TID Pain 01/30/25 04/03/25 History diclofenac sodium 1 % topical gel 4 g topical BID Left Shoulder Pain 01/30/25 04/03/25 History ergocalciferol (vitamin D2) 1,250 0 mcg PO WK 01/30/25 04/03/25 History mcg (50,000 unit) capsule (Vitamin D2) glucose 4 gram chewable tablet 0 g PO DAILY PRN BG<70 01/30/25 04/03/25 History magnesium hydroxide 400 mg/5 mL 2,400 mg PO DAILY PRN Constipation 01/30/25 04/03/25 History oral suspension (Milk of Magnesia) menthol 0.44 %-zinc oxide 20.6 % 1 applic topical TID PRN Rash/Skin 01/30/25 04/03/25 History topical ointment (Calmoseptine) Protection nitroglycerin 0.4 mg sublingual 4 mg sublingual Q5M PRN Chest Pain 01/30/25 04/03/25 History tablet polyethylene glycol 3350 17 17 g PO DAILY PRN Constipation 01/30/25 04/03/25 History gram/dose oral powder (Miralax) tramadol 50 mg tablet 50 mg PO TID PRN Pain 01/30/25 04/03/25 History furosemide 40 mg tablet 40 mg PO QAM #45 tabs 02/01/25 04/03/25 Rx lidocaine 4 % topical patch 1 patch topical DAILY PRN Back 02/14/25 04/03/25 Rx Upper thigh Pain #100 ea sennosides 8.6 mg-docusate sodium 1 tab-cap PO DAILY PRN 03/08/25 04/03/25 Rx 50 mg tablet (Senokot-S) constipation #30 tabs insulin aspart U-100 100 unit/mL 0 unit subcut TID 04/03/25 04/03/25 History (3 mL) subcutaneous pen (Novolog FlexPen U-100 Insulin aspart) Past Med/Surg History Problem List (Updated 04/03/25 @ 10:52 by Mike Camejo DO) Type 2 myocardial infarction due to heart failure Acute hypoxic respiratory failure Acute exacerbation of chronic heart failure Heart failure with improved ejection fraction (HFimpEF) Atherosclerotic peripheral vascular disease with intermittent claudication Chronic renal disease, stage IV Uncontrolled type 2 diabetes mellitus with hyperglycemia, with long-term current use of insulin Pancreatic abnormality Elevated brain natriuretic peptide (BNP) level (Acute) Heart 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, 41-49%) Hx of upper gastrointestinal hemorrhage History of non-ST elevation myocardial infarction (NSTEMI) (01/29/24) H/O deep venous thrombosis Low back pain Carpal tunnel syndrome, bilateral (Chronic) Gait disturbance (Chronic) Cerebral microvascular disease (Chronic) Current use of anticoagulant therapy Obesity, Class I, BMI 30-34.9 (Chronic) GERD (gastroesophageal reflux disease) Sensorineural hearing loss (SNHL) of both ears Bilateral tinnitus Mild cognitive impairment Medical History Non-ST elevation SC (NSTEMI) Acute kidney injury superimposed on chronic kidney disease Influenza A virus present Acute hypoxic respiratory failure Loose stools Sacroiliac joint pain Left shoulder pain Strain of left iliopsoas muscle Hyperkalemia Strain of right iliopsoas muscle History of pulmonary embolism (2019) Chronic anticoagulation Elevated WBC count Excessive cerumen in both ear canals Hearing decreased Upper GI bleed Acute non-ST elevation myocardial infarction (NSTEMI) (01/29/24) Hypoxia Pulmonary edema Fall UTI (urinary tract infection) Osteoarthritis of left shoulder Esophageal ulcer Gastric ulcer Mitral regurgitation Ischemic cardiomyopathy Heart failure with reduced ejection fraction Acute blood loss anemia Acute GI bleeding Finger fracture, left Diabetes mellitus type 2, uncontrolled, with complications (~1988) Gastrointestinal hemorrhage Deep vein thrombosis (DVT) of left lower extremity (~05/2020) Chronic anticoagulation Cough Acute right-sided low back pain Trapezius muscle spasm Stroke COVID-19 virus infection (~05/14/20) Physical deconditioning Diabetes Surgical History S/P coronary artery stent placement S/P CABG x 5 (2009) History of heart bypass surgery History of carpal tunnel release of both wrists H/O partial thyroidectomy Family History Son Colorectal cancer Myocardial infarction Family/Other Colorectal cancer Aunt Colorectal cancer Father Myocardial infarction Uncle Myocardial infarction Brother Myocardial infarction Dyslipidemia Mother Heart disease Dementia Denies family history of Ovarian cancer Prostate cancer Breast cancer Social History Smoking Status: Former smoker Tobacco Type: Declines Age Started Using Tobacco: 15; Age Quit Using Tobacco: 20; packs per day: 0.25; Second Hand Exposure: No; Do You Dip or Chew Tobacco: No; Hx Alcohol Use: No Hx Substance Use: No Preferred Language: Telugu Communication Ability: Effective Visual Impairment: Limited Hearing Ability: Use of Hearing Aid Electrocardiograph Repairer Required: No Beliefs That Will Affect Care: None marital status: / Current Living Situation: Personal Care Facility Current Living Situation Comment: [facility] current occupational status: retired Feels Safe at Home: Yes Childhood Exposure to Second-Hand Smoke: Yes Diet: regular caffeine: Yes (1-2 cups a day) Dental Care, Regularly: Yes Physical Activity Frequency: Does not Exercise Physical Activity Frequency Comment: Just PT for hands Seatbelt Use: always Sunscreen Use: No Do you think of yourself as: straight/heterosexual Gender Identity: Female Assistive Devices: Walker Review of Systems Review of Systems: Review of cardiovascular, pulmonary, constitutional, gastrointestinal, genitourinary systems was unremarkable Physical Exam Physical Exam: General: Elderly female in mild respiratory distress Vital Signs: Reviewed; requiring BiPAP rescue therapy with IPAP 15, EPAP 10; remaining vital signs are relatively unremarkable HEENT: Pupils equally round reactive to light; extraocular motion intact; tacky mucous membranes; intermittent loss of seal with BiPAP mask due to relatively short chin resulting in poor mask fit Neck: No notable hepatojugular reflux nor JVD at rest Pulmonary: Symmetric chest wall excursion with restriction secondary to body habitus; soft crackles present in the bilateral basilar posterior lobes, though difficult to auscultate over PPV Cardiovascular: Regular rate and rhythm without murmurs, rubs, or gallops though difficult to auscultate given PPV; S1 and S2 relatively normal; bilateral radial and posterior tibial pulse 2+ with 1+ pitting edema distal of the mid leg bilaterally Gastrointestinal: Protuberant, soft; mildly tender to palpation in the suprapubic area, patient does endorse sensation of needing to void with palpation Neurologic: Cranial nerves II through XII grossly intact; no discernible focal weakness no paresthesia Results & Data Results & Data Vital Signs (Past 12 Hours) Vital Signs Temp Pulse Resp BP Pulse Ox O2 Del Method O2 Flow Rate 04/03/25 10:35 74 24 155/66 H 98 BiPAP 04/03/25 10:31 74 24 155/66 H 98 04/03/25 10:00 68 19 186/80 H 96 04/03/25 09:30 71 22 146/88 H 99 04/03/25 09:00 67 27 H 126/69 99 04/03/25 08:30 68 20 124/74 98 04/03/25 08:01 72 21 141/82 H 98 04/03/25 07:30 86 26 H 149/108 H 98 04/03/25 07:30 149/108 H 04/03/25 07:17 97 H 04/03/25 07:15 97 H 31 H 150/94 H 98 04/03/25 07:14 97 H 32 H 100 04/03/25 07:08 98 H 30 H 100 BiPAP 15 04/03/25 07:08 100 BiPAP 15 04/03/25 07:08 36.7 C 98 H 30 H 150/94 H 100 BiPAP FiO2 04/03/25 10:35 10/14/25 10:31 04/03/25 10:00 04/03/25 09:30 04/03/25 09:00 04/03/25 08:30 04/03/25 08:01 04/03/25 07:30 04/03/25 07:30 04/03/25 07:17 04/03/25 07:15 04/03/25 07:14 50 04/03/25 07:08 04/03/25 07:08 50 04/03/25 07:08 Laboratory Results VBG notable for pH 7.27, pCO2 54 Initial troponin 30.5 with rise to 304.4 BNP 1022 most recent prior measure 303 in 01/2025; urinalysis with glucose to be expected on SGLT2 inhibitor, trace leukocyte esterase, pyuria, hematuria, large quantity of epithelial cells interpretation difficult especially with respect to urine bacteria noted Viral BioFire is without remarkable findings Diagnostic Findings Poor quality portable chest film does show bilateral costophrenic blunting with cephalization of the vessels bilaterally and prominent hilar vasculature; there is no jesse evidence of infectious process based on this image ECG Additional Comments: Sinus rhythm with occasional premature ventricular complexes; slight ST depression in the lateral precordial leads without reciprocal change noted else where Code Status & VTE Plan Code Status DNR/DNI VTE Prophylaxis Plan VTE Prophylaxis will be ordered: No Reason for no VTE drug order: Contraindicated PG Care Time/CCT Total # of Minutes Spent Total Time Spent with Patient: Total time spent is greater than 50% in coordination of care (as documented) at patient's floor/unit and/or counseling patient: Coding Level of Care Code 25955 INT INP/OBS CARE 2/55MIN Diagnoses Acute hypoxic respiratory failure J96.01 Acute exacerbation of chronic heart failure I50.9 Type 2 myocardial infarction due to heart failure I50.9; I21.A1 Chronic renal disease, stage IV N18.4 Uncontrolled type 2 diabetes mellitus with hyperglycemia, with long-term current use of insulin E11.65; Z79.4 H/O deep venous thrombosis Z86.718
[2025-04-03] MEDS ORDERED: GLUCAGON FOR INJ 1 MG VIAL SQ PRN (11:52)
[2025-04-03] MEDS ORDERED: GLUCOSE 10 TAB/TUBE PO PRN (11:52)
[2025-04-03] MEDS ORDERED: DEXTROSE 50% 50 ML SYRINGE IV PRN (11:52)
[2025-04-03] MEDS ORDERED: PHARMACY GLYCEMIC MGMT CONSULT PRN (11:52)
[2025-04-03] MEDS ORDERED: CARBOHYDRATES FOR HYPOGLYCEMIA PO PRN (11:52)
[2025-04-03] MEDS ORDERED: GLUCOSE 40% GEL 15 GM TUBE PO PRN (12:39)
[2025-04-03] MEDS: CLOPIDOGREL BISULFATE 75 MG TAB PO SCH (14:12)
[2025-04-03] MEDS: APIXABAN 5 MG TABLET PO SCH (14:12)
[2025-04-03] MEDS: VALSARTAN/SACUBITRIL 26/24MG TAB PO SCH (14:12)
[2025-04-03] MEDS: BUMETANIDE 2 MG in SYRINGE 0 ML IV SCH (14:13)
--- NOTE | 2025-04-03 14:23 | Pharmacy Report ---
Pharmacy Glycemic Short Note 2 - Date of Service April 03, 2025 - Glycemic Short BSG Results (Last 24 hours): 04/03/25 04/03/25 07:20 12:23 Glucose 213 H POC Glucose 168 H OUTPATIENT ANTIDIABETIC REGIMEN: * Tresiba 36 units SQ daily * NovoLog 12 units SQ TIDM * HbA1c 8.6% (01/31/25) ASSESSMENT: * Francine is an 80 year old female admitted with a CHF exacerbation and a history of insulin dependent type 2 diabetes mellitus. Pharmacy has been consulted to assist with glycemic management while inpatient. Pharmacy followed for glycemic management during her January admission. * Fasting BSG this AM elevated, will initiate Lantus at approximately 70% of home Tresiba dose and allow for additional at bedtime if BSGs remain elevated. Plan to continue Lantus regimen that was successful during prior admission starting tomorrow. * NovoLog parameters per previous admission. PLAN FOR INPATIENT GLYCEMIC CONTROL: * Hold outpatient oral diabetes medications * Basal insulin * Lantus 25 units SQ now x1 * Lantus 0-10 units SQ HS based on BSG (see eMAR for additional details) * Lantus 30 units SQ daily starting tomorrow morning. * Bolus insulin * NovoLog per scale ACHS or Q6hrs while NPO * Goal Range: Low 110 mg/dL - High 140 mg/dL * Correction Factor: 20 mg/dL/unit * Nutritional / Prandial insulin per carb ratio of 1 unit per 5 grams CHO consumed
[2025-04-03] MEDS: ACETAMINOPHEN 500 MG TAB PO SCH (14:25)
[2025-04-03] MEDS: INSULIN ASPART PER UNIT CHARGE SC SCH (14:26)
[2025-04-03] MEDS: LANTUS PER UNIT CHARGE SC ONE (14:27)
[2025-04-03] MEDS: POLYETHYLENE (MIRALAX) 17 GM PACK PO SCH (14:35)
[2025-04-03] MEDS: DICLOFENAC SOD 1% GEL 100 GM TUBE EXT SCH (14:38)
[2025-04-03 14:55] LABS: Base Excess VBG 3.0 mEq/L; HCO3 VBG 29 mmol/L; Oxygen Saturation VBG 69.1 %; PCO2 VBG 49 mmHg (38-50); PO2 VBG 41 mmHg; pH VBG 7.38 (7.36-7.41)
--- NOTE | 2025-04-03 15:34 | Communication Note ---
Date of Service: April 03, 2025 Noted continued troponin rise; Cardiology consulted for recommendations in the setting of troponin rate of rise in excess of what would be expected for Type II W[place] from Heart failure exacerbation
[2025-04-03] MEDS: LANTUS PER UNIT CHARGE SC SCH (20:05)
[2025-04-03] MEDS: ATORVASTATIN 40 MG TAB PO SCH (20:09)
[2025-04-03] MEDS ORDERED: LANTUS PER UNIT CHARGE SC SCH (21:00)
[2025-04-04 07:45] LABS: Albumin Level 3.8 gm/dl (3.4-5.0); Anion Gap 9.0 (3-11); Blood Urea Nitrogen 35.0 mg/dl (6-23); Calcium 9.4 mg/dl (8.6-10.3); Carbon Dioxide 29.0 mmol/L (21-32); Chloride 104.0 mmol/L (98-107); Creatinine Clr Calc Pharmacy 27.2 ml/min; Glucose 102.0 mg/dl (70-99(Fasting)); Magnesium 1.8 mg/dl (1.7-2.4); Potassium 3.8 mmol/L (3.5-5.1); Sodium 142.0 mmol/L (136-145)
[2025-04-04] MEDS: LANTUS PER UNIT CHARGE SC SCH (08:32)
[2025-04-04] MEDS ORDERED: LANTUS PER UNIT CHARGE SC SCH (09:00)
--- NOTE | 2025-04-04 12:07 | Hospitalist Progress Note ---
Date of Service April 04, 2025 Assessment & Plan (1) Acute hypoxic respiratory failure: Plan: -2nd to CHF exacerbation -continue bumetanide 2 mg IV twice daily (2) Acute exacerbation of chronic heart failure: Plan: -continue bumetanide 2 mg IV twice daily (3) Type 2 myocardial infarction due to heart failure: Plan: -troponin elevated >1000 -on eliquis, plavix, coreg, atorvastatin -echo -cardiology consulted (4) Chronic renal disease, stage IV: Plan: -Baseline creatinine measure is in the range of 1.5-1.8 (5) Uncontrolled type 2 diabetes mellitus with hyperglycemia, with long-term current use of insulin: Plan: -pharm consult for glycemic managment (6) H/O deep venous thrombosis: Plan: -on eliquis Plan In summary this is an 80-year-old female who presents with acute respiratory failure with hypoxia consequential open acute on chronic exacerbation of heart failure Admission and Anticipated Discharge Date Admission Date: April 03, 2025 Subjective No events overnight. Pt states her breathing has improved. She denies any chest pain Review of Systems Review of Systems: CONST: Negative for fever, body aches and chills. HENT: Negative for neck pain/stiffness, headache, congestion, sore throat, swelling. EYES: Negative for discharge/pain or vision changes. RESP: Negative for cough/hemoptysis and shortness of breath. CV: Negative chest pain, difficulty breathing, palpitations. ABD: Negative pain, nausea, vomiting. : Negative increase frequency, dysuria, blood in urine or stool. MUSC: Negative for muscle aches, edema. SKIN: Negative rash, lesions/sores. NEURO: Negative headache, dizziness, weakness. Physical Exam Physical Exam: GENERAL APPEARANCE NAD, activity normal for age, well developed/ well nourished, no cyanosis, pallor, or diaphoresis. EYES lids/conjunctiva normal. EARS/NOSE/THROAT Mucous membranes moist, nares normal, lips/teeth normal uvula midline without oral pharyngeal erythema, exudate or swelling TMs normal bilaterally. No lymphangitis/lymphedema. HEAD/NECK normocephalic atraumatic, no facial trauma, neck is supple. RESPIRATORY respiratory effort normal, speaks in full sentences, no tripod position, no accessory muscle use. Lungs clear to auscultation without rhonchi, wheezes, rales CARDIAC Regular rate and rhythm, no edema. ABDOMINAL Soft, ND/NT. No evidence of fluid wave. No pulsatile masses on exam, rebound tenderness, Joseph sign or pain over Mcburney's point. MUSCLES/EXTREMITIES No abnormal range of motion, no swelling. SKIN Warm, pink and dry. No rashes, dermatoses, petechiae or lesions. NEUROLOGICAL Speech is clear and appropriate. Normal level of consciousness. Gait and coordination are normal. 5/5 strength in all extremities. PSYCH Normal mood and affect. Judgement/competence is appropriate Results & Data Results & Data Vital Signs (Past 12 Hours) Vital Signs Temp Pulse Resp BP Pulse Ox O2 Del Method O2 Flow Rate 04/04/25 11:16 36.6 C 62 18 122/65 93 Nasal Cannula 04/04/25 11:08 Nasal Cannula 1 04/04/25 11:07 36.6 C 62 18 122/65 93 Nasal Cannula 2 04/04/25 07:42 36.4 C L 67 16 153/68 H 96 Room Air 04/04/25 03:24 36.4 C L 62 18 132/69 94 Nasal Cannula 2 PG Care Time/CCT Total # of Minutes Spent Total Time Spent with Patient: Total time spent is greater than 50% in coordination of care (as documented) at patient's floor/unit and/or counseling patient: Coding Level of Care Code 78619 SUB INP/OBS CARE 2/35MIN Diagnoses Acute hypoxic respiratory failure J96.01 Acute exacerbation of chronic heart failure I50.9 Type 2 myocardial infarction due to heart failure I50.9; I21.A1 Chronic renal disease, stage IV N18.4 Uncontrolled type 2 diabetes mellitus with hyperglycemia, with long-term current use of insulin E11.65; Z79.4 H/O deep venous thrombosis Z86.718
--- NOTE | 2025-04-04 12:16 | Cardiology Consultation ---
Date of Consultation April 04, 2025 Assessment & Plan (1) Acute exacerbation of CHF (congestive heart failure): (2) Elevated troponin: Plan 1. CHF: She presents with another episode of congestive heart failure, the cause remains on clear. I do not think it is a primary cardiac event causing this, she does have mild troponin elevation but no other indication of a cardiac issue. I suspect it is excessive fluid intake although perhaps she needs more diuresis. That is hard to assess without knowing her outpatient intake. She is probably not too far from being euhydrated. We may have to adjust her outpatient diuretic regimen to include as needed medications for weight gain, I am not sure she has that in place. 2. Elevated troponin: She has mild to moderate troponin elevation, I believe this is more consistent with her heart failure that is with an acute coronary event. I would not consider invasive evaluation. History of Present Illness Reason for Consultation: CHF Attending Physician: Chris Sharma MD History of Present Illness This is an 80-year-old woman typically managed by Dr. Cherry in our office. She has a history of dyslipidemia, hypertension, diabetes mellitus, chronic kidney disease, stroke and pulmonary embolism with DVT and is therefore on chronic anticoagulation. She also has coronary artery disease which includes a myocardial infarction in 2009 in [place], she was identified as having severe coronary disease at the time and had bypass surgery x 5 around that time. She also had an NSTEMI January 30, 2024 and catheterization then showed progressive disease and she underwent PCI of the saphenous vein graft to the PDA as well as the saphenous vein graft to the third obtuse marginal at that time. She was hospitalized here on January 30, 2025 for CHF which was felt to be due to dietary indiscretion. Her most recent echocardiogram January 30, 2025 shows normal left ventricular systolic function with an ejection fraction of 50 to 55% and moderate concentric left ventricular hypertrophy. She was last seen in our heart failure area on February 16, 2025 where she seemed to be doing relatively well. She presents April 03, 2025 with shortness of breath, she is described by EMS as being in respiratory distress that morning requiring CPAP. She is reported to have gained weight and have worsening shortness of breath in the skilled nursing ([facility]). She did appear to be fluid overloaded with pitting edema and required BiPAP for hypoxia. Laboratory studies here include an electrocardiogram on April 03, 2025 which demonstrates sinus rhythm at 86 bpm with frequent premature ventricular beats. She does have an anterior myocardial infarction and what appears to be an inferior infarction with ST elevation in lead III, however this ST elevation was present on prior electrocardiograms as well. Her creatinine is somewhat elevated but has been in the past and is no worse this admission, her troponin on presentation was 304 which increased to 1410 several hours later. BNP was elevated to over 1000 and her chest x-ray was consistent with congestive heart failure. Her weight is about 85 kg with a dry weight which probably should be around 80 kg. Based on skilled nursing records from February 2025 her weight there was around 175 pounds (79.5 kg) but I do not know what her weight was more recently. At the time of my evaluation she was feeling much better, she was sitting in her chair at her bedside and had no complaints of shortness of breath or chest discomfort. It sounds as though she is not on a fluid restriction at [facility] and I think is likely drinking more fluid than she should. Allergies Allergy/AdvReac Type Severity Reaction Status Date / Time No Known Allergies Allergy Verified 03/30/25 10:03 Home Medications Medication Instructions Recorded Confirmed Type lancets (Accu-Chek Softclix 06/02/21 03/30/25 History Lancets) blood-glucose sensor (FreeStyle #2 ea 01/17/24 03/30/25 Rx Marcelo 3 Sensor device) blood-glucose,sales and marketing analyst,cont #1 ea 01/17/24 03/30/25 Rx (FreeStyle Marcelo 3 [place]) omega-3 fatty acids 1,000 mg 1,000 mg PO QAM 01/30/24 04/03/25 History capsule insulin syringe-needle U-100 1 mL #150 ea 03/14/24 03/30/25 Rx 29 gauge x 1/2" (BD Insulin Syringe) vitamins A,C,T-phbf-iocoui 2,148 1 tab PO QAM 03/15/24 04/03/25 History mcg-113 mg-45 mg-17.4 mg tablet (PreserVision AREDS) sacubitril 24 mg-valsartan 26 mg 1 tab PO BID #90 tabs 04/18/24 04/03/25 Rx tablet (Entresto) acetaminophen 500 mg tablet 1,000 mg (2 x 500 mg) PO TID PRN 04/21/24 04/03/25 Rx Temp >100/Pain #180 tabs apixaban 5 mg tablet 5 mg PO BID #180 tabs 06/01/24 04/03/25 Rx carvedilol 3.125 mg tablet (Coreg) 3.125 mg PO BIDM #180 tabs 07/13/24 04/03/25 Rx clopidogrel 75 mg tablet 75 mg PO QAM #90 tabs 07/13/24 04/03/25 Rx pantoprazole 40 mg tablet,delayed 40 mg PO DAILY #90 tabs 07/13/24 04/03/25 Rx release (Protonix) loperamide 2 mg tablet (Imodium 2 mg PO Q6H PRN Diarrhea 07/20/24 04/03/25 History A-D) insulin degludec 100 unit/mL (3 36 unit (0.36 mL) subcut DAILY #15 07/24/24 04/03/25 Rx mL) subcutaneous pen (Tresiba mL FlexTouch U-100 insulin) pen needle, diabetic 31 gauge x #400 ea 07/24/24 03/30/25 Rx 3/16" (BD Ultra-Fine Mini Pen Needle) empagliflozin 10 mg tablet 10 mg PO QAM 08/09/24 04/03/25 History (Jardiance) atorvastatin 40 mg tablet 40 mg PO QPM #90 tabs 01/04/25 04/03/25 Rx acetaminophen 500 mg tablet 1,000 mg PO TID Pain 01/30/25 04/03/25 History diclofenac sodium 1 % topical gel 4 g topical BID Left Shoulder Pain 01/30/25 04/03/25 History ergocalciferol (vitamin D2) 1,250 0 mcg PO WK 01/30/25 04/03/25 History mcg (50,000 unit) capsule (Vitamin D2) glucose 4 gram chewable tablet 0 g PO DAILY PRN BG<70 01/30/25 04/03/25 History magnesium hydroxide 400 mg/5 mL 2,400 mg PO DAILY PRN Constipation 01/30/25 04/03/25 History oral suspension (Milk of Magnesia) menthol 0.44 %-zinc oxide 20.6 % 1 applic topical TID PRN Rash/Skin 01/30/25 04/03/25 History topical ointment (Calmoseptine) Protection nitroglycerin 0.4 mg sublingual 4 mg sublingual Q5M PRN Chest Pain 01/30/25 04/03/25 History tablet polyethylene glycol 3350 17 17 g PO DAILY PRN Constipation 01/30/25 04/03/25 History gram/dose oral powder (Miralax) tramadol 50 mg tablet 50 mg PO TID PRN Pain 01/30/25 04/03/25 History furosemide 40 mg tablet 40 mg PO QAM #45 tabs 02/01/25 04/03/25 Rx lidocaine 4 % topical patch 1 patch topical DAILY PRN Back 02/14/25 04/03/25 Rx Upper thigh Pain #100 ea sennosides 8.6 mg-docusate sodium 1 tab-cap PO DAILY PRN 03/08/25 04/03/25 Rx 50 mg tablet (Senokot-S) constipation #30 tabs insulin aspart U-100 100 unit/mL 0 unit subcut TID 04/03/25 04/03/25 History (3 mL) subcutaneous pen (Novolog FlexPen U-100 Insulin aspart) Patient History Medical History Dyslipidemia CAD (coronary artery disease) Hypertension Non-ST elevation [place] (NSTEMI) Acute kidney injury superimposed on chronic kidney disease Influenza A virus present Loose stools Sacroiliac joint pain Left shoulder pain Strain of left iliopsoas muscle Hyperkalemia Strain of right iliopsoas muscle History of pulmonary embolism (2019) Chronic anticoagulation Elevated WBC count Excessive cerumen in both ear canals Hearing decreased Upper GI bleed Acute non-ST elevation myocardial infarction (NSTEMI) (01/29/24) Hypoxia Pulmonary edema Fall UTI (urinary tract infection) Osteoarthritis of left shoulder Esophageal ulcer Gastric ulcer Mitral regurgitation Ischemic cardiomyopathy Heart failure with reduced ejection fraction Acute blood loss anemia Acute GI bleeding Finger fracture, left Diabetes mellitus type 2, uncontrolled, with complications (~1988) Gastrointestinal hemorrhage Deep vein thrombosis (DVT) of left lower extremity (~05/2020) Chronic anticoagulation Cough Acute right-sided low back pain Trapezius muscle spasm Stroke COVID-19 virus infection (~05/14/20) Physical deconditioning Diabetes Surgical History S/P coronary artery stent placement S/P CABG x 5 (2009) History of heart bypass surgery History of carpal tunnel release of both wrists H/O partial thyroidectomy Family History Son Colorectal cancer Myocardial infarction Family/Other Colorectal cancer Aunt Colorectal cancer Father Myocardial infarction Uncle Myocardial infarction Brother Myocardial infarction Dyslipidemia Mother Heart disease Dementia Denies family history of Ovarian cancer Prostate cancer Breast cancer Social History Smoking Status: Former smoker Tobacco Type: Cigarettes Age Started Using Tobacco: 15; Age Quit Using Tobacco: 20; packs per day: 0.25; Second Hand Exposure: No; Do You Dip or Chew Tobacco: No; Hx Alcohol Use: No Hx Substance Use: No Preferred Language: Nam[place]ian Communication Ability: Effective Visual Impairment: Limited Hearing Ability: Use of Hearing Aid Chief Dispatcher Required: No Beliefs That Will Affect Care: None marital status: / Current Living Situation: Group Home Current Living Situation Comment: [facility] current occupational status: retired Feels Safe at Home: Yes Childhood Exposure to Second-Hand Smoke: Yes Diet: regular caffeine: Yes (1-2 cups a day) Dental Care, Regularly: Yes Physical Activity Frequency: Does not Exercise Physical Activity Frequency Comment: Just PT for hands Seatbelt Use: always Sunscreen Use: No Do you think of yourself as: straight/heterosexual Gender Identity: Female Assistive Devices: Walker Review of Systems Review of Systems: All systems reviewed & are unremarkable except as noted in HPI & below With her mental status I am not sure how reliable her review of systems is. Physical Exam Physical Exam: Constitutional: Alert, cooperative and in no distress. HEENT: Unremarkable Neck: No jugular venous distention, carotid pulses are normal and equal bilaterally without bruits. Pulmonary: Clear to auscultation bilaterally. Cardiac: Regular rhythm with no murmur, gallop or rub. Abdomen: Soft, nontender with normal bowel sounds. Extremities: No significant edema. Neurologic: No focal findings. Skin: No rash, ecchymoses or petechiae. Results & Data Vital Signs (Past 12 Hours) Vital Signs Temp Pulse Resp BP Pulse Ox O2 Del Method O2 Flow Rate 04/04/25 11:16 36.6 C 62 18 122/65 93 Nasal Cannula 04/04/25 11:08 Nasal Cannula 1 04/04/25 11:07 36.6 C 62 18 122/65 93 Nasal Cannula 2 04/04/25 07:42 36.4 C L 67 16 153/68 H 96 Room Air 04/04/25 03:24 36.4 C L 62 18 132/69 94 Nasal Cannula 2 Laboratory Results Cardiac Enzymes 04/03/25 Range/Units 09:25 Troponin I High Sens 304.4 H* D (0-14) pg/ml Comprehensive Metabolic Panel 04/04/25 Range/Units 07:02 Sodium 142 (136-145) mmol/L Potassium 3.8 (3.5-5.1) mmol/L Chloride 104 (98-107) mmol/L Carbon Dioxide 29 (21-32) mmol/L BUN 35 H (6-23) mg/dl Creatinine 1.60 H (0.6-1.2) mg/dl Glucose 102 H (70-99(Fasting)) mg/dl Calcium 9.4 (8.6-10.3) mg/dl Albumin 3.8 (3.4-5.0) gm/dl Intake and Output 04/04/25 04/04/25 04/04/25 06:59 14:59 22:59 Intake Total 300 / 795 240 / 240 Balance 300 / 795 240 / 240 Intake: Oral 300 / 795 240 / 240 Other: Weight 85.2 kg Weight Measurement Method Built in [facility] Diagnostic Findings Telemetry: Sinus rhythm with PVCs PG Care Time/CCT Total # of Minutes Spent Total Time Spent with Patient: Total time spent is greater than 50% in coordination of care (as documented) at patient's floor/unit and/or counseling patient: Coding Level of Care Code 14527 INT INP/OBS CARE 2/55MIN Diagnoses Acute exacerbation of CHF (congestive heart failure) I50.9 Elevated troponin R79.89
--- NOTE | 2025-04-04 14:30 | Pharmacy Report ---
Pharmacy Glycemic Short Note 2 - Date of Service April 04, 2025 - Glycemic Short BSG Results (Last 24 hours): 04/03/25 04/03/25 04/04/25 17:04 20:02 07:02 Glucose 102 H POC Glucose 146 H 96 04/04/25 04/04/25 08:08 11:39 Glucose POC Glucose 96 140 H OUTPATIENT ANTIDIABETIC REGIMEN: * Tresiba 36 units SQ daily * NovoLog 12 units SQ TIDM * HbA1c 8.6% (01/31/25) ASSESSMENT: 04/04: * Francine received 41 units of insulin yesterday (25 were basal) * Fasting BSG this AM below goal range, will reduce basal insulin by 20% this AM and allow for additional at bedtime if BSGs are elevated. * No changes to NovoLog parameters at this time. Increase goal range due to BSGs below goal. No glycemic stressors noted. 04/03: * Francine is an 80 year old female admitted with a CHF exacerbation and a history of insulin dependent type 2 diabetes mellitus. Pharmacy has been consulted to assist with glycemic management while inpatient. Pharmacy followed for glycemic management during her January admission. * Fasting BSG this AM elevated, will initiate Lantus at approximately 70% of home Tresiba dose and allow for additional at bedtime if BSGs remain elevated. Plan to continue Lantus regimen that was successful during prior admission starting tomorrow. * NovoLog parameters per previous admission. PLAN FOR INPATIENT GLYCEMIC CONTROL: * Hold outpatient oral diabetes medications * Basal insulin * Lantus 0-10 units SQ HS based on BSG (see eMAR for additional details) * Lantus 20 units SQ daily starting tomorrow morning. * Bolus insulin * NovoLog per scale ACHS or Q6hrs while NPO * Goal Range: Low 110 mg/dL - High 140 mg/dL * Correction Factor: 20 mg/dL/unit * Nutritional / Prandial insulin per carb ratio of 1 unit per 5 grams CHO consumed
--- NOTE | 2025-04-04 16:53 | XCELERA ---
[id number]
[2025-04-05 07:24] VITALS: RESP 18; TEMP 98.1
[2025-04-05 07:59] LABS: Hematocrit (blood only) 39.7 % (37.0-47.0); Hemoglobin 12.4 g/dl (12.0-16.0); Mean Corpuscular Hemoglobin 25.3 pg (25.0-34.0); Mean Corpuscular Volume 81.0 fL (80.0-100.0); Platelet Count 278 K/uL (130-400); RDW Standard Deviation 52.2 fL (36.4-46.3); Red Blood Count 4.90 M/uL (4.20-5.40); White Blood Count 8.91 K/ul (4.8-10.8)
[2025-04-05 08:16] LABS: Albumin Level 3.5 gm/dl (3.4-5.0); Anion Gap 10.0 (3-11); Blood Urea Nitrogen 40.0 mg/dl (6-23); Calcium 9.2 mg/dl (8.6-10.3); Carbon Dioxide 29.0 mmol/L (21-32); Chloride 102.0 mmol/L (98-107); Creatinine Clr Calc Pharmacy 23.1 ml/min; Glucose 108.0 mg/dl (70-99(Fasting)); Magnesium 1.8 mg/dl (1.7-2.4); Potassium 3.9 mmol/L (3.5-5.1); Sodium 141.0 mmol/L (136-145)
--- NOTE | 2025-04-05 09:36 | Hospitalist Progress Note ---
Date of Service April 05, 2025 Assessment & Plan (1) Acute hypoxic respiratory failure: Plan: -2nd to CHF exacerbation -continue bumetanide 2 mg IV twice daily (2) Acute exacerbation of chronic heart failure: Plan: -continue bumetanide 2 mg IV twice daily (3) Type 2 myocardial infarction due to heart failure: Plan: -troponin elevated >1000 -on eliquis, plavix, coreg, atorvastatin -echo -cardiology consult appreciated -elevation likely 2nd to CHF, no further intervention needed (4) Chronic renal disease, stage IV: Plan: -Baseline creatinine measure is in the range of 1.5-1.8 (5) Uncontrolled type 2 diabetes mellitus with hyperglycemia, with long-term current use of insulin: Plan: -pharm consult for glycemic managment (6) H/O deep venous thrombosis: Plan: -on eliquis Plan In summary this is an 80-year-old female who presents with acute respiratory failure with hypoxia consequential open acute on chronic exacerbation of heart failure D/C to [facility] once PT/OT evaluation competed. Admission and Anticipated Discharge Date Admission Date: April 03, 2025 Subjective No events overnight. Pt's breathing has improved. Review of Systems Review of Systems: CONST: Negative for fever, body aches and chills. HENT: Negative for neck pain/stiffness, headache, congestion, sore throat, swelling. EYES: Negative for discharge/pain or vision changes. RESP: Negative for cough/hemoptysis and shortness of breath. CV: Negative chest pain, difficulty breathing, palpitations. ABD: Negative pain, nausea, vomiting. : Negative increase frequency, dysuria, blood in urine or stool. MUSC: Negative for muscle aches, edema. SKIN: Negative rash, lesions/sores. NEURO: Negative headache, dizziness, weakness. Physical Exam Physical Exam: GENERAL APPEARANCE NAD, activity normal for age, well developed/ well nourished, no cyanosis, pallor, or diaphoresis. EYES lids/conjunctiva normal. EARS/NOSE/THROAT Mucous membranes moist, nares normal, lips/teeth normal uvula midline without oral pharyngeal erythema, exudate or swelling TMs normal bilaterally. No lymphangitis/lymphedema. HEAD/NECK normocephalic atraumatic, no facial trauma, neck is supple. RESPIRATORY respiratory effort normal, speaks in full sentences, no tripod position, no accessory muscle use. Lungs clear to auscultation without rhonchi, wheezes, rales CARDIAC Regular rate and rhythm, no edema. ABDOMINAL Soft, ND/NT. No evidence of fluid wave. No pulsatile masses on exam, rebound tenderness, Joseph sign or pain over Mcburney's point. MUSCLES/EXTREMITIES No abnormal range of motion, no swelling. SKIN Warm, pink and dry. No rashes, dermatoses, petechiae or lesions. NEUROLOGICAL Speech is clear and appropriate. Normal level of consciousness. Gait and coordination are normal. 5/5 strength in all extremities. PSYCH Normal mood and affect. Judgement/competence is appropriate Results & Data Results & Data Vital Signs (Past 12 Hours) Vital Signs Temp Pulse Pulse Resp BP Pulse Ox O2 Del Method 04/05/25 08:03 60 04/05/25 07:23 36.7 C 73 18 144/85 H 97 Nasal Cannula 04/05/25 01:00 64 04/05/25 00:04 36.6 C 102 H 20 110/56 L 92 Nasal Cannula 04/04/25 22:27 Nasal Cannula O2 Flow Rate 04/05/25 08:03 04/05/25 07:23 2 04/05/25 01:00 04/05/25 00:04 2 04/04/25 22:27 2 PG Care Time/CCT Total # of Minutes Spent Total Time Spent with Patient: Total time spent is greater than 50% in coordination of care (as documented) at patient's floor/unit and/or counseling patient: Coding Level of Care Code 27264 SUB INP/OBS CARE 2/35MIN Diagnoses Acute hypoxic respiratory failure J96.01 Acute exacerbation of chronic heart failure I50.9 Type 2 myocardial infarction due to heart failure I50.9; I21.A1 Chronic renal disease, stage IV N18.4 Uncontrolled type 2 diabetes mellitus with hyperglycemia, with long-term current use of insulin E11.65; Z79.4 H/O deep venous thrombosis Z86.718
--- NOTE | 2025-04-05 11:34 | Discharge Summary ---
Discharge Summary Date of Service April 05, 2025 Principal Dx & Hospital Course #1 = Principal Diagnosis (1) Acute hypoxic respiratory failure: -2nd to CHF exacerbation -continue bumetanide 2 mg IV twice daily (2) Acute exacerbation of chronic heart failure: -continue bumetanide 2 mg IV twice daily (3) Type 2 myocardial infarction due to heart failure: -troponin elevated >1000 -on eliquis, plavix, coreg, atorvastatin -echo -cardiology consult appreciated -elevation likely 2nd to CHF, no further intervention needed (4) Chronic renal disease, stage IV: -Baseline creatinine measure is in the range of 1.5-1.8 (5) Uncontrolled type 2 diabetes mellitus with hyperglycemia, with long-term current use of insulin: -pharm consult for glycemic managment (6) H/O deep venous thrombosis: -on eliquis Plan In summary this is an 80-year-old female who presents with acute respiratory fa ilure with hypoxia consequential open acute on chronic exacerbation of heart failure D/C to [facility] once PT/OT evaluation competed. Admission HPI Per Admitting Provider Ms. Barragan is an 80-year-old female whose active medical conditions include heart failure with improved ejection fraction with ischemic cardiomyopathy, CKD stage IV with uncontrolled type 2 diabetes mellitus with hyperglycemia among other complications, peripheral arterial disease among other chronic medical conditions who presented to [facility] on 04/03 by EMS from [facility] due to progressive shortness of breath, and weight gain. The patient denies any recent medication changes, upper respiratory congestion, cough, fevers, chills. She does state that she still regularly "put salt on everything". She is unable to provide much of a medical history exhibiting poor insight to her chronic medical conditions. Discharge Exam GENERAL APPEARANCE NAD, activity normal for age, well developed/ well nourished, no cyanosis, pallor, or diaphoresis. EYES lids/conjunctiva normal. EARS/NOSE/THROAT Mucous membranes moist, nares normal, lips/teeth normal uvula midline without oral pharyngeal erythema, exudate or swelling TMs normal bilaterally. No lymphangitis/lymphedema. HEAD/NECK normocephalic atraumatic, no facial trauma, neck is supple. RESPIRATORY respiratory effort normal, speaks in full sentences, no tripod position, no accessory muscle use. Lungs clear to auscultation without rhonchi, wheezes, rales CARDIAC Regular rate and rhythm, no edema. ABDOMINAL Soft, ND/NT. No evidence of fluid wave. No pulsatile masses on exam, rebound tenderness, Joseph sign or pain over Mcburney's point. MUSCLES/EXTREMITIES No abnormal range of motion, no swelling. SKIN Warm, pink and dry. No rashes, dermatoses, petechiae or lesions. NEUROLOGICAL Speech is clear and appropriate. Normal level of consciousness. Gait and coordination are normal. 5/5 strength in all extremities. PSYCH Normal mood and affect. Judgement/competence is appropriate Discharge Plan Discharge Items Patient Disposition: Transfer [facility] Reason For Visit: ACUTE HEART FAILURE EXACERBATION Discharge Diagnosis: CHF Condition on Discharge: Serious Activity: Resume your previous activity Non-emergency contact: Primary Care Provider Call non-emergency contact if: you have any medication questions Follow-up/Referrals: Maribel Sanabria MD [Primary Care Provider] - Diet: Regular Addtl Attending Provider Instructions: Follow up with PMD in 1 week Pending Studies at Discharge: No Stand-Alone Forms: [facility] Skilled Items Patient informed of condition?: No DNR: No Discharge Level of Care: Skilled Communicable Disease: No Discharge Prognosis: Stable Lines: None Urinary Catheter: No Medications and DC Order Prescriptions: Continued (DME) FreeStyle Marcelo 3 [place] Misc See Rx Instructions .Route Qty: 1 0RF Rx Instructions: for use with Marcelo 3 sensors (DME) FreeStyle Marcelo 3 Sensor Device See Rx Instructions .Route Qty: 2 11RF Rx Instructions: change every 14 days (DME) insulin syringe-needle U-100 [BD Insulin Syringe] 1 mL 29 gauge x 1/2" syringe See Rx Instructions .Route Qty: 150 5RF Rx Instructions: use 5 syringes daily Entresto 24-26 mg tablet 1 tab PO BID Qty: 90 3RF Hold Instructions: Provider's Order acetaminophen 500 mg tablet 1,000 mg PO TID MDD 3g/24hr PRN (Reason: Temp >100/Pain) Qty: 180 1RF apixaban 5 mg tablet 5 mg PO BID Qty: 180 3RF Hold Instructions: hold per discharge instructions carvedilol [Coreg] 3.125 mg tablet 3.125 mg PO BIDM Qty: 180 3RF Rx Instructions: must administer with a meal/food clopidogrel 75 mg tablet 75 mg PO QAM Qty: 90 3RF pantoprazole [Protonix] 40 mg tablet,delayed release (DR/EC) 40 mg PO DAILY Qty: 90 3RF (DME) pen needle, diabetic [BD Ultra-Fine Mini Pen Needle] 31 gauge x 3/16" needle See Rx Instructions .Route Qty: 400 3RF Rx Instructions: Inject insulin 4 times daily insulin degludec [Tresiba FlexTouch U-100] 100 unit/mL (3 mL) insulin pen 36 unit subcut DAILY Qty: 15 0RF atorvastatin 40 mg tablet 40 mg PO QPM Qty: 90 3RF lidocaine 4 % adhesive patch,medicated 1 patch TOPICAL DAILY PRN (Reason: Back Upper thigh Pain) Qty: 100 0RF sennosides-docusate sodium [Senokot-S] 8.6-50 mg tablet 1 tab-cap PO DAILY PRN (Reason: constipation) Qty: 30 5RF (DME) lancets [Accu-Chek Softclix Lancets] Misc See Rx Instructions .ROUTE .MEDSUPPLY Rx Instructions: Test blood sugar once daily PRN Jardiance 10 mg tablet 10 mg PO QAM loperamide [Imodium A-D] 2 mg tablet 2 mg PO Q6H PRN (Reason: Diarrhea) omega-3 fatty acids 1,000 mg Capsule 1,000 mg PO QAM PreserVision AREDS 2,148 mcg-113 mg-45 mg-17.4mg tablet 1 tab PO QAM acetaminophen 500 mg Tablet 1,000 mg PO TID glucose 4 gram Tablet,Chewable 0 g PO DAILY PRN (Reason: BG<70) Patient Comments: 04/03- Not on faxed list unable to verify ergocalciferol (vitamin D2) [Vitamin D2] 1,250 mcg (50,000 unit) Capsule 0 mcg PO WK Patient Comments: 04/03- Not on faxed list unable to verify Rx Instructions: Wednesdays tramadol 50 mg Tablet 50 mg PO TID PRN (Reason: Pain) magnesium hydroxide [Milk of Magnesia] 400 mg/5 mL Suspension 2,400 mg PO DAILY PRN (Reason: Constipation) Rx Instructions: Give if 3 days no BM nitroglycerin 0.4 mg Tablet, Sublingual 4 mg sublingual Q5M PRN (Reason: Chest Pain) polyethylene glycol 3350 [Miralax] 17 gram/dose Powder 17 g PO DAILY PRN (Reason: Constipation) diclofenac sodium 1 % Gel 4 g TOPICAL BID menthol-zinc oxide [Calmoseptine] 0.44-20.6 % Ointment 1 applic TOPICAL TID PRN (Reason: Rash/Skin Protection) furosemide 40 mg tablet 40 mg PO QAM Qty: 45 3RF insulin aspart U-100 [Novolog FlexPen U-100 Insulin] 100 unit/mL (3 mL) insulin pen 0 unit subcut TID Patient Comments: 04/03- Not on faxed list unable to verify. Original: 12 u subcut TID Rx Instructions: Immediately before meals-Hold if not eating Discharge Orders: Discharge Order (Routine); Ordered 04/05/25 Ordered By: Chris Sharma Admission Data Admit Date/Time: 04/03/25 08:37 Attending Provider: Chris Sharma Admit Provider: Mike Camejo Primary Care Provider: Maribel Sanabria V. Other Providers: Eladio Xie; Gibran Ramon; Silvio Valentine; Saqib Powell; Charlie Angel Jr; Zia Cherry; Nicole Donahue; Moira Catalan; Dwayne Sifuentes; Dwayne Mukherjee; Shweta Ortega; Amos Rodríguez; Mavis Paul; Amos Davis; Alvarez Brizuela; Tristan Lambert; Harish Graham; Bayron Bonner; Abundio Buck; Radha Kurtz; Maria Elena Mccoy Hospital Stay Data Consultations 04/03/25 15:32 Consult Cardiology Routine Pending Results Patient Have Any Pending Studies at Discharge: No Discharge Instructions Given to Patient (Per Discharging Provider) Follow up with PMD in 1 week Total Time Total Time Spent Total Time Spent (In Minutes): 50 Coding Level of Care Code 08733 INP/OBS DISCH >30 MIN Diagnoses Acute hypoxic respiratory failure J96.01 Acute exacerbation of chronic heart failure I50.9 Type 2 myocardial infarction due to heart failure I50.9; I21.A1 Chronic renal disease, stage IV N18.4 Uncontrolled type 2 diabetes mellitus with hyperglycemia, with long-term current use of insulin E11.65; Z79.4 H/O deep venous thrombosis Z86.718
[2025-04-05 16:18] VITALS: BP 117/79; PULSE 106; O2SAT 94
--- NOTE | 2025-04-06 15:28 | Electrocardiogram Report ---
Test Reason : Blood Pressure : */* mmHG Vent. Rate : 86 BPM Atrial Rate : 86 BPM P-R Int : 160 ms QRS Dur : 92 ms QT Int : 388 ms P-R-T Axes : 44 16 132 degrees QTcB Int : 464 ms Sinus rhythm with frequent Premature ventricular complexes Anteroseptal infarct (cited on or before 26-Aug-2016) Marked ST abnormality, possible lateral subendocardial injury Abnormal ECG When compared with ECG of 30-Jan-2025 06:22, Criteria for Inferior infarct are no longer Present ST more depressed Lateral leads Confirmed by Saqib Powell ([id number]) on 04/06/2025 3:27:41 PM Referred By: REFERRED SELF Confirmed By: Saqib Powell
== END 2025-04-05 17:31 | DRG 280 ==
LOC: ED 07:08 → 2W 08:37 → SUATTDRO 08:37 → 2W 10:35